=== PATIENT | female | born 1945 | race Caucasian/White ===

== ENCOUNTER 2020-12-17 11:30 | Outpatient (REF) | payer MEDICARE, BC, SELFPAY ==
[2020-12-17 13:56] LABS: MANUAL DIFF FLAG NO
[2020-12-17 14:08] LABS: Basophils Absolute Auto 0.1 X10*3/uL (0.0-0.2); Basophils Percent Auto 1.3 % (0-2); Eosinophils Absolute Auto 0.3 X10*3/uL (0.0-0.4); Eosinophils Percent Auto 6.9 % (0-4); Hemoglobin 12.2 g/dl (12.0-16.0); Imm Gran Abs Auto 0.01 X10*3/uL (0.00-0.03); Imm Gran Pct Auto 0.3 % (0.0-0.4); Lymphocytes Percent Auto 26.6 % (20-40); Mean Corpuscular Hemoglobin 36.4 pg (27.0-33.0); Mean Platelet Volume 9.6 fL (9.4-12.3); Monocytes Absolute Auto 0.4 X10*3/uL (0.1-1.2); Neutrophils Absolute Auto 2.2 X10*3/uL (2.0-8.3); Neutrophils Percent Auto 55.9 % (45-73); Platelet Count 245 X10*3/uL (160-400); Red Blood Count 3.35 X10*6/uL (4.20-5.50); Red Cell Distribution Width 12.5 % (11.0-16.0); White Blood Count 3.9 X10*3/uL (4.8-10.8)
[2020-12-17 14:15] LABS: Glucose Urine UA NEG (NEG); Leukocyte Esterase Urine 1+ (NEG); Nitrite Urine NEG (NEG); PH 5.5 (5.0-8.0); Specific Gravity - Urine >= 1.030 (1.005-1.025); Urine Blood 1+ (NEG); Urine Ketones NEG (NEG); Urine Protein NEG (NEG-TRACE)
[2020-12-17 14:21] LABS: Appearance Urine HAZY; Color Urine YELLOW
[2020-12-17 14:24] LABS: Mean Corpuscular Volume 110.4 fL (80-98)
[2020-12-17 14:36] LABS: Bacteria Urine TRACE /LPF; Mucus Urine 1+ /LPF; RBC Urine 0-2 /HPF (0); Renal Epithelial Cells Urine 1+ /LPF; Squamous Epithelial Cell Urine 1+ /LPF
[2020-12-17 14:56] LABS: B Type Natriuretic Peptide 239 pg/mL (<100)
[2020-12-17 15:10] LABS: Alanine Aminotransferase 11 U/L (0-31); Albumin Level 3.8 g/dL (3.5-5.0); Alkaline Phosphatase 85 U/L (39-117); Anion Gap 16 (12-20); Aspartate Amino Transferase 15 U/L (5-31); Bilirubin Total 0.7 mg/dL (0.0-1.0); Blood Urea Nitrogen 17 mg/dL (9-16); Calcium 8.8 mg/dL (8.4-10.2); Carbon Dioxide 22 mmol/L (22-29); Chloride 107 mmol/L (96-108); Cholesterol 117 mg/dL; Estimated Glomerular Filt Rate 51; Glucose Fasting 100 mg/dL (60-99); HDL Cholesterol 22 mg/dL; LDL Cholesterol Calculated 83 mg/dl; Potassium 3.8 mmol/L (3.3-5.1); Sodium 141 mmol/L (135-145); Total Protein 6.4 g/dL (6.5-8.0); Triglycerides 61 mg/dL
[2020-12-17 15:16] LABS: Thyroid Stimulating Hormone 3.15 uIU/mL (0.32-4.0); Vitamin D 25-OH Total 41.3 ng/mL (>30)
== END 2020-12-17 11:31 | disposition home or self-care (01) ==
LOC: HO.HMGCLDS 11:30
PROVIDERS: PCP Internal Medicine; Visit Provider Internal Medicine
DX: I11.0 Hypertensive heart disease with heart failure (principal); I50.30 Unspecified diastolic (congestive) heart failure; E78.00 Pure hypercholesterolemia, unspecified; E55.9 Vitamin D deficiency, unspecified; R31.29 Other microscopic hematuria
CPT/HCPCS: 36415; 80053; 80061; 81001; 81003; 82306; 83880; 84443; 85025

== ENCOUNTER → 2020-12-19 13:56 | Outpatient (BNVA) | payer MEDICARE, BC, SELFPAY | PROVIDERS: PCP Internal Medicine; Visit Provider Internal Medicine Cardiovascular Disease | DX: I48.0 Paroxysmal atrial fibrillation (principal); I50.30 Unspecified diastolic (congestive) heart failure | CPT/HCPCS: 93005; 99212 ==

== ENCOUNTER 2021-06-30 14:55 | Outpatient (REF) | payer MEDICARE, BC, SELFPAY ==
[2021-06-30 16:24] LABS: MANUAL DIFF FLAG NO
[2021-06-30 16:30] LABS: Appearance Urine CLEAR; Color Urine YELLOW; Glucose Urine UA NEG (NEG); Leukocyte Esterase Urine 1+ (NEG); Nitrite Urine NEG (NEG); PH 5.5 (5.0-8.0); Urine Blood TRACE (NEG); Urine Ketones NEG (NEG); Urine Protein NEG (NEG-TRACE)
[2021-06-30 16:34] LABS: Basophils Absolute Auto 0.1 X10*3/uL (0.0-0.2); Basophils Percent Auto 1.1 % (0-2); Eosinophils Absolute Auto 0.4 X10*3/uL (0.0-0.4); Eosinophils Percent Auto 7.6 % (0-4); Hematocrit 37.6 % (37-47); Hemoglobin 12.5 g/dl (12.0-16.0); Imm Gran Abs Auto 0.03 X10*3/uL (0.00-0.03); Imm Gran Pct Auto 0.5 % (0.0-0.4); Lymphocytes Percent Auto 17.8 % (20-40); Mean Corpuscular HGB Conc 33.2 g/dl (31.0-35.0); Mean Corpuscular Hemoglobin 36.3 pg (27.0-33.0); Mean Corpuscular Volume 109.3 fL (80-98); Mean Platelet Volume 9.1 fL (9.4-12.3); Monocytes Absolute Auto 0.6 X10*3/uL (0.1-1.2); Monocytes Percent Auto 11.5 % (2-11); Neutrophils Absolute Auto 3.4 X10*3/uL (2.0-8.3); Neutrophils Percent Auto 61.5 % (45-73); Platelet Count 246 X10*3/uL (160-400); Red Blood Count 3.44 X10*6/uL (4.20-5.50); Red Cell Distribution Width 13.3 % (11.0-16.0); White Blood Count 5.6 X10*3/uL (4.8-10.8)
[2021-06-30 16:51] LABS: Alanine Aminotransferase 11 U/L (0-31); Albumin Level 3.9 g/dL (3.5-5.0); Alkaline Phosphatase 80 U/L (39-117); Anion Gap 13 (12-20); Aspartate Amino Transferase 16 U/L (5-31); Bilirubin Total 0.7 mg/dL (0.0-1.0); Blood Urea Nitrogen 14 mg/dL (9-16); Calcium 8.9 mg/dL (8.4-10.2); Carbon Dioxide 22 mmol/L (22-29); Chloride 107 mmol/L (96-108); Estimated Glomerular Filt Rate 49; Glucose Random 94 mg/dL (60-115); Sodium 138 mmol/L (135-145); Total Protein 6.5 g/dL (6.5-8.0)
[2021-06-30 16:53] LABS: B Type Natriuretic Peptide 331 pg/mL (<100)
[2021-06-30 16:54] LABS: Bacteria Urine TRACE /LPF; Hyaline Casts Urine 0-2 /LPF; Squamous Epithelial Cell Urine TRACE /LPF
== END 2021-06-30 14:56 | disposition home or self-care (01) ==
LOC: HO.HMGCLDS 14:55
PROVIDERS: PCP Internal Medicine; Visit Provider Internal Medicine
DX: E78.00 Pure hypercholesterolemia, unspecified (principal); R31.29 Other microscopic hematuria; I11.0 Hypertensive heart disease with heart failure; I50.30 Unspecified diastolic (congestive) heart failure
CPT/HCPCS: 36415; 80053; 81001; 83880; 85025

== ENCOUNTER → 2021-08-25 13:05 | Outpatient (BNVA) | payer MEDICARE, BC, SELFPAY | PROVIDERS: PCP Internal Medicine; Visit Provider Internal Medicine Cardiovascular Disease | DX: I50.30 Unspecified diastolic (congestive) heart failure (principal); I48.0 Paroxysmal atrial fibrillation | CPT/HCPCS: 99212 ==

== ENCOUNTER → 2021-10-09 12:50 | Outpatient (REF) | payer MEDICARE, BC, SELFPAY ==
--- NOTE | 2021-10-09 12:54 | CA_ITS ---
Transthoracic Echocardiogram Patient (Last, First, Middle): Iva Lopez M Gender: Female Date of : 1945 Age: 76 Procedure Date: 10/09/2021 Procedure Type: Transthoracic Echocardiogram Location: OP Height: 165.1 cm Weight: 97.52 kg BSA: 2.04 m2 Heart Rate: bpm BP: 130 / 80 mmHg Furnace Maintenance: AARON Referring MD: Ezekiel Garcia MD Symptoms: I50.30 - Unspecified diastolic (congestive) heart failure Study Quality: Fair ECG Rhythm: Sinus Conclusions: - The left ventricular systolic function is normal. The calculated ejection fraction is 64% by biplane method. - Evidence suggests grade II (moderate) diastolic dysfunction. - There is mild aortic valve regurgitation. - There is moderate posterior mitral annular calcification. There is mild mitral valve regurgitation. Findings Left Ventricle Normal left ventricular cavity size. There is mildly increased left ventricular wall thickness. The left ventricular systolic function is normal. The calculated ejection fraction is 64% by biplane method. There is no evidence of regional wall motion abnormalities. E/E prime ratio is between 8 and 15 consistent with indeterminate filling pressures. Evidence suggests grade II (moderate) diastolic dysfunction. Right Ventricle Normal right ventricular cavity size and systolic function. Atria The left atrium is moderately dilated. The right atrium is normal in size. Aortic Valve There is a normal trileaflet aortic valve. There is no aortic valve stenosis. The mean gradient is 4 mmHg. There is mild aortic valve regurgitation. Mitral Valve There is moderate posterior mitral annular calcification. There is mild mitral valve regurgitation. There is no mitral valve stenosis. Pulmonic Valve The pulmonic valve was not well visualized. Tricuspid Valve Normal tricuspid valve structure. There is mild tricuspid valve regurgitation. The right ventricular systolic pressure is 35 mmHg. Mild pulmonary hypertension is present. Great Vessels The aortic annulus, sinuses of valsalva, and asc aorta are normal in size. Small plaque is seen in the sino tubular ridge. Venous The inferior vena cava is normal in size and collapses greater than 50% with inspiration. Pericardium/Pleural There is no evidence of pericardial effusion. Prior Study Comparison Changes noted compared to prior study dated: 07/24/2019. Increase in RVSP. Measurements 2D Linear Measurements IVSd: 1.30 0.6-0.9/0.6-1.0 cm LVIDd: 4.89 3.9-5.3/4.2-5.9 cm LVIDd Index: 2.40 2.4-3.2/2.2-3.1 cm/m2 LVIDs: 3.04 2.0-3.6 cm LVPWd: 1.10 0.7-1.1 cm Ao Root: 3.30 2.1-3.5 cm LA Diam: 4.50 2.7-3.8/3.0-4.0 cm LAIDs Index: 2.21 1.5-2.3 cm/m2 LV Mass: 281.31 67-162/88-224 g LV Mass Index: 137.90 43-95/49-115 g/m2 LVOT Diam: 1.90 3.0+(-)1.3 cm 2D Systolic Function EF 4C: 64.90 >55% EF 2C: 63.00 >55% EF BiP: 64.40 >55% Mitral Valve MV Pk E: 1.07 MV PK A: 0.55 MV Decel Time: 174.00 E/A: 2.00 E'Lateral: 8.81 E'Medial: 6.74 E/E' Med: 15.90 E/E' Lat: 12.10 PHT: 51.00 MVA PHT: 4.31 Decel [place]: 6.13 Aortic Valve AoV Pk Jesu: 1.27 AoV Mn Jesu: 0.91 AoV VTI: 0.32 AoV Pk Grad: 6.00 Aov Mn Grad: 4.00 ALEKSANDAR Cont.VTI: 2.53 AI Pk Jesu: 4.06 AI [place]: 2.28 LVOT LVOT Pk Jesu: 1.15 LVOT Mn Jesu: 0.81 LVOT VTI: 0.28 LVOT Pk Grad: 5.00 LVOT Mn Grad: 3.00 LVOT Diam: 1.90 LVOT Area: 2.84 Diastolic Function MV Pk E: 1.07 MV Pk A: 0.55 E/A: 2.00 E'Medial: 6.74 E/E' Med: 15.90 E' Laterial: 8.81 E/E' Lat: 12.10 Right Ventricle TAPSE (mm): 26.20 TVS' Jesu: 13.70 Tricuspid Valve TR Pk Jesu: 2.61 TR Pk Grad: 27.00 RA Press: 8.00 RVSP: 35.00 Great Vessels Aorta Ao Root-2D: 3.30 2.0-3.7 cm Ao Asc: 3.40 2.1-3.4 cm Ao Arch: 3.00 Updated in Other Vendor System with Status of Final Rei Lozoya MD electronically signed on 10/11/2021 8:51:52 AM with status of Final
== END ==
LOC: HO.CARD 12:50
PROVIDERS: PCP Internal Medicine; Visit Provider Internal Medicine Cardiovascular Disease
DX: I50.30 Unspecified diastolic (congestive) heart failure (principal)
CPT/HCPCS: 93306

== ENCOUNTER 2021-12-26 13:08 | Outpatient (REF) | payer MEDICARE, BC, SELFPAY ==
[2021-12-26 13:44] LABS: MANUAL DIFF FLAG NO
[2021-12-26 13:52] LABS: Basophils Percent Auto 0.8 % (0-2); Eosinophils Absolute Auto 0.4 X10*3/uL (0.0-0.4); Eosinophils Percent Auto 8.4 % (0-4); Hemoglobin 12.5 g/dl (12.0-16.0); Imm Gran Abs Auto 0.02 X10*3/uL (0.00-0.03); Imm Gran Pct Auto 0.4 % (0.0-0.4); Mean Corpuscular HGB Conc 32.1 g/dl (31.0-35.0); Mean Corpuscular Hemoglobin 36.2 pg (27.0-33.0); Monocytes Absolute Auto 0.4 X10*3/uL (0.1-1.2); Neutrophils Absolute Auto 2.9 x10*3/uL (2.0-8.3); Neutrophils Percent Auto 60.4 % (45-73); Platelet Count 265 X10*3/uL (160-400); Red Blood Count 3.45 X10*6/uL (4.20-5.50); Red Cell Distribution Width 12.4 % (11.0-16.0); White Blood Count 4.8 X10*3/uL (4.8-10.8)
[2021-12-26 14:25] LABS: Carbon Dioxide 25 mmol/L (22-29)
[2021-12-26 14:32] LABS: Vitamin D 25-OH Total 41.8 ng/mL (>30)
[2021-12-26 14:39] LABS: Alanine Aminotransferase 15 U/L (0-31); Albumin Level 3.8 g/dL (3.5-5.0); Alkaline Phosphatase 84 U/L (39-117); Anion Gap 10 (12-20); Aspartate Amino Transferase 16 U/L (5-31); Bilirubin Total 0.6 mg/dL (0.0-1.0); Blood Urea Nitrogen 20 mg/dL (9-16); Chloride 109 mmol/L (96-108); Cholesterol 116 mg/dL; Estimated Glomerular Filt Rate 50; Glucose Fasting 96 mg/dL (60-99); HDL Cholesterol 22 mg/dL; LDL Cholesterol Calculated 82 mg/dl; Sodium 140 mmol/L (135-145); Total Protein 6.6 g/dL (6.5-8.0); Triglycerides 64 mg/dL
== END 2021-12-26 13:09 | disposition home or self-care (01) ==
LOC: HO.HMGCLDS 13:08
PROVIDERS: PCP Internal Medicine; Visit Provider Internal Medicine Cardiovascular Disease
DX: E78.00 Pure hypercholesterolemia, unspecified (principal); I11.0 Hypertensive heart disease with heart failure; I50.30 Unspecified diastolic (congestive) heart failure; E55.9 Vitamin D deficiency, unspecified
CPT/HCPCS: 36415; 80048; 80053; 80061; 82306; 84443; 85025

== ENCOUNTER 2022-01-19 13:52 | Outpatient (REF) | payer MEDICARE, BC, SELFPAY ==
[2022-01-19 16:34] LABS: MANUAL DIFF FLAG NO
[2022-01-19 16:42] LABS: Basophils Percent Auto 0.4 % (0-2); Eosinophils Absolute Auto 0.4 X10*3/uL (0.0-0.4); Eosinophils Percent Auto 5.1 % (0-4); Hematocrit 36.4 % (37.0-47.0); Imm Gran Pct Auto 1.3 % (0.0-0.4); Lymphocytes Absolute Auto 1.4 X10*3/uL (1.2-4.9); Lymphocytes Percent Auto 17.4 % (20-40); Mean Corpuscular Hemoglobin 35.9 pg (27.0-33.0); Mean Platelet Volume 9.1 fL (9.4-12.3); Monocytes Absolute Auto 0.6 X10*3/uL (0.1-1.2); Neutrophils Absolute Auto 5.5 x10*3/uL (2.0-8.3); Neutrophils Percent Auto 68.8 % (45-73); Platelet Count 372 X10*3/uL (160-400); Red Blood Count 3.34 X10*6/uL (4.20-5.50); Red Cell Distribution Width 12.1 % (11.0-16.0)
[2022-01-19 16:53] LABS: Alanine Aminotransferase 14 U/L (0-31); Albumin Level 3.7 g/dL (3.5-5.0); Alkaline Phosphatase 133 U/L (39-117); Anion Gap 13 (12-20); Aspartate Amino Transferase 15 U/L (5-31); Bilirubin Total 0.4 mg/dL (0.0-1.0); Blood Urea Nitrogen 18 mg/dL (9-16); Calcium 8.7 mg/dL (8.4-10.2); Carbon Dioxide 26 mmol/L (22-29); Chloride 102 mmol/L (96-108); Estimated Glomerular Filt Rate 45; Glucose Random 116 mg/dL (60-115); Potassium 3.6 mmol/L (3.3-5.1); Sodium 137 mmol/L (135-145); Total Protein 6.9 g/dL (6.5-8.0)
== END 2022-01-19 13:53 | disposition home or self-care (01) ==
LOC: HO.HMGCLDS 13:52
PROVIDERS: PCP Internal Medicine; Visit Provider Internal Medicine
DX: K27.9 Peptic ulcer, site unspecified, unspecified as acute or chronic, without hemorrhage or perforation (principal)
CPT/HCPCS: 36415; 80053; 85025

== ENCOUNTER → 2022-02-03 14:23 | Outpatient (BNVA) | payer MEDICARE, BC, SELFPAY | PROVIDERS: PCP Internal Medicine; Visit Provider Internal Medicine | DX: G47.33 Obstructive sleep apnea (adult) (pediatric) (principal); I48.0 Paroxysmal atrial fibrillation; I11.0 Hypertensive heart disease with heart failure; I50.30 Unspecified diastolic (congestive) heart failure | CPT/HCPCS: 99202 ==

== ENCOUNTER 2022-02-13 12:40 | Outpatient (REF) | payer MEDICARE, BC, SELFPAY ==
[2022-02-13 13:56] LABS: MANUAL DIFF FLAG NO
[2022-02-13 14:05] LABS: Basophils Absolute Auto 0.1 X10*3/uL (0.0-0.2); Basophils Percent Auto 0.8 % (0-2); Eosinophils Absolute Auto 0.5 X10*3/uL (0.0-0.4); Eosinophils Percent Auto 8.3 % (0-4); Hemoglobin 11.8 g/dl (12.0-16.0); Imm Gran Abs Auto 0.02 X10*3/uL (0.00-0.03); Imm Gran Pct Auto 0.3 % (0.0-0.4); Lymphocytes Absolute Auto 1.1 X10*3/uL (1.2-4.9); Lymphocytes Percent Auto 18.9 % (20-40); Mean Corpuscular HGB Conc 31.9 g/dl (31.0-35.0); Mean Corpuscular Hemoglobin 34.5 pg (27.0-33.0); Mean Corpuscular Volume 108.2 fL (80.0-98.0); Mean Platelet Volume 9.3 fL (9.4-12.3); Monocytes Absolute Auto 0.5 X10*3/uL (0.1-1.2); Monocytes Percent Auto 8.8 % (2-11); Neutrophils Absolute Auto 3.8 x10*3/uL (2.0-8.3); Neutrophils Percent Auto 62.9 % (45-73); Platelet Count 279 X10*3/uL (160-400); Red Blood Count 3.42 X10*6/uL (4.20-5.50)
[2022-02-13 14:24] LABS: Alanine Aminotransferase 11 U/L (0-31); Albumin Level 3.8 g/dL (3.5-5.0); Alkaline Phosphatase 83 U/L (39-117); Anion Gap 12 (12-20); Aspartate Amino Transferase 15 U/L (5-31); Bilirubin Total 0.5 mg/dL (0.0-1.0); Blood Urea Nitrogen 28 mg/dL (9-16); Carbon Dioxide 26 mmol/L (22-29); Chloride 104 mmol/L (96-108); Estimated Glomerular Filt Rate 44; Glucose Random 103 mg/dL (60-115); Sodium 138 mmol/L (135-145); Total Protein 6.7 g/dL (6.5-8.0)
== END 2022-02-13 12:41 | disposition home or self-care (01) ==
LOC: HO.HMGCLDS 12:40
PROVIDERS: PCP Internal Medicine; Visit Provider Internal Medicine
DX: I10 Essential (primary) hypertension (principal)
CPT/HCPCS: 36415; 80053; 85025

== ENCOUNTER → 2022-02-19 12:33 | Outpatient (BNVA) | payer MEDICARE, BC, SELFPAY | PROVIDERS: PCP Internal Medicine; Referring Provider Internal Medicine; Visit Provider Internal Medicine Cardiovascular Disease | DX: I50.30 Unspecified diastolic (congestive) heart failure (principal); I48.0 Paroxysmal atrial fibrillation; Z79.01 Long term (current) use of anticoagulants; Z79.899 Other long term (current) drug therapy | CPT/HCPCS: 93005; 99212 ==

== ENCOUNTER → 2022-02-25 14:00 | Outpatient (REF) | payer MEDICARE, BC, SELFPAY | LOC: HO.SL 14:00 | PROVIDERS: PCP Internal Medicine; Visit Provider Internal Medicine | DX: G47.33 Obstructive sleep apnea (adult) (pediatric) (principal); E66.01 Morbid (severe) obesity due to excess calories; I10 Essential (primary) hypertension; I50.30 Unspecified diastolic (congestive) heart failure; I48.0 Paroxysmal atrial fibrillation | CPT/HCPCS: 95806 ==

== ENCOUNTER 2022-04-22 11:37 | Outpatient (REF) | payer MEDICARE, BC, SELFPAY ==
[2022-04-22 13:38] LABS: MANUAL DIFF FLAG NO
[2022-04-22 13:43] LABS: Basophils Absolute Auto 0.1 X10*3/uL (0.0-0.2); Eosinophils Absolute Auto 0.5 X10*3/uL (0.0-0.4); Eosinophils Percent Auto 8.3 % (0-4); Hematocrit 33.7 % (37.0-47.0); Hemoglobin 10.7 g/dl (12.0-16.0); Imm Gran Abs Auto 0.02 X10*3/uL (0.00-0.03); Imm Gran Pct Auto 0.3 % (0.0-0.4); Lymphocytes Percent Auto 17.1 % (20-40); Mean Corpuscular HGB Conc 31.8 g/dl (31.0-35.0); Mean Corpuscular Hemoglobin 32.8 pg (27.0-33.0); Mean Corpuscular Volume 103.4 fL (80.0-98.0); Mean Platelet Volume 9.2 fL (9.4-12.3); Monocytes Absolute Auto 0.6 X10*3/uL (0.1-1.2); Monocytes Percent Auto 10.1 % (2-11); Neutrophils Absolute Auto 3.8 x10*3/uL (2.0-8.3); Neutrophils Percent Auto 63.2 % (45-73); Platelet Count 329 X10*3/uL (160-400); Red Blood Count 3.26 X10*6/uL (4.20-5.50); Red Cell Distribution Width 13.2 % (11.0-16.0)
[2022-04-22 14:00] LABS: Alanine Aminotransferase 9 U/L (0-31); Albumin Level 3.9 g/dL (3.5-5.0); Alkaline Phosphatase 80 U/L (39-117); Anion Gap 15 (12-20); Aspartate Amino Transferase 14 U/L (5-31); Bilirubin Total 0.3 mg/dL (0.0-1.0); Blood Urea Nitrogen 27 mg/dL (9-16); Calcium 9.2 mg/dL (8.4-10.2); Carbon Dioxide 22 mmol/L (22-29); Chloride 108 mmol/L (96-108); Cholesterol 122 mg/dL; Estimated Glomerular Filt Rate 41; Glucose Fasting 107 mg/dL (60-99); HDL Cholesterol 24 mg/dL; LDL Cholesterol Calculated 83 mg/dl; Potassium 3.9 mmol/L (3.3-5.1); Sodium 141 mmol/L (135-145); Total Protein 6.9 g/dL (6.5-8.0); Triglycerides 76 mg/dL
[2022-04-22 14:18] LABS: Thyroid Stimulating Hormone 4.18 uIU/mL (0.32-4.0); Vitamin D 25-OH Total 50.2 ng/mL (>30)
== END 2022-04-22 11:38 | disposition home or self-care (01) ==
LOC: HO.HMGCLDS 11:37
PROVIDERS: Visit Provider Internal Medicine
DX: I11.0 Hypertensive heart disease with heart failure (principal); E78.00 Pure hypercholesterolemia, unspecified; E55.9 Vitamin D deficiency, unspecified; I50.30 Unspecified diastolic (congestive) heart failure
CPT/HCPCS: 36415; 80053; 80061; 82306; 84443; 85025

== ENCOUNTER → 2022-07-27 15:02 | Outpatient (BNVA) | payer MEDICARE, BC, SELFPAY | PROVIDERS: PCP Internal Medicine; Visit Provider Internal Medicine | DX: G47.33 Obstructive sleep apnea (adult) (pediatric) (principal); E66.01 Morbid (severe) obesity due to excess calories; Z68.42 Body mass index [BMI] 45.0-49.9, adult | CPT/HCPCS: 99212 ==

== ENCOUNTER → 2023-01-18 14:48 | Outpatient (BNVA) | payer MEDICARE, BC, SELFPAY | PROVIDERS: PCP Internal Medicine; Visit Provider Internal Medicine | DX: G47.33 Obstructive sleep apnea (adult) (pediatric) (principal); I48.0 Paroxysmal atrial fibrillation; I11.0 Hypertensive heart disease with heart failure; I50.30 Unspecified diastolic (congestive) heart failure; E66.01 Morbid (severe) obesity due to excess calories; Z68.42 Body mass index [BMI] 45.0-49.9, adult; Z99.89 Dependence on other enabling machines and devices; Z98.890 Other specified postprocedural states | CPT/HCPCS: 99212 ==

== ENCOUNTER 2023-04-27 17:09 | Inpatient (IN) | payer MEDICARE, BC, SELFPAY ==
--- NOTE | ~2023-04-27 | US_ITS ---
EXAMINATION: US PELVIS CLINICAL INFORMATION: Vaginal bleeding. Postmenopausal. COMPARISON: CT abdomen/pelvis 07/31/2014. TECHNIQUE: Ultrasound of the pelvis is performed using both transabdominal and transvaginal transducers along with Doppler. Transvaginal imaging is performed due to inadequate visualization transabdominally. FINDINGS: Very limited examination secondary to patient body habitus and shadowing from overlying bowel gas. The uterus is anteverted and measures 9.5 x 3.3 x 5.4 cm. Scattered hyperechoic foci are noted in the myometrium which are nonspecific but overall favored to represent calcifications, possibly sequela of degenerative fibroids. The endometrium is suboptimally delineated and not well seen in this examination. The ovaries are not visualized. No discrete adnexal mass. No large amount of free fluid. US/US pelvic and transvaginal IMPRESSION: Very limited examination secondary to patient body habitus and shadowing from overlying bowel gas. Further imaging with CT or MRI could be obtained as clinically indicated. Endometrium not well seen. Ovaries are not visualized. No discrete adnexal mass. No large volume of free fluid.
[2023-04-27 17:20] VITALS: BP 111/49; BP 156/69; PULSE 72; PULSE 75; RESP 20; TEMP 36.8; O2SAT 95; O2SAT 99; BMI 52.1
--- NOTE | 2023-04-27 18:02 | ED.FEMALEGU ---
HPI - Female Genitourinary General Chief complaint: Vaginal Bleeding Stated complaint: Vaginal bleed Time Seen by Provider: 04/27/23 17:39 Source: patient Mode of arrival: ambulatory Limitations: no limitations History of Present Illness HPI Narrative: Patient history of atrial fibrillation on Xarelto been having vaginal bleeding for the past 6 weeks off and on blood for 4 weeks.stopped for 1 week and started again for last 10 days passing clots and blood tinged urine no melena no abdominal pain feel dizzy lightheaded and short of breath on ambulation no chest pain Related Data Home Medications Medication Instructions Recorded Confirmed atenolol 50 mg tablet 50 mg PO DAILY 12/19/20 04/27/23 atorvastatin 40 mg tablet 40 mg PO DAILY 12/19/20 04/27/23 cholecalciferol (vitamin D3) 50 50 mcg PO DAILY 12/19/20 04/27/23 mcg (2,000 unit) capsule escitalopram oxalate 20 mg tablet 20 mg PO DAILY 12/19/20 04/27/23 megestrol 40 mg tablet 40 mg PO DAILY 12/19/20 04/27/23 thiamine HCl (vitamin B1) 100 mg 100 mg PO DAILY 12/19/20 04/27/23 tablet omeprazole 40 mg capsule,delayed 40 mg PO DAILY 02/19/22 04/27/23 release gabapentin 300 mg capsule 300 mg PO BID 01/18/23 04/27/23 acetaminophen 650 mg 1,300 mg PO Q8H 04/27/23 04/27/23 tablet,extended release (Tylenol 8 Hour) bumetanide 1 mg tablet 1 mg PO DAILY 04/27/23 04/27/23 Previous Rx's Medication Instructions Recorded rivaroxaban 20 mg tablet (Xarelto) 20 mg PO QPM #90 tabs 07/07/22 Allergies Allergy/AdvReac Type Severity Reaction Status Date / Time amoxicillin [AMOXICILLIN] Allergy Unknown UNKNOWN Unverified 01/18/23 15:56 flecainide [FLECAINIDE] Allergy Unknown SEVERE Unverified 01/18/23 15:56 CHEST PAIN Sulfa (Sulfonamide Allergy Unknown UNKNOWN Unverified 01/18/23 15:56 Antibiotics) [SULFA (SULFONAMIDE ANTIBIOTICS)] Review of Systems Review of Systems: Yes all other systems are reviewed and are negative PMFSH Past Medical History Medical History (HFpEF) heart failure with preserved ejection fraction Chronic a-fib HTN (hypertension) Morbid obesity JANI (obstructive sleep apnea) Paroxysmal atrial fibrillation Surgical History History of cardioversion History of hip surgery Hx of cardiac cath Family History Family History Father CVD (cardiovascular disease) Mother CHF (congestive heart failure) Social History Social History Alcohol intake: former Patient Tobacco Use Status: Former Tobacco user Smoked in Last 30 Days: No Use of substances other than those prescribed or required for medical reasons: No Advance Directives: No Advance Directives Information Provided: No Nutrition Risks: No Nutritional Risk Physical Exam Vital Signs: Vital Signs: Last Vital Signs Temp 98.4 F 04/28/23 00:49 Pulse 69 04/28/23 00:49 Resp 22 H 04/28/23 00:49 BP 134/47 L 04/28/23 00:49 Pulse Ox 99 04/28/23 00:20 O2 Del Method Room Air 04/28/23 00:20 BMI result Body Mass Index 52.1 Appearance: Alert. Oriented X3. No acute distress. Eyes: PERRLA, No Nystagmus pallor++ ENT: Pharynx normal. Oral Mucosa moist Neck: Normal inspection. Neck supple. CVS: Irregularly irregular heart rate no murmur/rub. Pulses normal. Respiratory: No respiratory distress. Equal air entry bilateral, no wheezing/rales/rhonchi Abdomen: Soft and nontender. Bowel sounds are present, no mass palpable, no CVA tenderness Skin: Skin warm and dry. Normal skin color. Normal skin turgor. Extremities: No lower extremity edema. No calf tenderness Neuro: Oriented X 3. No motor deficit. No sensory deficit.No cerebellar signs , cranial nerves II-XII intact Medications Administered Discontinued Medications Generic Name Dose Route Start Last Admin Trade Name Freq PRN Reason Stop Dose Admin Sodium Chloride 100 mls @ 100 mls/hr 04/27/23 19:09 04/28/23 00:52 Ns IV 04/27/23 20:08 Infused ONCE ONE Infusion Medical Decision Making Medical Decision Making [facility] Narrative: Patient has significant vaginal bleed passing blood clots in the ER with symptomatic anemia case discussed with Dr. Fox gynecology advised to have medical admission and evaluation as inor outpatient if bleeding continued Differential Diagnosis Differential Diagnoses: The differential diagnosis associated with the presentation includes Uterine fibroid/endometrial carcinoma/side effect of Xarelto Admission/Observation Consideration of admission/observation: Escalation of care including admission/observation considered Consult Healthcare Provider Management of the patient was discussed with: Hospitalist Lab Data [facility] Lab Attestation statement: I reviewed the patient's lab results. 04/27/23 18:25 04/27/23 18:25 Labs: Lab Results 04/27/23 04/27/23 04/27/23 Range/Units 18:25 18:25 18:25 WBC 6.2 (4.8-10.8) X10*3/uL RBC 2.49 L D (4.20-5.50) X10*6/uL Hgb 7.3 L D (12.0-16.0) g/dl Hct 24.0 L D (37.0-47.0) % MCV 96.4 (80.0-98.0) fL MCH 29.3 (27.0-33.0) pg MCHC 30.4 L (31.0-35.0) g/dl RDW 17.0 H (11.0-16.0) % Plt Count 283 (160-400) X10*3/uL MPV 8.5 L (9.4-12.3) fL Immature Gran % (Auto) 0.5 H (0.0-0.4) % Neut % (Auto) 63.5 (45-73) % Lymph % (Auto) 20.9 (20-40) % Forrest % (Auto) 9.8 (2-11) % Eos % (Auto) 4.3 H (0-4) % Baso % (Auto) 1.0 (0-2) % Lymph # (Auto) 1.3 (1.2-4.9) X10*3/uL Forrest # (Auto) 0.6 (0.1-1.2) X10*3/uL Eos # (Auto) 0.3 (0.0-0.4) X10*3/uL Baso # (Auto) 0.1 (0.0-0.2) X10*3/uL Abs Immat Gran (auto) 0.03 (0.00-0.03) X10*3/uL Absolute Neuts (auto) 4.0 (2.0-8.3) x10*3/uL Absolute Nucleated RBC 0.000 (0.0-0.012) X10*3/uL Nucleated RBC % (auto) 0.0 (0.0-0.2) /100WBC PT 19.7 H (11.1-13.3) SEC INR 1.6 H (0.9-1.1) Sodium 141 (135-145) mmol/L Potassium 4.3 (3.3-5.1) mmol/L Chloride 111 H (96-108) mmol/L Carbon Dioxide 19 L (22-29) mmol/L Anion Gap 15 (12-20) BUN 18 H (9-16) mg/dL Creatinine 1.00 (0.5-1.4) mg/dL Estim Creat Clear Calc 68.7 Estimated GFR 54 Random Glucose 95 (60-115) mg/dL Calcium 8.9 (8.4-10.2) mg/dL Magnesium 2.3 (1.6-2.6) mg/dL Total Bilirubin 0.4 (0.0-1.0) mg/dL AST 14 (5-31) U/L ALT 10 (0-31) U/L Alkaline Phosphatase 68 (39-117) U/L Total Protein 6.5 (6.5-8.0) g/dL Albumin 3.6 (3.5-5.0) g/dL Blood Type Antibody Screen Crossmatch 04/27/23 Range/Units 19:33 WBC (4.8-10.8) X10*3/uL RBC (4.20-5.50) X10*6/uL Hgb (12.0-16.0) g/dl Hct (37.0-47.0) % MCV (80.0-98.0) fL MCH (27.0-33.0) pg MCHC (31.0-35.0) g/dl RDW (11.0-16.0) % Plt Count (160-400) X10*3/uL MPV (9.4-12.3) fL Immature Gran % (Auto) (0.0-0.4) % Neut % (Auto) (45-73) % Lymph % (Auto) (20-40) % Forrest % (Auto) (2-11) % Eos % (Auto) (0-4) % Baso % (Auto) (0-2) % Lymph # (Auto) (1.2-4.9) X10*3/uL Forrest # (Auto) (0.1-1.2) X10*3/uL Eos # (Auto) (0.0-0.4) X10*3/uL Baso # (Auto) (0.0-0.2) X10*3/uL Abs Immat Gran (auto) (0.00-0.03) X10*3/uL Absolute Neuts (auto) (2.0-8.3) x10*3/uL Absolute Nucleated RBC (0.0-0.012) X10*3/uL Nucleated RBC % (auto) (0.0-0.2) /100WBC PT (11.1-13.3) SEC INR (0.9-1.1) Sodium (135-145) mmol/L Potassium (3.3-5.1) mmol/L Chloride (96-108) mmol/L Carbon Dioxide (22-29) mmol/L Anion Gap (12-20) BUN (9-16) mg/dL Creatinine (0.5-1.4) mg/dL Estim Creat Clear Calc Estimated GFR Random Glucose (60-115) mg/dL Calcium (8.4-10.2) mg/dL Magnesium (1.6-2.6) mg/dL Total Bilirubin (0.0-1.0) mg/dL AST (5-31) U/L ALT (0-31) U/L Alkaline Phosphatase (39-117) U/L Total Protein (6.5-8.0) g/dL Albumin (3.5-5.0) g/dL Blood Type AB Positive Antibody Screen NEGATIVE Crossmatch See Detail Independent Interpretation I performed an independent interpretation of an: EKG Interpretation: Normal sinus rhythm heart rate 74 beats per minute normal intervals normal ST T-wave , no acute ischemia Discharge Plan Discharge Clinical Impression: Anemia, Vaginal bleeding Patient Disposition: Admitted As Inpatient
--- NOTE | 2023-04-27 18:03 | ECG_ITS ---
Test Reason : BLEDDING Blood Pressure : / mmHG Vent. Rate : 074 BPM Atrial Rate : 074 BPM P-R Int : 180 ms QRS Dur : 076 ms QT Int : 404 ms P-R-T Axes : 076 -14 062 degrees QTc Int : 448 ms Normal sinus rhythm Nonspecific ST and T wave abnormality Borderline ECG When compared with ECG of 11-FEB-2019 01:40, No significant changes seen Referred By: Santana Dotson Electronically Signed By:BERNA BECK
[2023-04-27 18:30] LABS: MANUAL DIFF FLAG NO
[2023-04-27 18:31] LABS: Basophils Absolute Auto 0.1 X10*3/uL (0.0-0.2); Eosinophils Absolute Auto 0.3 X10*3/uL (0.0-0.4); Eosinophils Percent Auto 4.3 % (0-4); Hemoglobin 7.3 g/dl (12.0-16.0); Imm Gran Abs Auto 0.03 X10*3/uL (0.00-0.03); Imm Gran Pct Auto 0.5 % (0.0-0.4); Lymphocytes Absolute Auto 1.3 X10*3/uL (1.2-4.9); Lymphocytes Percent Auto 20.9 % (20-40); Mean Corpuscular HGB Conc 30.4 g/dl (31.0-35.0); Mean Corpuscular Hemoglobin 29.3 pg (27.0-33.0); Mean Corpuscular Volume 96.4 fL (80.0-98.0); Mean Platelet Volume 8.5 fL (9.4-12.3); Monocytes Absolute Auto 0.6 X10*3/uL (0.1-1.2); Monocytes Percent Auto 9.8 % (2-11); Neutrophils Percent Auto 63.5 % (45-73); Platelet Count 283 X10*3/uL (160-400); Red Blood Count 2.49 X10*6/uL (4.20-5.50); White Blood Count 6.2 X10*3/uL (4.8-10.8)
[2023-04-27 18:47] LABS: Alanine Aminotransferase 10 U/L (0-31); Albumin Level 3.6 g/dL (3.5-5.0); Alkaline Phosphatase 68 U/L (39-117); Anion Gap 15 (12-20); Aspartate Amino Transferase 14 U/L (5-31); Bilirubin Total 0.4 mg/dL (0.0-1.0); Blood Urea Nitrogen 18 mg/dL (9-16); Calcium 8.9 mg/dL (8.4-10.2); Carbon Dioxide 19 mmol/L (22-29); Chloride 111 mmol/L (96-108); Creatinine Clr Calc Pharmacy 68.7; Estimated Glomerular Filt Rate 54; Glucose Random 95 mg/dL (60-115); Magnesium 2.3 mg/dL (1.6-2.6); Potassium 4.3 mmol/L (3.3-5.1); Sodium 141 mmol/L (135-145); Total Protein 6.5 g/dL (6.5-8.0)
[2023-04-27 18:51] LABS: INTERNATIONAL NORM RATIO 1.6 (0.9-1.1); Prothrombin Time 19.7 SEC (11.1-13.3)
[2023-04-27 19:43] VITALS: BP 164/57; PULSE 93; RESP 12; TEMP 36.6
--- NOTE | 2023-04-27 19:47 | PHA.MEDREC ---
Pharmacy Consult ? Medication Reconciliation Pharmacy has completed the medication reconciliation. Patient confirmed all medications. Reports taking bumex daily instead of PRN. Hannah Conway, YangD
[2023-04-27 21:30] VITALS: BP 144/58; PULSE 74; RESP 15; TEMP 37.1
--- NOTE | 2023-04-27 21:40 | PC.NURSE ---
First unit of RBC started. Pt aox4. VSS. No apparent distress noted. Tolerating well.
[2023-04-27 21:48] VITALS: BP 145/47; PULSE 65; RESP 18; TEMP 36.8
--- NOTE | 2023-04-27 21:49 | PC.NURSE ---
First unit of RBC's transfusing. No reaction noted. Pt reports no pain or discomfort at this time. Call de jesus within reach. Will continue to monitor.
[2023-04-27 22:57] VITALS: BP 126/42; PULSE 65; RESP 21; TEMP 36.8; O2SAT 96
--- NOTE | 2023-04-27 23:29 | PM.IMHP ---
History of Present Illness Date of Service: 04/27/23 Chief Complaint: Vaginal bleeding This is a 77-year-old female with pertinent history of paroxysmal atrial fibrillation on anticoagulation, gastroesophageal reflux disease, mood disorder, essential hypertension, mixed hyperlipidemia, peripheral neuropathy who presents to the emergency department for evaluation of vaginal bleeding. Patient states it started 4 weeks prior to presentation. She had a break for 2 weeks and then it restarted. Patient has been having associated dizziness and lightheadedness. Also has been having dyspnea with ambulation. Patient states she had similar episode 8 years ago when she was started on megestrol. She denies fever, chills, chest discomfort, palpitations, abdominal pain, changes in urinary or bowel habits. In the emergency department, hemoglobin found to be 7.3 Review of Systems Constitutional: Constitutional: Reports fatigue and Reports malaise Cardiovascular: Cardiovascular: Reports dyspnea on exertion Respiratory: Respiratory: Reports dyspnea on exertion Gastrointestinal: Gastrointestinal: Reports no additional gastrointestinal complaints Genitourinary: Genitourinary: Reports abnormal vaginal bleeding Endocrine: Endocrine: Reports fatigue [facility] Medical History (HFpEF) heart failure with preserved ejection fraction Chronic a-fib HTN (hypertension) Morbid obesity JANI (obstructive sleep apnea) Paroxysmal atrial fibrillation Family History Father CVD (cardiovascular disease) Mother CHF (congestive heart failure) Surgical History History of cardioversion History of hip surgery Hx of cardiac cath Social History Alcohol intake: former Patient Tobacco Use Status: Former Tobacco user Smoked in Last 30 Days: No Use of substances other than those prescribed or required for medical reasons: No Advance Directives: No Advance Directives Information Provided: No Meds Allergies Allergy/AdvReac Type Severity Reaction Status Date / Time amoxicillin [AMOXICILLIN] Allergy Unknown UNKNOWN Unverified 01/18/23 15:56 flecainide [FLECAINIDE] Allergy Unknown SEVERE Unverified 01/18/23 15:56 CHEST PAIN Sulfa (Sulfonamide Allergy Unknown UNKNOWN Unverified 01/18/23 15:56 Antibiotics) [SULFA (SULFONAMIDE ANTIBIOTICS)] Home Medications Medication Instructions Recorded Confirmed Last Taken Type atenolol 50 mg tablet 50 mg PO DAILY 12/19/20 04/27/23 04/26/23 History atorvastatin 40 mg tablet 40 mg PO DAILY 12/19/20 04/27/23 04/26/23 History cholecalciferol (vitamin D3) 50 50 mcg PO DAILY 12/19/20 04/27/23 04/26/23 History mcg (2,000 unit) capsule escitalopram oxalate 20 mg tablet 20 mg PO DAILY 12/19/20 04/27/23 04/26/23 History megestrol 40 mg tablet 40 mg PO DAILY 12/19/20 04/27/23 04/26/23 History thiamine HCl (vitamin B1) 100 mg 100 mg PO DAILY 12/19/20 04/27/23 04/26/23 History tablet omeprazole 40 mg capsule,delayed 40 mg PO DAILY 02/19/22 04/27/23 04/26/23 History release gabapentin 300 mg capsule 300 mg PO BID 01/18/23 04/27/23 04/26/23 History acetaminophen 650 mg 1,300 mg PO Q8H 04/27/23 04/27/23 04/26/23 History tablet,extended release (Tylenol 8 Hour) bumetanide 1 mg tablet 1 mg PO DAILY 04/27/23 04/27/23 04/26/23 History Physical Exam Vital Signs and Narrative: Vital Signs: Last Vital Signs Temp 98.3 F 04/27/23 22:57 Pulse 65 04/27/23 22:57 Resp 21 H 04/27/23 22:57 BP 126/42 L 04/27/23 22:57 Pulse Ox 96 04/27/23 22:57 O2 Del Method Room Air 04/27/23 22:57 BMI result Body Mass Index 52.1 Elderly female lying in bed in no distress Neck supple, no JVD Irregularly irregular, S1-S2 heard Regular breath sounds bilaterally, no wheezing or crackles appreciated Abdomen soft nontender, no guarding, no rigidity Patient is awake, alert and oriented to self, place, time and person ; no focal motor deficit Psych: Normal mood No pedal edema Results Labs 04/27/23 18:25 04/27/23 18:25 Labs: Laboratory Results - last 24 hr 04/27/23 04/27/2304/27/23 18:25 18:25 18:25 MCV 96.4 MCH 29.3 MCHC 30.4 L RDW 17.0 H Plt Count 283 MPV 8.5 L Immature Gran % (Auto) 0.5 H Neut % (Auto) 63.5 Lymph % (Auto) 20.9 Graham % (Auto) 9.8 Eos % (Auto) 4.3 H Baso % (Auto) 1.0 Lymph # (Auto) 1.3 Graham # (Auto) 0.6 Eos # (Auto) 0.3 Baso # (Auto) 0.1 Abs Immat Gran (auto) 0.03 Absolute Neuts (auto) 4.0 Absolute Nucleated RBC 0.000 Nucleated RBC % (auto) 0.0 PT 19.7 H INR 1.6 H Anion Gap 15 Estim Creat Clear Calc 68.7 Estimated GFR 54 Random Glucose 95 Calcium 8.9 Magnesium 2.3 Total Bilirubin 0.4 AST 14 ALT 10 Alkaline Phosphatase 68 Total Protein 6.5 Albumin 3.6 Blood Type Antibody Screen Crossmatch 04/27/23 19:33 MCV MCH MCHC RDW Plt Count MPV Immature Gran % (Auto) Neut % (Auto) Lymph % (Auto) Graham % (Auto) Eos % (Auto) Baso % (Auto) Lymph # (Auto) Graham # (Auto) Eos # (Auto) Baso # (Auto) Abs Immat Gran (auto) Absolute Neuts (auto) Absolute Nucleated RBC Nucleated RBC % (auto) PT INR Anion Gap Estim Creat Clear Calc Estimated GFR Random Glucose Calcium Magnesium Total Bilirubin AST ALT Alkaline Phosphatase Total Protein Albumin Blood Type AB Positive Antibody Screen NEGATIVE Crossmatch See Detail Imaging Radiologist's Impressions: Impressions Pelvic/Transvag US 04/27/23 20:23 IMPRESSION: Very limited examination secondary to patient body habitus and shadowing from overlying bowel gas. Further imaging with CT or MRI could be obtained as clinically indicated. Endometrium not well seen. Ovaries are not visualized. No discrete adnexal mass. No large volume of free fluid. Assessment and Plan (1) Anemia: Status: Acute Plan This is a 77-year-old female with pertinent history of paroxysmal atrial fibrillation on anticoagulation, gastroesophageal reflux disease, mood disorder, essential hypertension, mixed hyperlipidemia, peripheral neuropathy who presents to the emergency department for evaluation of vaginal bleeding. #. Acute Symptomatic anemia due to vaginal bleeding. 2 unit PRBC ordered in the ER. Monitor symptoms with blood transfusion. Consulted Gynecology, appreciate assistance. Hold Xarelto #. JANI. Continue CPAP at bedtime #. Gastroesophageal reflux disease: On PPI #. Essential hypertension. Continue home antihypertensives #. Mixed hyperlipidemia. On statin #. Peripheral neuropathy. On Neurontin Med rec pending DVT prophylaxis: SCDs Full code Time Spent With Patient Time: Total time managing care of this patient today ____ minutes. Quality Stroke Does the patient have a stroke diagnosis?: No VTE Prior VTE?: No VTE Risk Level:: Medical - moderate - high VTE Device Contraindication: N/A - Device Ordered VTE Drug Contraindication: Treatment Not Indicated
[2023-04-28] VITALS (9 sets, daily range): BP systolic 123–154; BP diastolic 45–73; PULSE 66–81; RESP 16–22; TEMP 36–36.9; O2SAT 98–100
--- NOTE | 2023-04-28 01:42 | PC.NURSE ---
First unit of RBC's completed with no complications or reactions. Second unit of RBC's started. VSS. Pt tolerating well.
[2023-04-28] MEDS: 0.9 % Sodium Chloride Flush 3 ML SYRINGE IVFLUSH ×3 (01:44→22:02)
--- NOTE | 2023-04-28 04:47 | PC.NURSE ---
Pt aox4 resting at the bedside in no apparent distress. VSS. NSR on monitor with HR 70. Breaths are even and unlabored. Denies chest pain or sob. Vaginal bleeding with large size clots noted. Second unit of RBC's completed with no complications or reactions. Pending bed assignment. Pt aware of plan of care.
--- NOTE | 2023-04-28 05:35 | PC.NURSE ---
Purewick placed to obtain urine sample. Vaginal bleeding continues with large size blots. Complete bed change provided.
[2023-04-28 05:42] LABS: MANUAL DIFF FLAG NO
[2023-04-28 05:44] LABS: Basophils Absolute Auto 0.1 X10*3/uL (0.0-0.2); Basophils Percent Auto 0.7 % (0-2); Eosinophils Absolute Auto 0.3 X10*3/uL (0.0-0.4); Eosinophils Percent Auto 3.6 % (0-4); Hematocrit 30.6 % (37.0-47.0); Hemoglobin 9.6 g/dl (12.0-16.0); Imm Gran Abs Auto 0.03 X10*3/uL (0.00-0.03); Imm Gran Pct Auto 0.4 % (0.0-0.4); Lymphocytes Absolute Auto 1.4 X10*3/uL (1.2-4.9); Lymphocytes Percent Auto 18.5 % (20-40); Mean Corpuscular HGB Conc 31.4 g/dl (31.0-35.0); Mean Corpuscular Hemoglobin 30.2 pg (27.0-33.0); Mean Corpuscular Volume 96.2 fL (80.0-98.0); Mean Platelet Volume 8.4 fL (9.4-12.3); Monocytes Absolute Auto 0.7 X10*3/uL (0.1-1.2); Neutrophils Percent Auto 67.8 % (45-73); Platelet Count 278 X10*3/uL (160-400); Red Blood Count 3.18 X10*6/uL (4.20-5.50); Red Cell Distribution Width 15.8 % (11.0-16.0); White Blood Count 7.3 X10*3/uL (4.8-10.8)
[2023-04-28 05:59] LABS: Anion Gap 17 (12-20); Blood Urea Nitrogen 17 mg/dL (9-16); Calcium 9.2 mg/dL (8.4-10.2); Carbon Dioxide 17 mmol/L (22-29); Chloride 110 mmol/L (96-108); Creatinine Clr Calc Pharmacy 75.5; Estimated Glomerular Filt Rate > 60; Glucose Random 97 mg/dL (60-115); Sodium 140 mmol/L (135-145)
[2023-04-28] MEDS: Omeprazole 40 MG CAPSULE.DR PO (08:08)
[2023-04-28] MEDS: Bumetanide 1 MG TABLET PO (08:08)
[2023-04-28] MEDS: Escitalopram Oxalate 20 MG TABLET PO (08:08)
[2023-04-28] MEDS: Gabapentin 300 MG CAPSULE PO ×2 (08:08→22:02)
[2023-04-28] MEDS: atenoloL 50 MG TABLET PO (08:08)
[2023-04-28] MEDS: Thiamine HCL 100 MG TABLET PO (08:09)
[2023-04-28] MEDS: Cholecalciferol (Vitamin D3) 25 MCG TABLET 50 MCG PO (08:09)
[2023-04-28] MEDS: Megestrol Acetate 20 MG TABLET 40 MG PO (08:12)
[2023-04-28] MEDS: Atorvastatin Calcium 40 MG TABLET PO (08:13)
--- NOTE | 2023-04-28 08:47 | PM.GYNCN ---
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CREATIVE SERVICES - CN: HPI Data of Consult Consult date: 04/28/23 Requesting Physician: MAYO Laughlin Primary Care Provider: Unknown Physician Consult Narrative Narrative: I was consulted on Iva Lopez is a 77 year old female with history of paroxysmal atrial fibrillation on anticoagulation, presented to the emergency department complaining of vaginal bleeding of 4 weeks duration associated with passage of clots, dizziness, dyspnea with ambulation and lightheadedness.? No other associated symptom In the emergency department, hemoglobin found to be 7.3 the patient was admitted received 2 units of packed RBC, repeat H&H was 9.6/30.6. No history of abnormal Pap smear cc:: CC: MAYO Laughlin OB [facility] Past Medical History Medical History (HFpEF) heart failure with preserved ejection fraction Chronic a-fib HTN (hypertension) Morbid obesity JANI (obstructive sleep apnea) Paroxysmal atrial fibrillation Family History Family History Father CVD (cardiovascular disease) Mother CHF (congestive heart failure) Surgical History Surgical History History of cardioversion History of hip surgery Hx of cardiac cath Social History Social History Alcohol intake: former Patient Tobacco Use Status: Former Tobacco user Advance Directives Date on File: 04/28/23 Meds Allergies Allergy/AdvReac Type Severity Reaction Status Date / Time amoxicillin [AMOXICILLIN] Allergy Unknown UNKNOWN Unverified 01/18/23 15:56 flecainide [FLECAINIDE] Allergy Unknown SEVERE Unverified 01/18/23 15:56 CHEST PAIN Sulfa (Sulfonamide Allergy Unknown UNKNOWN Unverified 01/18/23 15:56 Antibiotics) [SULFA (SULFONAMIDE ANTIBIOTICS)] Active Medications: Current Medications Acetaminophen (Acetaminophen 325 Mg Tablet) 650 mg PO Q6H PRN PRN Reason: Pain, Mild (Pain Scale 1-3) Atenolol (Atenolol 50 Mg Tablet) 50 mg PO DAILY [facility]; Protocol Last Admin: 04/28/23 08:08 Dose: 50 mg Atorvastatin Calcium (Atorvastatin Calcium 40 Mg Tablet) 40 mg PO DAILY [facility] Last Admin: 04/28/23 08:13 Dose: 40 mg Bumetanide (Bumetanide 1 Mg Tablet) 1 mg PO DAILY [facility]; Protocol Last Admin: 04/28/23 08:08 Dose: 1 mg Escitalopram Oxalate (Escitalopram Oxalate 20 Mg Tablet) 20 mg PO DAILY [facility] Last Admin: 04/28/23 08:08 Dose: 20 mg Gabapentin (Gabapentin 300 Mg Capsule) 300 mg PO BID [facility] Last Admin: 04/28/23 08:08 Dose: 300 mg Megestrol Acetate (Megestrol Acetate 20 Mg Tablet) 40 mg PO DAILY [facility] Last Admin: 04/28/23 08:12 Dose: 40 mg Melatonin (Melatonin 3 Mg Tablet) 6 mg PO BEDTIME PRN PRN Reason: Insomnia Omeprazole (Omeprazole 40 Mg Capsule.Dr) 40 mg PO DAILY@0630 [facility] Last Admin: 04/28/23 08:08 Dose: 40 mg Ondansetron HCl (Ondansetron Hcl 4 Mg/2 Ml Vial) 4 mg IVPUSH Q8H PRN PRN Reason: Nausea and Vomiting Pharmacy Consult (Consult Rx Perform Med Rec) 1 each MISCELLANE ONCE PRN PRN Reason: Consult order Sodium Chloride (0.9 % Sodium Chloride Flush 3 Ml Syringe) 3 ml IVFLUSH QSHIFT [facility] Last Admin: 04/28/23 08:17 Dose: 3 ml Thiamine HCl (Thiamine Hcl 100 Mg Tablet) 100 mg PO DAILY [facility] Last Admin: 04/28/23 08:09 Dose: 100 mg Vitamin D (Cholecalciferol (Vitamin D3) 25 Mcg Tablet) 50 mcg PO DAILY [facility] Last Admin: 04/28/23 08:09 Dose: 50 mcg Home Medications Medication Instructions Recorded Confirmed Last Taken Type atenolol 50 mg tablet 50 mg PO DAILY 12/19/20 04/27/23 04/26/23 History atorvastatin 40 mg tablet 40 mg PO DAILY 12/19/20 04/27/23 04/26/23 History cholecalciferol (vitamin D3) 50 50 mcg PO DAILY 12/19/20 04/27/23 04/26/23 History mcg (2,000 unit) capsule escitalopram oxalate 20 mg tablet 20 mg PO DAILY 12/19/20 04/27/23 04/26/23 History megestrol 40 mg tablet 40 mg PO DAILY 12/19/20 04/27/23 04/26/23 History thiamine HCl (vitamin B1) 100 mg 100 mg PO DAILY 12/19/20 04/27/23 04/26/23 History tablet omeprazole 40 mg capsule,delayed 40 mg PO DAILY 02/19/22 04/27/23 04/26/23 History release gabapentin 300 mg capsule 300 mg PO BID 01/18/23 04/27/23 04/26/23 History acetaminophen 650 mg 1,300 mg PO Q8H 04/27/23 04/27/23 04/26/23 History tablet,extended release (Tylenol 8 Hour) bumetanide 1 mg tablet 1 mg PO DAILY 04/27/23 04/27/23 04/26/23 History 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CREATIVE SERVICES Physical Exam Vitals Vital signs: Temp Pulse Resp BP Pulse Ox O2 Del Method 98.5 F 81 22 H 143/72 H 98 Room Air 04/28/23 04:46 04/28/23 07:36 04/28/23 07:36 04/28/23 07:36 04/28/23 07:36 04/28/23 07:36 BMI result Body Mass Index 52.1 Female Genitalia (Pelvic) Bladder/Urethra: Normal meatus Vulva: No lesions Vagina: Nontender Cervix: Grossly normal Uterus: Normal size Adnexa/Parametria: Adnexal Tenderness: None and Adnexal Mass: None Additional Comments: No evidence of active vaginal bleeding 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[employer]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 [employer] - Results Labs 04/28/23 05:37 04/28/23 05:37 Labs: Short CBC 04/27/23 04/28/23 Range/Units 18:25 05:37 WBC 6.2 7.3 (4.8-10.8) X10*3/uL Hgb 7.3 L D 9.6 L D (12.0-16.0) g/dl Hct 24.0 L D 30.6 L D (37.0-47.0) % Plt Count 283 278 (160-400) X10*3/uL BMP 04/27/23 04/28/23 18:25 05:37 Sodium 141 140 Potassium 4.3 4.0 Chloride 111 H 110 H Carbon Dioxide 19 L 17 L BUN 18 H 17 H Creatinine 1.00 0.91 Calcium 8.9 9.2 Liver Function 04/27/23 Range/Units 18:25 Total Bilirubin 0.4 (0.0-1.0) mg/dL AST 14 (5-31) U/L ALT 10 (0-31) U/L Alkaline Phosphatase 68 (39-117) U/L Albumin 3.6 (3.5-5.0) g/dL Antibody Screen Antibody Screen NEGATIVE 04/27/23 19:33 Imaging US - abdomen: Radiologist's impression: ITS Impressions Pelvic/Transvag US 04/27/23 20:23 IMPRESSION: Very limited examination secondary to patient body habitus and shadowing from overlying bowel gas. Further imaging with CT or MRI could be obtained as clinically indicated. Endometrium not well seen. Ovaries are not visualized. No discrete adnexal mass. No large volume of free fluid. Assessment and Plan (1) Postmenopausal bleeding: Status: Acute Co testing done. Discussed with the patient the pelvic ultrasound findings, the endometrial stripe thickenss was not able to be measured by ultrasound. Recommended to the patient that the next step is an endometrial sampling via hysteroscopy D&C possible polypectomy versus endometrial biopsy to r/o endometrial pathology including hyperplasia or cancer. All the pros and cons risks and benefits of each approach were discussed with the patient, endometrial biopsy being less invasive, office procedure with less sensitivity and inability diagnose a polyp and removal versus hysteroscopy done under anesthesia more invasive more sensitive to endometrial cancer and possibility of diagnosing and endometrial polyp with the possibility of polypectomy. All questions were answered pt verbalized understanding and decided to proceed with endometrial biopsy. EMB done, see procedure note. Will check the results and treat accordingly Time Spent With Patient Time: Total time managing care of this patient today ____ minutes. 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CREATIVE SERVICES Procedures Laceration Additional comments: Endometrial biopsy: The patient was counseled regarding the indication and benefits of endometrial sampling to rule out endometrial pathology including not limited to endometrial hyperplasia or endometrial cancer and others; The alternatives (Either do nothing vs. hysteroscopy D&C) & the risks were discussed with the patient including but not limited: pain, uterine perforation, bleeding, infection, possible injury to bladder, bowel, ureter, possible need for blood transfusion with all its possible risks. The patient verbalized understanding all questions answered and signed consent. The patient was placed into the dorsal lithotomy position; a speculum was inserted in the vagina. Using aseptic technique for the procedure, the cervix was cleansed with Betadine. The anterior lip of the cervix was grasped with a single tooth tenaculum. The uterus was sounded to 7 cm with a 4 mm Pipelle was used. Tissues samples were obtained and placed in formalin, in a patient labeled container and sent to the pathology department. At the end of the procedure, there was minimal bleeding noted The patient tolerated the procedure well and was discharged in good condition with the following instructions: Nothing in the vagina until the bleeding stops. No sex until the bleeding stops, to call if any of the following occurs: fever (>100.4), flu-like symptoms, abdominal pain, heavy bleeding, four smelling vaginal discharge. The patient was instructed to schedule a Follow up appointment in 2 weeks to discuss pathology results of the biopsy and treatment options. This note was generated with a voice recognition program. Some errors may have been overlooked during the review of this note. Sometimes these errors may affect the content or meaning of a given sentence.
[2023-04-28 09:13] LABS: Appearance Urine Turbid; Color Urine RED; Glucose Urine UA Negative (Negative); Leukocyte Esterase Urine Negative (Negative); Nitrite Urine Positive (Negative); UMIC TRIGGER UACC YES; Urine Blood Large (3+) (Negative); Urine Ketones 15 mg/dL (Negative); Urine Protein 300 (3+) mg/dL (Neg-Trace)
[2023-04-28 09:15] LABS: Specific Gravity - Urine 1.025 (1.005-1.025)
[2023-04-28 09:20] LABS: UACC Culture Trigger YES; WBC Urine 0-5 /HPF (0-5)
[2023-04-28 09:21] LABS: Bacteria Urine 1+ (None Seen); Hyaline Casts Urine 0-2 /LPF (0-2); RBC Urine >20 /HPF (0-2); Squamous Epithelial Cell Urine 0-2 /HPF (0-2)
--- NOTE | 2023-04-28 11:12 | PC.NURSE ---
pt used bedpan x 2 and cleaned and changed x 2 , still has some bleeding and had [address] blevins to bedside for pelvic exam and biopsy sent. pt tolerated well , denies pain, skin wpd, alert and oriented x 4
--- NOTE | 2023-04-28 12:09 | HO.PM.IMPN ---
Subjective Subjective Date of Service: 04/28/23 Interval History: Seen in follow-up for postmenopausal bleeding Interval history: Transfuse 2 units in ED yesterday, H/H stable this morning. Reports she is still experiencing moderate/heavy vaginal bleeding with clots. There also remains on hold. No abdominal pain. Review of Systems Review of Systems: Yes all other systems are reviewed and are negative Physical Exam Vital Signs: Vital Signs: Last Vital Signs Temp 98.5 F 04/28/23 04:46 Pulse 81 04/28/23 07:36 Resp 22 H 04/28/23 07:36 BP 143/72 H 04/28/23 07:36 Pulse Ox 98 04/28/23 07:36 O2 Del Method Room Air 04/28/23 07:36 BMI result Body Mass Index 52.1 Constitutional - Awake and Alert, No apparent distress Eyes - PERRLA, EOMI Cardiovascular - S1S2, RRR, No edema Respiratory - Normal lung expansion, Normal respiratory effort, No respiratory distress, CTA bilaterally Gastrointestinal - NT / ND; +BS; No rebound or guarding Extremities - no calf tenderness bilaterally, no swelling Skin - Warm/Dry Neurological - Alert & oriented x3 Objective Data Active Medications Acetaminophen (Acetaminophen 325 Mg Tablet) 650 mg PO Q6H PRN PRN Reason: Pain, Mild (Pain Scale 1-3) Atenolol (Atenolol 50 Mg Tablet) 50 mg PO DAILY [facility]; Protocol Last Admin: 04/28/23 08:08 Dose: 50 mg Documented By: SOSA Atorvastatin Calcium (Atorvastatin Calcium 40 Mg Tablet) 40 mg PO DAILY [facility] Last Admin: 04/28/23 08:13 Dose: 40 mg Documented By: SOSA Bumetanide (Bumetanide 1 Mg Tablet) 1 mg PO DAILY [facility]; Protocol Last Admin: 04/28/23 08:08 Dose: 1 mg Documented By: SOSA Escitalopram Oxalate (Escitalopram Oxalate 20 Mg Tablet) 20 mg PO DAILY [facility] Last Admin: 04/28/23 08:08 Dose: 20 mg Documented By: SOSA Gabapentin (Gabapentin 300 Mg Capsule) 300 mg PO BID [facility] Last Admin: 04/28/23 08:08 Dose: 300 mg Documented By: SOSA Megestrol Acetate (Megestrol Acetate 20 Mg Tablet) 40 mg PO DAILY [facility] Last Admin: 04/28/23 08:12 Dose: 40 mg Documented By: SOSA Melatonin (Melatonin 3 Mg Tablet) 6 mg PO BEDTIME PRN PRN Reason: Insomnia Omeprazole (Omeprazole 40 Mg Capsule.) 40 mg PO DAILY@0630 [facility] Last Admin: 04/28/23 08:08 Dose: 40 mg Documented By: SOSA Ondansetron HCl (Ondansetron Hcl 4 Mg/2 Ml Vial) 4 mg IVPUSH Q8H PRN PRN Reason: Nausea and Vomiting Pharmacy Consult (Consult Rx Perform Med Rec) 1 each MISCELLANE ONCE PRN PRN Reason: Consult order Sodium Chloride (0.9 % Sodium Chloride Flush 3 Ml Syringe) 3 ml IVFLUSH QSHIFT [facility] Last Admin: 04/28/23 08:17 Dose: 3 ml Documented By: SOSA Thiamine HCl (Thiamine Hcl 100 Mg Tablet) 100 mg PO DAILY [facility] Last Admin: 04/28/23 08:09 Dose: 100 mg Documented By: SOSA Vitamin D (Cholecalciferol (Vitamin D3) 25 Mcg Tablet) 50 mcg PO DAILY [facility] Last Admin: 04/28/23 08:09 Dose: 50 mcg Documented By: SOSA Labs 04/28/23 05:37 04/28/23 05:37 Labs: Laboratory Results - last 24 hr 04/27/23 04/27/23 04/27/23 18:25 18:25 18:25 MCV 96.4 MCH 29.3 MCHC 30.4 L RDW 17.0 H Plt Count 283 MPV 8.5 L Immature Gran % (Auto) 0.5 H Neut % (Auto) 63.5 Lymph % (Auto) 20.9 [place] % (Auto) 9.8 Eos % (Auto) 4.3 H Baso % (Auto) 1.0 Lymph # (Auto) 1.3 [place] # (Auto) 0.6 Eos # (Auto) 0.3 Baso # (Auto) 0.1 Abs Immat Gran (auto) 0.03 Absolute Neuts (auto) 4.0 Absolute Nucleated RBC 0.000 Nucleated RBC % (auto) 0.0 PT 19.7 H INR 1.6 H Anion Gap 15 Estim Creat Clear Calc 68.7 Estimated GFR 54 Random Glucose 95 Calcium 8.9 Magnesium 2.3 Total Bilirubin 0.4 AST 14 ALT 10 Alkaline Phosphatase 68 Total Protein 6.5 Albumin 3.6 Urine Color Urine Appearance Urine pH Ur Specific [place] Urine Protein Urine Glucose (UA) Urine Ketones Urine Blood Urine Nitrite Ur Leukocyte Esterase Urine RBC Urine WBC Ur Squamous Epith Cells Urine Bacteria Hyaline Casts Blood Type Antibody Screen Crossmatch 04/27/23 04/28/23 04/28/23 19:33 05:37 05:37 MCV 96.2 MCH 30.2 MCHC 31.4 RDW 15.8 Plt Count 278 MPV 8.4 L Immature Gran % (Auto) 0.4 Neut % (Auto) 67.8 Lymph % (Auto) 18.5 L [place] % (Auto) 9.0 Eos % (Auto) 3.6 Baso % (Auto) 0.7 Lymph # (Auto) 1.4 [place] # (Auto) 0.7 Eos # (Auto) 0.3 Baso # (Auto) 0.1 Abs Immat Gran (auto) 0.03 Absolute Neuts (auto) 5.0 Absolute Nucleated RBC 0.000 Nucleated RBC % (auto) 0.0 PT INR Anion Gap 17 Estim Creat Clear Calc 75.5 Estimated GFR > 60 Random Glucose 97 Calcium 9.2 Magnesium Total Bilirubin AST ALT Alkaline Phosphatase Total Protein Albumin Urine Color Urine Appearance Urine pH Ur Specific [place] Urine Protein Urine Glucose (UA) Urine Ketones Urine Blood Urine Nitrite Ur Leukocyte Esterase Urine RBC Urine WBC Ur Squamous Epith Cells Urine Bacteria Hyaline Casts Blood Type AB Positive Antibody Screen NEGATIVE Crossmatch See Detail 04/28/23 08:41 MCV MCH MCHC RDW Plt Count MPV Immature Gran % (Auto) Neut % (Auto) Lymph % (Auto) [place] % (Auto) Eos % (Auto) Baso % (Auto) Lymph # (Auto) [place] # (Auto) Eos # (Auto) Baso # (Auto) Abs Immat Gran (auto) Absolute Neuts (auto) Absolute Nucleated RBC Nucleated RBC % (auto) PT INR Anion Gap Estim Creat Clear Calc Estimated GFR Random Glucose Calcium Magnesium Total Bilirubin AST ALT Alkaline Phosphatase Total Protein Albumin Urine Color RED Urine Appearance Turbid Urine pH 6.0 Ur Specific [place] 1.025 Urine Protein 300 (3+) H Urine Glucose (UA) Negative Urine Ketones 15 Urine Blood Large (3+) H Urine Nitrite Positive H Ur Leukocyte Esterase Negative Urine RBC >20 H Urine WBC 0-5 Ur Squamous Epith Cells 0-2 Urine Bacteria 1+ Hyaline Casts 0-2 Blood Type Antibody Screen Crossmatch Assessment and Plan (1) Postmenopausal bleeding: Status: Acute Plan This is a 77-year-old female with pertinent history of paroxysmal atrial fibrillation on anticoagulation, gastroesophageal reflux disease, mood disorder, essential hypertension, mixed hyperlipidemia, peripheral neuropathy who presents to the emergency department for evaluation of vaginal bleeding. #Acute Symptomatic anemia due to postmenopausal bleeding -Transfused 2 unit PRBC ordered in the ER -H/H improved to 9.6/30.6% -ASSISTANT BUSINESS MANAGER input appreciated. Endometrial biopsies pending to r/o malignancy. If positive, needs immediate transfer to [facility] for gynonc -Continue holding xarelto -Follow H/H closely, repeat now #JANI -Continue CPAP at bedtime #Gastroesophageal reflux disease -continue PPI #Essential hypertension -Continue home antihypertensives #Mixed hyperlipidemia -continue statin #Peripheral neuropathy -continue Neurontin #Morbid obesity -due to excess calories -weight loss efforts encouraged DVT prophylaxis: SCDs Full code Requires ongoing inpt stay for management of vaginal bleeding requiring blood transfusion, now with ongoing bleeding requiring close monitoring for decompensation and expert consultation. If bleeding unstable will need transfer to [facility] gynonc, otherwise consider outpt follow up if bx positive. Time Spent With Patient Time: Total time managing care of this patient today ____ minutes. Quality Stroke Does the patient have a stroke diagnosis?: No VTE Prior VTE?: No VTE Risk Level:: Medical - moderate - high VTE Device Contraindication: N/A - Device Ordered VTE Drug Contraindication: Treatment Not Indicated
[2023-04-28 13:05] LABS: Hematocrit 31.3 % (37.0-47.0); Hemoglobin 9.9 g/dl (12.0-16.0)
--- NOTE | 2023-04-28 13:17 | MHC.CM.PN ---
Met with patient in regards to discharge planning. Patient lives alone, ambulates with a walker and had no services prior to coming to the hospital. Patient was driving herself to doctors appointments prior to coming to the hospital. PCP verified. Copy of HCP verified to be on file. Patient received 3 Pfizer vaccines. Obs notice explained and signed. Patient's family will transport her home when medically stable. Continue to monitor for d/c needs.
[2023-04-29] VITALS (8 sets, daily range): BP systolic 100–138; BP diastolic 53–64; PULSE 63–85; RESP 16–20; TEMP 36–37; O2SAT 93–100
[2023-04-29 06:44] LABS: MANUAL DIFF FLAG NO
[2023-04-29 06:52] LABS: Basophils Absolute Auto 0.1 X10*3/uL (0.0-0.2); Basophils Percent Auto 0.8 % (0-2); Eosinophils Absolute Auto 0.4 X10*3/uL (0.0-0.4); Eosinophils Percent Auto 5.5 % (0-4); Hematocrit 28.5 % (37.0-47.0); Imm Gran Abs Auto 0.03 X10*3/uL (0.00-0.03); Imm Gran Pct Auto 0.5 % (0.0-0.4); Lymphocytes Absolute Auto 1.2 X10*3/uL (1.2-4.9); Lymphocytes Percent Auto 18.3 % (20-40); Mean Corpuscular HGB Conc 31.6 g/dl (31.0-35.0); Mean Corpuscular Hemoglobin 30.4 pg (27.0-33.0); Mean Corpuscular Volume 96.3 fL (80.0-98.0); Mean Platelet Volume 8.9 fL (9.4-12.3); Monocytes Absolute Auto 0.7 X10*3/uL (0.1-1.2); Monocytes Percent Auto 10.8 % (2-11); Neutrophils Absolute Auto 4.2 x10*3/uL (2.0-8.3); Neutrophils Percent Auto 64.1 % (45-73); Platelet Count 277 X10*3/uL (160-400); Red Blood Count 2.96 X10*6/uL (4.20-5.50); Red Cell Distribution Width 16.1 % (11.0-16.0); White Blood Count 6.5 X10*3/uL (4.8-10.8)
[2023-04-29] MEDS: atenoloL 50 MG TABLET PO (08:26)
[2023-04-29] MEDS: Megestrol Acetate 20 MG TABLET 40 MG PO (08:26)
[2023-04-29] MEDS: Cholecalciferol (Vitamin D3) 25 MCG TABLET 50 MCG PO (08:26)
[2023-04-29] MEDS: Gabapentin 300 MG CAPSULE PO ×2 (08:26→19:55)
[2023-04-29] MEDS: Escitalopram Oxalate 20 MG TABLET PO (08:26)
[2023-04-29] MEDS: Thiamine HCL 100 MG TABLET PO (08:27)
[2023-04-29] MEDS: Atorvastatin Calcium 40 MG TABLET PO (08:27)
[2023-04-29] MEDS: 0.9 % Sodium Chloride Flush 3 ML SYRINGE IVFLUSH ×3 (08:27→19:58)
--- NOTE | 2023-04-29 11:33 | PM.GYNPNOP ---
MECHANIC GENERAL OPERATIONAL TEST - Subjective Subjective Date of Service: 05/04/23 Interval history: Doing well with no abdominal pain, still having vaginal bleeding, but it is less heavy than previously. Status post 2 units packed RBC transfusion yesterday. H&H post transfusion was 9.6/30.6 at 05:30 yesterday post transfusion, repeat at 12:45 was 9.9/31.3, this a.m. 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 Physical Exam Vitals Vital signs: Temp Pulse Resp BP Pulse Ox O2 Del Method 98.6 F 68 16 130/62 98 Room Air 04/29/23 11:27 04/29/23 11:27 04/29/23 07:25 04/29/23 11:27 04/29/23 11:27 04/29/23 11:27 BMI result Body Mass Index 52.1 Abdomen Auscultation/Inspection/Palpation: Normal bowel sounds, Soft and Non-distended MECHANIC GENERAL OPERATIONAL TEST - Prog Note: Results Labs 04/29/23 06:13 04/28/23 05:37 Labs: Laboratory Results - last 24 hr 04/28/23 04/29/23 12:45 06:13 WBC 6.5 RBC 2.96 L Hgb 9.9 L 9.0 L Hct 31.3 L 28.5 L MCV 96.3 MCH 30.4 MCHC 31.6 RDW 16.1 H Plt Count 277 MPV 8.9 L Immature Gran % (Auto) 0.5 H Neut % (Auto) 64.1 Lymph % (Auto) 18.3 L [place] % (Auto) 10.8 Eos % (Auto) 5.5 H Baso % (Auto) 0.8 Lymph # (Auto) 1.2 [place] # (Auto) 0.7 Eos # (Auto) 0.4 Baso # (Auto) 0.1 Abs Immat Gran (auto) 0.03 Absolute Neuts (auto) 4.2 Absolute Nucleated RBC 0.000 Nucleated RBC % (auto) 0.0 MECHANIC GENERAL OPERATIONAL TEST - A/P (1) Postmenopausal bleeding: Status: Acute Assessment and Plan: Discussed with the patient the results of the pathology, recommended to discontinue Megace since is associated with thrombosis; discussed with the patient options of treatment p.o. progesterone and Lysteda both are contraindicated since both are associated with a risk of thrombosis , levonorgestrel IUD , uterine artery embolization or hysterectomy. Will repeat CBC in the morning if H&H is stable and the bleeding has slowed down, consider discharge with close outpatient follow-up. Referred to [facility] Oncology at [facility], appointment scheduled on 05/17 , the patient is aware Time Spent With Patient Time: Total time managing care of this patient today ____ minutes. Quality Measures - ENGINEERING EXECUTIVE H&P VTE Prior VTE?: No VTE Risk Level:: Medical - moderate - high VTE Device Contraindication: N/A - Device Ordered VTE Drug Contraindication: Treatment Not Indicated
--- NOTE | 2023-04-29 15:42 | P.PNIM_ITS ---
Subjective Subjective Date of Service: 04/29/23 Interval History: seen and examined this morning follow up for vaginal bleeding still having bleeding overnight but denies dizziness or feeling lightheaded Review of Systems Review of Systems: Yes all other systems are reviewed and are negative Constitutional Constitutional: Denies chills and Denies fever(s) ENT Ears, Nose, Mouth, and Throat: Denies dizziness Cardiovascular Cardiovascular: Denies chest pain Gastrointestinal Gastrointestinal: Denies abdominal pain Neurologic Neurologic: Denies dizziness Physical Exam Vital Signs: Vital Signs: Last Vital Signs Temp 96.8 F 04/29/23 15:26 Pulse 85 04/29/23 15:26 Resp 20 04/29/23 15:26 BP 100/53 L 04/29/23 15:26 Pulse Ox 93 04/29/23 15:26 O2 Del Method Room Air 04/29/23 15:26 BMI result Body Mass Index 52.1 Const: General: cooperative, comfortable, no acute distress, alert and awake Nutritional Appearance: obese Orientation/consciousness: patient oriented x3 Resp: Effort & Inspection: normal respiratory effort, able to speak in complete sentences, no respiratory distress and no use of accessory muscles Cardio: Rate: regular rate Heart sounds: S1 normal heart sound present and S2 normal heart sound present GI: Inspection: No distended and Yes obesity Palpation (GI): Soft to palpation and nontender Neuro: General: patient oriented x3, moves all extremities and CN's II-XI intact bilaterally Extrem: General: Yes no pedal edema Objective Data Active Medications Acetaminophen (Acetaminophen 325 Mg Tablet) 650 mg PO Q6H PRN PRN Reason: Pain, Mild (Pain Scale 1-3) Atenolol (Atenolol 50 Mg Tablet) 50 mg PO DAILY [facility]; Protocol Last Admin: 04/29/23 08:26 Dose: 50 mg Documented By: RAMILA Atorvastatin Calcium (Atorvastatin Calcium 40 Mg Tablet) 40 mg PO DAILY [facility] Last Admin: 04/29/23 08:27 Dose: 40 mg Documented By: RAMILA Bumetanide (Bumetanide 1 Mg Tablet) 1 mg PO DAILY [facility]; Protocol Last Admin: 04/29/23 09:01 Dose: Not Given Documented By: RAMILA Non-Admin Reason: Patient Refused Escitalopram Oxalate (Escitalopram Oxalate 20 Mg Tablet) 20 mg PO DAILY [facility] Last Admin: 08/03/23 08:26 Dose: 20 mg Documented By: RAMILA Gabapentin (Gabapentin 300 Mg Capsule) 300 mg PO BID [facility] Last Admin: 04/29/23 08:26 Dose: 300 mg Documented By: RAMILA Megestrol Acetate (Megestrol Acetate 20 Mg Tablet) 40 mg PO DAILY [facility] Last Admin: 04/29/23 08:26 Dose: 40 mg Documented By: RAMILA Melatonin (Melatonin 3 Mg Tablet) 6 mg PO BEDTIME PRN PRN Reason: Insomnia Omeprazole (Omeprazole 40 Mg Capsule.Dr) 40 mg PO DAILY@0630 [facility] Last Admin: 04/29/23 06:18 Dose: Not Given Documented By: LUCITA Non-Admin Reason: Patient Refused Ondansetron HCl (Ondansetron Hcl 4 Mg/2 Ml Vial) 4 mg IVPUSH Q8H PRN PRN Reason: Nausea and Vomiting Pharmacy Consult (Consult Rx Perform Med Rec) 1 each MISCELLANE ONCE PRN PRN Reason: Consult order Sodium Chloride (0.9 % Sodium Chloride Flush 3 Ml Syringe) 3 ml IVFLUSH QSHIFT [facility] Last Admin: 04/29/23 15:29 Dose: 3 ml Documented By: RAMILA Thiamine HCl (Thiamine Hcl 100 Mg Tablet) 100 mg PO DAILY [facility] Last Admin: 04/29/23 08:27 Dose: 100 mg Documented By: RAMILA Vitamin D (Cholecalciferol (Vitamin D3) 25 Mcg Tablet) 50 mcg PO DAILY [facility] Last Admin: 04/29/23 08:26 Dose: 50 mcg Documented By: RAMILA Labs 04/29/23 06:13 04/28/23 05:37 Labs: Laboratory Results - last 24 hr 04/29/23 06:13 MCV 96.3 MCH 30.4 MCHC 31.6 RDW 16.1 H Plt Count 277 MPV 8.9 L Immature Gran % (Auto) 0.5 H Neut % (Auto) 64.1 Lymph % (Auto) 18.3 L [place] % (Auto) 10.8 Eos % (Auto) 5.5 H Baso % (Auto) 0.8 Lymph # (Auto) 1.2 [place] # (Auto) 0.7 Eos # (Auto) 0.4 Baso # (Auto) 0.1 Abs Immat Gran (auto) 0.03 Absolute Neuts (auto) 4.2 Absolute Nucleated RBC 0.000 Nucleated RBC % (auto) 0.0 Microbiology Microbiology Results: Microbiology 04/28/23 12:26 Urine Culture - Final Urine clean catch - Urine cuevas top Assessment and Plan (1) Postmenopausal bleeding: Status: Acute Plan This is a 77-year-old female with pertinent history of paroxysmal atrial fibrillation on anticoagulation, gastroesophageal reflux disease, mood disorder, essential hypertension, mixed hyperlipidemia, peripheral neuropathy who presents to the emergency department for evaluation of vaginal bleeding. #Acute Symptomatic anemia due to postmenopausal bleeding -Transfused 2 unit PRBC ordered in the ER with appropriate risk in H/H -POCKET MAKER input appreciated. Endometrial biopsies pending to r/o malignancy -Continue holding xarelto -d/c megace per social media coordinator rec -repeat CBC in am # paroxysmal atrial fibrillation xarelto on hold for vaginal bleeding #JANI -Continue CPAP at bedtime #Gastroesophageal reflux disease -continue PPI #Essential hypertension -Continue home antihypertensives #HLD -continue statin #Peripheral neuropathy -continue Neurontin #Morbid obesity -due to excess calories. BMI 52.1 -weight loss encouraged DVT prophylaxis: SCDs Full code attending - Dr. Oglesby Requires ongoing inpt stay for management of vaginal bleeding requiring blood transfusion, now with ongoing bleeding requiring close monitoring for decompensation and expert consultation Time Spent With Patient Time: Total time managing care of this patient today ____ minutes. Quality Stroke Does the patient have a stroke diagnosis?: No VTE Prior VTE?: No VTE Risk Level:: Medical - moderate - high VTE Device Contraindication: N/A - Device Ordered VTE Drug Contraindication: Treatment Not Indicated
[2023-04-29] MEDS: Acetaminophen 325 MG TABLET 650 MG PO (17:06)
[2023-04-30 03:42] VITALS: BP 131/60; PULSE 65; RESP 16; TEMP 36.2; O2SAT 99
[2023-04-30] MEDS: Omeprazole 40 MG CAPSULE.DR PO (06:11)
[2023-04-30 06:27] LABS: Hematocrit 28.2 % (37.0-47.0); Hemoglobin 8.8 g/dl (12.0-16.0); Mean Corpuscular HGB Conc 31.2 g/dl (31.0-35.0); Mean Corpuscular Hemoglobin 30.2 pg (27.0-33.0); Mean Corpuscular Volume 96.9 fL (80.0-98.0); Mean Platelet Volume 8.6 fL (9.4-12.3); Platelet Count 275 X10*3/uL (160-400); Red Blood Count 2.91 X10*6/uL (4.20-5.50); Red Cell Distribution Width 16.3 % (11.0-16.0); White Blood Count 7.3 X10*3/uL (4.8-10.8)
[2023-04-30 07:24] VITALS: BP 124/63; PULSE 70; RESP 16; TEMP 36.2; O2SAT 98
[2023-04-30] MEDS: 0.9 % Sodium Chloride Flush 3 ML SYRINGE IVFLUSH (07:51)
[2023-04-30] MEDS: Thiamine HCL 100 MG TABLET PO (07:53)
[2023-04-30] MEDS: Atorvastatin Calcium 40 MG TABLET PO (07:53)
[2023-04-30] MEDS: Gabapentin 300 MG CAPSULE PO (07:53)
[2023-04-30] MEDS: atenoloL 50 MG TABLET PO (07:54)
[2023-04-30] MEDS: Escitalopram Oxalate 20 MG TABLET PO (07:54)
[2023-04-30] MEDS: Cholecalciferol (Vitamin D3) 25 MCG TABLET 50 MCG PO (07:54)
[2023-04-30 11:54] VITALS: BP 126/64; PULSE 76; RESP 16; TEMP 36.6; O2SAT 97
[2023-04-30 12:00] VITALS: BP 126/64; PULSE 76; O2SAT 97
--- NOTE | 2023-04-30 13:02 | P.DS_ITS ---
DS: Providers Provider Date of Service: 04/30/23 Date of admission: 04/28/23 17:02 Date of discharge: 04/30/23 Primary care physician: Jesus Berg DO Consults: 04/27/23 23:28 Consult to Obstetrics / Gynecology Routine Consulting Provider: Emil Fox Reason for consultation: vaginal bleeding Attending physician on discharge: Gwyn Oglesby Discharging clinician: Kendra Whittaker DS: Diagnosis Discharge Diagnosis (1) Postmenopausal bleeding: Status: Acute DS: Summary Hospital Course Hospital Course: From H&P on day of admission This is a 77-year-old female with pertinent history of paroxysmal atrial fibrillation on anticoagulation, gastroesophageal reflux disease, mood disorder, essential hypertension, mixed hyperlipidemia, peripheral neuropathy who presents to the emergency department for evaluation of vaginal bleeding.? Patient states it started 4 weeks prior to presentation.? She had a break for 2 weeks and then it restarted.? Patient has been having associated dizziness and lightheadedness.? Also has been having dyspnea with ambulation.? Patient states she had similar episode 8 years ago when she was started on megestrol.? She denies fever, chills, chest discomfort, palpitations, abdominal pain, changes in urinary or bowel habits. In the emergency department, hemoglobin found to be 7.3 Acute Symptomatic anemia due to postmenopausal bleeding/acute blood loss anemia Transfused 2 unit PRBC ordered in the ER with appropriate risk in H/H. Patient was seen by PARKING TECHNICIAN, and Endometrial biopsies obtained, does not show evidence of malignancy. Patient had persistent bleeding, which she says has been ongoing for 6 weeks. Her xarelto was placed on hold due to persistent bleeding/anemia requiring blood transfusing and megace was stopped per power plant operations manager rec. Her H/H has remained stable and symptoms have resolved. She was seen by PT and was able to ambulate without feeling lightheaded. Her blood pressure has remained stable. PARKING TECHNICIAN has placed an urgent refer to [facility] power plant operations manager for likely hysterectomy/definitive management. She should hold xarelto until after surgery. She will be discharged home with home PT services. Time Spent with Patient Time attestation: Total time managing care of this patient today ____ minutes. Discharge coordination time: Greater than 30 minutes Quality: Safe Use of Opioids Does Pt have an Active Cancer Diagnosis on the Problem List?: No Quality: Stroke Does the patient have a stroke diagnosis?: No Physical Exam Vital Signs: Vital Signs: Last Vital Signs Temp 97.8 F 04/30/23 11:54 Pulse 76 04/30/23 12:00 Resp 16 04/30/23 11:54 BP 126/64 04/30/23 12:00 Pulse Ox 97 04/30/23 12:00 O2 Del Method Room Air 04/30/23 11:54 BMI result Body Mass Index 52.1 Const: General: cooperative, comfortable, no acute distress, alert and awake Nutritional Appearance: obese Orientation/consciousness: patient oriented x3 Resp: Effort & Inspection: normal respiratory effort, able to speak in complete sentences, no respiratory distress and no use of accessory muscles Cardio: Rate: regular rate Heart sounds: S1 normal heart sound present and S2 normal heart sound present GI: Inspection: No distended and Yes obesity Palpation (GI): Soft to palpation and nontender Neuro: General: patient oriented x3, moves all extremities and CN's II-XI intact bilaterally Extrem: General: Yes no pedal edema DS: Data Data Completed and Pending Completed studies during hospitalization [Text1]: Pending at discharge 04/28/23 11:28 Surgical Path [Surgical] [PTH] Urgent Pending studies at discharge: Pending at discharge 04/28/23 08:47 Pap Smear [PTH] Routine Labs on day of discharge: Laboratory Results - last 24 hr 04/30/23 06:18 WBC 7.3 RBC 2.91 L Hgb 8.8 L Hct 28.2 L MCV 96.9 MCH 30.2 MCHC 31.2 RDW 16.3 H Plt Count 275 MPV 8.6 L Absolute Nucleated RBC 0.000 Nucleated RBC % (auto) 0.0 Discharge Plan Discharge Anticipated Discharge Date/Time: 04/30/23 13:09 Patient Disposition: Home Health Service Discharge Diagnosis: symptomatic anemia/acute blood loss anemia secondary to postmenopausal bleeding Referrals: Jesus Berg DO [Primary Care Provider] - 1 Week Discharge Medications: Continued bumetanide 1 mg tablet 1 mg PO DAILY acetaminophen [Tylenol 8 Hour] 650 mg Tablet Extended Release 1,300 mg PO Q8H cholecalciferol (vitamin D3) 50 mcg (2,000 unit) capsule 50 mcg PO DAILY atorvastatin 40 mg tablet 40 mg PO DAILY escitalopram oxalate 20 mg tablet 20 mg PO DAILY atenolol 50 mg tablet 50 mg PO DAILY thiamine HCl (vitamin B1) 100 mg tablet 100 mg PO DAILY omeprazole 40 mg capsule,delayed release(DR/EC) 40 mg PO DAILY gabapentin 300 mg capsule 300 mg PO BID Held Xarelto 20 mg tablet 20 mg PO QPM Qty: 90 3RF Hold Instructions: hold until told to resume after eval at [facility] Discontinued megestrol 40 mg tablet 40 mg PO DAILY Discharge Orders: Discharge Order (Routine); Ordered 04/30/23 Ordered By: Kendra Whittaker Activity on Discharge: As tolerated Stand Alone Forms: Patient Portal Discharge page Other Ambulatory Orders: Complete Blood Count no Diff (Routine) Timeframe: [id number] Facility: [facility] - Location: Laboratory Ordered By: Kendra Whittaker Care Plan Goals: see below Health Concerns: Symptomatic anemia secondary to postmenopausal bleeding Plan of Treatment: Follow-up at [facility] power plant operations manager for definitive management/possible hysterectomy - vikash champagne receive a call from the office with an appointment do not take xarelto due to ongoing bleeding do not take megace return to the ED if dizziness returns/bleeding becomes more severe repeat CBC in one week Assessment: see discharge summary
--- NOTE | 2023-04-30 13:25 | P.CDIM_ITS ---
PROVIDER RESPONSE TEXT: To clarify, the appropriate diagnosis supported by the clinical indicators: Acute blood loss anemia QUERY TEXT: PHYSICIAN'S DOCUMENTATION REQUEST Date of Query: 04/30/2023 09:30 AM EDT Patient Name: Iva Lopez Admit Date: 04/28/2023 Dear Kendra Whittaker, A review of the medical record indicates additional documentation may be needed. Please review below and update the documentation accordingly. Clinical Indicators: Per Hospitalist Progress Note 04/29/23: Xarelto on hold for vaginal bleeding Per LINEN AIDE Progress Note 04/29/23: still having vaginal bleeding, but it is less heavy than previously. Status post 2 units packed RBC transfusion yesterday. EMB verbal read by Dr. Goodman showed abundant blood and scant fragments of decidualized endometrium co nsistent with progestin no atypia or carcinoma Based on the above, could you clarify which of the following is the most likely type of anemia you ar e evaluating, treating, and/or monitoring? Acute blood loss anemia Adverse effect of anti-coagulant Hemorrhagic disorder due to extrinsic circulating anticoagulant Other (explain)Clinically unable to determine (explain)Thank you, Angie Langford RN Use of terms such as suspected, likely, concern for, or probable (associated with a specific diagnosi s that is being evaluated, monitored, or treated as if it exists) are acceptable and can be coded in the inpatient se tting, when documented at the time of discharge. Please use your independent medical judgment in providing your response. THIS QUERY IS PART OF THE PERMANENT MEDICAL RECORD
--- NOTE | 2023-04-30 13:44 | MHC.CM.PN ---
PATIENT REFUSES ANY [facility] REFERRALS. HER BROTHER WILL PROVIDE TRANSPORT HOME
[2023-05-04 07:53] LABS: HPV mRNA E6/E7 rflx Not Detected (Not Detected)
== END 2023-04-30 15:03 | disposition home health service (06) | DRG 744 ==
LOC: HO.ED 18:01 → HO.EDOVER 23:32 → HO.S3 04-28 15:46
PROVIDERS: Obstetrics & Gynecology; Physician Assistant; Admitting Provider Student in an Organized Health Care Education/Training Program; Emergency Provider Internal Medicine; PCP Internal Medicine; Visit Provider Physician Assistant Medical
DX: N95.0 Postmenopausal bleeding (principal); D62 Acute posthemorrhagic anemia; Z68.43 Body mass index [BMI] 50.0-59.9, adult; G47.33 Obstructive sleep apnea (adult) (pediatric); I48.0 Paroxysmal atrial fibrillation; E66.01 Morbid (severe) obesity due to excess calories; E78.2 Mixed hyperlipidemia; K21.9 Gastro-esophageal reflux disease without esophagitis; I10 Essential (primary) hypertension; G62.9 Polyneuropathy, unspecified; Z87.891 Personal history of nicotine dependence; Z79.01 Long term (current) use of anticoagulants; Z79.899 Other long term (current) drug therapy
CPT/HCPCS: 36415; 76830; 76856; 80048; 80053; 81001; 83735; 85014; 85018; 85025; 85027; 85610; 86850; 86900; 86901; 86923; 87086; 87624; 88142; 88305; 93005; 97162; 99285; P9016

== ENCOUNTER → 2023-04-27 18:03 | Outpatient (BNV) | payer MEDICARE, BC, SELFPAY | PROVIDERS: Admitting Provider Student in an Organized Health Care Education/Training Program; Emergency Provider Internal Medicine; Visit Provider Internal Medicine | DX: I48.0 Paroxysmal atrial fibrillation (principal) | CPT/HCPCS: 93010 ==

== ENCOUNTER → 2023-04-27 23:28 | Outpatient (BNV) | payer MEDICARE, BC, SELFPAY | PROVIDERS: Admitting Provider Student in an Organized Health Care Education/Training Program; Emergency Provider Internal Medicine; Visit Provider Student in an Organized Health Care Education/Training Program | DX: N95.0 Postmenopausal bleeding (principal) | CPT/HCPCS: 99222; 99232; 99239 ==

== ENCOUNTER → 2023-04-27 23:28 | Outpatient (BNV) | payer MEDICARE, BC, SELFPAY | PROVIDERS: Admitting Provider Student in an Organized Health Care Education/Training Program; Emergency Provider Internal Medicine; Visit Provider Obstetrics & Gynecology | DX: N95.0 Postmenopausal bleeding (principal) | CPT/HCPCS: 58100; 99222; 99232 ==

== ENCOUNTER 2023-05-17 07:32 | Outpatient (REF) | payer MEDICARE, BC, SELFPAY ==
[2023-05-17 11:25] LABS: MANUAL DIFF FLAG NO
[2023-05-17 11:30] LABS: Basophils Absolute Auto 0.1 X10*3/uL (0.0-0.2); Basophils Percent Auto 0.6 % (0-2); Eosinophils Absolute Auto 0.3 X10*3/uL (0.0-0.4); Eosinophils Percent Auto 3.7 % (0-4); Hematocrit 28.5 % (37.0-47.0); Hemoglobin 8.7 g/dl (12.0-16.0); Imm Gran Abs Auto 0.04 X10*3/uL (0.00-0.03); Imm Gran Pct Auto 0.5 % (0.0-0.4); Lymphocytes Absolute Auto 0.9 X10*3/uL (1.2-4.9); Lymphocytes Percent Auto 11.4 % (20-40); Mean Corpuscular HGB Conc 30.5 g/dl (31.0-35.0); Mean Corpuscular Hemoglobin 29.2 pg (27.0-33.0); Mean Corpuscular Volume 95.6 fL (80.0-98.0); Mean Platelet Volume 8.9 fL (9.4-12.3); Monocytes Absolute Auto 0.5 X10*3/uL (0.1-1.2); Monocytes Percent Auto 6.7 % (2-11); Neutrophils Absolute Auto 6.2 x10*3/uL (2.0-8.3); Neutrophils Percent Auto 77.1 % (45-73); Platelet Count 360 X10*3/uL (160-400); Red Blood Count 2.98 X10*6/uL (4.20-5.50); Red Cell Distribution Width 16.1 % (11.0-16.0); White Blood Count 8.1 X10*3/uL (4.8-10.8)
[2023-05-17 11:43] LABS: Alanine Aminotransferase 9 U/L (0-31); Albumin Level 3.6 g/dL (3.5-5.0); Alkaline Phosphatase 91 U/L (39-117); Anion Gap 14 (12-20); Aspartate Amino Transferase 16 U/L (5-31); Bilirubin Total 0.3 mg/dL (0.0-1.0); Blood Urea Nitrogen 17 mg/dL (9-16); Calcium 9.3 mg/dL (8.4-10.2); Carbon Dioxide 22 mmol/L (22-29); Chloride 109 mmol/L (96-108); Estimated Glomerular Filt Rate 45; Glucose Random 109 mg/dL (60-115); Potassium 4.2 mmol/L (3.3-5.1); Sodium 141 mmol/L (135-145)
== END 2023-05-17 07:33 | disposition home or self-care (01) ==
LOC: HO.LHD 07:32
PROVIDERS: Visit Provider Internal Medicine
DX: N95.0 Postmenopausal bleeding (principal)
CPT/HCPCS: 36415; 80053; 85025

== ENCOUNTER 2023-07-12 14:10 | Outpatient (REF) | payer MEDICARE, BC, SELFPAY ==
[2023-07-12 16:06] LABS: MANUAL DIFF FLAG NO
[2023-07-12 16:23] LABS: Basophils Percent Auto 0.8 % (0-2); Eosinophils Absolute Auto 0.4 X10*3/uL (0.0-0.4); Hematocrit 35.3 % (37.0-47.0); Hemoglobin 10.5 g/dl (12.0-16.0); Imm Gran Abs Auto 0.03 X10*3/uL (0.00-0.03); Imm Gran Pct Auto 0.6 % (0.0-0.4); Lymphocytes Absolute Auto 0.8 X10*3/uL (1.2-4.9); Lymphocytes Percent Auto 17.6 % (20-40); Mean Corpuscular HGB Conc 29.7 g/dl (31.0-35.0); Mean Corpuscular Hemoglobin 30.3 pg (27.0-33.0); Mean Corpuscular Volume 101.7 fL (80.0-98.0); Monocytes Absolute Auto 0.4 X10*3/uL (0.1-1.2); Platelet Count 289 X10*3/uL (160-400); Red Blood Count 3.47 X10*6/uL (4.20-5.50); Red Cell Distribution Width 20.5 % (11.0-16.0); White Blood Count 4.8 X10*3/uL (4.8-10.8)
[2023-07-12 16:42] LABS: Anion Gap 17 (12-20); Blood Urea Nitrogen 20 mg/dL (9-16); Calcium 9.2 mg/dL (8.4-10.2); Carbon Dioxide 22 mmol/L (22-29); Chloride 103 mmol/L (96-108); Estimated Glomerular Filt Rate 54; Glucose Random 107 mg/dL (60-115); Iron 73 mcg/dL (30-160); Percent Iron Saturation 26 % (15-50); Potassium 3.8 mmol/L (3.3-5.1); Sodium 138 mmol/L (135-145); Total Iron Binding Capacity 281 mcg/dL (228-428); Unsaturated Iron Binding 208 ug/dL
[2023-07-12 16:57] LABS: Ferritin 55 ng/mL (10-250); TSH reflex Free T4 4.59 uIU/mL (0.32-4.0)
[2023-07-12 17:59] LABS: Free T4 (Free Thyroxine) 0.78 ng/dL (0.71-1.85)
== END 2023-07-12 14:11 | disposition home or self-care (01) ==
LOC: HO.HMGCLDS 14:10
PROVIDERS: PCP Internal Medicine; Visit Provider Internal Medicine
DX: N93.9 Abnormal uterine and vaginal bleeding, unspecified (principal); I48.0 Paroxysmal atrial fibrillation
CPT/HCPCS: 36415; 80048; 82728; 83540; 84439; 84443; 85025

== ENCOUNTER 2023-09-10 15:10 | Outpatient (REF) | payer MEDICARE, BC, SELFPAY ==
[2023-09-10 15:55] LABS: MANUAL DIFF FLAG NO
[2023-09-10 16:29] LABS: Basophils Absolute Auto 0.1 X10*3/uL (0.0-0.2); Eosinophils Absolute Auto 0.5 X10*3/uL (0.0-0.4); Hematocrit 40.3 % (37.0-47.0); Hemoglobin 12.4 g/dl (12.0-16.0); Imm Gran Abs Auto 0.02 X10*3/uL (0.00-0.03); Imm Gran Pct Auto 0.3 % (0.0-0.4); Lymphocytes Absolute Auto 1.1 X10*3/uL (1.2-4.9); Lymphocytes Percent Auto 17.4 % (20-40); Mean Corpuscular HGB Conc 30.8 g/dl (31.0-35.0); Mean Corpuscular Volume 100.8 fL (80.0-98.0); Mean Platelet Volume 9.2 fL (9.4-12.3); Monocytes Absolute Auto 0.5 X10*3/uL (0.1-1.2); Monocytes Percent Auto 7.5 % (2-11); Neutrophils Absolute Auto 4.1 x10*3/uL (2.0-8.3); Neutrophils Percent Auto 65.8 % (45-73); Platelet Count 287 X10*3/uL (160-400); Red Cell Distribution Width 15.2 % (11.0-16.0); White Blood Count 6.2 X10*3/uL (4.8-10.8)
[2023-09-10 18:53] LABS: Alanine Aminotransferase 6 U/L (0-31); Albumin Level 3.8 g/dL (3.5-5.0); Alkaline Phosphatase 113 U/L (39-117); Anion Gap 17 (12-20); Aspartate Amino Transferase 17 U/L (5-31); Bilirubin Total 0.5 mg/dL (0.0-1.0); Blood Urea Nitrogen 20 mg/dL (9-16); Calcium 9.9 mg/dL (8.4-10.2); Carbon Dioxide 26 mmol/L (22-29); Chloride 104 mmol/L (96-108); Estimated Glomerular Filt Rate 44; Glucose Random 101 mg/dL (60-115); Iron 46 mcg/dL (30-160); Percent Iron Saturation 16 % (15-50); Potassium 3.8 mmol/L (3.3-5.1); Sodium 143 mmol/L (135-145); Total Iron Binding Capacity 286 mcg/dL (228-428); Unsaturated Iron Binding 240 ug/dL
[2023-09-10 19:07] LABS: Ferritin 46 ng/mL (10-250); Thyroid Stimulating Hormone 6.96 uIU/mL (0.32-4.0)
== END 2023-09-10 15:11 | disposition home or self-care (01) ==
LOC: HO.HMGCLDS 15:10
PROVIDERS: PCP Internal Medicine; Visit Provider Internal Medicine
DX: N93.9 Abnormal uterine and vaginal bleeding, unspecified (principal); I48.0 Paroxysmal atrial fibrillation; G62.9 Polyneuropathy, unspecified; K27.9 Peptic ulcer, site unspecified, unspecified as acute or chronic, without hemorrhage or perforation; I50.30 Unspecified diastolic (congestive) heart failure; E55.9 Vitamin D deficiency, unspecified; G47.33 Obstructive sleep apnea (adult) (pediatric); M19.071 Primary osteoarthritis, right ankle and foot
CPT/HCPCS: 36415; 80053; 82728; 83540; 84443; 85025

== ENCOUNTER 2023-10-22 11:45 | Outpatient (AMB) | payer MEDICARE, BC, SELFPAY ==
--- NOTE | 2023-10-22 11:55 | MHC.OFFVIS ---
Intake Vital Signs 10/22/23 11:56 Height 5 ft 5 in Weight 306 lb 7.08 oz BMI 51.0 BP 122/80 Blood Pressure Location Lt brachial Position Sitting Pulse 52 Intake Visit Reasons: follow-up Intake Note: 6 month follow-up feeling ok Window Glazier Helper Required: No Allergies amoxicillin [AMOXICILLIN] Allergy (Unknown, Unverified 01/18/23 15:56) UNKNOWN flecainide [FLECAINIDE] Allergy (Unknown, Unverified 01/18/23 15:56) SEVERE CHEST PAIN Sulfa (Sulfonamide Antibiotics) [SULFA (SULFONAMIDE ANTIBIOTICS)] Allergy (Unknown, Unverified 01/18/23 15:56) UNKNOWN Medication List - Last Reconciled 10/22/23 by Ezekiel Garcia MD acetaminophen ER (Tylenol 8 Hour) 1,300 mg PO Q8H atenolol 50 mg PO DAILY atorvastatin 40 mg PO DAILY bumetanide 1 mg PO DAILY ergocalciferol (vitamin D2) 50 mcg PO DAILY ferrous sulfate 325 mg PO DAILY gabapentin 300 mg PO BID omeprazole 40 mg PO DAILY rivaroxaban (Xarelto) 20 mg PO QPM thiamine HCl (vitamin B1) 100 mg PO DAILY HPI HPI Comments History of Present Illness Details Iva comes for follow-up but after a long time in the clinic but after recent hospitalization for significant vaginal bleeding. She required blood transfusion, was transfused 2 units. Her hemoglobin had dropped down to 7.3. After transfusion she felt better but not completely normal. She continues to have fatigue and lightheadedness. She was then seen by escrow secretary and on the day of discharge bleeding at stopped. She was then advised to seek escrow secretary Oncology at [facility] where she was worked up and there was no evidence of malignancy as per her. Since then she has seen a escrow secretary [facility] and has been advised no surgical intervention unless the bleeding recurs. She does not exercise much and has very sedentary lifestyle. She does get short of breath with exertion. She denies any orthopnea, PND although she sleeps in a reclining position. Uses CPAP. Taking Bumex every day. She has not noticed any significant worsening of her leg edema. No further bleeding episodes [facility] Medical History Morbid obesity JANI (obstructive sleep apnea) HTN (hypertension) (HFpEF) heart failure with preserved ejection fraction Paroxysmal atrial fibrillation Chronic a-fib Surgical History History of cardioversion Hx of cardiac cath History of hip surgery Family History Father CVD (cardiovascular disease) Mother CHF (congestive heart failure) Social History Household Members: Other Household Members Other:: brother Housing: House Do you presently have visiting nurse or other home services: No (brother does and patient utilizes them) Alcohol intake: former Patient Tobacco Use Status: Former Tobacco user Advance Directives Date on File: 04/28/23 service: No Review of Systems Const Denies chills, Denies fatigue, Denies fever(s), Denies frequent falls, Denies weakness, Denies weight gain and Denies weight loss ENT Denies dizziness Card Denies chest pain, Denies leg edema, Denies lightheadedness, Denies palpitations, Denies dyspnea, Denies dyspnea on exertion, Denies orthopnea and Denies other (loss of consciousness) Resp Denies cough, Denies dyspnea and Denies dyspnea on exertion GI Denies hematochezia and Denies change in stool character Musc Denies abnormal gait, Denies muscle weakness, Denies numbness, Denies radiating pain into limb and Denies tingling Neuro Denies abnormal gait, Denies dizziness, Denies frequent falls, Denies numbness, Denies tingling and Denies weakness Endo Denies fatigue and Denies palpitations Physical Exam Vital Signs: Last Vital Signs Pulse 52 10/22/23 11:56 BP 122/80 10/22/23 11:56 BMI result Body Mass Index 51.0 Const General: cooperative, comfortable, no acute distress, alert and awake Nutritional Appearance: obese morbidly obese Orientation/consciousness: patient oriented x3 Limitations: ambulation with walker Neck Neck: Yes trachea midline, Yes supple and Yes no JVD Resp Effort & Inspection: normal respiratory effort Auscultation: clear to auscultation bilaterally Cardio Jugular venous distension: no JVD Palpation: normal PMI Rate: bradycardic Rhythm: abnormal rhythm irregularly irregular Heart sounds: S1 normal heart sound present, S2 normal heart sound present and Other heart sounds present (S4 present) GI Inspection: Yes obesity Auscultation: normal bowel sounds Skin General skin exam: no rashes or lesions noted Neuro General: patient oriented x3 and no focal motor deficits Extrem General: No clubbing, No cyanosis, Yes edema (Mild edema of the right lower extremity below knee) and Yes venous stasis dermatitis Psych Appearance: grossly normal Office Procedures EKG Details: EKG shows atrial fibrillation with slow ventricular response with low-voltage QRS with poor R-wave progression [id number], Complete Assessment & Plan Assessment & Plan (1) (HFpEF) heart failure with preserved ejection fraction: Code(s): I50.30 - Unspecified diastolic (congestive) heart failure Plan: Heart failure preserved ejection fraction without any significant evidence of fluid overload although this is difficult to assess due to her body habitus. She does have significant leg edema which is [place] and old. Discussed management of heart failure in details. If develops recurrent heart failure syndrome may benefit from CardioMEMS device to better manage her heart failure. Additional diuretics as need be. Will repeat echocardiogram in near future. If her symptoms get worse with the next 2 months may require rhythm control approach. Continue CPAP therapy. (2) Atrial fibrillation with slow ventricular response: Code(s): I48.91 - Unspecified atrial fibrillation Plan: Recurrent AFib but with slow ventricular response. Will reduce atenolol to 25 mg daily. Advised to monitor for symptoms of heart failure worsening symptoms that may require rhythm control approach. Given that her current symptoms appear to be more related to deconditioning than heart failure will pursue rate control approach. Holter monitor in near future. Continue full oral anticoagulation Xarelto. If she has recurrent bleeding consider hysterectomy. Will follow up in the clinic in 1 year's time, sooner p.r.n.. Thank you for allowing me to partake in her care Orders: Orders ECG 3 day holter monitor 2 Weeks I48.91 - Unspecified atrial fibrillation CA echo transthoracic complete Today I50.30 - Unspecified diastolic (congestive) heart failure Medications: Changed From atenolol 50 mg PO DAILY To atenolol 25 mg PO DAILY Coding Level of Care Code Est Pt Level 4 (02031) Diagnoses (HFpEF) heart failure with preserved ejection fraction I50.30 Atrial fibrillation with slow ventricular response I48.91 CPT Codes EKG - CPT: 67905-[id number], Complete ([id number])
[2023-10-22 11:56] VITALS: BP 122/80; PULSE 52; BMI 51.0
== END 2023-10-22 12:44 | disposition home or self-care (01) ==
PROVIDERS: PCP Internal Medicine; Visit Provider Internal Medicine Cardiovascular Disease
DX: I50.30 Unspecified diastolic (congestive) heart failure (principal); I48.91 Unspecified atrial fibrillation
CPT/HCPCS: 93010; 99214

== ENCOUNTER → 2023-10-22 11:45 | Outpatient (BNVA) | payer MEDICARE, BC, SELFPAY | PROVIDERS: PCP Internal Medicine; Visit Provider Internal Medicine Cardiovascular Disease | DX: I50.30 Unspecified diastolic (congestive) heart failure (principal); I48.91 Unspecified atrial fibrillation; Z79.01 Long term (current) use of anticoagulants; Z79.899 Other long term (current) drug therapy | CPT/HCPCS: 93005; 99212 ==

== ENCOUNTER → 2023-11-19 13:49 | Outpatient (REF) | payer MEDICARE, BC, SELFPAY ==
--- NOTE | 2023-11-19 13:53 | HM_ITS ---
Conclusion: 1. Patient was monitored for total period of 3 days 2. Baseline was atrial fibrillation with average heart of 41 beats per minute with marked slow ventricular response with 83% of time heart rate below 60 beats per minute 3. Multiple pauses noted, longest at 4.3 seconds 4. Rare PVCs noted 5. No patient reported events MTDD
--- NOTE | 2023-11-19 13:53 | CA_ITS ---
Transthoracic Echocardiogram Patient (Last, First, Middle): Iva Lopez M Gender: Female Date of : 1945 Age: 78 Procedure Date: 11/19/2023 Procedure Type: Transthoracic Echocardiogram Location: OP Height: 162.56 cm Weight: 136.08 kg BSA: 2.32 m2 Heart Rate: bpm BP: 120 / 80 mmHg Search And Rescue Officer: TO Referring MD: Ezekiel Garcia MD Hospital Education Coordinator: Ezekiel Garcia MD Symptoms: I50.30 - Unspecified diastolic (congestive) heart failure Study Quality: Technically Difficult/Contrast ECG Rhythm: Atrial Fibrillation Conclusions: - 1. Normal LV ejection fraction 55-60% with mild LVH with suggestion of increased filling pressures 2. At least moderately dilated left atrium 3. Mild aortic and mitral regurgitation with severe mitral calcification 4. Moderately elevated right ventricular systolic pressure with significantly elevated right atrial pressures 5. Upper limits of normal ascending aortic size 6. No gross pericardial effusion Findings Procedure Information Contrast agent, definity, is being given per protocol without apparent complications. The study quality is limited by patients body habitus. Left Ventricle Normal left ventricular size and systolic function. There is mildly increased left ventricular wall thickness. The visually estimated ejection fraction is between 55-60%. Diastolic function is indeterminate on the basis of available data. Elevated left ventricular end diastolic pressure. Right Ventricle The right ventricle was not well visualized. Atria The left atrium is moderately dilated. Interatrial shunt cannot be excluded. The right atrium is mildly dilated. Aortic Valve The aortic valve was not well visualized. There is no aortic valve stenosis. There is mild aortic valve regurgitation. Mitral Valve There is severe posterior mitral leaflet thickening. There is mild mitral valve regurgitation. There is no mitral valve stenosis. Pulmonic Valve The pulmonic valve was not well visualized. Tricuspid Valve Likely normal tricuspid valve structure and function. There is mild to moderate tricuspid valve regurgitation. Significantly elevated right atrial pressure. Moderate pulmonary hypertension is present. Great Vessels The pulmonary artery was not well visualized. Venous The inferior vena cava is severely dilated and does not collapse with inspiration. Pericardium/Pleural There is no evidence of pericardial effusion. Prior Study Comparison Changes noted compared to prior study dated: 10/09/2021. RV systolic pressure is elevated with significantly elevated right atrial pressures Measurements 2D Linear Measurements IVSd: 1.30 0.6-0.9/0.6-1.0 cm LVIDd: 5.01 3.9-5.3/4.2-5.9 cm LVIDd Index: 2.16 2.4-3.2/2.2-3.1 cm/m2 LVIDs: 3.11 2.0-3.6 cm LVPWd: 1.32 0.7-1.1 cm LA Diam: 4.40 2.7-3.8/3.0-4.0 cm LAIDs Index: 1.90 1.5-2.3 cm/m2 LV Mass: 331.18 67-162/88-224 g LV Mass Index: 142.75 43-95/49-115 g/m2 LVOT Diam: 2.00 3.0+(-)1.3 cm Mitral Valve MV VTI: 0.56 MV Pk Jesu: 1.82 MV Mn Jesu: 0.53 MV Pk Grad: 13.00 MV Mn Grad: 2.00 MV Pk E: 1.14 MV Decel Time: 261.00 E'Lateral: 6.13 E'Medial: 5.55 E/E' Med: 20.50 E/E' Lat: 18.60 PHT: 77.00 MVA PHT: 2.86 MVA Continuity: 2.13 Decel [place]: 4.41 Aortic Valve AoV Pk Jesu: 1.69 AoV Mn Jesu: 1.11 AoV VTI: 0.44 AoV Pk Grad: 11.00 Aov Mn Grad: 6.00 ALEKSANDAR Cont.VTI: 2.71 LVOT LVOT Pk Jesu: 1.39 LVOT Mn Jesu: 0.90 LVOT VTI: 0.38 LVOT Pk Grad: 8.00 LVOT Mn Grad: 4.00 LVOT Diam: 2.00 LVOT Area: 3.14 Diastolic Function MV Pk E: 1.14 E'Medial: 5.55 E/E' Med: 20.50 E' Laterial: 6.13 E/E' Lat: 18.60 Right Ventricle TAPSE (mm): 17.90 TVS' Jesu: 8.98 Tricuspid Valve TR Pk Jesu: 3.25 TR Pk Grad: 42.00 RA Press: 15.00 RVSP: 57.00 Great Vessels Aorta Sinus of Valsalva: 3.53 2.0-3.[address] [place]: 2.28 1.7-3.4 cm Ao Asc: 3.50 2.1-3.4 cm Updated in Other Vendor System with Status of Final Ezekiel Garcia MD electronically signed on 11/20/2023 12:31:01 PM with status of Final
== END ==
LOC: HO.CARD 13:49
PROVIDERS: PCP Internal Medicine; Visit Provider Internal Medicine Cardiovascular Disease
DX: I48.91 Unspecified atrial fibrillation (principal); I50.30 Unspecified diastolic (congestive) heart failure
CPT/HCPCS: 93242; 93306; Q9957

== ENCOUNTER → 2023-11-19 13:53 | Outpatient (BNV) | payer MEDICARE, BC, SELFPAY | PROVIDERS: PCP Internal Medicine; Visit Provider Internal Medicine Cardiovascular Disease | DX: I48.0 Paroxysmal atrial fibrillation (principal) | CPT/HCPCS: 93244; 93306 ==

== ENCOUNTER → 2023-12-01 14:15 | Outpatient (REF) | payer MEDICARE, BC, SELFPAY ==
--- NOTE | 2023-12-01 14:18 | HM_ITS ---
Conclusion: 1. Patient was monitored for total period of 3 days 2. Baseline was atrial fibrillation with average heart of 60 beats per minute with good rate control 3. No significant pauses noted 4. Rare PVCs noted 5. No patient reported events MTDD
== END ==
LOC: HO.CARD 14:15
PROVIDERS: PCP Internal Medicine; Visit Provider Internal Medicine Cardiovascular Disease
DX: I50.30 Unspecified diastolic (congestive) heart failure (principal); I48.0 Paroxysmal atrial fibrillation
CPT/HCPCS: 93242

== ENCOUNTER → 2023-12-01 14:18 | Outpatient (BNV) | payer MEDICARE, BC, SELFPAY | PROVIDERS: PCP Internal Medicine; Visit Provider Internal Medicine Cardiovascular Disease | DX: I48.0 Paroxysmal atrial fibrillation (principal) | CPT/HCPCS: 93244 ==

== ENCOUNTER 2024-01-05 12:49 | Outpatient (REF) | payer MEDICARE, BC, SELFPAY ==
[2024-01-05 16:13] LABS: MANUAL DIFF FLAG NO
[2024-01-05 16:18] LABS: Appearance Urine Turbid; Color Urine Yellow; Glucose Urine UA Negative (Negative); Leukocyte Esterase Urine Negative (Negative); Nitrite Urine Negative (Negative); PH 5.5 (5.0-9.0); Specific Gravity - Urine >= 1.030 (1.005-1.025); UMIC TRIGGER UA YES; Urine Blood Small (1+) (Negative); Urine Ketones Negative (Negative); Urine Protein Trace mg/dL (Neg-Trace)
[2024-01-05 16:25] LABS: Basophils Percent Auto 0.6 % (0-2); Eosinophils Absolute Auto 0.6 X10*3/uL (0.0-0.4); Eosinophils Percent Auto 8.3 % (0-4); Hematocrit 36.3 % (37.0-47.0); Hemoglobin 11.5 g/dl (12.0-16.0); Imm Gran Abs Auto 0.02 X10*3/uL (0.00-0.03); Imm Gran Pct Auto 0.3 % (0.0-0.4); Lymphocytes Percent Auto 14.8 % (20-40); Mean Corpuscular HGB Conc 31.7 g/dl (31.0-35.0); Mean Corpuscular Hemoglobin 32.8 pg (27.0-33.0); Mean Corpuscular Volume 103.4 fL (80.0-98.0); Mean Platelet Volume 9.5 fL (9.4-12.3); Monocytes Absolute Auto 0.5 X10*3/uL (0.1-1.2); Monocytes Percent Auto 7.6 % (2-11); Neutrophils Absolute Auto 4.6 x10*3/uL (2.0-8.3); Neutrophils Percent Auto 68.4 % (45-73); Platelet Count 248 X10*3/uL (160-400); Red Blood Count 3.51 X10*6/uL (4.20-5.50); Red Cell Distribution Width 15.1 % (11.0-16.0); White Blood Count 6.8 X10*3/uL (4.8-10.8)
[2024-01-05 16:26] LABS: Bacteria Urine 2+ (None Seen); Hyaline Casts Urine 0-2 /LPF (0-2); Squamous Epithelial Cell Urine >20 /HPF (0-2)
[2024-01-05 17:44] LABS: Alanine Aminotransferase 9 U/L (0-31); Albumin Level 3.6 g/dL (3.5-5.0); Alkaline Phosphatase 117 U/L (39-117); Anion Gap 14 (12-20); Aspartate Amino Transferase 16 U/L (5-31); Bilirubin Total 0.4 mg/dL (0.0-1.0); Blood Urea Nitrogen 23 mg/dL (9-16); Calcium 9.2 mg/dL (8.4-10.2); Carbon Dioxide 27 mmol/L (22-29); Chloride 107 mmol/L (96-108); Cholesterol 96 mg/dL (<200); Estimated Glomerular Filt Rate 48; Ferritin 28 ng/mL (10-250); Glucose Fasting 106 mg/dL (60-99); HDL Cholesterol 21 mg/dL (>40); Iron 151 mcg/dL (30-160); LDL Cholesterol Calculated 65 mg/dL (<100); Percent Iron Saturation 54 % (15-50); Potassium 4.2 mmol/L (3.3-5.1); Sodium 144 mmol/L (135-145); Thyroid Stimulating Hormone 5.46 uIU/mL (0.32-4.0); Total Iron Binding Capacity 282 mcg/dL (228-428); Total Protein 7.2 g/dL (6.5-8.0); Triglycerides 53 mg/dL (<150); Unsaturated Iron Binding 131 ug/dL; Vitamin D 25-OH Total 24.6 ng/mL (>30)
== END 2024-01-05 12:50 | disposition home or self-care (01) ==
LOC: HO.HMGCLDS 12:49
PROVIDERS: PCP Internal Medicine; Visit Provider Internal Medicine
DX: E78.00 Pure hypercholesterolemia, unspecified (principal); E55.9 Vitamin D deficiency, unspecified; I11.0 Hypertensive heart disease with heart failure; I50.30 Unspecified diastolic (congestive) heart failure; I48.11 Longstanding persistent atrial fibrillation; R31.29 Other microscopic hematuria; G62.9 Polyneuropathy, unspecified
CPT/HCPCS: 36415; 80053; 80061; 81001; 82306; 82728; 83540; 84443; 85025

== ENCOUNTER 2024-03-29 13:41 | Outpatient (AMB) | payer MEDICARE, BC, SELFPAY ==
[2024-03-29 13:47] VITALS: BP 140/82; PULSE 75; O2SAT 97; BMI 49.5
--- NOTE | 2024-03-29 13:47 | MHC.OFFVIS ---
Vital Signs 03/29/24 13:47 Height 5 ft 5 in Weight 297 lb 9.985 oz BMI 49.5 BP 140/82 H Blood Pressure Location Lt brachial Position Sitting Pulse 75 Pulse Source Pulse Oximeter Pulse Oximetry (%) 97 Oxygen Delivery Method Room Air Intake Visit Reasons: brandon Intake Note: pt is here for follow up of BRANDON, doing well Ditch Tender Required: No Allergies amoxicillin [AMOXICILLIN] Allergy (Unknown, Unverified 03/29/24 14:01) UNKNOWN flecainide [FLECAINIDE] Allergy (Unknown, Unverified 03/29/24 14:01) SEVERE CHEST PAIN Sulfa (Sulfonamide Antibiotics) [SULFA (SULFONAMIDE ANTIBIOTICS)] Allergy (Unknown, Unverified 03/29/24 14:01) UNKNOWN Medication List - Last Reconciled 03/29/24 by Brian Pickens MD acetaminophen ER (Tylenol 8 Hour) 1,300 mg PO Q8H atorvastatin 40 mg PO DAILY bumetanide 1 mg PO DAILY ergocalciferol (vitamin D2) 50 mcg PO DAILY ferrous sulfate 325 mg PO DAILY gabapentin 300 mg PO BID omeprazole 40 mg PO DAILY rivaroxaban (Xarelto) 20 mg PO QPM thiamine HCl (vitamin B1) 100 mg PO DAILY Do you need a note to return to daycare/school/sports/work: No HPI HPI brandon: Details: THIS 78 YEARS OLD VERY PLEASANT FEMALE WITH MORBID OBESITY AND CHRONIC SLEEP APNEA PROBLEM, COMES FOR HER YEARLY FOLLOW-UP. SHE USES CPAP VERY REGULARLY, AND SLEEPS WELL. IN FACT WITHOUT THE CPAP , SHE CAN NOT SLEEP WELL. THERE IS NO ISSUE WITH HER MASK OR CPAP DEVICE, EXCEPT THAT THERE HAS BEEN FAILURE TO RECORD COMPLIANCE IN THE LAST 30 NIGHTS. SHE REMAINS OVERLY OBESE BUT COMPARED TO LAST YEAR SHE HAS LOST ABOUT 6 LB OF WEIGHT, THIS IS PROBABLY DUE TO BETTER FLUID CONTROL. SHE HAS HAD CHRONIC STASIS EDEMA OF LOWER EXTREMITIES. SHE WALKS AROUND WITH THE WALKER. SHE DENIES COUGH WHEEZING OR SHORTNESS OF BREATH. [facility] Medical History Morbid obesity BRANDON (obstructive sleep apnea) HTN (hypertension) (HFpEF) heart failure with preserved ejection fraction Paroxysmal atrial fibrillation Chronic a-fib Surgical History History of cardioversion Hx of cardiac cath History of hip surgery Family History Father CVD (cardiovascular disease) Mother CHF (congestive heart failure) Social History Household Members: Other Household Members Other:: brother Housing: House Do you presently have visiting nurse or other home services: No (brother does and patient utilizes them) Alcohol intake: former Patient Tobacco Use Status: Former Tobacco user Advance Directives Date on File: 04/28/23 service: No Review of Systems Const All systems reviewed & are unremarkable except as noted in HPI and below Reports snoring Eyes Reports no additional complaints ENT Reports no additional complaints and Reports disequilibrium Card Denies chest pain, Denies irregular heart rhythm and Reports leg edema (chronic) Resp Denies cough, Reports snoring and Denies wheezing GI Reports heartburn (Controlled with med) Reports urinary incontinence Musc Reports abnormal gait (Gait is markedly impaired, patient's uses walker or wheelchair), Reports back pain and Reports arthralgias Skin/Breast Reports system reviewed and no additional complaints, except as documented Neuro Reports abnormal gait (Gait is markedly impaired, patient's uses walker or wheelchair) and Reports disequilibrium Psych Reports depression (Being treated with med) Aller/Immun Denies wheezing Physical Exam Vital Signs: Last Vital Signs Pulse 75 03/29/24 13:47 BP 140/82 H 03/29/24 13:47 Pulse Ox 97 03/29/24 13:47 Oxygen Delivery Method Room Air 03/29/24 13:47 BMI result Body Mass Index 49.5 Const General: comfortable (In wheelchair), no acute distress, alert and awake Orientation/consciousness: patient oriented x3 HEENT Head: Yes normal to inspection General nose exam: No nasal polyps present and No nasal discharge present Face and sinus: Yes sinuses nontender Mouth: oropharynx abnormals (Crowded and narrow, Mallampati class 4) Throat: Yes posterior oropharynx normal Eyes General: appearance normal, both eyes and all related structures Neck Neck: Yes normal visual inspection, Yes no lymphadenopathy, Yes trachea midline, Yes no JVD and Yes other (Neck circumference 16-1/2 inch) Thyroid: Thyroid normal Chest Chest palpation & inspection: normal inspection of the chest, normal palpation of entire chest wall and no tenderness Resp Other: Percussion note not perceptible, breath sounds are distant, But both lungs are clear and no wheezes rhonchi or crepitations are heard. Cardio Palpation: normal PMI Rate: regular rate Rhythm: regular rhythm Heart sounds: no gallops and no murmurs GI Palpation (GI): Soft to palpation, nontender, No hepatosplenomegaly present, no masses and Other GI palpation findings present (Abdominal wall is lose and flabby) Auscultation: normal bowel sounds Back/Spine/Pelvis Thoracic/Lumbar Spine: thoracic and lumbar spine normal to inspection and thoraco-lumbar ROM limited Skin General skin exam: no rashes or lesions noted Neuro General: patient oriented x3, No gait normal (Patient non ambulatory confined to large wheelchair) and no focal motor deficits Cranial nerves: Yes CN's II-XII intact bilaterally Extrem General: Yes normal to inspection, Yes no calf tenderness, Yes edema (Both legs) and Yes venous stasis dermatitis Psych Appearance: grossly normal and well kempt Speech and movement: Normal speech and movement present Results Reviewed Results Reviewed: COMPLIANCE REPORT FROM 01/16 TO 2023 . IS REVIEWED AND SHE HAS USED 30/30 NIGHTS WITH AVERAGE USE IT PER NIGHT 8 HOURS 29 MINUTES. AVERAGE PRESSURE BEING USED IS 9 CM. NO AIR LEAK RECORDED. RESIDUAL AHI ONLY 0.2 Assessment & Plan Assessment & Plan (1) Morbid obesity: Comment: She has chronic morbid obesity, it is contributed by chronic stasis edema / Lymphedema of the lower extremities, and also difficulty in performing any exercises. There is not much potential for losing weight. She walks around with the walker and is functioning well so for. Code(s): E66.01 - Morbid (severe) obesity due to excess calories Category: Medical Plan: SHE WAS COMMENDED FOR HAVING LOST ABOUT 6 LB IN THE LAST YEAR. SHE DOES NOT KNOW HOW . BUT FEELS GOOD ABOUT THIS IT IS PROBABLY DUE TO DECREASED FLUID RETENTION (2) BRANDON (obstructive sleep apnea): Comment: The last sleep study performed confirmed the diagnosis of severe obstructive sleep apnea. She has been provided with CPAP device with auto PAP mode and pressure setting of 6-20 cm. She is using nasal mask and AVERAGE /MEAN PRESSURE 9 cm. Her compliance remains excellent . Her sleep quality is much improved, and she is benefiting from the use. Of CPAP Advised to continue using it every night. Revisit Q 1 YEAR LONG THERE IS NO ISSUE WITH CPAP . Code(s): G47.33 - Obstructive sleep apnea (adult) (pediatric) Category: Medical Plan: CONTINUE TO USE THE CPAP REGULARLY. CALL IF THERE IS ANY ISSUE WITH THE MASK OR CPAP DEVICE. Coding Level of Care Code Est Pt Level 3 (47754) Diagnoses Morbid obesity E66.01 BRANDON (obstructive sleep apnea) G47.33
== END 2024-03-29 14:32 | disposition home or self-care (01) ==
PROVIDERS: PCP Internal Medicine; Visit Provider Internal Medicine
DX: E66.01 Morbid (severe) obesity due to excess calories (principal); G47.33 Obstructive sleep apnea (adult) (pediatric)
CPT/HCPCS: 99213

== ENCOUNTER → 2024-03-29 13:41 | Outpatient (BNVA) | payer MEDICARE, BC, SELFPAY | PROVIDERS: PCP Internal Medicine; Visit Provider Internal Medicine | DX: G47.33 Obstructive sleep apnea (adult) (pediatric) (principal); E66.01 Morbid (severe) obesity due to excess calories; Z68.42 Body mass index [BMI] 45.0-49.9, adult | CPT/HCPCS: 99212 ==

== ENCOUNTER 2024-05-23 18:08 | Inpatient (IN) | payer MEDICARE, BC, SELFPAY ==
--- NOTE | 2024-05-23 | ECG_ITS ---
Test Reason : bradycardia Blood Pressure : / mmHG Vent. Rate : 041 BPM Atrial Rate : 000 BPM P-R Int : 000 ms QRS Dur : 072 ms QT Int : 486 ms P-R-T Axes : 000 -31 032 degrees QTc Int : 400 ms Atrial fibrillation with slow ventricular response Left axis deviation Low voltage QRS Inferior infarct , age undetermined Abnormal ECG When compared with ECG of 27-APR-2023 19:34, Atrial fibrillation has replaced Sinus rhythm Vent. rate has decreased BY 33 BPM Inferior infarct is now Present QT has shortened Referred By: Generic ED Physician Electronically Signed By:DANIELA TERAN
--- NOTE | ~2024-05-23 | NM_ITS ---
EXAMINATION: BILIARY TRACT IMAGING STUDY CLINICAL INDICATION: Right upper quadrant abdominal pain. COMPARISON: CT of the abdomen and pelvis done on 05/23/2024 and MRCP done on 05/24/2024. TECHNIQUE: Scintillation camera images were obtained over the abdomen for an observation of 60 minutes following the intravenous administration of 5.0 millicuries technetium 99m mebrofenin. The radiotracer was injected through left antecubital superficial vein without complications. Subsequent delayed images initially for 2 hours and subsequently at 4 hours postinjection were also obtained.. FINDINGS: There is good concentration of activity in the liver by 5 minutes post injection. Biliary activity is well visualized by 10 minutes, and there is good visualization of small bowel activity by 15 minutes. The gallbladder remained nonvisualized throughout the entire study. NM/NM hepatobiliary wo pharm IMPRESSION: * The common bile duct is patent. * Liver function appears normal. * Nonvisualized gallbladder on the initial and subsequent delayed images up to 4 hours post injection. In the appropriate clinical setting, the findings would be consistent with acute cholecystitis. Electronically signed by: Mi Duron MD 05/25/2024 10:27 AM EDT
--- NOTE | ~2024-05-23 | MR_ITS ---
EXAMINATION: MR ABDOMEN WITHOUT IV CONTRAST, MRCP CLINICAL INFORMATION: CBD dilatation. Abdominal pain. COMPARISON: CT abdomen/pelvis 05/23/2024. TECHNIQUE: Multiple routine MRI sequences through the abdomen were obtained without intravenous contrast. 3D MRCP images were processed on an independent workstation under concurrent supervision. FINDINGS: LUNG BASES: Lung bases are clear. LIVER: The liver is normal in size, signal and morphology. No liver lesion. GALLBLADDER AND BILIARY TREE: Gallbladder is distended and entirely filled with numerous calculi, largest measuring up to 3.4 cm, some impacted in the region of the gallbladder neck. There is no significant wall thickening and there is no significant pericholecystic fat stranding or free fluid. There is moderate extrahepatic biliary ductal dilatation. The cystic duct is tortuous and dilated measuring up to 0.9 cm. The common hepatic duct and common bile duct are dilated; the common hepatic duct measures up to 1 cm in diameter and the upper third of the common bile duct measures up to 1.3 cm with gradual tapering, the middle and lower thirds of the common bile duct measured up to 0.9 cm in diameter. There are a few faint, low T2 signal filling defects in the central and anterior lumen of the middle to lower CBD (images 28 and 29, series 6), not well seen on the MRCP images, potentially artifactual or related with flow voids. There is a 0.7 cm low T2 signal filling defect in the periampullary CBD, only visualized on the MRCP images (image 35, series 12), also potentially artifactual related with volume averaging. SPLEEN: Normal. PANCREAS: Diffuse fatty infiltration and atrophy. No significant peripancreatic fat stranding or free fluid. There are multiple T2 hyperintense, cystic-appearing lesions in the pancreas, largest multiseptated, lobulated lesion in the uncinate process measuring 2.3 x 1.9 x 2.4 cm (6:23), demonstrating a connection with the main duct on MRCP images (image 25, series 12). Second largest lesion measures 1.3 x 1.2 cm cm along the anterior aspect of the pancreatic head (image 23, series 7) without clear connection with the main duct. The main pancreatic duct is nondilated. ADRENAL GLANDS: Normal. KIDNEYS AND URETERS: No hydronephrosis or mass. GASTROINTESTINAL: Small hiatal hernia. No evidence of bowel obstruction or ascites. LYMPHOVASCULAR STRUCTURES: Normal caliber of the abdominal aorta. No lymphadenopathy. OSSEOUS STRUCTURES: No acute or suspicious osseous abnormalities. MR/MR MRCP IMPRESSION: 1. Cholelithiasis without associated wall thickening nor significant inflammatory changes to suspect acute cholecystitis. Correlate with already ordered HIDA study that will be dictated separately. 2. Moderate extrahepatic biliary ductal dilatation with gradual tapering of the middle and lower thirds of the common bile duct. There are a few faint, low T2 signal filling defects in the central and anterior lumen of the middle to lower CBD as well as periampullary CBD, some of which are only identified on the axial T2 images and one of which is only identified on the MRCP images. Uncertain if these represent artifact, stones or debris. Consider further evaluation with ERCP as clinically warranted. 3. Multiple T2 hyperintense, cystic-appearing lesions in the pancreas, the largest in the uncinate process measuring up to 2.4 cm connecting with the main duct. These are incompletely characterized in the absence of intravenous contrast and could represent sequelae of chronic pancreatitis and/or side branch type IPMNs. Recommend follow up with abdominal MRI pancreas protocol with and without IV contrast/MRCP in 3-6 months. 4. Fatty infiltration and atrophy of the pancreas. Electronically signed by: Noreen Ng MD 05/25/2024 10:40 AM EDT
--- NOTE | ~2024-05-23 | CT_ITS ---
EXAMINATION: CT ABDOMEN AND PELVIS WITH CONTRAST CLINICAL INFORMATION: severe RUQ pain, nausea COMPARISON: None. TECHNIQUE: Multidetector volumetric imaging was performed from the superior aspect of the liver through the pubic symphysis following administration of 85 mL Omnipaque 300 intravenous contrast. Sagittal and coronal reformatted images were obtained on the technologist workstation.. This CT examination was performed using dose optimization techniques as appropriate, variously including the following: *Automated exposure control *Adjustment of mA and/or kV according to patient size (this includes techniques or standardized protocols for targeted exams where dose is matched to indication/reason for exam; i.e. extremities or head) *Use of iterative reconstruction technique DLP: 1296 mGy-cm FINDINGS: LUNG BASES: Linear basilar atelectasis. Small hiatal hernia. Prominent mitral annular calcification LIVER, GALLBLADDER, AND BILIARY TREE: The liver is normal in size, shape, and attenuation. No focal hepatic lesion or intrahepatic biliary ductal dilatation is present. The common bile duct is mildly dilated measuring up to 1 cm in maximal diameter. Slightly radiolucent gallstones seen within the partially contracted but otherwise unremarkable gallbladder. PANCREAS: Unremarkable. SPLEEN: Unremarkable. ADRENAL GLANDS: Unremarkable. KIDNEYS AND URETERS: The kidneys are normal in size, shape, and attenuation. No hydronephrosis, hydroureter, or perinephric stranding. No calculi. BLADDER: Unremarkable. GASTROINTESTINAL TRACT: Scattered colonic diverticula are seen but no clonic wall thickening or pericolonic inflammatory change to suggest diverticulitis. Normal-appearing appendix in the right lower quadrant. Visualized small bowel grossly unremarkable ABDOMINAL WALL: No significant hernia is appreciated. LYMPHOVASCULAR STRUCTURES: Vascular calcifications within the aortoiliac system. No bulky adenopathy. PELVIC VISCERA: Unremarkable for age. OSSEOUS STRUCTURES: Multilevel degenerative changes in the spine. Right sided hip screws noted. No acute fracture seen CT/CT abdomen pelvis w IV con IMPRESSION: Likely radiolucent gallstones within the gallbladder. Common bile duct is 1 cm maximal diameter. Clinical correlation recommended. If there is concern for obstruction, MRCP may be helpful. Electronically signed by: Morgan Lowe MD 05/23/2024 07:46 PM EDT
--- NOTE | ~2024-05-23 | CT_ITS ---
EXAM: CT HEAD WITHOUT CONTRAST CT CERVICAL SPINE INDICATION: fall, head inj TECHNIQUE: A noncontrast CT scan was performed from the skull base to the vertex. A noncontrast CT scan of the cervical spine was performed from the base of the skull through T1 at 2.5 mm and 0.625 mm collimation. Coronal and sagittal reformats were obtained at the acquisition workstation. This CT examination was performed using dose optimization techniques as appropriate, variously including the following: * Automated exposure control * Adjustment of mA and/or kV according to patient size (this includes techniques or standardized protocols for targeted exams where dose is matched to indication/reason for exam; i.e. extremities or head) * Use of iterative reconstruction technique Dose length product is 1260 mGy-cm. COMPARISON: CT head 02/11/2019 FINDINGS: Head: : There is no evidence of acute intracranial hemorrhage or edematous territorial infarction. No abnormal mass effect or midline shift is seen. Brown to white matter differentiation is well preserved. No extra-axial fluid collections are identified. Mild cerebral volume loss. Patchy periventricular hypodensities most suggestive of chronic microangiopathy. Left basal ganglia mineralization. No acute calvarial fracture.. Paranasal sinuses and mastoid air cells are well-aerated. . Cervical Spine: The atlantooccipital and atlantoaxial articulations remain well aligned. Straightening of the normal cervical lordosis. Mild anterolisthesis of C4 on C5, probably degenerative. Vertebral body heights are maintained. No evidence of acute fracture or subluxation. Multilevel disc degenerative changes, including moderate C5-6, C6-7 disc degeneration. Multilevel facet degeneration. The central bony canal is maintained. Posterior osteophytes at C5-6 protrude into the central canal.. No prevertebral soft tissue swelling. The thyroid gland is unremarkable. The visualized lung apices are clear. CT/CT cervical spine wo IV con IMPRESSION: 1. No CT evidence of acute intracranial hemorrhage or edematous territorial infarction. 2. No CT evidence of acute cervical spine fracture or malalignment. 3. Spondylosis as detailed above. Electronically signed by: Jesus Myers MD 05/23/2024 08:43 PM EDT
[2024-05-23 18:12] VITALS: BP 190/80; PULSE 40; O2SAT 99
[2024-05-23 18:22] VITALS: BP 189/68; PULSE 52; RESP 16; TEMP 36.6; O2SAT 97; BMI 51.9
[2024-05-23 18:36] LABS: Glucose, Whole Blood 78 mg/dL (60-115)
--- NOTE | 2024-05-23 18:39 | PC.NURSE ---
patient arrives via EMS from home, states she was sitting in her chair and started experiencing some generalized abdominal pain, states she stood up to go to the bathroom and took a few steps then blacked out and fell to the ground. endorsing +head strike, + thinners, + LOC. patient arrives collared by EMS, small abrasion noted to back of head, no bleeding appreciated by this RN. patient states prior to standing up she had been feeling fine all day. LSCTA, patient noted to be bradycardic on monitor in slow afib, EKG completed by tech, 20g PIV placed by EMS in lac, 18g IV placed by this RN in RAC. patient placed on patient monitor, POC completed 78. lab work drawn and sent. patient with swelling to BLE, states they are not much more swollen than usual. patient neuros in tact, PERRLA, speaking in clear and complete sentences, provider at bedside only complaint currently is abdominal pain
--- NOTE | 2024-05-23 18:40 | ED_ITS ---
HPI - Fall General Chief Complaint: Fall Stated Complaint: fall, +head strike, +thinners Time Seen by Provider: 05/23/24 18:15 Source: patient and EMS Mode of arrival: EMS Limitations: no limitations History of Present Illness HPI Narrative: Patient is a 79-year-old female who presents to the emergency department for evaluation. She reports that while sitting at home this afternoon she developed sudden onset of severe pain to her right upper quadrant. She states that she has experienced an ulcer in the past it felt similar to the pain that she was having. Prior to this she denies having had any recent nausea, vomiting, abdominal pain, diarrhea, constipation, hematochezia, melena. She felt that if she went to lie down her pain would improve as it had been progressing over 15 minutes-30 minutes. When walking to her bedroom with her walker she thought she should stop to the restroom to use the bathroom ?just in case?. She denies having had the urge to have a bowel movement. She states that while walking to the bathroom she suddenly felt lightheaded and ultimately syncopized. She fell to the ground and believes that she awoke as soon as she landed. She landed supine. She was able to get herself into a sitting position but she was unable to get up unassisted. Her brother returned home approximately 45 minutes later, an assisted to call the fire department for transfer assistance. She is anticoagulated on Xarelto. She states that after the syncopal episode she has had no further abdominal pain, denies any dizziness or lightheadedness, headache, vision changes, neck pain, chest pain, shortness of breath, nausea, vomiting. She does state that she recently was discontinued from her atenolol a few months ago due to bradycardia, admits to a history of atrial fibrillation. She denies any numbness or tingling to her extremities. Related Data Home Medications ?Medication ?Instructions ?Recorded ?Confirmed atorvastatin 40 mg tablet 40 mg PO DAILY 12/19/20 05/23/24 thiamine HCl (vitamin B1) 100 mg 100 mg PO DAILY 12/19/20 05/23/24 tablet omeprazole 40 mg capsule,delayed 40 mg PO DAILY@1630 02/19/22 05/23/24 release gabapentin 300 mg capsule 300 mg PO BID 04/24/23 08/27/24 acetaminophen 650 mg 650 mg PO DAILY PRN Pain 04/27/23 05/23/24 tablet,extended release (Tylenol 8 Hour) bumetanide 1 mg tablet 2 mg PO DAILY 04/27/23 05/23/24 ergocalciferol (vitamin D2) 50 mcg 50 mcg PO DAILY 10/22/23 05/23/24 (2,000 unit) capsule ferrous sulfate 325 mg (65 mg 325 mg PO DAILY 10/22/23 05/23/24 iron) tablet naproxen 220 mg-diphenhydramine 25 1 tab PO BEDTIME 05/23/24 05/23/24 mg tablet (Aleve PM) rivaroxaban 20 mg tablet (Xarelto) 20 mg PO BEDTIME 05/23/24 05/23/24 Allergies Allergy/AdvReac Type Severity Reaction Status Date / Time amoxicillin [AMOXICILLIN] Allergy Unknown UNKNOWN Verified 05/23/24 19:55 flecainide [FLECAINIDE] Allergy Unknown SEVERE Verified 05/23/24 19:55 CHEST PAIN Sulfa (Sulfonamide Allergy Unknown UNKNOWN Verified 05/23/24 19:55 Antibiotics) [SULFA (SULFONAMIDE ANTIBIOTICS)] Review of Systems 2 Review of Systems: Yes all other systems are reviewed and are negative PMFSH Past Medical History Attestation statement: The following information was validated with the patient. Source: old records reviewed Medical History Morbid obesity JANI (obstructive sleep apnea) HTN (hypertension) (HFpEF) heart failure with preserved ejection fraction Paroxysmal atrial fibrillation Chronic a-fib Surgical History History of cardioversion Hx of cardiac cath History of hip surgery Family History Family History Father CVD (cardiovascular disease) Mother CHF (congestive heart failure) Social History Social History Household Members: Other Household Members Other:: brother Housing: House Do you presently have visiting nurse or other home services: No (brother does and patient utilizes them) Alcohol intake: former Patient Tobacco Use Status: Former Tobacco user Smoked in Last 30 Days: No Use of substances other than those prescribed or required for medical reasons: No Advance Directives: Yes Advance Directives on File: Yes Advance Directives Date on File: 04/28/23 Do you have a plan to hurt others: No Plan service: No Physical Exam 2 Vital Signs: Vital Signs: Last Vital Signs Temp 97.8 F 05/23/24 18:22 Pulse 42 L 05/23/24 18:49 Resp 16 05/23/24 18:22 BP 189/68 H 05/23/24 18:22 Pulse Ox 97 05/23/24 18:22 O2 Del Method Room Air 05/23/24 18:22 BMI result Body Mass Index 51.9 Appearance: Alert.?Oriented to person, place and time. No acute distress.?Normal affect. Head: Normocephalic, lacerations or hematoma Eyes: Pupils equal, round and reactive to light.? Neck: Normal inspection.? Neck supple.??No midline cervical spine tenderness, step-offs, deformities. CVS: Heart sounds normal. Normal heart rate and rhythm.? Pulses normal.?? Respiratory: No respiratory distress.? Lung sounds clear to auscultation bilaterally?? Abdomen: Soft with right upper quadrant tenderness upon palpation. Negative Clarke sign. No rigidity. No guarding. Normoactive bowel sounds. No pulsatile mass.?? Back: No midline thoracic or lumbar spine tenderness, step-offs, deformities. Diffuse tenderness across the bilateral SI joint/lumbar paraspinal region. Skin: Skin warm and dry.? Normal skin color.? ?? Extremities: 2+ DP/PT pulse bilaterally Neuro: Moves all extremities spontaneously. Sensation intact bilaterally. CN II- XII intact. No focal neuro deficits. Medications Administered Discontinued Medications Generic Name Dose Route Start Last Admin Trade Name Freq PRN Reason Stop Dose Admin Sodium Chloride 500 mls @ 999 mls/hr 05/23/24 19:45 05/23/24 20:31 Ns IV 05/23/24 20:15 Infused .Q31M GERRI Infusion Iohexol 85 ml 05/23/24 19:26 05/23/24 19:27 Iohexol 350 Mg/Ml 100 Ml Infus..Btl IV 05/23/24 19:27 85 ml ONCE ONE Administration Medical Decision Making Medical Decision Making MDM Narrative: Patient is a 79-year-old female with past medical history of obesity, JANI, hypertension, CAD, heart failure with preserved EF, atrial fibrillation who presents emergency department for evaluation of brief episode of severe right upper quadrant abdominal pain followed by syncopal episode and head strike. Overall she appears well, nontoxic, afebrile. Her abdominal examination is benign. She arrives bradycardic, appears to have atrial fibrillation with slow ventricular response, ventricular rate on EKG of 51, QTC 438, no ST elevation, no ST depression. Does not appear to have any acute ischemic changes. High sensitive troponin obtained and is within normal range. CT of the head and cervical spine were obtained, no evidence of acute fracture subluxation or ICH. CBC is without leukocytosis anemia or thrombocytopenia. Chemistries without electrolyte derangement, renal function at baseline, LFTs and lipase overall unremarkable, CT of the abdomen and pelvis with cholelithiasis and CBD on cm mass diameter, no wall thickening or pericholecystic. Concern for vasovagal versus symptomatic bradycardia, I spoke with hospitalist, Dr. Lazo who accepts patient for admission to medicine service. Differential Diagnosis Differential Diagnoses: The differential diagnosis associated with the presentation includes (See narrative above) Admission/Observation Consideration of admission/observation: Escalation of care including admission/observation considered (See narrative above) Consult Healthcare Provider Management of the patient was discussed with: Hospitalist Lab Data MDM Lab Attestation statement: I reviewed the patient's lab results. (See narrative above) 05/23/24 18:33 05/23/24 18:33 Labs: Lab Results 05/23/24 05/23/24 Range/Units 18:32 18:33 WBC 7.2 (4.8-10.8) X10*3/uL RBC 4.03 L (4.20-5.50) X10*6/uL Hgb 13.2 (12.0-16.0) g/dl Hct 40.6 (37.0-47.0) % MCV 100.7 H (80.0-98.0) fL MCH 32.8 (27.0-33.0) pg MCHC 32.5 (31.0-35.0) g/dl RDW 14.9 (11.0-16.0) % Plt Count 239 (160-400) X10*3/uL MPV 8.9 L (9.4-12.3) fL Immature Gran % (Auto) 0.3 (0.0-0.4) % Neut % (Auto) 69.9 (45-73) % Lymph % (Auto) 13.7 L (20-40) % [place] % (Auto) 7.9 (2-11) % Eos % (Auto) 7.5 H (0-4) % Baso % (Auto) 0.7 (0-2) % Lymph # (Auto) 1.0 L (1.2-4.9) X10*3/uL [place] # (Auto) 0.6 (0.1-1.2) X10*3/uL Eos # (Auto) 0.5 H (0.0-0.4) X10*3/uL Baso # (Auto) 0.1 (0.0-0.2) X10*3/uL Abs Immat Gran (auto) 0.02 (0.00-0.03) X10*3/uL Absolute Neuts (auto) 5.1 (2.0-8.3) x10*3/uL Absolute Nucleated RBC 0.000 (0.0-0.012) X10*3/uL Nucleated RBC % (auto) 0.0 (0.0-0.2) /100WBC PT 21.5 H (11.1-13.3) SEC INR 1.8 H (0.9-1.1) Sodium 141 (135-145) mmol/L Potassium 4.4 (3.3-5.1) mmol/L Chloride 106 (96-108) mmol/L Carbon Dioxide 26 (22-29) mmol/L Anion Gap 13 (12-20) BUN 23 H (9-16) mg/dL Creatinine 1.15 (0.5-1.4) mg/dL Estim Creat Clear Calc 55.8 Estimated GFR 46 POC Glucose 78 (60-115) mg/dL Random Glucose 116 H (60-115) mg/dL Calcium 9.7 (8.4-10.2) mg/dL Total Bilirubin 0.5 (0.0-1.0) mg/dL AST 21 (5-31) U/L ALT 14 (0-31) U/L Alkaline Phosphatase 125 H (39-117) U/L Troponin I High Sens 11.6 (<3.5-17.0) ng/L B-Natriuretic Peptide 263 H (<100) pg/mL Total Protein 7.3 (6.5-8.0) g/dL Albumin 3.6 (3.5-5.0) g/dL Lipase 17 (8-78) U/L Independent Interpretation I performed an independent interpretation of an: CT Scan (No ICH, no fracture) Radiology Impression Discussion of test interpretation with radiology: I have reviewed the radiologist's reading. Radiologist Impression: CT/CT head/brain wo IV con IMPRESSION: 1. No CT evidence of acute intracranial hemorrhage or edematous territorial infarction. 2. No CT evidence of acute cervical spine fracture or malalignment. 3. Spondylosis as detailed above. CT/CT abdomen pelvis w IV con IMPRESSION: Likely radiolucent gallstones within the gallbladder. Common bile duct is 1 cm maximal diameter. Clinical correlation recommended. If there is concern for obstruction, MRCP may be helpful. Independent Historian Clinical information obtained from an independent historian. History obtained from or confirmed by: EMS External Record Review External record reviewed: Outpatient record Discharge Plan Discharge Clinical Impression: Syncope, Atrial fibrillation with slow ventricular response, Abdominal pain Patient Disposition: Admitted As Inpatient Interventions: Admission Worksheet (ED) Last Done: 05/23/24 21:57
[2024-05-23 18:42] LABS: MANUAL DIFF FLAG NO
[2024-05-23 18:49] VITALS: PULSE 42
[2024-05-23 18:56] LABS: Basophils Absolute Auto 0.1 X10*3/uL (0.0-0.2); Basophils Percent Auto 0.7 % (0-2); Eosinophils Absolute Auto 0.5 X10*3/uL (0.0-0.4); Eosinophils Percent Auto 7.5 % (0-4); Hematocrit 40.6 % (37.0-47.0); Hemoglobin 13.2 g/dl (12.0-16.0); Imm Gran Abs Auto 0.02 X10*3/uL (0.00-0.03); Imm Gran Pct Auto 0.3 % (0.0-0.4); Lymphocytes Percent Auto 13.7 % (20-40); Mean Corpuscular HGB Conc 32.5 g/dl (31.0-35.0); Mean Corpuscular Hemoglobin 32.8 pg (27.0-33.0); Mean Corpuscular Volume 100.7 fL (80.0-98.0); Mean Platelet Volume 8.9 fL (9.4-12.3); Monocytes Absolute Auto 0.6 X10*3/uL (0.1-1.2); Monocytes Percent Auto 7.9 % (2-11); Neutrophils Absolute Auto 5.1 x10*3/uL (2.0-8.3); Neutrophils Percent Auto 69.9 % (45-73); Platelet Count 239 X10*3/uL (160-400); Red Blood Count 4.03 X10*6/uL (4.20-5.50); Red Cell Distribution Width 14.9 % (11.0-16.0); White Blood Count 7.2 X10*3/uL (4.8-10.8)
--- NOTE | 2024-05-23 18:56 | ECG_ITS ---
Test Reason : bradycardia Blood Pressure : / mmHG Vent. Rate : 051 BPM Atrial Rate : 000 BPM P-R Int : 000 ms QRS Dur : 066 ms QT Int : 476 ms P-R-T Axes : 000 -35 042 degrees QTc Int : 438 ms Atrial fibrillation with slow ventricular response Left axis deviation Low voltage QRS Inferior infarct (cited on or before 23-MAY-2024) Abnormal ECG When compared with ECG of 23-MAY-2024 18:22, Nonspecific T wave abnormality now evident in Lateral leads Referred By: Abi Hendricks Electronically Signed By:DANIELA TERAN
--- NOTE | 2024-05-23 18:58 | PC.NURSE ---
Assumed care of pt. Pt lying on stretcher, no acute distress at this time. Pending CT reads for disposition. EKG pending to verify current rate/rhythm.
[2024-05-23 18:59] LABS: INTERNATIONAL NORM RATIO 1.8 (0.9-1.1); Prothrombin Time 21.5 SEC (11.1-13.3)
[2024-05-23 19:00] LABS: Alanine Aminotransferase 14 U/L (0-31); Albumin Level 3.6 g/dL (3.5-5.0); Alkaline Phosphatase 125 U/L (39-117); Anion Gap 13 (12-20); Aspartate Amino Transferase 21 U/L (5-31); Bilirubin Total 0.5 mg/dL (0.0-1.0); Blood Urea Nitrogen 23 mg/dL (9-16); Calcium 9.7 mg/dL (8.4-10.2); Carbon Dioxide 26 mmol/L (22-29); Chloride 106 mmol/L (96-108); Creatinine Clr Calc Pharmacy 55.8; Estimated Glomerular Filt Rate 46; Glucose Random 116 mg/dL (60-115); Lipase 17 U/L (8-78); Potassium 4.4 mmol/L (3.3-5.1); Sodium 141 mmol/L (135-145); Total Protein 7.3 g/dL (6.5-8.0)
[2024-05-23 19:06] LABS: B Type Natriuretic Peptide 263 pg/mL (<100)
[2024-05-23 19:08] LABS: Troponin-I High Sensitivity 11.6 ng/L (<3.5-17.0)
[2024-05-23] MEDS: iohexoL 350 MG/ML 100 ML INFUS..BTL 85 ML IV (19:27)
[2024-05-23] MEDS: 0.9 % Sodium Chloride 500 ML 999 ML IV (19:54)
--- NOTE | 2024-05-23 21:11 | PM.IMHP ---
History of Present Illness Date of Service: 05/23/24 Chief Complaint: Syncope This is a 79-year-old female with pertinent history of permanent atrial fibrillation on Xarelto, JANI on CPAP, gastroesophageal reflux disease, mixed hyperlipidemia, peripheral neuropathy, congestive heart failure with preserved EF, hypertension, morbid obesity who presents to the emergency department for evaluation after a syncopal episode. Patient states she had sudden onset of right upper quadrant pain about 1-2 hours after eating. She wanted to use the restroom and got up to walk towards the bathroom. Patient felt dizzy/lightheaded and passed out and subsequently fell on the floor. She denies similar right upper quadrant pain before this episode. No chest pain or palpitations prior to the fall or loss of consciousness. No rhythmic jerking movement of extremities. She denies fever, chills, nausea, vomiting, shortness of breath, changes in urinary or bowel habits. In the emergency department, patient was found to be bradycardic and imaging concerning for gallstones with dilated common bile duct Review of Systems Cardiovascular: Cardiovascular: Reports no additional cardiovascular complaints and Reports syncope Respiratory: Respiratory: Reports no additional respiratory complaints Gastrointestinal: Gastrointestinal: Reports abdominal pain Genitourinary: Genitourinary: Reports no additional female genitourinary complaints Neurologic: Reports syncope [facility] Medical History Morbid obesity JANI (obstructive sleep apnea) HTN (hypertension) (HFpEF) heart failure with preserved ejection fraction Paroxysmal atrial fibrillation Chronic a-fib Family History Father CVD (cardiovascular disease) Mother CHF (congestive heart failure) Surgical History History of cardioversion Hx of cardiac cath History of hip surgery Social History Household Members: Other Household Members Other:: brother Housing: House Do you presently have visiting nurse or other home services: No (brother does and patient utilizes them) Alcohol intake: former Patient Tobacco Use Status: Former Tobacco user Smoked in Last 30 Days: No Use of substances other than those prescribed or required for medical reasons: No Advance Directives: Yes Advance Directives on File: Yes Advance Directives Date on File: 04/28/23 Do you have a plan to hurt others: No Plan service: No Meds Allergies Allergy/AdvReac Type Severity Reaction Status Date / Time amoxicillin [AMOXICILLIN] Allergy Unknown UNKNOWN Verified 05/23/24 19:55 flecainide [FLECAINIDE] Allergy Unknown SEVERE Verified 05/23/24 19:55 CHEST PAIN Sulfa (Sulfonamide Allergy Unknown UNKNOWN Verified 05/23/24 19:55 Antibiotics) [SULFA (SULFONAMIDE ANTIBIOTICS)] Home Medications ?Medication ?Instructions ?Recorded ?Confirmed ?Last Taken ?Type atorvastatin 40 mg tablet 40 mg PO DAILY 12/19/20 10/22/23 04/26/23 History thiamine HCl (vitamin B1) 100 mg 100 mg PO DAILY 12/19/20 10/22/23 04/26/23 History tablet omeprazole 40 mg capsule,delayed 40 mg PO DAILY 02/19/22 10/22/23 04/26/23 History release gabapentin 300 mg capsule 300 mg PO BID 01/18/23 10/22/23 04/26/23 History acetaminophen 650 mg 1,300 mg PO Q8H 04/27/23 10/22/23 04/26/23 History tablet,extended release (Tylenol 8 Hour) bumetanide 1 mg tablet 1 mg PO DAILY 04/27/23 10/22/23 04/26/23 History ergocalciferol (vitamin D2) 50 mcg 50 mcg PO DAILY 10/22/23 10/22/23 Unknown History (2,000 unit) capsule ferrous sulfate 325 mg (65 mg 325 mg PO DAILY 10/22/23 10/22/23 Unknown History iron) tablet atenolol 25 mg tablet 12.5 mg PO DAILY 05/23/24 Unknown History Physical Exam Vital Signs and Narrative: Vital Signs: Last Vital Signs Temp 97.8 F 05/23/24 18:22 Pulse 42 L 05/23/24 18:49 Resp 16 05/23/24 18:22 BP 189/68 H 05/23/24 18:22 Pulse Ox 97 05/23/24 18:22 O2 Del Method Room Air 05/23/24 18:22 BMI result Body Mass Index 51.9 Middle-aged female lying in bed in no distress Neck supple, no JVD Irregularly irregular, S1-S2 heard Regular breath sounds bilaterally, no wheezing or crackles appreciated Abdomen soft nontender, no guarding, no rigidity Patient is awake, alert and oriented to self, place, time and person ; no focal motor deficit Psych: Normal mood No pedal edema Results Labs 05/23/24 18:33 05/23/24 18:33 Labs: Laboratory Results - last 24 hr 05/23/24 05/23/24 18:32 18:33 MCV 100.7 H MCH 32.8 MCHC 32.5 RDW 14.9 Plt Count 239 MPV 8.9 L Immature Gran % (Auto) 0.3 Neut % (Auto) 69.9 Lymph % (Auto) 13.7 L [place] % (Auto) 7.9 Eos % (Auto) 7.5 H Baso % (Auto) 0.7 Lymph # (Auto) 1.0 L [place] # (Auto) 0.6 Eos # (Auto) 0.5 H Baso # (Auto) 0.1 Abs Immat Gran (auto) 0.02 Absolute Neuts (auto) 5.1 Absolute Nucleated RBC 0.000 Nucleated RBC % (auto) 0.0 PT 21.5 H INR 1.8 H Anion Gap 13 Estim Creat Clear Calc 55.8 Estimated GFR 46 POC Glucose 78 Random Glucose 116 H Calcium 9.7 Total Bilirubin 0.5 AST 21 ALT 14 Alkaline Phosphatase 125 H Troponin I High Sens 11.6 B-Natriuretic Peptide 263 H Total Protein 7.3 Albumin 3.6 Lipase 17 Imaging Radiologist's Impressions: Impressions Cervical Spine CT 05/23/24 19:05 IMPRESSION: 1. No CT evidence of acute intracranial hemorrhage or edematous territorial infarction. 2. No CT evidence of acute cervical spine fracture or malalignment. 3. Spondylosis as detailed above. Electronically signed by: Jesus Myers MD 05/23/2024 08:43 PM EDT RP Head CT 05/23/24 19:05 IMPRESSION: 1[address] No CT evidence of acute intracranial hemorrhage or edematous territorial infarction. 2. No CT evidence of acute cervical spine fracture or malalignment. 3. Spondylosis as detailed above. Electronically signed by: Jesus Myers MD 05/23/2024 08:43 PM EDT RP Abdomen/Pelvis CT 05/23/24 19:10 IMPRESSION: Likely radiolucent gallstones within the gallbladder. Common bile duct is 1 cm maximal diameter. Clinical correlation recommended. If there is concern for obstruction, MRCP may be helpful. Electronically signed by: Morgan Lowe MD 05/23/2024 07:46 PM EDT RP Assessment and Plan (1) Syncope: Status: Acute (2) Abdominal pain: Status: Acute Plan This is a 79-year-old female with pertinent history of permanent atrial fibrillation on Xarelto, JANI on CPAP, gastroesophageal reflux disease, mixed hyperlipidemia, peripheral neuropathy, congestive heart failure with preserved EF, hypertension, morbid obesity who presents to the emergency department for evaluation after a syncopal episode. #. Syncope: Will admit patient with cardiac monitoring. Found to be bradycardic in the ER. Resuscitated with fluids in the ER. Repeat orthostatic vital signs in a.m.. Cardiology eval #. Abdominal pain: ?symptomatic cholelithiasis. CBD found to be elevated. Obtaining MRCP and HIDA scan. No sepsis. #. Permanent atrial fibrillation: On Xarelto. Slow ventricular rate in the ER. Hold atenolol #. JANI: Continue CPAP at bedtime #. Gastroesophageal reflux disease: On PPI #. Mixed hyperlipidemia: On statin #. Peripheral neuropathy: On Gabapentin #. Congestive heart failure with preserved EF: On Bumex #. Obesity: Counseled regarding diet and exercise Med rec pending DVT prophylaxis: Xarelto Full code Admit as inpatient and will require two night minimum hospital stay for cardiac monitoring, evaluation of abdominal pain (as above), which is not possible in a lesser acute setting. Specialist consult pending Quality Stroke Does the patient have a stroke diagnosis?: No VTE Prior VTE?: No VTE Risk Level:: Medical - moderate - high VTE Device Contraindication: Treatment Not Indicated VTE Drug Contraindication: N/A - Med Ordered
--- NOTE | 2024-05-23 22:19 | PHA.MEDREC ---
Addendum entered by Morgan Lee, [facility] 05/23/24 22:30: [facility] Original Note: Pharmacy Consult ? Medication Reconciliation Pharmacy has completed the medication reconciliation. Confirmed medications with patient. Patient states they are no longer taking the Atenolol 25mg and has not taken it in a few months per her Dr canceling it. Patient confirmed her Bumetanide 1mg and she is taking 2 tablets (2mg) daily. The patient confirmed she took all her morning medications this morning except her Bumetanide 1mg tablet which was yesterday and the patient requests she DOES NOT TO TAKE THE BUMETANIDE IN THE MORNING DEPENDING ON THE TIME IF SHE GETS DISCHARGED OR NOT.
[2024-05-24] VITALS (11 sets, daily range): BP systolic 128–194; BP diastolic 59–88; PULSE 42–79; RESP 18–23; TEMP 35.9–36.4; O2SAT 95–99
[2024-05-24] MEDS: 0.9 % Sodium Chloride Flush 3 ML SYRINGE IVFLUSH ×3 (01:25→23:17)
[2024-05-24] MEDS: Melatonin 3 MG TABLET 6 MG PO (01:25)
--- NOTE | 2024-05-24 06:14 | PC.NURSE ---
Admission note: Patient admitted from the ED around midnight. Patient is AAOX4 and denies chest pain, sob, dizziness, nausea/vomiting upon arrival to the unit. Patient was able to ambulate to bathroom with one person assistance and a wheeled walker. She uses a walker at home. Patient is AFIB on cardiac monitoring with HR between 56-60. Patient is taking xarelto for anticoagulant. Breath sounds are decreased at the bases. On RA patient POX is 95-96%. . Her last BM was on 05/22/24. She usually takes her pills whole with water. Patient made aware of UA clean catch to collect. CPAP order reviewed with RT who scheduled to make it available tonight. Patient found to have positive orthostatic BP. Patient is oriented to unit routine, call light, bed control, TV, Tel, bathroom etc. Questions and concerns addressed. Patient verbalized understanding.
[2024-05-24 06:52] LABS: Hemoglobin 12.7 g/dl (12.0-16.0); Mean Corpuscular HGB Conc 32.6 g/dl (31.0-35.0); Mean Corpuscular Hemoglobin 32.8 pg (27.0-33.0); Mean Corpuscular Volume 100.8 fL (80.0-98.0); Mean Platelet Volume 8.9 fL (9.4-12.3); Platelet Count 217 X10*3/uL (160-400); Red Blood Count 3.87 X10*6/uL (4.20-5.50); Red Cell Distribution Width 14.9 % (11.0-16.0); White Blood Count 6.3 X10*3/uL (4.8-10.8)
[2024-05-24 07:14] LABS: Anion Gap 11 (12-20); Blood Urea Nitrogen 19 mg/dL (9-16); Calcium 9.4 mg/dL (8.4-10.2); Carbon Dioxide 24 mmol/L (22-29); Chloride 109 mmol/L (96-108); Creatinine Clr Calc Pharmacy 72.9; Estimated Glomerular Filt Rate > 60; Glucose Random 105 mg/dL (60-115); Potassium 3.8 mmol/L (3.3-5.1); Sodium 140 mmol/L (135-145)
--- NOTE | 2024-05-24 09:09 | MHC.CM.PN ---
IMM 05/24/24, Pt lvies with her brother, she does not have home health services, for DME she has a walker and CPAP machine. HCP is on file and confirmed: Amanda PCP is confirmed: Dr. Berg. Pt. is able to arrange transportation home at [place]. DCP: home, self care. CM to follow and assist with DC plan.
[2024-05-24 09:27] LABS: Alanine Aminotransferase 11 U/L (0-31); Albumin Level 3.3 g/dL (3.5-5.0); Alkaline Phosphatase 115 U/L (39-117); Aspartate Amino Transferase 18 U/L (5-31); Bilirubin Direct 0.4 mg/dL (0.0-0.5); Bilirubin Total 1.1 mg/dL (0.0-1.0); C Reactive Protein 0.25 mg/dL (< or = 0.50); Total Protein 6.2 g/dL (6.5-8.0)
[2024-05-24] MEDS: Thiamine HCL 100 MG TABLET PO (10:23)
[2024-05-24] MEDS: Ferrous Sulfate 324 MG TABLET.DR PO (10:24)
[2024-05-24] MEDS: Gabapentin 300 MG CAPSULE PO ×2 (10:24→20:48)
[2024-05-24] MEDS: Atorvastatin Calcium 40 MG TABLET PO (10:24)
--- NOTE | 2024-05-24 11:25 | P.CONCA_ITS ---
History of Present Illness History of Present Illness Date of Service: 05/24/24 Requesting physician: Florian Mast Consult reason: atrial fibrillation and other (Syncope) Chief complaint: Syncope Narrative: I was consulted to see Iva in cardiology consultation today. She is well known to me for many years with prior history of rhythm failed chronic atrial fibrillation, heart failure preserved ejection fraction, morbid obesity, hypertension, sleep apnea. Patient has been doing well says about couple months ago her primary care physician Dr. Berg stopped her atenolol because of slow heart rate. Since then she has been doing well overall but has noticed that both her feet have been cold over the last few months. She denies any clear symptoms of claudication. She is minimally functional. Yesterday evening she developed sudden-onset right upper quadrant discomfort which was quite severe. She says she would lie down but prior to lying down she decided to go to the bathroom. She got up and was walking to the bathroom and suddenly felt lightheaded and then she found herself on the floor looking at the ceiling. She denied any clear injuries but knew that she had lost consciousness. She was on the floor for some time as she said she could not get up and subsequently her son came to help her and they called paramedics and came to the emergency room. In the emergency room she was noted to have elevated alk-phos and right gallbladder stone with dilated CBD. She has no signs of sepsis. However she was admitted because of syncopal episodes noted to have atrial fibrillation slow ventricular response. No significant pauses greater than 5 seconds by heart rate in the 30s when she is awake. She denies any lightheadedness. Hemodynamically stable. Denies any prolonged palpitations. No heart failure symptoms at this point in time. Review of Systems 2 Constitutional: Constitutional: Reports no additional constitutional complaints Eyes: Eyes: Reports no additional eye complaints Cardiovascular: Cardiovascular: Denies chest pain, Reports lightheadedness, Reports Loss of Consciousness, Denies palpitations, Denies dyspnea and Denies orthopnea Respiratory: Respiratory: Denies no additional respiratory complaints and Denies dyspnea Gastrointestinal: Gastrointestinal: Reports abdominal pain Genitourinary: Genitourinary: Reports no additional female genitourinary complaints Musculoskeletal: Musculoskeletal: Reports no additional musculoskeletal complaints Integumentary/Breasts: Skin/Breast: Reports system reviewed and no additional complaints, except as docu Psychiatric: Psychiatric: Reports no additional psychiatric complaints Endocrine: Endocrine: Reports no additional endocrine complaints and Denies palpitations PMFSH Past Medical History Medical History (Updated 05/24/24 @ 11:30 by Ezekiel Garcia MD) Paroxysmal atrial fibrillation Morbid obesity JANI (obstructive sleep apnea) HTN (hypertension) (HFpEF) heart failure with preserved ejection fraction Chronic a-fib Family History Family History Father CVD (cardiovascular disease) Mother CHF (congestive heart failure) Surgical History Surgical History History of cardioversion Hx of cardiac cath History of hip surgery Social History Social History Household Members: Family Household Members Other:: brother Housing: House Do you presently have visiting nurse or other home services: No Alcohol intake: former Patient Tobacco Use Status: Former Tobacco user Tobacco use type: Cigarette Years Smoked: 12 e-Cigarette/Vaping Use: Never Used Second Hand Smoke Exposure: No Advance Directives Date on File: 04/28/23 service: No Meds Allergies Allergy/AdvReac Type Severity Reaction Status Date / Time amoxicillin [AMOXICILLIN] Allergy Unknown UNKNOWN Verified 05/23/24 19:55 flecainide [FLECAINIDE] Allergy Unknown SEVERE Verified 05/23/24 19:55 CHEST PAIN Sulfa (Sulfonamide Allergy Unknown UNKNOWN Verified 05/23/24 19:55 Antibiotics) [SULFA (SULFONAMIDE ANTIBIOTICS)] Active Medications: Current Medications Acetaminophen (Acetaminophen 325 Mg Tablet) 650 mg PO Q6H PRN PRN Reason: Pain, Mild (Pain Scale 1-3), fever or headache Atorvastatin Calcium (Atorvastatin Calcium 40 Mg Tablet) 40 mg PO DAILY [facility] Last Admin: 05/24/24 10:24 Dose: 40 mg Calcium Carbonate (Calcium Carbonate 750 Mg Tab.Chew) 750 mg PO Q4H PRN PRN Reason: Heartburn Ferrous Sulfate (Ferrous Sulfate 324 Mg Tablet.Dr) 324 mg PO DAILY [facility] Last Admin: 05/24/24 10:24 Dose: 324 mg Gabapentin (Gabapentin 300 Mg Capsule) 300 mg PO BID [facility] Last Admin: 05/24/24 10:24 Dose: 300 mg Magnesium Hydroxide (Milk Of Magnesia 30 Ml Oral.Susp) 30 ml PO DAILY PRN PRN Reason: Constipation Melatonin (Melatonin 3 Mg Tablet) 6 mg PO BEDTIME PRN PRN Reason: Insomnia Last Admin: 05/24/24 01:25 Dose: 6 mg Omeprazole (Omeprazole 40 Mg Capsule.Dr) 40 mg PO DAILY@1630 [facility] Ondansetron HCl (Ondansetron Hcl 4 Mg/2 Ml Vial) 4 mg IVPUSH Q8H PRN PRN Reason: Nausea and Vomiting Sodium Chloride (0.9 % Sodium Chloride Flush 3 Ml Syringe) 3 ml IVFLUSH QSHIFT [facility] Last Admin: 05/24/24 08:13 Dose: 3 ml Thiamine HCl (Thiamine Hcl 100 Mg Tablet) 100 mg PO DAILY [facility] Last Admin: 05/24/24 10:23 Dose: 100 mg Home Medications ?Medication ?Instructions ?Recorded ?Confirmed ?Last Taken ?Type atorvastatin 40 mg tablet 40 mg PO DAILY 12/19/20 05/23/24 05/23/24 08:00 History thiamine HCl (vitamin B1) 100 mg 100 mg PO DAILY 12/19/20 05/23/24 05/23/24 08:00 History tablet omeprazole 40 mg capsule,delayed 40 mg PO DAILY@1630 02/19/22 05/23/24 05/22/24 History release gabapentin 300 mg capsule 300 mg PO BID 01/18/23 05/23/24 05/23/24 08:00 History acetaminophen 650 mg 650 mg PO DAILY PRN Pain 04/27/23 05/23/24 05/23/24 08:00 History tablet,extended release (Tylenol 8 Hour) bumetanide 1 mg tablet 2 mg PO DAILY 04/27/23 05/23/24 05/23/24 08:00 History ergocalciferol (vitamin D2) 50 mcg 50 mcg PO DAILY 10/22/23 05/23/24 05/23/24 08:00 History (2,000 unit) capsule ferrous sulfate 325 mg (65 mg 325 mg PO DAILY 10/22/23 05/23/24 05/23/24 08:00 History iron) tablet naproxen 220 mg-diphenhydramine 25 1 tab PO BEDTIME 05/23/24 05/23/24 05/22/24 History mg tablet (Aleve PM) rivaroxaban 20 mg tablet (Xarelto) 20 mg PO BEDTIME 05/23/24 05/23/24 05/22/24 History Physical Exam 2 Vital Signs: Vital Signs: Last Vital Signs Temp 97.3 F 05/24/24 10:57 Pulse 64 05/24/24 10:57 Resp 18 05/24/24 10:57 BP 147/73 H 05/24/24 11:08 Pulse Ox 95 05/24/24 10:57 O2 Del Method Room Air 05/24/24 10:57 BMI result Body Mass Index 51.9 Const: General: cooperative, comfortable, no acute distress, alert and awake Nutritional Appearance: obese morbidly obese Orientation/consciousness: p atient oriented x3 HEENT: Head: Yes normocephalic and Yes atraumatic Neck: Neck: Yes trachea midline, Yes supple and Yes no JVD Resp: Effort & Inspection: normal respiratory effort Auscultation: clear to auscultation bilaterally and diminished lung sounds Cardio: Jugular venous distension: no JVD Rate: bradycardic Rhythm: a bnormal rhythm irregularly irregular Heart sounds: S1 normal heart sound present, S2 normal heart sound present, no click, no gallops, no murmurs and no rubs GI: Auscultation: normal bowel sounds Skin: General skin exam: no rashes or lesions noted Neuro: General: patient oriented x3 and no focal motor deficits Extrem: General: No calf tenderness, No clubbing, Yes cyanosis and Yes venous stasis dermatitis Psych: Appearance: grossly normal Objective Labs and Meds 05/24/24 06:31 05/24/24 06:31 Lab results: Laboratory Results - last 24 hr 05/23/24 05/23/24 05/24/24 18:32 18:33 06:31 WBC 7.2 6.3 RBC 4.03 L 3.87 L Hgb 13.2 12.7 Hct 40.6 39.0 MCV 100.7 H 100.8 H MCH 32.8 32.8 MCHC 32.5 32.6 RDW 14.9 14.9 Plt Count 239 217 MPV 8.9 L 8.9 L Immature Gran % (Auto) 0.3 Neut % (Auto) 69.9 Lymph % (Auto) 13.7 L [place] % (Auto) 7.9 Eos % (Auto) 7.5 H Baso % (Auto) 0.7 Lymph # (Auto) 1.0 L [place] # (Auto) 0.6 Eos # (Auto) 0.5 H Baso # (Auto) 0.1 Abs Immat Gran (auto) 0.02 Absolute Neuts (auto) 5.1 Absolute Nucleated RBC 0.000 0.000 Nucleated RBC % (auto) 0.0 0.0 PT 21.5 H INR 1.8 H Sodium 141 140 Potassium 4.4 3.8 Chloride 106 109 H Carbon Dioxide 26 24 Anion Gap 13 11 L BUN 23 H 19 H Creatinine 1.15 0.88 Estim Creat Clear Calc 55.8 72.9 Estimated GFR 46 > 60 POC Glucose 78 Random Glucose 116 H 105 Calcium 9.7 9.4 Total Bilirubin 0.5 1.1 H Direct Bilirubin 0.4 AST 21 18 ALT 14 11 Alkaline Phosphatase 125 H 115 Troponin I High Sens 11.6 C-Reactive Protein 0.25 B-Natriuretic Peptide 263 H Total Protein 7.3 6.2 L Albumin 3.6 3.3 L Lipase 17 Imaging Radiologist's impression: Impressions Cervical Spine CT 05/23/24 19:[address] evidence of acute intracranial hemorrhage or edematous territorial infarction. 2. No CT evidence of acute cervical spine fracture or malalignment. 3. Spondylosis as detailed above. Electronically signed by: Jesus Myers MD 05/23/2024 08:43 PM EDT RP Head CT 05/23/24 19:[address]: 1[address] evidence of acute intracranial hemorrhage or edematous territorial infarction. 2. No CT evidence of acute cervical spine fracture or malalignment. 3. Spondylosis as detailed above. Electronically signed by: Jesus Myers MD 05/23/2024 08:43 PM EDT RP Abdomen/Pelvis CT 05/23/24 19:10 IMPRESSION: Likely radiolucent gallstones within the gallbladder. Common bile duct is 1 cm maximal diameter. Clinical correlation recommended. If there is concern for obstruction, MRCP may be helpful. Electronically signed by: Morgan Lowe MD 05/23/2024 07:46 PM EDT RP Assessment and Plan (1) Syncope: Status: Acute Syncope in the setting of acute abdominal pain and with orthostatic stress with noted underlying atrial fibrillation with slow ventricular response which could potentially contribute to her syncopal episode although not solely responsible for her syncopal episode. I think mechanism for her syncope appears to be a combination off all including maybe some orthostatic component and possible vasovagal reaction as well. She does not appear to be particularly dehydrated and/or having any sepsis syndrome at this point time. Will continue monitor full disclosure cardiac telemetry. I had a very long discussion with electrophysiology about management given that she persists with slow ventricular response with atrial fibrillation despite off all rate lowering medication for pacing therapy. Would like to obtain an echocardiogram to further decide the course of action as well as further treatment options. Will set up for outpatient event monitor. (2) Atrial fibrillation with slow ventricular response: Status: Acute Atrial fibrillation with slow ventricular response despite of rate lowering medication. She came with syncopal episode although seems like a syncope is related to combination of issues. I am not sure there is a class 1 indication for pacemaker therapy. Discussed with electrophysiology at this point in time. They would like patient to have an echocardiogram to determine LV ejection fraction and outpatient event monitor which I think is reasonable approach. Discussed with the patient. Will also require LBBB pacemaker if she does need a pacemaker which should be done at another institution and probably be done as an outpatient. (3) (HFpEF) heart failure with preserved ejection fraction: Status: Acute Heart failure preserved ejection fraction, clinically euvolemic and well compensated. Continue current bumetanide dose. Continue monitor clinically. Continue CPAP therapy. Will follow with you if patient remains inpatient for noncardiac reasons Procedures Date of Service Date of Service: 05/24/24
--- NOTE | 2024-05-24 15:14 | HO.PM.IMPN ---
Subjective Subjective Date of Service: 05/24/24 Interval History: no further RUQ pain HR as low as 35 this AM no lightheadedness no further syncope Review of Systems Review of Systems: Yes all other systems are reviewed and are negative Physical Exam Vital Signs: Vital Signs: Last Vital Signs Temp 97.3 F 05/24/24 10:57 Pulse 64 05/24/24 10:57 Resp 18 05/24/24 10:57 BP 147/73 H 05/24/24 11:08 Pulse Ox 95 05/24/24 10:57 O2 Del Method Room Air 05/24/24 10:57 BMI result Body Mass Index 51.9 Gen: in no acute distress HEENT: sclera anicteric, moist mucus membranes Neck: supple Lungs: clear to auscultation bilaterally Heart: irregular, no murmurs Abd: soft, non-tender, non-distended, obese Ext: no edema Skin: warm/well-perfused Neuro: alert and oriented x3, no focal findings Psych: appropriate affect Objective Data Active Medications Acetaminophen (Acetaminophen 325 Mg Tablet) 650 mg PO Q6H PRN PRN Reason: Pain, Mild (Pain Scale 1-3), fever or headache Atorvastatin Calcium (Atorvastatin Calcium 40 Mg Tablet) 40 mg PO DAILY [facility] Last Admin: 05/24/24 10:24 Dose: 40 mg Documented By: GEOFFREY Calcium Carbonate (Calcium Carbonate 750 Mg Tab.Chew) 750 mg PO Q4H PRN PRN Reason: Heartburn Ferrous Sulfate (Ferrous Sulfate 324 Mg Tablet.) 324 mg PO DAILY [facility] Last Admin: 05/24/24 10:24 Dose: 324 mg Documented By: GEOFFREY Gabapentin (Gabapentin 300 Mg Capsule) 300 mg PO BID [facility] Last Admin: 05/24/24 10:24 Dose: 300 mg Documented By: GEOFFREY Magnesium Hydroxide (Milk Of Magnesia 30 Ml Oral.Susp) 30 ml PO DAILY PRN PRN Reason: Constipation Melatonin (Melatonin 3 Mg Tablet) 6 mg PO BEDTIME PRN PRN Reason: Insomnia Last Admin: 05/24/24 01:25 Dose: 6 mg Documented By: MARGARITA Omeprazole (Omeprazole 40 Mg Capsule.) 40 mg PO DAILY@1630 [facility] Ondansetron HCl (Ondansetron Hcl 4 Mg/2 Ml Vial) 4 mg IVPUSH Q8H PRN PRN Reason: Nausea and Vomiting Sodium Chloride (0.9 % Sodium Chloride Flush 3 Ml Syringe) 3 ml IVFLUSH QSHIFT [facility] Last Admin: 05/24/24 08:13 Dose: 3 ml Documented By: GEOFFREY Thiamine HCl (Thiamine Hcl 100 Mg Tablet) 100 mg PO DAILY [facility] Last Admin: 05/24/24 10:23 Dose: 100 mg Documented By: GEOFFREY Labs 05/24/24 06:31 05/24/24 06:31 Labs: Laboratory Results - last 24 hr 05/23/24 05/23/24 05/24/24 18:32 18:33 06:31 MCV 100.7 H 100.8 H MCH 32.8 32.8 MCHC 32.5 32.6 RDW 14.9 14.9 Plt Count 239 217 MPV 8.9 L 8.9 L Immature Gran % (Auto) 0.3 Neut % (Auto) 69.9 Lymph % (Auto) 13.7 L [place] % (Auto) 7.9 Eos % (Auto) 7.5 H Baso % (Auto) 0.7 Lymph # (Auto) 1.0 L [place] # (Auto) 0.6 Eos # (Auto) 0.5 H Baso # (Auto) 0.1 Abs Immat Gran (auto) 0.02 Absolute Neuts (auto) 5.1 Absolute Nucleated RBC 0.000 0.000 Nucleated RBC % (auto) 0.0 0.0 PT 21.5 H INR 1.8 H Anion Gap 13 11 L Estim Creat Clear Calc 55.8 72.9 Estimated GFR 46 > 60 POC Glucose 78 Random Glucose 116 H 105 Calcium 9.7 9.4 Total Bilirubin 0.5 1.1 H Direct Bilirubin 0.4 AST 21 18 ALT 14 11 Alkaline Phosphatase 125 H 115 Troponin I High Sens 11.6 C-Reactive Protein 0.25 B-Natriuretic Peptide 263 H Total Protein 7.3 6.2 L Albumin 3.6 3.3 L Lipase [address] 05/23/24 19:05 IMPRESSION: 1. No CT evidence of acute intracranial hemorrhage or edematous territorial infarction. 2. No CT evidence of acute cervical spine fracture or malalignment. 3. Spondylosis as detailed above. Electronically signed by: Jesus Myers MD 05/23/2024 08:43 PM EDT RP Head CT 05/23/24 19:05 IMPRESSION: 1. No CT evidence of acute intracranial hemorrhage or edematous territorial infarction. 2. No CT evidence of acute cervical spine fracture or malalignment. 3. Spondylosis as detailed above. Electronically signed by: Jesus Myers MD 05/23/2024 08:43 PM EDT RP Abdomen/Pelvis CT 05/23/24 19:10 IMPRESSION: Likely radiolucent gallstones within the gallbladder. Common bile duct is 1 cm maximal diameter. Clinical correlation recommended. If there is concern for obstruction, MRCP may be helpful. Electronically signed by: Morgan Lowe MD 05/23/2024 07:46 PM EDT RP Assessment and Plan (1) Syncope: Status: Acute Plan d2 79yo F with permanent AF on rivaroxaban, JANI on CPAP, GERD, HLD, peripheral neuropathy, HFpEF, HTN, morbid obesity admitted after syncopal episode in association with RUQ pain found to have bradycardia, question of cholelithiasis as well as dilated CBD syncope bradycardia - Cardiology consulted. Plan TTE, outpatient cardiac event monitor; may require LBBB pacer. cholelithiasis - doubt cholecystitis; HIDA pending CBD dilation - MRCP pending, GI consult permanent AF - continue rivaroxaban. not on rate control agent HLD - statin HFpEF - continue bumetanide; appears euvolemic peripheral neuropathy - gabapentin JANI - CPAP at night GERD - PPI VTE ppx - rivaroxaban dispo - TBD In my clinical judgment, the patient requires continued inpatient hospitalization for the following reasons: bradycardia, CBD dilation + GB workup Total time managing care of this patient today: 40 minutes. Quality Stroke Does the patient have a stroke diagnosis?: No VTE Prior VTE?: No VTE Risk Level:: Medical - moderate - high VTE Device Contraindication: Treatment Not Indicated VTE Drug Contraindication: N/A - Med Ordered
[2024-05-24] MEDS: Omeprazole 40 MG CAPSULE.DR PO (17:32)
[2024-05-24] MEDS: Rivaroxaban 20 MG TABLET PO (20:48)
--- NOTE | 2024-05-24 21:23 | PM.EVENT ---
Event Note Date of Service: 05/24/24 Event Note: GI Consult-Full note dictated Imp: Gallstones and RUQ pain. Currently very stable. She denies any further pain and her abdomen is benign. On my reading, her CBD appears patent on the HIDA scan but the GB does not appear to be filling. On my reading the CBD on the MRCP appears to be free of any definitive CBD stones. Her LFT's are WNL. I doubt she has any CBD stones and there is no evidence of cholangitis. Rec: Surgery consult re: the gallstones, transient abdominal pain, and the abnormal HIDA scan(at least on my reading). Await official reading of the MRCP and the HIDA scan. Check F/U labs. D/W patient and she is comfortable with the plan. Thanks Time Spent With Patient Time: Total time managing care of this patient today ____ minutes.
[2024-05-24] MEDS: Acetaminophen 325 MG TABLET 650 MG PO (23:16)
--- NOTE | 2024-05-25 01:14 | PC.RT ---
Pt refused NOC CPAP
--- NOTE | 2024-05-25 03:14 | CONS_ITS ---
DATE OF SERVICE: 05/24/2024 REASON FOR CONSULTATION: Right upper quadrant pain and gallstones. HISTORY OF PRESENT ILLNESS: The patient is a 79-year-old female, who was in her usual state of health up until yesterday afternoon. She developed a fairly acute onset of right-sided upper abdominal pain. This was not associated with any vomiting, jaundice, fevers, nor chills. She decided to get up and go lay down, but as she was walking to the bathroom, she passed out. When she awakened, she describes that her abdominal pain resolved. She called an ambulance and was taken to the ER. In the ER, she was not having any abdominal pain, but was admitted due to primarily the syncopal episode. Prior to yesterday, she was not having any particular GI symptoms. She does have a distant history of gastric ulcer disease and has been on chronic omeprazole. However, she does use 1 Aleve every evening for discomfort. Prior to yesterday, she was eating comfortably and denies any chronic heartburn or dysphagia. Her bowel movements have been regular and without any sign of hematochezia nor melena. Since arrival in the medical floor, she has been stable and again denies any further abdominal pain. She does have a family history of gallstones in her mother. She has a personal history of gallstones seen on previous imaging studies as well. She has been afebrile in the hospital. MEDICATIONS: At home included acetaminophen, atorvastatin, bumetanide, vitamin D, iron, gabapentin, Aleve, omeprazole 40 mg daily, Xarelto with her last dose taken on May 22. Medications here in the hospital include acetaminophen, atorvastatin, bumetanide, iron, gabapentin, melatonin, omeprazole, ondansetron, Xarelto, and thiamine. PAST MEDICAL HISTORY: Right hip surgery for a fracture. She denies any other surgeries. She has a history of atrial fibrillation and is followed by Dr. Garcia for that. She has sleep apnea. Gastroesophageal reflux. Gastric ulcer as above. Hyperlipidemia. Peripheral neuropathy. CHF. Hypertension. Obesity. Edema. She denies a history of NV, stroke, lung disease, nor diabetes. SOCIAL HISTORY: She does not smoke nor drink. She lives with her brother. REVIEW OF SYSTEMS: CONSTITUTIONAL: Prior to yesterday, she had been feeling at her baseline. Her appetite had been good. SKIN: No rash nor jaundice. CARDIAC: No chest pain. PULMONARY: She does have some shortness of breath, but no coughing or hemoptysis. GI: As above. URINARY: No dysuria. No hematuria. PHYSICAL EXAMINATION: GENERAL: Again, the patient is a pleasant alert, comfortable-appearing female. SKIN: Warm and dry. Afebrile. HEENT: Anicteric sclerae. CHEST: Clear. CARDIAC: Normal S1, S2. ABDOMEN: Soft, nondistended, nontender without palpable mass or organomegaly. No focal tenderness. EXTREMITIES: Reveal bilateral lower extremity edema. LABORATORY DATA: White blood cell count 6.3, hemoglobin 12.7, platelets 217,000. PT 21.5 with INR 1.8. Normal electrolytes. BUN 19, creatinine 0.9. LFTs normal. Lipase 17. Her CT scan on admission described a mildly dilated extrahepatic bile duct, but without any stones in the common duct. There were gallstones noted in the gallbladder. Pancreas appeared normal. No obvious GI tract pathology. She did have a HIDA scan, which has not yet been officially read, but to my eye, it appears that the bile duct is quite patent with good emptying of isotope into the small bowel. However, the gallbladder did not seem to be visualized throughout the study. She did have an MRCP, which again to my reading shows a dilated extrahepatic bile duct, but without any definitive filling defects. IMPRESSION: Given the patient's presentation, she may have had some pain in relation to her gallbladder, although somewhat atypical given the brief nature of the pain. She clearly has some gallstones and a HIDA scan does indicate perhaps some component of chronic cholecystitis. Based on her normal LFTs and at least to my reading a normal common duct on MRCP, does not appear that she has choledocholithiasis. At this point, I would recommend observation and Surgery consult to get their opinion as to whether or not a cholecystectomy would be warranted. We shall await the official reading of both the HIDA scan and the MRCP. She will have followup laboratories in the morning. Assuming the MRCP reading to also not describe any common duct stones, then she would not need ERCP. At this point, she otherwise appears quite stable from a GI standpoint. Her diet can be as tolerated for the time being. Of note, I did advise that she should not use NSAIDs such as Aleve given the previous history of a large gastric ulcer and she should continue her omeprazole long-term as well. Thank you for the consultation. MD PETER August/MARCI / [id number]
[2024-05-25 04:00] VITALS: BP 151/21; PULSE 69; RESP 22; TEMP 36.1; O2SAT 95
[2024-05-25 06:58] VITALS: BP 130/60; PULSE 55; RESP 18; TEMP 36.6; O2SAT 96
--- NOTE | 2024-05-25 07:00 | CA_ITS ---
Transthoracic Echocardiogram Patient (Last, First, Middle): Iva Lopez M Gender: Female Date of : 1945 Age: 79 Procedure Date: 05/25/2024 Procedure Type: Transthoracic Echocardiogram Location: [facility] [place] Height: 162.56 cm Weight: 136.99 kg BSA: 2.33 m2 Heart Rate: bpm BP: 147 / 73 mmHg Deputy Fire Chief: SB Referring MD: Florian Mast MD Education General Manager: Ezekiel Garcia MD Symptoms: bradycardia Study Quality: Technically Difficult, contrast ECG Rhythm: Atrial Fibrillation Conclusions: - 1. Technically limited study despite use of contrast agent 2. Normal LV ejection fraction of 65-70% 3. At least moderate left atrial enlargement 4. Severe mitral annular calcification as well as calcific aortic valve changes noted with no significant valvular Doppler abnormalities 5. No significant elevation of right ventricular systolic pressure Findings Procedure Information Contrast agent, definity, is being given per protocol without apparent complications. Left Ventricle Normal left ventricular size, thickness, and systolic function. The visually estimated ejection fraction is between 65-70%. Diastolic function is indeterminate on the basis of available data. Elevated left ventricular end diastolic pressure. Right Ventricle The right ventricle was not well visualized. There is mildly decreased right ventricular systolic function. Atria The left atrium is moderately dilated. Interatrial shunt cannot be excluded. The right atrium was not well visualized. Aortic Valve The aortic valve was not well visualized. There is mild calcification of the aortic valve. There is no aortic valve stenosis. There is no aortic valve regurgitation. Mitral Valve There is mild anterior and severe posterior mitral leaflet thickening. There is severe mitral annular calcification. There is trace mitral valve regurgitation. There is no mitral valve stenosis. Pulmonic Valve The pulmonic valve was not well visualized. Tricuspid Valve The tricuspid valve was not well visualized. Tricuspid regurgitation envelope is inadequate for calculation of right ventricular systolic pressure. Indeterminate right atrial pressure. Great Vessels The aorta was not well visualized. The pulmonary artery was not well visualized. Venous The inferior vena cava was not well visualized. Pericardium/Pleural The pericardium was not well visualized. Measurements 2D Linear Measurements IVSd: 1.07 0.6-0.9/0.6-1.0 cm LVIDd: 4.40 3.9-5.3/4.2-5.9 cm LVIDd Index: 1.89 2.4-3.2/2.2-3.1 cm/m2 LVPWd: 1.14 0.7-1.1 cm LA Diam: 4.50 2.7-3.8/3.0-4.0 cm LAIDs Index: 1.93 1.5-2.3 cm/m2 LV Mass: 211.77 67-162/88-224 g LV Mass Index: 90.89 43-95/49-115 g/m2 LVOT Diam: 1.90 3.0+(-)1.3 cm 2D Systolic Function EF 4C: 79.10 >55% EF 2C: 52.80 >55% EF BiP: 67.40 >55% Mitral Valve MV VTI: 0.50 MV Pk Jesu: 1.92 MV Mn Jesu: 0.74 MV Pk Grad: 15.00 MV Mn Grad: 3.00 MV Pk E: 1.09 MVA Continuity: 1.45 Aortic Valve AoV Pk Jesu: 1.47 AoV Mn Jesu: 1.01 AoV VTI: 0.36 AoV Pk Grad: 9.00 Aov Mn Grad: 5.00 ALEKSANDAR Cont.VTI: 2.00 LVOT LVOT Pk Jesu: 1.15 LVOT Mn Jesu: 0.78 LVOT VTI: 0.26 LVOT Pk Grad: 5.00 LVOT Mn Grad: 3.00 LVOT Diam: 1.90 LVOT Area: 2.84 Diastolic Function MV Pk E: 1.09 Right Ventricle TAPSE (mm): 16.30 TVS' Jesu: 11.70 Tricuspid Valve TR Pk Jesu: 2.47 TR Pk Grad: 24.00 Great Vessels Aorta Sinus of Valsalva: 3.30 2.0-3.5 cm Ao Asc: 3.40 2.1-3.4 cm Pulmonary Valve PV Pk Jesu: 1.18 Peak PV Grad: 6.00 Updated in Other Vendor System with Status of Final Ezekiel Garcia MD electronically signed on 05/25/2024 11:21:14 AM with status of Final
[2024-05-25 07:05] LABS: Hematocrit 36.8 % (37.0-47.0); Hemoglobin 12.2 g/dl (12.0-16.0); Mean Corpuscular HGB Conc 33.2 g/dl (31.0-35.0); Mean Corpuscular Hemoglobin 33.3 pg (27.0-33.0); Mean Corpuscular Volume 100.5 fL (80.0-98.0); Platelet Count 211 X10*3/uL (160-400); Red Blood Count 3.66 X10*6/uL (4.20-5.50); Red Cell Distribution Width 14.9 % (11.0-16.0); White Blood Count 5.8 X10*3/uL (4.8-10.8)
[2024-05-25 07:21] LABS: Alanine Aminotransferase 12 U/L (0-31); Albumin Level 3.2 g/dL (3.5-5.0); Alkaline Phosphatase 106 U/L (39-117); Anion Gap 12 (12-20); Aspartate Amino Transferase 21 U/L (5-31); Bilirubin Total 0.9 mg/dL (0.0-1.0); Blood Urea Nitrogen 19 mg/dL (9-16); Calcium 9.2 mg/dL (8.4-10.2); Carbon Dioxide 24 mmol/L (22-29); Chloride 109 mmol/L (96-108); Creatinine Clr Calc Pharmacy 68.3; Estimated Glomerular Filt Rate 58; Glucose Random 107 mg/dL (60-115); Potassium 3.9 mmol/L (3.3-5.1); Sodium 141 mmol/L (135-145); Total Protein 6.4 g/dL (6.5-8.0)
--- NOTE | 2024-05-25 07:46 | PC.NURSE ---
Patient with c/o headache overnight. Medicated with 650 mg po tylenol with good effect. Assisted OOb to bathroom with one person assistance and a walker. BP remains elevated. Afib with HR in mid 50's on director of cardiac cath lab. No signs of distress noted.
--- NOTE | 2024-05-25 07:47 | PM.CNGS ---
History of Present Illness Consult details Consult date: 05/25/24 Narrative: Patient is a 79-year-old female who presents here status post syncopal episode and right side/right flank abdominal pain. She has never had such flank/abdominal pain with for. Otherwise tolerating a diet, has regular bowel habits. No history of jaundice. Patient does not per se have fatty food intolerance. This morning, her abdominal symptoms have completely resolved. Chart was reviewed and patient evaluated. JM scan demonstrates no evidence of choledocholithiasis although not officially read yet. Gallbladder not filled. MRCP again unread but demonstrates cholelithiasis but no obvious choledocholithiasis. In the meantime, patient was tolerating her diet with no abdominal symptoms LFTs within normal limits Patient has significant comorbidities, including; atrial fibrillation with low ventricular response. She is on anticoagulation. [facility] Past Medical History Medical History (Updated 05/24/24 @ 11:30 by Ezekiel Garcia MD) Paroxysmal atrial fibrillation Morbid obesity JANI (obstructive sleep apnea) HTN (hypertension) (HFpEF) heart failure with preserved ejection fraction Chronic a-fib Family History Family History Father CVD (cardiovascular disease) Mother CHF (congestive heart failure) Surgical History Surgical History History of cardioversion Hx of cardiac cath History of hip surgery Social History Social History Household Members: Family Household Members Other:: brother Housing: House Do you presently have visiting nurse or other home services: No Alcohol intake: former Patient Tobacco Use Status: Former Tobacco user Tobacco use type: Cigarette Years Smoked: 12 e-Cigarette/Vaping Use: Never Used Second Hand Smoke Exposure: No Advance Directives Date on File: 04/28/23 service: No Meds Allergies Allergy/AdvReac Type Severity Reaction Status Date / Time amoxicillin [AMOXICILLIN] Allergy Unknown UNKNOWN Verified 05/23/24 19:55 flecainide [FLECAINIDE] Allergy Unknown SEVERE Verified 05/23/24 19:55 CHEST PAIN Sulfa (Sulfonamide Allergy Unknown UNKNOWN Verified 05/23/24 19:55 Antibiotics) [SULFA (SULFONAMIDE ANTIBIOTICS)] Active Medications: Current Medications Acetaminophen (Acetaminophen 325 Mg Tablet) 650 mg PO Q6H PRN PRN Reason: Pain, Mild (Pain Scale 1-3), fever or headache Last Admin: 05/24/24 23:16 Dose: 650 mg Atorvastatin Calcium (Atorvastatin Calcium 40 Mg Tablet) 40 mg PO DAILY [facility] Last Admin: 05/24/24 10:24 Dose: 40 mg Bumetanide (Bumetanide 1 Mg Tablet) 2 mg PO DAILY [facility]; Protocol Calcium Carbonate (Calcium Carbonate 750 Mg Tab.Chew) 750 mg PO Q4H PRN PRN Reason: Heartburn Ferrous Sulfate (Ferrous Sulfate 324 Mg Tablet.Dr) 324 mg PO DAILY [facility] Last Admin: 05/24/24 10:24 Dose: 324 mg Gabapentin (Gabapentin 300 Mg Capsule) 300 mg PO BID [facility] Last Admin: 05/24/24 20:48 Dose: 300 mg Magnesium Hydroxide (Milk Of Magnesia 30 Ml Oral.Susp) 30 ml PO DAILY PRN PRN Reason: Constipation Melatonin (Melatonin 3 Mg Tablet) 6 mg PO BEDTIME PRN PRN Reason: Insomnia Last Admin: 05/24/24 01:25 Dose: 6 mg Omeprazole (Omeprazole 40 Mg Capsule.Dr) 40 mg PO DAILY@1630 [facility] Last Admin: 05/24/24 17:32 Dose: 40 mg Ondansetron HCl (Ondansetron Hcl 4 Mg/2 Ml Vial) 4 mg IVPUSH Q8H PRN PRN Reason: Nausea and Vomiting Rivaroxaban (Rivaroxaban 20 Mg Tablet) 20 mg PO BEDTIME [facility] Last Admin: 05/24/24 20:48 Dose: 20 mg Sodium Chloride (0.9 % Sodium Chloride Flush 3 Ml Syringe) [facility] Last Admin: 05/25/24 07:32 Dose: Not Given Thiamine HCl (Thiamine Hcl 100 Mg Tablet) 100 mg PO DAILY [facility] Last Admin: 05/24/24 10:23 Dose: 100 mg Home Medications ?Medication ?Instructions ?Recorded ?Confirmed ?Last Taken ?Type atorvastatin 40 mg tablet 40 mg PO DAILY 12/19/20 05/23/24 05/23/24 08:00 History thiamine HCl (vitamin B1) 100 mg 100 mg PO DAILY 12/19/20 05/23/24 05/23/24 08:00 History tablet omeprazole 40 mg capsule,delayed 40 mg PO DAILY@1630 02/19/22 05/23/24 05/22/24 History release gabapentin 300 mg capsule 300 mg PO BID 01/18/23 05/23/24 05/23/24 08:00 History acetaminophen 650 mg 650 mg PO DAILY PRN Pain 04/27/23 05/23/24 05/23/24 08:00 History tablet,extended release (Tylenol 8 Hour) bumetanide 1 mg tablet 2 mg PO DAILY 04/27/23 05/23/24 05/23/24 08:00 History ergocalciferol (vitamin D2) 50 mcg 50 mcg PO DAILY 10/22/23 05/23/24 05/23/24 08:00 History (2,000 unit) capsule ferrous sulfate 325 mg (65 mg 325 mg PO DAILY 10/22/23 05/23/24 05/23/24 08:00 History iron) tablet naproxen 220 mg-diphenhydramine 25 1 tab PO BEDTIME 05/23/24 05/23/24 05/22/24 History mg tablet (Aleve PM) rivaroxaban 20 mg tablet (Xarelto) 20 mg PO BEDTIME 05/23/24 05/23/24 05/22/24 History Physical Exam Vital Signs: Vital Signs: Last Vital Signs Temp 97.8 F 05/25/24 06:58 Pulse 55 05/25/24 06:58 Resp 18 05/25/24 06:58 BP 130/60 05/25/24 06:58 Pulse Ox 96 05/25/24 06:58 O2 Del Method Room Air 05/25/24 06:58 BMI result Body Mass Index 51.9 Const: Other: Patient resting comfortably, and no acute abdominal distress. GI: Other: Massively corpulent abdomen. Soft, benign. No evidence of any guarding, rebound, rigidity. Results Labs 05/25/24 06:41 05/25/24 06:41 Labs: Abnormal lab results 05/24/24 05/25/24 Range/Units 06:31 06:41 RBC 3.66 L (4.20-5.50) X10*6/uL Hct 36.8 L (37.0-47.0) % MCV 100.5 H (80.0-98.0) fL MCH 33.3 H (27.0-33.0) pg MPV 9.0 L (9.4-12.3) fL Chloride 109 H (96-108) mmol/L BUN 19 H (9-16) mg/dL Total Bilirubin 1.1 H (0.0-1.0) mg/dL Total Protein 6.2 L 6.4 L (6.5-8.0) g/dL Albumin 3.3 L 3.2 L (3.5-5.0) g/dL Short CBC 05/25/24 Range/Units 06:41 WBC 5.8 (4.8-10.8) X10*3/uL Hgb 12.2 (12.0-16.0) g/dl Hct 36.8 L (37.0-47.0) % Plt Count 211 (160-400) X10*3/uL BMP 05/25/24 06:41 Sodium 141 Potassium 3.9 Chloride 109 H Carbon Dioxide 24 BUN 19 H Creatinine 0.94 Calcium 9.2 Liver Function 05/24/24 05/25/24 Range/Units 06:31 06:41 Total Bilirubin 1.1 H 0.9 (0.0-1.0) mg/dL Direct Bilirubin 0.4 (0.0-0.5) mg/dL AST 18 21 (5-31) U/L ALT 11 12 (0-31) U/L Alkaline Phosphatase 115 106 (39-117) U/L Albumin 3.3 L 3.2 L (3.5-5.0) g/dL All other labs normal. Assessment and Plan (1) Abdominal pain: Status: Acute (2) Syncope: Status: Acute (3) Atrial fibrillation with slow ventricular response: Status: Acute (4) Morbid obesity: Status: Acute Plan At present, although patient has cholelithiasis, no clinical evidence of acute cholecystitis. Patient was also currently being worked up by Cardiology for syncopal episode and may require permanent pacemaker placement per patient. Current plan is to observe the patient indirect further therapy based on patient's clinical course. Procedures Date of Service Date of Service: 05/25/24
[2024-05-25] MEDS: Thiamine HCL 100 MG TABLET PO (09:05)
[2024-05-25] MEDS: Ferrous Sulfate 324 MG TABLET.DR PO (09:05)
[2024-05-25] MEDS: Atorvastatin Calcium 40 MG TABLET PO (09:05)
[2024-05-25] MEDS: Gabapentin 300 MG CAPSULE PO (09:05)
--- NOTE | 2024-05-25 09:43 | PM.PNCARD ---
Subjective Subjective Date of Service: 05/25/24 Principal diagnosis: Syncope, slow atrial fibrillation Interval history: Patient has no overnight symptoms. Remains in atrial fibrillation. This morning heart rate in the 50s. She says her feet do not feel less cold as she was feeling it at home. Denies any heart failure symptoms. Echocardiogram is being done Review of Systems Constitutional: Reports no additional constitutional complaints Cardiovascular: Denies chest pain, Denies lightheadedness, Denies palpitations, Reports dyspnea on exertion, Denies orthopnea and Reports slow heart rate Respiratory: Reports dyspnea on exertion Reports system reviewed and no additional complaints, except as documented Endocrine: Denies palpitations Physical Exam Vital Signs: Last Vital Signs Temp 97.8 F 05/25/24 06:58 Pulse 55 05/25/24 06:58 Resp 18 05/25/24 06:58 BP 130/60 05/25/24 06:58 Pulse Ox 96 05/25/24 06:58 O2 Del Method Room Air 05/25/24 06:58 BMI result Body Mass Index 51.9 Const General: cooperative, comfortable, no acute distress, alert and awake Nutritional Appearance: obese morbidly obese Orientation/consciousness: patient oriented x3 Neck Neck: Yes trachea midline, Yes supple and Yes no JVD Resp Effort & Inspection: normal respiratory effort Auscultation: clear to auscultation bilaterally Cardio Rate: bradycardic Rhythm: abnormal rhythm irregularly irregular Heart sounds: S1 normal heart sound present, S2 normal heart sound present, no click, no gallops and no murmurs GI Auscultation: normal bowel sounds Neuro General: patient oriented x3 Extrem General: No clubbing and No cyanosis Objective Labs and Meds 05/25/24 06:41 05/25/24 06:41 Lab results: Laboratory Results - last 24 hr 05/25/24 06:41 WBC 5.8 RBC 3.66 L Hgb 12.2 Hct 36.8 L MCV 100.5 H MCH 33.3 H MCHC 33.2 RDW 14.9 Plt Count 211 MPV 9.0 L Absolute Nucleated RBC 0.000 Nucleated RBC % (auto) 0.0 Sodium 141 Potassium 3.9 Chloride 109 H Carbon Dioxide 24 Anion Gap 12 BUN 19 H Creatinine 0.94 Estim Creat Clear Calc 68.3 Estimated GFR 58 Random Glucose 107 Calcium 9.2 Total Bilirubin 0.9 AST 21 ALT 12 Alkaline Phosphatase 106 Total Protein 6.4 L Albumin 3.2 L Progress Note: A&P Assessment and plan (1) Syncope: Status: Acute Assessment and Plan: Syncope which appears to be situation most likely a component of vasovagal orthostatic hypotension along with slow atrial fibrillation. I do not think slow atrial fibrillation is the sole cause of her syncopal episode at this point time. I do not think she needs pacing emergently at this point in time. Will continue to hold all rate lowering medication. Advised to maintain adequate oral hydration. Will set up for outpatient event monitor. Patient can be discharged home today. Will follow-up and review the echocardiogram. (2) Atrial fibrillation with slow ventricular response: Status: Acute Assessment and Plan: Atrial fibrillation with slow ventricular response. Currently off all rate lowering medications. Avoid all rate lowering medication in the future. Will set up for outpatient 30 day monitor as above. Had discussed with electrophysiology, based on the echocardiographic study if she requires a pacing she will most likely need left bundle-branch pacing. This was discussed with her in details. Will set up for follow-up after event monitor in 6 weeks time. Thank you for allowing me to partake in his care Time Spent With Patient Time: Total time managing care of this patient today ____ minutes. Progress Note: Quality Stroke Does the patient have a stroke diagnosis?: No Procedures Date of Service Date of Service: 05/25/24
[2024-05-25 11:23] VITALS: BP 136/63; PULSE 55; RESP 18; TEMP 36.2; O2SAT 98
--- NOTE | 2024-05-25 13:54 | W.MHC.F2F ---
Service Date Service Date: 05/25/24 Encounter Date of encounter: 05/25/24 Reasons for Services Signs and symptoms assessed: BP changes HR changes Reason for half-way: medication management, medication treatment and teach disease management Reason for physical therapy: home safety and mobility, therapeutic exercises, gait/transfer training, assess need for DME, ADL training and energy conservation MD Overseeing Care: Jesus Berg Homebound: Leaving the home is medically contraindicated at this time without the asist of a device and/or another person due th the listed conditions above and below. Reason homebound: fall risk related to blood pressure changes Certification: Based on the above findings, I certify that this patient is confined to the home and needs intermittent half-way care, physical therapy and/or speech therapy, or continues to need occupational therapy. The patient is under my care, and I have initiated the establishment of the plan of care. The patient will be followed by a physician who will periodically review the plan of care. Time Spent With Patient Time: Total time managing care of this patient today ____ minutes.
--- NOTE | 2024-05-25 14:01 | PM.DS ---
DS: Providers Provider Date of Service: 05/25/24 Date of admission: 05/23/24 21:10 Date of discharge: 05/25/24 Primary care physician: Jesus Berg DO Consults: 05/23/24 21:52 Consult to Cardiology Routine Consulting Provider: [facility] [place] [facility] Reason for consultation: re, syncope Has provider been notified: Yes 05/24/24 08:56 Consult to Gastroenterology Routine Consulting Provider: [facility] Reason for consultation: cbd dilation, abd pain 05/24/24 21:23 Consult to General Surgery Routine Consulting Provider: [facility] [place] [facility] Reason for consultation: Gallstones, RUQ pain Has provider been notified: No DS: Diagnosis Discharge Diagnosis (1) Syncope: Status: Acute (2) Atrial fibrillation with slow ventricular response: Status: Acute (3) Cholelithiasis: Status: Acute (4) Morbid obesity: Status: Acute (5) Pancreatic cyst: Status: Acute DS: Summary Hospital Course Hospital Course: From the history and physical by the admitting hospitalist, Valentino Lazo, 05/23/24: This is a 79-year-old female with pertinent history of permanent atrial fibrillation on Xarelto, JANI on CPAP, gastroesophageal reflux disease, mixed hyperlipidemia, peripheral neuropathy, congestive heart failure with preserved EF, hypertension, morbid obesity who presents to the emergency department for evaluation after a syncopal episode. Patient states she had sudden onset of right upper quadrant pain about 1-2 hours after eating. She wanted to use the restroom and got up to walk towards the bathroom. Patient felt dizzy/lightheaded and passed out and subsequently fell on the floor. She denies similar right upper quadrant pain before this episode. No chest pain or palpitations prior to the fall or loss of consciousness. No rhythmic jerking movement of extremities. She denies fever, chills, nausea, vomiting, shortness of breath, changes in urinary or bowel habits. In the emergency department, patient was found to be bradycardic and imaging concerning for gallstones with dilated common bile duct 79yo F with permanent AF on rivaroxaban, JANI on CPAP, GERD, HLD, peripheral neuropathy, HFpEF, HTN, ad morbid obesity admitted after syncopal episode in association with RUQ pain. Found to have bradycardia, question of cholelithiasis as well as dilated CBD. Admitted to the telemetry unit with Cardiology consultation. HR noted to be as slow as the mid 30s in atrial fibrillation though without symptoms. Ultimately thought to have vasovagal syncope likely triggered by episode of biliary colic. Gastroenterology and General Surgery consulted and felt she did not have acute cholecystitis. Though HIDA showed non filling of the gallbladder, MRCP showed cholelithiasis without wall thickening or inflammatory changes to suggest acute cholecystitis. There was moderate extrahepatic biliary duct dilation with a few faint, low-T2 signal filling defects in the middle lower CBD, possibly artifact, stones, or debris; also, multiple T2-hyperintense cystic lesions in the pancreas, the largest in the uncinate process up to 2.4 cm connecting with the main pancreatic duct; possibly sequelae of chronic pancreatitis and/or side branch IPMNs. Discussed with GI and choledocholithiasis and acute cholecystitis was felt to be unlikely in the absence of any further RUQ pain or any LFT abnormalities. As for the pancreatic lesions, recommend follow up with abd MRI with and without IV contrast/pancreatic protocol with MRCP in 3 months. As for the slow atrial fibrillation, Cardiology was consulted and recommended outpatient cardiac event monitor and will refer to EP for pacemaker. She was discharge home with VNA services. Time Attestation Discharge Coordination Time (in mins): 45 Quality: Safe Use of Opioids Does Pt have an Active Cancer Diagnosis on the Problem List?: No Quality: Stroke Does the patient have a stroke diagnosis?: No Physical Exam Vital Signs: Vital Signs: Last Vital Signs Temp 97.1 F 05/25/24 11:23 Pulse 55 05/25/24 11:23 Resp 18 05/25/24 11:23 BP 136/63 05/25/24 11:23 Pulse Ox 98 05/25/24 11:23 O2 Del Method Room Air 05/25/24 11:23 BMI result Body Mass Index 51.9 Gen: in no acute distress HEENT: sclera anicteric, moist mucus membranes Neck: supple Lungs: clear to auscultation bilaterally Heart: irregular, slow, no murmurs Abd: soft, non-tender, non-distended, obese Ext: no edema Skin: warm/well-perfused Neuro: alert and oriented x3, no focal findings Psych: appropriate affect DS: Data Data Completed and Pending Completed studies during hospitalization [Text1]: Laboratory Results WBC 5.8 X10*3/uL (4.8-10.8) 08/29/24 06:41 RBC 3.66 X10*6/uL (4.20-5.50) L 05/25/24 06:41 Hgb 12.2 g/dl (12.0-16.0) 05/25/24 06:41 Hct 36.8 % (37.0-47.0) L 05/25/24 06:41 MCV 100.5 fL (80.0-98.0) H 05/25/24 06:41 MCH 33.3 pg (27.0-33.0) H 05/25/24 06:41 MCHC 33.2 g/dl (31.0-35.0) 05/25/24 06:41 RDW 14.9 % (11.0-16.0) 05/25/24 06:41 Plt Count 211 X10*3/uL (160-400) 05/25/24 06:41 MPV 9.0 fL (9.4-12.3) L 05/25/24 06:41 Immature Gran % (Auto) 0.3 % (0.0-0.4) 05/23/24 18:33 Neut % (Auto) 69.9 % (45-73) 05/23/24 18:33 Lymph % (Auto) 13.7 % (20-40) L 05/23/24 18:33 [place] % (Auto) 7.9 % (2-11) 05/23/24 18:33 Eos % (Auto) 7.5 % (0-4) H 05/23/24 18:33 Baso % (Auto) 0.7 % (0-2) 05/23/24 18:33 Lymph # (Auto) 1.0 X10*3/uL (1.2-4.9) L 05/23/24 18:33 [place] # (Auto) 0.6 X10*3/uL (0.1-1.2) 05/23/24 18:33 Eos # (Auto) 0.5 X10*3/uL (0.0-0.4) H 05/23/24 18:33 Baso # (Auto) 0.1 X10*3/uL (0.0-0.2) 05/23/24 18:33 Abs Immat Gran (auto) 0.02 X10*3/uL (0.00-0.03) 05/23/24 18:33 Absolute Neuts (auto) 5.1 x10*3/uL (2.0-8.3) 05/23/24 18:33 Absolute Nucleated RBC 0.000 X10*3/uL (0.0-0.012) 05/25/24 06:41 Nucleated RBC % (auto) 0.0 /100WBC (0.0-0.2) 05/25/24 06:41 PT 21.5 SEC (11.1-13.3) H 05/23/24 18:33 INR 1.8 (0.9-1.1) H 05/23/24 18:33 Sodium 141 mmol/L (135-145) 05/25/24 06:41 Potassium 3.9 mmol/L (3.3-5.1) 05/25/24 06:41 Chloride 109 mmol/L (96-108) H 05/25/24 06:41 Carbon Dioxide 24 mmol/L (22-29) 05/25/24 06:41 Anion Gap 12 (12-20) 05/25/24 06:41 BUN 19 mg/dL (9-16) H 05/25/24 06:41 Creatinine 0.94 mg/dL (0.5-1.4) 05/25/24 06:41 Estim Creat Clear Calc 68.3 05/25/24 06:41 Estimated GFR 58 05/25/24 06:41 POC Glucose 78 mg/dL (60-115) 05/23/24 18:32 Random Glucose 107 mg/dL (60-115) 05/25/24 06:41 Calcium 9.2 mg/dL (8.4-10.2) 05/25/24 06:41 Total Bilirubin 0.9 mg/dL (0.0-1.0) 05/25/24 06:41 Direct Bilirubin 0.4 mg/dL (0.0-0.5) 05/24/24 06:31 AST 21 U/L (5-31) 05/25/24 06:41 ALT 12 U/L (0-31) 05/25/24 06:41 Alkaline Phosphatase 106 U/L (39-117) 05/25/24 06:41 Troponin I High Sens 11.6 ng/L (<3.5-17.0) 05/23/24 18:33 C-Reactive Protein 0.25 mg/dL (< or = 0.50) 05/24/24 06:31 B-Natriuretic Peptide 263 pg/mL (<100) H 05/23/24 18:33 Total Protein 6.4 g/dL (6.5-8.0) L 05/25/24 06:41 Albumin 3.2 g/dL (3.5-5.0) L 05/25/24 06:41 Lipase 17 U/L (8-78) 05/23/24 18:[address] 05/23/24 19:05 IMPRESSION: 1. No CT evidence of acute intracranial hemorrhage or edematous territorial infarction. 2. No CT evidence of acute cervical spine fracture or malalignment. 3. Spondylosis as detailed above. Electronically signed by: Jesus Myers MD 05/23/2024 08:43 PM EDT RP Head CT 05/23/24 19:05 IMPRESSION: 1. No CT evidence of acute intracranial hemorrhage or edematous territorial infarction. 2. No CT evidence of acute cervical spine fracture or malalignment. 3. Spondylosis as detailed above. Electronically signed by: Jesus Myers MD 05/23/2024 08:43 PM EDT RP Abdomen/Pelvis CT 05/23/24 19:10 IMPRESSION: Likely radiolucent gallstones within the gallbladder. Common bile duct is 1 cm maximal diameter. Clinical correlation recommended. If there is concern for obstruction, MRCP may be helpful. Electronically signed by: Morgan Lowe MD 05/23/2024 07:46 PM EDT RP Hepatobiliary Scan Nuclear Medicine 05/24/24 13:20 IMPRESSION: * The common bile duct is patent. * Liver function appears normal. * Nonvisualized gallbladder on the initial and subsequent delayed images up to 4 hours post injection. In the appropriate clinical setting, the findings would be consistent with acute cholecystitis. Electronically signed by: Mi Duron MD 05/25/2024 10:27 AM EDT RP Cholangiopancreatography MRI 05/24/24 16:05 IMPRESSION: 1. Cholelithiasis without associated wall thickening nor significant inflammatory changes to suspect acute cholecystitis. Correlate with already ordered HIDA study that will be dictated separately. 2. Moderate extrahepatic biliary ductal dilatation with gradual tapering of the middle and lower thirds of the common bile duct. There are a few faint, low T2 signal filling defects in the central and anterior lumen of the middle to lower CBD as well as periampullary CBD, some of which are only identified on the axial T2 images and one of which is only identified on the MRCP images. Uncertain if these represent artifact, stones or debris. Consider further evaluation with ERCP as clinically warranted. 3. Multiple T2 hyperintense, cystic-appearing lesions in the pancreas, the largest in the uncinate process measuring up to 2.4 cm connecting with the main duct. These are incompletely characterized in the absence of intravenous contrast and could represent sequelae of chronic pancreatitis and/or side branch type IPMNs. Recommend follow up with abdominal MRI pancreas protocol with and without IV contrast/MRCP in 3-6 months. 4. Fatty infiltration and atrophy of the pancreas. Electronically signed by: Noreen Ng MD 05/25/2024 10:40 AM EDT Discharge Plan Discharge Anticipated Discharge Date/Time: 05/25/24 13:58 Patient Disposition: Home Health Service Discharge Diagnosis: syncope atrial fibrillation with slow ventricular response cholelithiasis multiple pancreatic cysts Referrals: Farhana OWENS [Outside] - 1 Week Jesus Berg DO [Primary Care Provider] - 1 Week Adan Trujillo MD [Physician] - 1 Month Discharge Medications: Continued bumetanide 1 mg tablet 2 mg PO DAILY acetaminophen [Tylenol 8 Hour] 650 mg Tablet Extended Release 650 mg PO DAILY PRN (Reason: Pain) Xarelto 20 mg tablet 20 mg PO BEDTIME atorvastatin 40 mg tablet 40 mg PO DAILY thiamine HCl (vitamin B1) 100 mg tablet 100 mg PO DAILY omeprazole 40 mg capsule,delayed release(DR/EC) 40 mg PO DAILY@1630 gabapentin 300 mg capsule 300 mg PO BID ergocalciferol (vitamin D2) 50 mcg (2,000 unit) capsule 50 mcg PO DAILY ferrous sulfate 325 mg (65 mg iron) tablet 325 mg PO DAILY Discontinued Aleve PM 220-25 mg Tablet 1 tab PO BEDTIME Discharge Orders: Discharge Order (Routine); Ordered 05/25/24 Ordered By: Salo Vital Diet: Advance to usual diet Activity on Discharge: As tolerated Stand Alone Forms: Patient Portal Discharge page Print Language: Russian Care Plan Goals: prevent syncope cardiac health Health Concerns: stop naproxen atrial fibrillation with slow ventricular response cholelithiasis multiple pancreatic cysts Plan of Treatment: no changes to your home medications continue to HOLD atenolol as you are doing follow up with Cardiology in 2 weeks for event monitoring, possible referral for LBBB pacemaker avoid fatty or greasy foods follow up with General Surgery in 1 month for elective cholecystectomy please see your primary care doctor and have an MRI/MRCP of the abdomen with and without IV contrast [pancreatic protocol] in 3 months to evaluate multiple cysts seen in pancreas Please follow up with your primary care doctor within 1 week. Return to the hospital if you experience recurrent or worsening symptoms. Assessment: See Discharge Summary. Discharge Date/Time: 05/25/24 16:50
--- NOTE | 2024-05-25 14:44 | HO.PM.IMPN ---
Subjective Subjective Date of Service: 05/25/24 Interval History: no RUQ pain, no N/V, tolerating diet HR as low as 30s afib when asleep Review of Systems Review of Systems: Yes all other systems are reviewed and are negative Physical Exam Vital Signs: Vital Signs: Last Vital Signs Temp 97.1 F 05/25/24 11:23 Pulse 55 05/25/24 11:23 Resp 18 05/25/24 11:23 BP 136/63 05/25/24 11:23 Pulse Ox 98 05/25/24 11:23 O2 Del Method Room Air 05/25/24 11:23 BMI result Body Mass Index 51.9 Gen: in no acute distress HEENT: sclera anicteric, moist mucus membranes Neck: supple Lungs: clear to auscultation bilaterally Heart: irregular, slow, no murmurs Abd: soft, non-tender, non-distended, obese Ext: no edema Skin: warm/well-perfused Neuro: alert and oriented x3, no focal findings Psych: appropriate affect Objective Data Active Medications Acetaminophen (Acetaminophen 325 Mg Tablet) 650 mg PO Q6H PRN PRN Reason: Pain, Mild (Pain Scale 1-3), fever or headache Last Admin: 05/24/24 23:16 Dose: 650 mg Documented By: MARGARITA Atorvastatin Calcium (Atorvastatin Calcium 40 Mg Tablet) 40 mg PO DAILY [facility] Last Admin: 05/25/24 09:05 Dose: 40 mg Documented By: NATHAN Bumetanide (Bumetanide 1 Mg Tablet) 2 mg PO DAILY [facility]; Protocol Last Admin: 05/25/24 09:05 Dose: Not Given Documented By: NATHAN Non-Admin Reason: Patient Refused Calcium Carbonate (Calcium Carbonate 750 Mg Tab.Chew) 750 mg PO Q4H PRN PRN Reason: Heartburn Ferrous Sulfate (Ferrous Sulfate 324 Mg Tablet.Dr) 324 mg PO DAILY [facility] Last Admin: 05/25/24 09:05 Dose: 324 mg Documented By: NATHAN Gabapentin (Gabapentin 300 Mg Capsule) 300 mg PO BID [facility] Last Admin: 05/25/24 09:05 Dose: 300 mg Documented By: NATHAN Magnesium Hydroxide (Milk Of Magnesia 30 Ml Oral.Susp) 30 ml PO DAILY PRN PRN Reason: Constipation Melatonin (Melatonin 3 Mg Tablet) 6 mg PO BEDTIME PRN PRN Reason: Insomnia Last Admin: 05/24/24 01:25 Dose: 6 mg Documented By: MARGARITA Omeprazole (Omeprazole 40 Mg Wilfred.) 40 mg PO DAILY@1630 [facility] Last Admin: 05/24/24 17:32 Dose: 40 mg Documented By: GEOFFREY Ondansetron HCl (Ondansetron Hcl 4 Mg/2 Ml Vial) 4 mg IVPUSH Q8H PRN PRN Reason: Nausea and Vomiting Rivaroxaban (Rivaroxaban 20 Mg Tablet) 20 mg PO BEDTIME [facility] Last Admin: 05/24/24 20:48 Dose: 20 mg Documented By: MARGARITA Sodium Chloride (0.9 % Sodium Chloride Flush 3 Ml Syringe) 3 ml IVFLUSH QSHIFT [facility] Last Admin: 05/25/24 13:38 Dose: Not Given Documented By: NATHAN Non-Admin Reason: Previously Administered Thiamine HCl (Thiamine Hcl 100 Mg Tablet) 100 mg PO DAILY [facility] Last Admin: 05/25/24 09:05 Dose: 100 mg Documented By: NATHAN Labs 05/25/24 06:41 05/25/24 06:41 Labs: Laboratory Results - last 24 hr 05/25/24 06:41 MCV 100.5 H MCH 33.3 H MCHC 33.2 RDW 14.9 Plt Count 211 MPV 9.0 L Absolute Nucleated RBC 0.000 Nucleated RBC % (auto) 0.0 Anion Gap 12 Estim Creat Clear Calc 68.3 Estimated GFR 58 Random Glucose 107 Calcium 9.2 Total Bilirubin 0.9 AST 21 ALT 12 Alkaline Phosphatase 106 Total Protein 6.4 L Albumin 3.2 L Assessment and Plan (1) Syncope: Status: Acute Plan d3 79yo F with permanent AF on rivaroxaban, JANI on CPAP, GERD, HLD, peripheral neuropathy, HFpEF, HTN, morbid obesity admitted after syncopal episode in association with RUQ pain found to have bradycardia, question of cholelithiasis as well as dilated CBD syncope, probably vasovagal/orthostatic triggered by biliary colic permanent AF with slow ventricular response - Cardiology consulted. TTE 05/25/24: 1. Technically limited study despite use of contrast agent 2. Normal LV ejection fraction of 65-70% 3. At least moderate left atrial enlargement 4. Severe mitral annular calcification as well as calcific aortic valve changes noted with no significant valvular Doppler abnormalities 5. No significant elevation of right ventricular systolic pressure - will arrange outpt cardiac event monitor and possible pacemaker with EP - continue rivaroxaban. not on atenolol anymore cholelithiasis - doubt cholecystitis though HIDA shows nonvisualization CBD dilation/debris multiple pancreatic cystics - MRCP shows: 1. Cholelithiasis without associated wall thickening nor significant inflammatory changes to suspect acute cholecystitis. Correlate with already ordered HIDA study that will be dictated separately. 2. Moderate extrahepatic biliary ductal dilatation with gradual tapering of the middle and lower thirds of the common bile duct. There are a few faint, low T2 signal filling defects in the central and anterior lumen of the middle to lower CBD as well as periampullary CBD, some of which are only identified on the axial T2 images and one of which is only identified on the MRCP images. Uncertain if these represent artifact, stones or debris. Consider further evaluation with ERCP as clinically warranted. 3. Multiple T2 hyperintense, cystic-appearing lesions in the pancreas, the largest in the uncinate process measuring up to 2.4 cm connecting with the main duct. These are incompletely characterized in the absence of intravenous contrast and could represent sequelae of chronic pancreatitis and/or side branch type IPMNs. Recommend follow up with abdominal MRI pancreas protocol with and without IV contrast/MRCP in 3-6 months. - will discuss with GI and arrange outpatient MRI/MRCP with/without contrast and pacnreatic protocol in 3 months HLD - statin HFpEF - continue bumetanide; appears euvolemic peripheral neuropathy - gabapentin JANI - CPAP at night GERD - PPI VTE ppx - rivaroxaban dispo - plan home with VNA In my clinical judgment, the patient requires continued inpatient hospitalization for the following reasons: GI workup Total time managing care of this patient today: 40 minutes. Quality Stroke Does the patient have a stroke diagnosis?: No VTE Prior VTE?: No VTE Risk Level:: Medical - moderate - high VTE Device Contraindication: Treatment Not Indicated VTE Drug Contraindication: N/A - Med Ordered
[2024-05-25 15:07] VITALS: BP 153/80; PULSE 52; RESP 18; TEMP 36.1; O2SAT 96
--- NOTE | 2024-05-25 16:24 | MHC.CM.PN ---
Pt has been medically cleared for DC, she will go home via family transport, and have home care services from [facility]
== END 2024-05-25 16:50 | disposition home health service (06) | DRG 445 ==
LOC: HO.ED 19:58 → HO.EDOVER 21:41 → HO.IMC 23:11
PROVIDERS: Admitting Provider Student in an Organized Health Care Education/Training Program; Emergency Provider Internal Medicine; PCP Internal Medicine; Visit Provider Family Medicine
DX: K80.20 Calculus of gallbladder without cholecystitis without obstruction (principal); I48.21 Permanent atrial fibrillation; I50.32 Chronic diastolic (congestive) heart failure; Z68.43 Body mass index [BMI] 50.0-59.9, adult; K86.2 Cyst of pancreas; I95.1 Orthostatic hypotension; G62.9 Polyneuropathy, unspecified; E78.2 Mixed hyperlipidemia; K21.9 Gastro-esophageal reflux disease without esophagitis; E66.01 Morbid (severe) obesity due to excess calories; I11.0 Hypertensive heart disease with heart failure; G47.33 Obstructive sleep apnea (adult) (pediatric); Z87.891 Personal history of nicotine dependence; Z79.01 Long term (current) use of anticoagulants; Z79.899 Other long term (current) drug therapy
CPT/HCPCS: 36415; 70450; 72125; 74177; 74181; 78226; 80048; 80053; 80076; 82947; 83690; 83880; 84484; 85025; 85027; 85610; 86140; 93005; 93306; 99285; A9537; Q9957; Q9967

== ENCOUNTER 2024-05-23 21:10 | Outpatient (BNV) | payer MEDICARE, BC, SELFPAY | END 2024-05-25 07:00 | PROVIDERS: Admitting Provider Student in an Organized Health Care Education/Training Program; Emergency Provider Internal Medicine; PCP Internal Medicine; Visit Provider Internal Medicine Cardiovascular Disease | DX: I34.81 Nonrheumatic mitral (valve) annulus calcification (principal); I35.8 Other nonrheumatic aortic valve disorders | CPT/HCPCS: 93306 ==

== ENCOUNTER → 2024-05-23 21:10 | Outpatient (BNV) | payer MEDICARE, BC, SELFPAY | PROVIDERS: Admitting Provider Student in an Organized Health Care Education/Training Program; Emergency Provider Internal Medicine; PCP Internal Medicine; Visit Provider Student in an Organized Health Care Education/Training Program | DX: R55 Syncope and collapse (principal); I48.91 Unspecified atrial fibrillation; K80.20 Calculus of gallbladder without cholecystitis without obstruction; E66.01 Morbid (severe) obesity due to excess calories; K86.2 Cyst of pancreas | CPT/HCPCS: 99223; 99232; 99239; G0180 ==

== ENCOUNTER → 2024-05-23 21:10 | Outpatient (BNV) | payer MEDICARE, BC, SELFPAY | PROVIDERS: Admitting Provider Student in an Organized Health Care Education/Training Program; Emergency Provider Internal Medicine; PCP Internal Medicine; Visit Provider Internal Medicine Cardiovascular Disease | DX: R55 Syncope and collapse (principal); I48.91 Unspecified atrial fibrillation | CPT/HCPCS: 99222; 99233 ==

== ENCOUNTER → 2024-05-23 21:10 | Outpatient (BNV) | payer MEDICARE, BC, SELFPAY | PROVIDERS: Admitting Provider Student in an Organized Health Care Education/Training Program; Emergency Provider Internal Medicine; PCP Internal Medicine; Visit Provider Surgery | DX: R10.9 Unspecified abdominal pain (principal); R55 Syncope and collapse; I48.91 Unspecified atrial fibrillation; E66.01 Morbid (severe) obesity due to excess calories | CPT/HCPCS: 99222 ==

== ENCOUNTER → 2024-06-13 14:02 | Outpatient (REF) | payer MEDICARE, BC, SELFPAY ==
--- NOTE | 2024-06-13 14:05 | HM_ITS ---
* Total procedure length 30 days. Wear time 20 days. * Underlying rhythm is atrial fibrillation with an average rate of 69/Min. * Rare ventricular ectopy. * Shortness of breath in patient diary associated with atrial fibrillation and controlled rate. MTDD
== END ==
LOC: HO.CARD 14:02
PROVIDERS: PCP Internal Medicine; Visit Provider Internal Medicine Cardiovascular Disease
DX: I48.91 Unspecified atrial fibrillation (principal); R55 Syncope and collapse; I50.30 Unspecified diastolic (congestive) heart failure; R00.1 Bradycardia, unspecified
CPT/HCPCS: 93270

== ENCOUNTER → 2024-06-13 14:05 | Outpatient (BNV) | payer MEDICARE, BC, SELFPAY | PROVIDERS: PCP Internal Medicine; Visit Provider Internal Medicine | DX: I48.91 Unspecified atrial fibrillation (principal) | CPT/HCPCS: 93272 ==

== ENCOUNTER 2024-06-27 10:24 | Outpatient (REF) | payer MEDICARE, BC, SELFPAY ==
[2024-06-27 12:57] LABS: MANUAL DIFF FLAG NO
[2024-06-27 13:12] LABS: Basophils Percent Auto 0.7 % (0-2); Eosinophils Absolute Auto 0.6 X10*3/uL (0.0-0.4); Eosinophils Percent Auto 10.3 % (0-4); Hematocrit 42.1 % (37.0-47.0); Hemoglobin 13.7 g/dl (12.0-16.0); Imm Gran Abs Auto 0.02 X10*3/uL (0.00-0.03); Imm Gran Pct Auto 0.3 % (0.0-0.4); Lymphocytes Absolute Auto 0.8 X10*3/uL (1.2-4.9); Lymphocytes Percent Auto 12.9 % (20-40); Mean Corpuscular HGB Conc 32.5 g/dl (31.0-35.0); Mean Corpuscular Hemoglobin 33.5 pg (27.0-33.0); Mean Corpuscular Volume 102.9 fL (80.0-98.0); Mean Platelet Volume 9.3 fL (9.4-12.3); Monocytes Absolute Auto 0.4 X10*3/uL (0.1-1.2); Monocytes Percent Auto 6.5 % (2-11); Neutrophils Absolute Auto 4.3 x10*3/uL (2.0-8.3); Neutrophils Percent Auto 69.3 % (45-73); Platelet Count 258 X10*3/uL (160-400); Red Blood Count 4.09 X10*6/uL (4.20-5.50); Red Cell Distribution Width 14.3 % (11.0-16.0); White Blood Count 6.1 X10*3/uL (4.8-10.8)
[2024-06-27 13:49] LABS: Alanine Aminotransferase 12 U/L (0-31); Albumin Level 3.6 g/dL (3.5-5.0); Alkaline Phosphatase 125 U/L (39-117); Anion Gap 14 (12-20); Aspartate Amino Transferase 20 U/L (5-31); Bilirubin Total 0.7 mg/dL (0.0-1.0); Blood Urea Nitrogen 16 mg/dL (9-16); Calcium 9.8 mg/dL (8.4-10.2); Carbon Dioxide 29 mmol/L (22-29); Chloride 103 mmol/L (96-108); Cholesterol 113 mg/dL (<200); Estimated Glomerular Filt Rate 48; Glucose Fasting 105 mg/dL (60-99); HDL Cholesterol 25 mg/dL (>40); LDL Cholesterol Calculated 74 mg/dL (<100); Potassium 3.7 mmol/L (3.3-5.1); Sodium 142 mmol/L (135-145); Thyroid Stimulating Hormone 5.85 uIU/mL (0.32-4.0); Total Protein 7.3 g/dL (6.5-8.0); Triglycerides 72 mg/dL (<150)
== END 2024-06-27 10:25 | disposition home or self-care (01) ==
LOC: HO.HMGCLDS 10:24
PROVIDERS: PCP Internal Medicine; Visit Provider Internal Medicine
DX: I48.11 Longstanding persistent atrial fibrillation (principal); E78.00 Pure hypercholesterolemia, unspecified; I50.30 Unspecified diastolic (congestive) heart failure; I11.0 Hypertensive heart disease with heart failure; E55.9 Vitamin D deficiency, unspecified; N93.9 Abnormal uterine and vaginal bleeding, unspecified; M19.071 Primary osteoarthritis, right ankle and foot
CPT/HCPCS: 36415; 80053; 80061; 82306; 84443; 85025

== ENCOUNTER 2024-10-23 13:34 | Outpatient (AMB) | payer MEDICARE, BC, SELFPAY ==
[2024-10-23 13:55] VITALS: BP 138/78; PULSE 91; BMI 51.5
--- NOTE | 2024-10-23 13:55 | A.OFFVIS_ITS ---
Vital Signs 10/23/24 13:55 Height 5 ft 4 in Weight 299 lb 13.259 oz BMI 51.5 BP 138/78 Blood Pressure Location Lt brachial Position Sitting Pulse 91 Pulse Source Monitor Intake Visit Reasons: 1 yr followup w/ekg dx: atrial fibrillation Allergies amoxicillin [AMOXICILLIN] Allergy (Unknown, Verified 05/23/24 19:55) UNKNOWN flecainide [FLECAINIDE] Allergy (Unknown, Verified 05/23/24 19:55) SEVERE CHEST PAIN Sulfa (Sulfonamide Antibiotics) [SULFA (SULFONAMIDE ANTIBIOTICS)] Allergy (Unknown, Verified 05/23/24 19:55) UNKNOWN Medication List - Last Reconciled 10/23/24 by Ezekiel Garcia MD acetaminophen ER (Tylenol 8 Hour) 650 mg PO DAILY PRN atorvastatin 40 mg PO DAILY bumetanide 2 mg PO DAILY ergocalciferol (vitamin D2) 50 mcg PO DAILY ferrous sulfate 325 mg PO DAILY gabapentin 300 mg PO BID omeprazole 40 mg PO DAILY@1630 rivaroxaban (Xarelto) 20 mg PO QPM thiamine HCl (vitamin B1) 100 mg PO DAILY HPI Comments Details: Iva comes for follow-up. She says she has been suffering from lot of upper respiratory symptoms and has a lot of mucus production with discoloration with yellowish greenish mucus production. She is very congested and feels lousy. She also feels very weak because of that. She has not had any worsening heart symptoms. No lightheadedness, syncope. No worsening orthopnea, PND, leg edema. Takes her diuretic regimen currently. No bleeding issues or neurologic events. Denies any exertional chest pain. Uses CPAP at nighttime [facility] Medical History (Updated 10/23/24 @ 16:04 by Ezekiel Garcia MD) (HFpEF) heart failure with preserved ejection fraction Chronic a-fib Atrial fibrillation with slow ventricular response Cholelithiasis Paroxysmal atrial fibrillation Morbid obesity JANI (obstructive sleep apnea) HTN (hypertension) Surgical History History of cardioversion Hx of cardiac cath History of hip surgery Family History Father CVD (cardiovascular disease) Mother CHF (congestive heart failure) Social History Household Members: Family Household Members Other:: brother Housing: House Do you presently have visiting nurse or other home services: No Alcohol intake: former Patient Tobacco Use Status: Former Tobacco user Tobacco use type: Cigarette Years Smoked: 12 e-Cigarette/Vaping Use: Never Used Second Hand Smoke Exposure: No Advance Directives Date on File: 04/28/23 service: No Review of Systems Const Denies weakness ENT Denies dizziness Card Denies chest pain, Denies chest pain with activity, Denies syncope, Denies rapid heart rate, Denies pedal edema, Denies edema, Denies leg edema, Denies lightheadedness, Denies palpitations, Denies dyspnea, Denies dyspnea on exertion and Denies orthopnea Resp Denies cough, Denies dyspnea and Denies dyspnea on exertion GI Denies hematochezia and Denies change in stool character Musc Denies abnormal gait, Denies muscle cramps, Denies muscle weakness, Denies numbness, Denies radiating pain into limb and Denies tingling Neuro Denies abnormal gait, Denies dizziness, Denies syncope, Denies numbness, Denies tingling and Denies weakness Endo Denies palpitations Physical Exam Vital Signs: Last Vital Signs Pulse 91 10/23/24 13:55 BP 138/78 10/23/24 13:55 BMI result Body Mass Index 51.5 Const General: cooperative, comfortable, no acute distress, alert and awake Nutritional Appearance: obese morbidly obese Orientation/consciousness: patient oriented x3 Limitations: ambulation with walker Neck Neck: Yes trachea midline, Yes supple and Yes no JVD Resp Effort & Inspection: normal respiratory effort Auscultation: clear to auscultation bilaterally Cardio Jugular venous distension: no JVD Palpation: normal PMI Rate: bradycardic Rhythm: abnormal rhythm irregularly irregular Heart sounds: S1 normal heart sound present, S2 normal heart sound present and Other heart sounds present (S4 present) GI Inspection: Yes obesity Auscultation: normal bowel sounds Skin General skin exam: no rashes or lesions noted Neuro General: patient oriented x3 and no focal motor deficits Extrem General: No clubbing, No cyanosis, Yes edema (Mild edema of the right lower extremity below knee) and Yes venous stasis dermatitis Psych Appearance: grossly normal Office Procedures EKG Details: EKG shows atrial fibrillation with low-voltage QRS with left axis deviation 53432-Ktxsdjjhkgqhdwjgc, Complete Assessment & Plan Assessment & Plan (1) (HFpEF) heart failure with preserved ejection fraction: Code(s): I50.30 - Unspecified diastolic (congestive) heart failure Category: Medical Plan: Heart failure preserved ejection fraction, clinically euvolemic and well compensated. No worsening symptoms of heart failure. Continue current diuretic regimen. Remains at risk for recurrent hospitalization related to heart failure due to her overall clinical condition including reduced exercise capacity, obesity. Continue CPAP therapy. Continue aggressive blood pressure control. Daily weight monitoring avoidance salt loading was discussed. She understands agrees. (2) Chronic a-fib: Comment: Persistent atrial fibrillation at failed maintenance of rhythm, presented for office visit on 12/19/2020 noted to be in sinus rhythm Code(s): I48.20 - Chronic atrial fibrillation, unspecified Category: Medical Plan: Chronic atrial fibrillation, currently off rate control regimen due to hospitalization at which time she had slow ventricular response. She has tolerated this well. Heart rate at rest remains controlled without any rate control regimen. Continue monitor. Advised to call me with any new symptoms. Continue full oral anticoagulation, currently on Xarelto 20 mg daily. Quarterly renal function test should be pursued. Will follow up in the clinic in 6 months time, sooner p.r.n.. Thank you for allowing me to partake in his care Medications: New azithromycin (Zithromax) 500 mg PO DAILY 3 tabs 0RF 3 days Coding Level of Care Code Est Pt Level 4 (67948) Complex EM visit Add On G2211 Diagnoses (HFpEF) heart failure with preserved ejection fraction I50.30 Chronic a-fib I48.20 CPT Codes EKG - CPT: 32483-Rbpxhbsqrrseaivzn, Complete ([id number])
--- OUTSIDE RECORDS SUMMARY | 2024-10-23 18:18 | XMS_ITS ---
Author Organization [facility] Address [address] [place], [place] [id number] Care Team Providers Care Drug And Alcohol Counsellor Name Role Phone Jesus Berg Primary Care Provider [phone] DEVIN BHANDARI Unavailable Unavailable REASON FOR VISIT Message SOCIAL HISTORY Sex Assigned At : Social History Observation Description Sex Assigned At Female Encounters Encounter Location Date Provider Diagnosis Jesus Berg DO, [address] [id number] 05/30/2024 Jesus Berg PLAN OF TREATMENT No Information
--- OUTSIDE RECORDS SUMMARY | 2024-10-23 18:18 | XMS_ITS | Patient Health Record ---
Author Organization [facility] Address [address] [place] [address] Care Team Providers Care Service Parts Coordinator Name Role Phone Morena (RETIRED) Jesus CARSON Primary Care Provid er Unavailable Jesus Gaffney Unavailable [phone] REASON FOR REFERRAL No Information SOCIAL HISTORY Sex Assigned At : Social History Observation Description Sex Assigned At Unknown PROBLEMS Problem Type ICD Code Onset Dates Problem Status W/U Status Risk SNOMED Code Notes Problem Gallstones (K80.20) Active confirmed Gallstones (397479973) PLAN OF TREATMENT No Information Insurance Providers Payer Name Payer Address Payer Phone Subscriber Number Group Number Insured Name Patient Relationship to Insured Coverage Start Date Coverage End Date MEDICARE OF [place] [address] [place] [address] [id number] JOSE ROBERTO GARCIA Self - patient is the insured [facility] [address] [place] [address] [id number] JOSE ROBERTO GARCIA Self - patient is the insured
--- OUTSIDE RECORDS SUMMARY | 2024-10-23 18:18 | XMS_ITS | Patient Health Record ---
[facility] Address [address] [place] [address] Care Team Providers Care Director Of Rooms Name Role Phone Jesus Berg MD Primary Care Provider Unavail able Shruti Fuentes Unavailable [phone] Allergies Allergen (clinical drug ingredient) Drug/Non Drug Allergy documented on EMR Reaction Allergy Type Onset Date Status amoxicillin Amoxicillin can't remember Drug Allergy Active sulfamethoxazole / trimethoprim Bactrim can't remember Drug Allergy Active flecainide Flecainide Acetate Unknown Drug Allergy Active adhesive tape rash Drug Allergy Act aria aspirin Aspirin bleeding Drug Allergy Active Reason For Referral No Information Medications Medication SIG (Take, Route, Frequency, Duration) Notes Start Date End Date Status Vitamin B Complex as directed Orally Active Caltrate 600+D Not-T aking Omeprazole 40 MG as directed Orally O nce a day PRN Active Omeprazole 20 MG 1 capsule Orally Onc e a day for 30 day(s) Not-Taking Tylenol Active Vitamin D Active Atenolol 100mg Once a day Not- Taking Night Splint AFO - L1930 as directed Active Xarelto Active Atorvastatin Calcium Active Potassium Chloride N ot-Taking Megestrol Acetate 20 MG 1 tablet Orally Twice a day Not-Taking Escitalopram Oxalate Active Pravastatin Sodium N ot-Taking Bumetanide Active Furosemide Not-Takin g Lasix Active Premarin Not-Taking Gabapentin Active PARoxetine HCl 10 MG 1 tablet in the mor abdias Orally Once a day for 30 day(s) Not-Taking Immunizations Vaccine Route Administration Date Status Comme nts COVID-19 Pfizer BioNTech Vaccine Unknown 09/04/2021 Administered 1st 01/15/21 2nd 02/05/21 Influenza Unknown 07/02/2021 Administered Social History Tobacco Use: Social History Observation Description Date Details (start date - stop date) Former Smoker NA - NA Tobacco Use/Smoking Question Answer Notes Are you a: former smoker Additional Findings: Tobacco Non-User Current no n-smoker Alcohol Screen Question Answer Notes Did you have a drink containing alcohol in the p ast year? No Points 0 Interpretation Negative Tobacco use other than smoking: Question Answer Notes Are you an other tobacco user? No Problems Problem Type SNOMED Code ICD Code Onset Dates Problem Status W/U Status Risk Notes Problem Localized, primary osteoarthritis of the ankle and/or foot (978581864) Primary osteoarthritis, right ankle and foot (M19.071) Active confirmed Problem Localized, primary osteoarthritis of the ankle and/or foot (574332673) Primary osteoarthritis, left ankle and foot (M19.072) Active confirmed Problem Atherosclerosis of [place] arteries of the extremities (359058084193219) Unspecified atherosclerosis of [place] arteries of extremities, bilateral legs (I70.203) Active confirmed Problem Atherosclerosis of [place] artery of both lower extremities, with unspecified presence of clinical manifestation (I70.203) Active confirmed Q7(A), Q8(2B), Q9(1B,2 C) Vital Signs Blood pressure diastolic 68 mm Hg 10/02/2024 Height 5 ft 4in in 10/02/2024 Blood pressure systolic 120 mm Hg 10/02/2024 Weight 297 lbs 10/02/2024 BMI 50.97 kg/m2 10/02/2024 Procedures Procedure Date Ordered Date Performed Result Body Sit e 68119-ECUMEHH NAIL, 6 OR MORE 10/02/2024 N/A 12422-HVPD SKIN LESIONS, OVER 4 10/02/2024 N/A Encounters Encounter Location Date Provider Diagnosis [facility] [address] [place] [address] 10/02/2024 Shruti Fuentes Atherosclerosis of [place] artery of both lower extremities, with unspecified presence of clinical manifestation I70.203 ; Tinea unguium B35.1 ; Pain in right toe(s) M79.674 and Pain in left toe(s) M79.675 Assessments Encounter Date Diagnosis (ICD Code) Assessment Notes Treatment Notes Treatment Clinical Notes Section Notes 10/02/2024 Atherosclerosis of [place] artery of both lower extremities, with unspecified presence of clinical manifestation (ICD-10 - I70.203) Q7(A), Q8(2B), Q9(1B,2C) 10/02/2024 Tinea unguium (ICD-10 - B35.1) 10/02/2024 Pain in right toe(s) (ICD-10 - M79.674) 10/02/2024 Pain in left toe(s) (ICD-10 - M79.675) Plan Of Treatment Pending Test Test Name Order Date 74463-KEJPJID NAIL, 6 OR MORE 12/03/2016 10943-JJAHLXV NAIL, 6 OR MORE 03/11/2017 80589-RJRZKBG NAIL, 6 OR MORE 06/10/2017 92670-OLIXVXE NAIL, 6 OR MORE 09/09/2017 46466-NBTCXLK NAIL, 6 OR MORE 01/05/2018 98929-MWMESPI NAIL, 6 OR MORE 08/10/2018 03827-GVRKJZO NAIL, 6 OR MORE 10/02/2024 61653-IQDIDIM NAIL, 1-5 11/07/2015 91774-QCQFHKC NAIL, 1-5 02/20/2016 29542-OCTCRYN NAIL, 1-5 05/21/2016 66771-PMBQLIX NAIL, 1-5 08/27/2016 88589-Yawg Destruction, -14 06/11/2011 73084-Ncdrmaxe Plate 06/11/2011 81675-Yhuogzfz Plate 09/07/2011 29334-Fovyuudu Plate 12/10/2011 77793-Ewefeakj Plate 03/10/2012 79891-Kiqheqvh Plate 06/23/2012 77542-Idkleeim Plate 09/29/2012 82126-Fxueeykc Plate 01/05/2013 41198-Iwqnnlyg Plate 04/13/2013 01056-Awrhnpyq Plate 07/13/2013 52860-Wsxgunjd Plate 10/12/2013 37930-Koppibjn Plate 01/22/2014 60224-Adcculkz Plate 04/26/2014 61787-Vokcpvzy Plate 07/26/2014 48359-Ewcreocv Plate 10/25/2014 16312-Pmbnnqre Plate 01/24/2015 81773-Yxieizgv Plate 04/25/2015 70942-Zwfgojjc Plate 08/01/2015 98203-FYUY SKIN LESIONS, OVER 4 10/02/19 25 76913-JZJG SKIN LESIONS, OVER 4 07/14/20 21 49423-CLCX SKIN LESIONS, OVER 4 11/06/19 22 41732-URDG SKIN LESIONS, OVER 4 06/26/20 20 18192-UDVL SKIN LESIONS, OVER 4 10/23/19 21 80226-XNYB SKIN LESIONS, OVER 4 03/06/20 21 91930-ORTJ SKIN LESIONS, OVER 4 11/21/19 19 49234-IBYD SKIN LESIONS, OVER 4 04/17/20 19 64451-DEHA SKIN LESIONS, OVER 4 07/31/20 19 18032-WTHP SKIN LESIONS, OVER 4 11/23/19 20 60374-BYGB SKIN LESIONS, OVER 4 12/04/19 17 47515-IYPP SKIN LESIONS, OVER 4 08/10/20 18 86658-AEVO SKIN LESIONS, 2 TO 4 04/07/20 18 39926-IQCG SKIN LESIONS, 2 TO 4 03/07/20 20 98400-YLRJ SKIN LESIONS, 2 TO 4 08/27/20 16 21123-GHXM SKIN LESIONS, 2 TO 4 05/21/20 16 23988-ZOQO SKIN LESIONS, 2 TO 4 02/20/20 16 93665-FMUY SKIN LESIONS, 2 TO 4 11/07/19 16 49352-HMAA SKIN LESIONS, 2 TO 4 01/06/20 18 49187-DDLU SKIN LESIONS, 2 TO 4 09/09/20 17 39442-FLGC SKIN LESIONS, 2 TO 4 06/10/20 17 25076-QMYN SKIN LESIONS, 2 TO 4 03/11/20 17 40758-KUFU NAIL(S) 11/07/2015 57349-QUKL NAIL(S) 02/20/2016 84154-SODC NAIL(S) 05/21/2016 65833-HNHE NAIL(S) 08/27/2016 83451-UIGENKAE OF HEMATOMA/FLUID 021 37157,N4549-JTX TENDON SHEATH/LIGAMENT 1 10/06/2021 Next Appt Details Provider Name:Shruti santiago, 02/01/2025 01:30:00 PM, [address] [facility], [place], [address], Insurance Providers Payer Name Payer Address Payer Phone Subscriber Number Group Number Insured Name Patient Relationship to Insured Coverage Start Date Coverage End Date Medicare National [employer] [address] [place] [address] [id number] Iva Lopez Self - patient is the insured 1 [facility] [address] [place] [address] [id number] Iva Lopez Self - patient is the insured 0 Medical (General) History Medical History History ICD Code measles joint implants/screws high blood pressure chicken pox Cholesterol broken bones Arthritis Surgical History Surgery Date(Month/Year) right hip pinning/rods 2002 cataract surgert OD 12/26/2012 cardiac catherization 11/2014 Hospitalization History Reason Date(Month/Year) [facility]- Post Menopausal Vaginal Bleeding -04/30/2023 [facility]- Water retension 06/20/18-06/23/18 [facility], overnight, anemia, received 2 blood transfusions 09/06/15
--- OUTSIDE RECORDS SUMMARY | 2024-10-23 18:18 | XMS_ITS ---
Author Organization [facility] Address [address] [place] [address] Care Team Providers Care Emergency Medical Technician/Driver Name Role Phone Morena ARIAS, Jesus Primary Care Provider Unavail able Shruti Fuentes Unavailable [phone] Keshav Lerner Unavailable [phone] REASON FOR VISIT Cancel Encounters Encounter Location Date Provider Diagnosis [address] [address] 09/13/2023 Keshav Lerner Plan Of Treatment Next Appt Details Provider Name:Shruti Anuradha santiago, 02/01/2025 01:30:00 PM, [address] [place], [address], Progress Notes * Iva GARCIA MDOB: [birth year] (78 yo F)Acc No.[id number]:09/13/2023 Patient:?John Iva Balderas :1945???Age:78 Y???Sex:Female Address:[address] [place] [address], [phone] * true * Date:? Generated for Osvaldoi marisa/Lilian/eTransmitting on:?10/23/2024 06:17 PM EST
--- OUTSIDE RECORDS SUMMARY | 2024-10-23 18:19 | XMS_ITS ---
Author Organization [facility] Address [address] [place] [address] Care Team Providers Care Bitumastic Applier Name Role Phone Morena ARIAS, Jesus Primary Care Provider Unavail able Shruti Fuentes Unavailable [phone] Keshav Lerner [phone] Encounters Encounter Location Date Provider Diagnosis [address] [address] 09/15/2023 Keshav Lerner Plan Of Treatment Next Appt Details Provider Name:Shruti Anuradha santiago, 02/01/2025 01:30:00 PM, [address] [place], [address], Progress Notes * Iva GARCIA MDOB: [birth year] (79 yo F)Acc No.[id number]:09/15/2023 Progress Note Patient:?Ho GARCIAjodi Balderas Provider:?Keshav Lerner DPM :1945???Age:78 Y???Sex:Female D ate:09/15/2023 Address:[address] [place] [address] [phone] Pcp:Jesus Berg MD Subjective: * Chief Complaints: * ??? * Medical History:? Objective: * Vitals:? Assessment: Plan: * Treatment: * Images: * The named appointment provid er may or may not be the originator of this progress note, and it is not deemed complete until electronically signed by the appointment provider. Sign off status: Pending * Provider:?Keshav Lerner DPM Date:? 023 Generated for Zach cunningham/Lilian/Lesley on:?10/23/2024 06:18 PM EST
--- OUTSIDE RECORDS SUMMARY | 2024-10-23 18:19 | XMS_ITS ---
Author Organization [facility] Address [address] [place] [address] Care Team Providers Care Butt Maker Name Role Phone Jesus Berg MD Primary Care Provider Unavail able Shruti Fuentes Unavailable [phone] Allergies Allergen (clinical drug ingredient) Drug/Non Drug Allergy documented on EMR Reaction Allergy Type Onset Date Status amoxicillin Amoxicillin can't remember Drug Allergy Active sulfamethoxazole / trimethoprim Bactrim can't remember Drug Allergy Active flecainide Flecainide Acetate Unknown Drug Allergy Active adhesive tape rash Drug Allergy Act aria aspirin Aspirin bleeding Drug Allergy Active REASON FOR VISIT At Risk Footcare, Painful Nail(s) aggravated by shoes and causing difficulty standing/walking. Medications Medication SIG (Take, Route, Frequency, Duration) Notes Start Date End Date Status Potassium Chloride N ot-Taking Megestrol Acetate 20 MG 1 tablet Orally Twice a day Not-Taking Pravastatin Sodium N ot-Taking Furosemide Not-Takin g PARoxetine HCl 10 MG 1 tablet in the mor abdias Orally Once a day for 30 day(s) Not-Taking Vitamin B Complex as directed Orally Active Omeprazole 40 MG as directed Orally O nce a day PRN Active Tylenol Active Vitamin D Active Xarelto Active Atorvastatin Calcium Active Escitalopram Oxalate Active Bumetanide Active Lasix Active Gabapentin Active Caltrate 600+D Not-T aking Omeprazole 20 MG 1 capsule Orally Onc e a day for 30 day(s) Not-Taking Atenolol 100mg Once a day Not- Taking Night Splint AFO - L1930 as directed Active Premarin Not-Taking Social History Tobacco Use: Social History Observation [...] Problem Status W/U Status Risk Notes Problem Atherosclerosis of mentasta artery of both lower extremities, with unspecified presence of clinical manifestation (I70.203) Active confirmed Q7(A), Q8(2B), Q9(1B,2C) Vital Signs Blood pressure systolic 120 mm Hg 10/02/19 25 Blood pressure diastolic 68 mm Hg 025 Height 5 ft 4in in 10/02/2024 Weight 297 lbs 10/02/2024 BMI 50.97 kg/m2 10/02/2024 Procedures Procedure Date Ordered Date Performed Result Body Sit e 31136-AELFLYC NAIL, 6 OR MORE 10/02/2024 N/A 37789-MDEW SKIN LESIONS, OVER 4 10/02/2024 N/A Encounters Encounter Location Date Provider Diagnosis [facility] [place] [address] [place] [address] 10/02/2024 Shruti Fuentes Atherosclerosis of mentasta artery of both lower extremities, with unspecified presence of clinical manifestation I70.203 ; Tinea unguium B35.1 ; Pain in right toe(s) M79.674 and Pain in left toe(s) M79.675 Assessments Encounter Date Diagnosis (ICD Code) Assessment Notes Treatment Notes Treatment Clinical Notes Section Notes 10/02/2024 Atherosclerosis of mentasta artery of both lower extremities, with unspecified presence of clinical manifestation (ICD-10 - I70.203) Q7(A), Q8(2B), Q9(1B,2C) 10/02/2024 Tinea unguium (ICD-10 - B35.1) 10/02/2024 Pain in right toe(s) (ICD-10 - M79.674) 10/02/2024 Pain in left toe(s) (ICD-10 - M79.675) Plan Of Treatment Pending Test Test Name Order Date 98263-OMEWIDU NAIL, 6 OR MORE 10/02/2024 29124-WLJX SKIN LESIONS, OVER 4 10/02/19 25 Next Appt Details Follow Up: prn, Reason: Provider Name:Shruti santiago, 02/01/2025 01:30:00 PM, [address] [place] [address], [phone], Procedure Notes * Category Sub-Category Detail Notes Debride Nail 6-10 Nail debridement Due to the cl inical pathology outlined in the exam findings, performance of this nail treatment is medically necessary as its management by an unskilled/untrained nonprofessional would put this patients foot and overall health at risk. Therefore, debridement to affected nail(s), as described in exam ( TA, T1, T4, T5, T6, T9, ), was performed exclusively by the physician of record to reduce/remove overall nail length, girth, thickness, subungual debris, and necrotic tissue, by manual and/or electrical means through the use of a nail nipper and/or dremel-type contact lens curve grinder, to a more viable healthy nail plate or bed tissue 6-10 nails in total. Silver nitrate was used for any petechial bleeding as necessary. Definitive antifungal treatment options, both pharmaceutical and surgical, have been reviewed and discussed with the patient. The patient solely prefers the use of intermittent/as needed professional debridement services for their nail condition and understands the need for additional periodic treatments to maintain effectiveness in symptomatic relief - 63282 Keratoma Treatment Parring or Cutting o f Benign Hyperkeratotic Lesion(s) (-57) More than 4 Lesions - Due to the at risk nature of the patients medical condition as documented in the exam findings, performance of this keratoderma treatment is medically necessary as its management by an unskilled/untrained nonprofessional would put this patients foot and overall health at risk. Therefore, the benign hyperkeratotic lesions, (6 ) in total, locations as stated and described in the exam (Plantar, Heel(s), B/L , Dorsal, T2, T3, T7, T8), were pared, and/or cut utilizing a sterile 15 blade, tissue nippers, and/or power dremel instrumentation by the physician of record - 16503, Q8 Progress Notes * Iva GARCIA MDOB: [birth year] (79 yo F)Acc No.[id number]:10/02/2024 Progress Note Patient:?Iva GARCIA Provider:?Shruti Fuentes DPM :1945???Age:79 Y???Sex:Female D ate:10/02/2024 Address:[address] [place] [address] [id number] Pcp:Jesus Berg MD Subjective: * Chief Complaints: * ???At Risk FootcarePainful N ail(s) aggravated by shoes and causing difficulty standing/walking. * HPI: ???At Risk footcare:?Pt States Last PCP Visit:?Date?06/21/2024 * ROS:?General/Constitutional:?Nausea?denies.?Vomiting?denies.?Hunger Thirst?denies.?Loss appetite?denies.?Chills?denies.?Fatigue?denies.?Fever?denies.?Night Sweats?denies.?Unexplained weight loss?denies.?Ophthalmologic:?Blurred vision?denies.?Red eye?denies.?HEENTM:?Dentures?denies.?Dizziness?denies.?Glasses/contacts?admits.?Retinopathy?de nies.?Blurred/double vision?denies.?TMJ?denies.?Discharge/drainage?denies.?Implants?denies.?Hard of hearing denies.?Difficulty chewing/swallowing/speaking?denies.?Nose bleeds?denies.?Sore mouth?denies.?Swollen glands?denies.?Respiratory:?On Oxygen?denies.?Pneumonia/pleurisy?denies.?Bronchitis?denies.?Emphysema?denies.?C oughing?denies.?Cough blood?denies.?Shortness of breath?denies.?Wheezing?denies.?Cardiovascular:?Pacemaker?denies.?MVP?denies.?WPW?denies.?CHF?denies.?Heart attack?denies.?Septal defect?denies.?Rapid beat?denies.?Chest pain ?denies.?Atrial Fib.?denies.?Murmur/Palpitations?denies.?Gastrointestinal:?Hemorrhoids?denies.?Stomach/Abdominal pain?denies.?Dark blood stool?denies.?Irritable bowel ?denies.?Constipation?denies.?Diarrhea?denies.?Vomiting?denies.?Hematology:?Swelling?admits.?Bruising?denies.?Bleeding problem?denies.?Genitourinary:?Blood urine?denies.?Frequent/Painfu/urination/bladder control?denies.?Kidney stones?denies.?Infection (UTI)?denies.?Nephropathy?denies.?Musculoskeletal:?Hammertoes?denies.?Bunions?denies.?Scoliosis/kyphosis?denies.?Muscle cramps / walking?denies.?Generalized aches and pains?denies.?Weakness?denies.?Integ.:?Brady?denies.?Scars?denies.?Corns/calluses?denies.?Ingrown nails?denies.?Painful nails?admits.?Rashes?denies.?Neurologic:?Difficulty sleeping?denies.?Bipolar?denies.?Brain disorder?denies.?Balance trouble?denies.?Confusion?denies.?Fainting/blackouts?denies.?Headache?denies.?Tr emors?denies.?Left knee pain. * Medical History:? * Surgical History:?right hip pinning/rods 2003cataract surgert OD 12/26/2012cardiac catherization 11/2014 * Hospitalization/Major Diagno stic Procedure:?[facility], overnight, anemia, received 2 blood transfusions 09/06/15[facility]- Water retension 06/20/18-06/23/18[facility]- Post Menopausal Vaginal Bleeding 04/27/23-04/30/2023 * Family History:?Mother: dece ased, diagnosed with Unspecified essential hypertension, Unspecified heart disease, Family history of arthritis.?Father: , poor circulation, diagnosed with Unspecified essential hypertension, Unspecified cerebral artery occlusion with cerebral infarction.?Paternal aunt: cancer.?Siblings: high blood pressure.?Spouse: .? * Social History:?Tobacco Use:?Tobacco Use/Smoking?Are you a:?former smoker ?Additional Findings: Tobacco Non-User?Current non-smoker ?Tobacco use other than smoking?Are you an other tobacco user??No ???Drugs/Alcohol:?Drugs?Have you used drugs other than those for medical reasons in the past 12 months??No ?Alcohol Screen?Did you have a drink containing alcohol in the past year??No ?Points?0 ?Interpretation?Negative ???Miscellaneous:?Caffeine: yes, frequency:, 1-2 cups per day. ?Children: no. ?Exercise: no. ?Marital status: . 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 * Medications:?TakingNight Spl int AFO - L1930 as directed Atorvastatin Calcium Bumetanide Escitalopram Oxalate Gabapentin Lasix Omeprazole 40 MG Capsule Delayed Release as directed Orally Once a day , Notes to Pharmacist: PRNVitamin B Complex Capsule as directed Orally Vitamin D Tylenol Xarelto Taking Night Splint AFO - L1930 as directed Taking Atorvastatin Calcium Taking Bumetanide Taking Escitalopram Oxalate Taking Gabapentin Taking Lasix Taking Omeprazole 40 MG Capsule Delayed Release as directed Orally Once a day , Notes to Pharmacist: PRNTaking Vitamin B Complex Capsule as directed Orally Taking Vitamin D Taking Tylenol Taking Xarelto Not-Taking/PRNAtenolol 100mg Once a day Megestrol Acetate 20 MG Tablet 1 tablet Orally Twice a day Potassium Chloride Furosemide Pravastatin Sodium PARoxetine HCl 10 MG Tablet 1 tablet in the morning Orally Once a day Premarin Omeprazole 20 MG Capsule Delayed Release 1 capsule Orally Once a day Caltrate 600+D Medication List reviewed and reconciled with the patientNot-Taking/PRN Atenolol 100mg Once a day Not-Taking/PRN Megestrol Acetate 20 MG Tablet 1 tablet Orally Twice a day Not-Taking/PRN Potassium Chloride Not-Taking/PRN Furosemide Not-Taking/PRN Pravastatin Sodium Not-Taking/PRN PARoxetine HCl 10 MG Tablet 1 tablet in the morning Orally Once a day Not-Taking/PRN Premarin Not-Taking/PRN Omeprazole 20 MG Capsule Delayed Release 1 capsule Orally Once a day Not-Taking/PRN Caltrate 600+D Medication List reviewed and reconciled with the patient * Allergies:?adhesive tape: ra shAmoxicillin: can't rememberFlecainide AcetateAspirin: bleedingBactrim: can't rememberyes[Allergies Verified] Objective: * Vitals:?Ht: 5 ft 4in, Wt:297 , BMI: 50.97, Shoe size:11W, BP:120/68mm Hg, Ht-cm: 162.56 cm, Wt-k.72 kg. * Examination: ???Vascular: ?DP PULSES (B):? 0/4, B/L.?PT PULSES (B):? 0/4, B/L.?CAPILLARY FILL TIME:? delayed, all digits, B/L.?TROPHIC CONDITION-TEXTURE/ELASTICITY/TURGOR/HAIR GROWTH (B):? decreased, fragile, thin, shiny skin, with sparse to absent hair growth, B/L.?TEMPERTURE GRADIENT (C):? decreased, cool to cool, proximal to distal, B/L.?PIGMENTATION:?brawny, B/L.?EDEMA (C):?2/4, pitting, Leg(s), Ankle(s), B/L.?CLAUDICATION (C):?denies, B/L.?REST PAIN:?denies, B/L.?PARESTHESIA (C):?absent, B/L.?BURNING (C):?absent, B/L.?Nails: ?NAILS are:?Elongated, overgrown, dystrophic, lytic, greater than 3mm thick, discolored and friable with crumbly malodorous subungual debris, with pain on palpation, TA, T1, T4, T5, T6,, T9.?Dermatologic: ?SKIN FINDINGS:??Skin exam reveals Keratotic lesion(s) located at, Plantar, Heel(s), B/L ,?Dorsal, T2, T3, T7, T8.?Orthopedic: ?MUSCLE STRENGTH:?5/5 all groups in a symmetrical fashion, B/L.?Neurological: ?SENSORY:?Neurological exam reveals intact sensorium, pain sensation normal, vibration sensation intact, pinprick sensation is normal in the lower extremities, Pt denies, anesthesia, burning, paresthesia, tingling, B/L.?General Examination: ?GENERAL APPEARANCE:?Reveals a pleasant, alert, well nourished, well- developed, well hydrated individual, who demonstrates proper attention to hygiene/body habitus, and is in no acute distress, Pt serves as own historian for office visit today.?ORIENTED:?person, place, and time.? Assessment: * Assessment: 1.?Atherosclerosis of mentasta artery of both lower extremities, with unspecified presence of clinical manifestation - I70.203 (Primary)???Notes :Q7(A), Q8(2B), Q9(1B,2C)???2.?Tinea unguium - B35.1???3.?Pain in right toe(s) - M79.674???4.?Pain in left toe(s) - M79.675??? Plan: * Treatment: 2.?Tinea unguium?Procedure: 97014-[id number] NAIL, 6 OR MORE * Procedures:?Debride Nail 6-10:?Nail debridement?Due to the clinical pathology outlined in the exam findings, performance of this nail treatment is medically necessary as its management by an unskilled/untrained nonprofessional would put this patients foot and overall health at risk. Therefore, debridement to affected nail(s), as described in exam ( TA, T1,? T4, T5, T6, T9, ), was performed exclusively by the physician of record to reduce/remove overall nail length, girth, thickness, subungual debris, and necrotic tissue, by manual and/or electrical means through the use of a nail nipper and/or dremel-type contact lens curve grinder, to a more viable healthy nail plate or bed tissue 6-10 nails in total. Silver nitrate was used for any petechial bleeding as necessary. Definitive antifungal treatment options, both pharmaceutical and surgical, have been reviewed and discussed with the patient. The patient solely prefers the use of intermittent/as needed professional debridement services for their nail condition and understands the need for additional periodic treatments to maintain effectiveness in symptomatic relief - 53988.?Keratoma Treatment:?Parring or Cutting of Benign Hyperkeratotic Lesion(s)?(-57) More than 4 Lesions - Due to the at risk nature of the patients medical condition as documented in the exam findings, performance of this keratoderma treatment is medically necessary as its management by an unskilled/untrained nonprofessional would put this patients foot and overall health at risk. Therefore, the benign hyperkeratotic lesions, (6 ) in total, locations as stated and described in the exam (Plantar, Heel(s), B/L ,?Dorsal, T2, T3, T7, T8), were pared, and/or cut utilizing a sterile 15 blade, tissue nippers, and/or power dremel instrumentation by the physician of record - 12903, Q8.? * Procedure Codes:?18795 DEBRI DE NAIL, 6 OR MORE, Modifiers: XS 38439 TRIM SKIN LESIONS, OVER 4, Modifiers: XS , Q8 * Follow Up:?prn * Images: * Sign off status: Completed true * Provider:Janna Fuentes DPM Date:?0 10/02/2024 Generated for Zach cunningham/Lilian/eTverónica on:?10/23/2024 06:18 PM EST History and Physical Notes * HPI (History of Present Illness) Category Sub-Category Detail Notes Category Not es At Risk footcare Pt States Last PCP Visit: Date: Examination Category Sub-Category Detail Notes Category Not es Neurological SENSORY: Neurological exa m reveals intact sensorium, pain sensation normal, vibration sensation intact, pinprick sensation is normal in the lower extremities, Pt denies, anesthesia, burning, paresthesia, tingling, B/L Dermatologic SKIN FINDINGS: Skin exam reveal s Keratotic lesion(s) located at, Plantar, Heel(s), B/L , Dorsal, T2, T3, T7, T8 Orthopedic MUSCLE STRENGTH: 5/5 all groups in a symmetrical fashion, B/L General Examination GENERAL APPEARANCE: Reveals a pleasant, alert, well nourished, well-developed, well hydrated individual, who demonstrates proper attention to hygiene/body habitus, and is in no acute distress, Pt serves as own historian for office visit today ORIENTED: person, place, and t reed Vascular DP PULSES (B): 0/4, B/L PT PULSES (B): 0/4, B/L CAPILLARY FILL TIME: delayed, all digits , B/L TEMPERTURE GRADIENT (C): decreased, cool to cool, proximal to distal, B/L TROPHIC CONDITION-TEXTURE/ELASTICITY/TURGOR/HAIR GROWTH (B): decreased, fragile, thin, shiny skin, wi th sparse to absent hair growth, B/L EDEMA (C): 2/4, pitting, Leg(s) , Ankle(s), B/L CLAUDICATION (C): denies, B/L REST PAIN: denies, B/L PIGMENTATION: brawny, B/L PARESTHESIA (C): absent, B/L BURNING (C): absent, B/L Nails NAILS are: Elongated, overg rown, dystrophic, lytic, greater than 3mm thick, discolored and friable with crumbly malodorous subungual debris, with pain on palpation, TA, T1, T4, T5, T6,, T9
--- OUTSIDE RECORDS SUMMARY | 2024-10-23 18:19 | XMS_ITS ---
Author Organization [facility] Address [address] [place], [place] [id number] Care Team Providers Care Damaged Freight Inspector Name Role Phone Jesus Berg Primary Care Provider [phone] DEVIN BHANDARI Unavailable Unavailable REASON FOR VISIT FYI only SOCIAL HISTORY Sex Assigned At : Social History Observation Description Sex Assigned At Female Encounters Encounter Location Date Provider Diagnosis Jesus Berg DO, [address] [phone] 05/30/2024 Jesus Berg PLAN OF TREATMENT No Information
--- OUTSIDE RECORDS SUMMARY | 2024-10-23 18:19 | XMS_ITS ---
Author Organization Jesus Berg DO, FACP Address [address] [place], [place] [id number] Care Team Providers Care Air Quality Chemist Name Role Phone Jesus Berg Primary Care Provider DEVIN BHANDARI Unavailable ALLERGIES Allergen (clinical drug ingredient) Drug/Non Drug Allergy documented on EMR Reaction Allergy Type Onset Date Status aspirin Aspirin GI intolerance Drug Allergy Ac tive risedronate Actonel question of bleeding ulcer Drug Allergy Active sulfa questionable Drug Allergy Acti ve amoxicillin Amoxicillin questionable Drug Allergy Active simvastatin Simvastatin headache Drug Allergy Act aria flecainide Flecainide Acetate SOB Drug Allergy Active REASON FOR VISIT 3 month f/u, Follow up Atrial fibrillation MEDICATIONS Medication SIG (Take, Route, Frequency, Duration) Notes Start Date End Date Status Tylenol Extra Strength 500 MG 2 tablets as needed Orally Three times a day Active Gabapentin 300 MG 1 capsule Orally Twi ce a day Active Thiamine HCl 100 MG 1 tablet Orally Once a day Active Vitamin D3 50 MCG (1999) 1 capsule Or ally Once a day Active Atorvastatin Calcium 40 MG 1 tablet Oral ly Once a day Active Bumetanide 2 MG 1 tablet Orally Once a day Active Xarelto 20 MG 1 tablet with food O rally Once a day Active Omeprazole 40 MG 1 capsule 30 minutes before morning meal Orally Once a day 01/11/2024 Active SOCIAL HISTORY Tobacco Use: Social History Observation Description Date Details (start date - stop date) Former Smoker NA - NA Sex Assigned At : Social History Observation Description Sex Assigned At Female Tobacco Use/Smoking Question Answer Notes Patient is a former smoker How long has it been since y ou last smoked? > 10 years Additional Findings: Tobacco Non-User Fo rmer smoker, currently using no form of tobacco Alcohol Screen Question Answer Notes Did you have a drink containing alcohol in the p ast year? No Points 0 Interpretation Negative VITAL SIGNS BMI 52.00 kg/m2 07/04/2024 Blood pressure systolic 134 mm Hg 07/04/20 24 Blood pressure diastolic 70 mm Hg 024 Height 64 in 07/04/2024 Weight 303 lbs 07/04/2024 Encounters Encounter Location Date Provider Diagnosis [facility] [address] [place] [phone] 07/04/2024 Jesus Berg Essential hypertensi on I10 ; Hypercholesterolemia E78.00 ; Obstructive sleep apnea syndrome G47.33 ; Vitamin D deficiency E55.9 ; Longstanding persistent atrial fibrillation I48.11 ; Vaginal bleeding N93.9 and Primary osteoarthritis, right ankle and foot M19.071 ASSESSMENTS Encounter Date Diagnosis Assessment Notes Treatment Notes Treatment Clinical Notes 07/04/2024 Essential hypertensi on (ICD-10 - I10) 07/04/2024 Hypercholesterolemia (ICD-10 - E78.00) 07/04/2024 Obstructive sleep ap bruce syndrome (ICD-10 - G47.33) Advised her to discuss her CPAP issues with Pulmonology 07/04/2024 Vitamin D deficiency (ICD-10 - E55.9) 07/04/2024 Longstanding persist ent atrial fibrillation (ICD-10 - I48.11) Follow up with Cardiology 07/04/2024 Vaginal bleeding (IC D-10 - N93.9) 07/04/2024 Primary osteoarthrit is, right ankle and foot (ICD-10 - M19.071) PLAN OF TREATMENT Medication Medication Name Sig Start Date Stop Date Notes Tylenol Extra Strength 500 MG 2 tablets as needed Orally Three times a day Gabapentin 300 MG 1 capsule Orally Twi ce a day Thiamine HCl 100 MG 1 tablet Orally Once a day Vitamin D3 50 MCG (2000 UT) 1 capsule Orally Once a day Ferrous Sulfate 325 (65 Fe) MG 1 tablet Orally Once a day Atorvastatin Calcium 40 MG 1 tablet Orally Once a day Bumetanide 2 MG 1 tablet Orally Once a day Xarelto 20 MG 1 tablet with food O rally Once a day Omeprazole 40 MG 1 capsule 30 minutes before morning meal Orally Once a day 01/11/2024 Treatment Notes Assessment Notes Obstructive sleep apnea syndrome Advised her to discuss her CPAP issues with Pulmonology Longstanding persistent atrial fibrillat ion Follow up with Cardiology Next Appt Details Follow Up: 6 Months, Reason: follow up visit Progress Notes * Examination Category Sub-Category Detail Notes General Examination GENERAL APPEARANCE: in no ac deanna distress, well developed, well nourished HEAD: normocephalic, atrau matic HEART: S1, S2 normal, irreg ularly irregular rhythm LUNGS: clear to auscultatio n bilaterally ABDOMEN: normal, bowel sounds present, soft, nontender, nondistended SKIN: warm and dry EXTREMITIES: 1+ pitting edema low er extremities PSYCH: alert, oriented, cog nitive function intact
== END 2024-10-23 14:31 | disposition home or self-care (01) ==
PROVIDERS: PCP Internal Medicine; Visit Provider Internal Medicine Cardiovascular Disease
DX: I50.30 Unspecified diastolic (congestive) heart failure (principal); I48.20 Chronic atrial fibrillation, unspecified
CPT/HCPCS: 93010; 99214; G2211

== ENCOUNTER → 2024-10-23 13:34 | Outpatient (BNVA) | payer MEDICARE, BC, SELFPAY | PROVIDERS: PCP Internal Medicine; Visit Provider Internal Medicine Cardiovascular Disease | DX: I50.30 Unspecified diastolic (congestive) heart failure (principal); I48.20 Chronic atrial fibrillation, unspecified; R94.31 Abnormal electrocardiogram [ECG] [EKG] | CPT/HCPCS: 93005; 99212 ==

== ENCOUNTER 2024-12-21 13:32 | Outpatient (AMB) | payer MEDICARE, BC, SELFPAY ==
[2024-12-21 13:39] VITALS: BMI 51.3
--- NOTE | 2024-12-21 13:39 | MHC.OFFVIS ---
Vital Signs 12/21/24 13:39 Height 5 ft 4 in Weight 299 lb BMI 51.3 Intake Visit Reasons: [employer]/Self Ref for LE pain Intake Note: [employer] for bilateral LE pain, Right worse than Left LE. Pt states started months ago. Pt states bilateral LE heaviness, coldness and pins and needles worse eat night. Pt states when ambulating, legs feel heavier than normal, unable to oyster picker feet. Gate Technician Required: No Accompanied by: Self / Same As Patient Allergies amoxicillin [AMOXICILLIN] Allergy (Unknown, Verified 12/21/24 13:42) UNKNOWN flecainide [FLECAINIDE] Allergy (Unknown, Verified 12/21/24 13:42) SEVERE CHEST PAIN Sulfa (Sulfonamide Antibiotics) [SULFA (SULFONAMIDE ANTIBIOTICS)] Allergy (Unknown, Verified 12/21/24 13:42) UNKNOWN HPI HPI [employer]/Self Ref for LE pain: Details: Morbidly obese patient presents for painful varicose veins. Complaints include pain over varicosities, swelling of lower extremities, cramping, fatigue, and heaviness of the lower extremities. It has been affecting there daily activities including walking. It is noted more so in left leg. Requires use of walker to walk. Occasional lymphedema through the left lateral aspect of her leg. Quit smoking in 1974. Prior hip injury in the early 1999 Patient denies any previous venous surgery or injections. Patient denies any history of DVT/ PE. Patient denies any history of phlebitis. Trial of compression includes - [id number] They now present for vascular evaluation regarding their varicose veins. [facility] Medical History (HFpEF) heart failure with preserved ejection fraction Chronic a-fib Atrial fibrillation with slow ventricular response Cholelithiasis Paroxysmal atrial fibrillation Morbid obesity JANI (obstructive sleep apnea) HTN (hypertension) Surgical History History of cardioversion Hx of cardiac cath History of hip surgery Family History Father CVD (cardiovascular disease) Mother CHF (congestive heart failure) Social History Household Members: Family Household Members Other:: brother Housing: House Do you presently have visiting nurse or other home services: No Alcohol intake: former Patient Tobacco Use Status: Former Tobacco user Tobacco use type: Cigarette Years Smoked: 12 e-Cigarette/Vaping Use: Never Used Second Hand Smoke Exposure: No Advance Directives Date on File: 04/28/23 service: No Review of Systems Const Reports as per HPI ENT Reports no additional complaints Card Denies chest pain, Denies chest pain at rest and Denies chest pain with activity Resp Denies chest congestion and Denies cough GI Reports no additional complaints Musc Details: pain over varicosities, aching of lower extremities, swelling, cramping, heaviness and tiredness, itching Denies abnormal gait Skin/Breast Reports pruritus and Denies wounds Neuro Reports no additional complaints and Denies abnormal gait Psych Denies no additional complaints Physical Exam Vital Signs: BMI result Body Mass Index 51.3 Const General: cooperative, healthy appearing and comfortable Orientation/consciousness: oriented to person, oriented to place and oriented to time Neck Carotids: no bruits Chest Chest palpation & inspection: normal inspection of the chest and normal palpation of entire chest wall Resp Effort & Inspection: normal respiratory effort and able to speak in complete sentences Cardio Rate: regular rate Heart sounds: S1 normal heart sound present and S2 normal heart sound present Peripheral pulses: Peripheral pulses 2+ throughout GI Inspection: Yes normal to inspection Skin Other: +2 edema, large rope-like varicosities greater than 4 mm CEAP Classification C4 - skin color changes Ep - Etiology Primary As - superficial veins P - reflux General skin exam: dry skin Neuro General: oriented to person, oriented to place and oriented to time Extrem Right lower extremity: full ROM, normal capillary refill and edema Left lower extremity: full ROM, normal capillary refill and edema Psych Mental Status: mental status grossly normal Assessment & Plan Assessment & Plan (1) Varicose veins of left lower extremity with inflammation: Code(s): I83.12 - Varicose veins of left lower extremity with inflammation Category: Medical Plan: In short, the patient has evidence of venous insufficiency. I have discussed the pathophysiology with the patient. In addition I have provided informational material regarding venous disease to the patient. We have discussed conservative measures including compression, elevation, and exercise. I have also provided a handout regarding appropriate use of compression stockings and where to purchase good compression stockings as well. I have taken the liberty of ordering venous insufficiency testing with the patient. They will follow up with me after testing. The patient had an opportunity to ask questions regarding the treatment plan. All questions were answered. Imaging studies, laboratory studies and physical exam results were discussed and reviewed in detail. No major barriers to understanding were identified. The patient expressed understanding and agreement with the above treatment plan. The patient is aware they should contact our office by phone for worsening of the current condition or the appearance of new symptoms. Thank you for allowing me to participate in the vascular care of this patient. If you have any questions or concerns regarding the treatment for the above condition please do not hesitate to contact me. The office telephone contact is [phone]. This note is constructed using voice recognition software. While every effort has been made to ensure accuracy, mine engineering superintendent errors may have been included. Thank you for allowing me to participate in the care of your patient. Yours sincerely, Rhys Hoff MD, FACS, R.P.V.I. Plan Patient was informed and verbally consented to the use of an ambient scribe for clinic note documentation during this visit. Orders: Orders US venous duplex LE BI 1 Week I83.12 - Varicose veins of left lower extremity with inflammation Patient Instructions: - Await a call from the hospital to schedule the venous ultrasound appointment. - Contact our office if there are any questions or changes in symptoms. - Follow up as planned once the ultrasound results are available for further management. - Use the provided educational materials to better understand your condition and the process involved. Coding Level of Care Code New Pt Level 4 (35664) Diagnoses Varicose veins of left lower extremity with inflammation I83.12
--- OUTSIDE RECORDS SUMMARY | 2024-12-21 16:55 | XMS_ITS | Patient Health Record ---
Author Organization [facility] Address [address] [place] [address] Care Team Providers Care Wrapping Machine Operator Name Role Phone Morena (RETIRED) Jesus CARSON Primary Care Provid er Unavailable Jesus Gaffney Unavailable [phone] Reason For Referral No Information Problems Problem Type SNOMED Code ICD Code Onset Dates Problem Status W/U Status Risk Notes Problem Gallstones (445404243) Gallstones (K80.20) Active confirmed Plan Of Treatment No Information Insurance Providers Payer Name Payer Address Payer Phone Subscriber Number Group Number Insured Name Patient Relationship to Insured Coverage Start Date Coverage End Date MEDICARE OF [place] [address] [place] [address] [id number] JOSE ROBERTO GARCIA Self - patient is the insured [facility] [address] [place] [address] [phone] [id number] JOSE ROBERTO GARCIA Self - patient is the insured
--- OUTSIDE RECORDS SUMMARY | 2024-12-21 16:55 | XMS_ITS ---
Author Organization [facility] Address [address] [place] [address] Care Team Providers Care Bathhouse Keeper Name Role Phone Morena ARIAS, Jesus Primary Care Provider Unavail able Shruti Fuentes Unavailable [phone] Keshav Lerner Unavailable [phone] REASON FOR VISIT Cancel Encounters Encounter Location Date Provider Diagnosis [address] [address] 09/13/2023 Keshav Lerner Plan Of Treatment Next Appt Details Provider Name:Shruti santiago, 02/01/2025 02:00:00 PM, [address] [place], [address], Progress Notes * Iva GARCIA MDOB: [birth year] (78 yo F)Acc No.[id number]:09/13/2023 Patient:?John Iva Balderas :1945???Age:78 Y???Sex:Female Address:[address] [place] [address] [place], [address] * true * Date:? Generated for Printi marisa/Shlomog/eTransmitting on:?12/21/2024 04:55 PM EDT
--- OUTSIDE RECORDS SUMMARY | 2024-12-21 16:55 | XMS_ITS | Patient Health Record ---
[facility] Address [address] [facility] [place] [address] Care Team Providers Care Pathology Laboratory Aides Teacher Name Role Phone Jesus Berg MD Primary Care Provider Unavail able Shruti Fuentes Unavailable [phone] Allergies Allergen (clinical drug ingredient) Drug/Non Drug [...] primary osteoarthritis of the ankle and/or foot (188938152) Primary osteoarthritis, right ankle and foot (M19.071) Active confirmed Problem Localized, primary osteoarthritis of the ankle and/or foot (305786528) Primary osteoarthritis, left ankle and foot (M19.072) Active confirmed Problem Atherosclerosis of [place] arteries of the extremities (871137409708111) Unspecified atherosclerosis of [place] arteries of extremities, bilateral legs (I70.203) Active confirmed Problem Atherosclerosis of [place] artery of both lower extremities, with unspecified presence of clinical manifestation (I70.203) Active confirmed Q7(A), Q8(2B), Q9(1B,2 C) Vital Signs Blood pressure diastolic 68 mm Hg 10/02/2024 Height 5 ft 4in in 10/02/2024 Blood pressure systolic 120 mm Hg 10/02/2024 Weight 297 lbs 10/02/2024 BMI 50.97 kg/m2 10/02/2024 Procedures Procedure Date Ordered Date Performed Result Body Sit e 01719-MUBQUGK NAIL, 6 OR MORE 10/02/2024 N/A 28628-HJQH SKIN LESIONS, OVER 4 10/02/2024 N/A Encounters Encounter Location Date Provider Diagnosis [facility] [address] [place] [address] 10/02/2024 Shruti Fuentes Atherosclerosis of [place] artery of both lower extremities, with unspecified presence of clinical manifestation I70.203 ; Tinea unguium B35.1 ; Pain in right toe(s) M79.674 and Pain in left toe(s) M79.675 Assessments Encounter Date Diagnosis (ICD Code) Assessment Notes Treatment Notes Treatment Clinical Notes Section Notes 10/02/2024 Atherosclerosis of [place] artery of both lower extremities, with unspecified presence of clinical manifestation (ICD-10 - I70.203) Q7(A), Q8(2B), Q9(1B,2C) 10/02/2024 Tinea unguium (ICD-10 - B35.1) 10/02/2024 Pain in right toe(s) (ICD-10 - M79.674) 10/02/2024 Pain in left toe(s) (ICD-10 - M79.675) Plan Of Treatment Pending Test Test Name Order Date 78492-KUKMLCO NAIL, 6 OR MORE 12/03/2016 56064-LIGRISH NAIL, 6 OR MORE 03/11/2017 77659-FFJXSCN NAIL, 6 OR MORE 06/10/2017 23007-LNXCTDN NAIL, 6 OR MORE 09/09/2017 65128-RUFDXBM NAIL, 6 OR MORE 01/05/2018 71326-DIEYDFN NAIL, 6 OR MORE 08/10/2018 11768-NVPLUIX NAIL, 6 OR MORE 10/02/2024 21908-ANWQAXI NAIL, 1-5 11/07/2015 51079-FWFHXON NAIL, 1-5 02/20/2016 85182-EUNPUQQ NAIL, 1-5 05/21/2016 02056-UBOHGSC NAIL, 1-5 08/27/2016 69361-Mzpg Destruction, -14 06/11/2011 53836-Cccnelqo Plate 06/11/2011 75126-Walkkxoi Plate 09/07/2011 30127-Tnwnflei Plate 12/10/2011 91524-Uijshvxf Plate 03/10/2012 71057-Isguotol Plate 06/23/2012 12461-Eivgbuqp Plate 09/29/2012 32955-Vstkulqb Plate 01/05/2013 87021-Npbwdkpo Plate 04/13/2013 12734-Yehwcvpp Plate 07/13/2013 10640-Rygbnudm Plate 10/12/2013 80462-Vkolvgzy Plate 01/22/2014 57532-Siuwwpxt Plate 04/26/2014 44680-Aixuieyy Plate 07/26/2014 40467-Gtxbefze Plate 10/25/2014 68145-Mhcfazkv Plate 01/24/2015 84180-Xswapjwc Plate 04/25/2015 52685-Mmmnvndi Plate 08/01/2015 33895-ZQJO SKIN LESIONS, OVER 4 10/02/19 25 93288-CQTO SKIN LESIONS, OVER 4 07/14/20 21 65617-PWTY SKIN LESIONS, OVER 4 11/06/19 22 99384-HHAR SKIN LESIONS, OVER 4 06/26/20 20 73976-BSRD SKIN LESIONS, OVER 4 10/23/19 21 92891-IGVG SKIN LESIONS, OVER 4 03/06/20 21 02897-DNTG SKIN LESIONS, OVER 4 11/21/19 19 32725-DODG SKIN LESIONS, OVER 4 04/17/20 19 42095-TIFE SKIN LESIONS, OVER 4 07/31/20 19 15222-CPFF SKIN LESIONS, OVER 4 11/23/19 20 06072-ZDAY SKIN LESIONS, OVER 4 12/04/19 17 03668-MOPB SKIN LESIONS, OVER 4 08/10/20 18 30597-CMIZ SKIN LESIONS, 2 TO 4 04/07/20 18 94552-JOGM SKIN LESIONS, 2 TO 4 03/07/20 20 68989-AGFP SKIN LESIONS, 2 TO 4 08/27/20 16 95035-SDZD SKIN LESIONS, 2 TO 4 05/21/20 16 86231-YBQL SKIN LESIONS, 2 TO 4 02/20/20 16 81714-GYGS SKIN LESIONS, 2 TO 4 11/07/19 16 24676-LVRY SKIN LESIONS, 2 TO 4 01/06/20 18 38147-LDEM SKIN LESIONS, 2 TO 4 09/09/20 17 35008-EOFY SKIN LESIONS, 2 TO 4 06/10/20 17 99646-VLNZ SKIN LESIONS, 2 TO 4 03/11/20 17 56552-EAMK NAIL(S) 11/07/2015 70145-OKKB NAIL(S) 02/20/2016 50966-GMQV NAIL(S) 05/21/2016 76641-ZPVA NAIL(S) 08/27/2016 96178-AXZTBLOW OF HEMATOMA/FLUID 021 90163,C3413-CKT TENDON SHEATH/LIGAMENT 1 10/06/2021 Next Appt Details Provider Name:Shruti santiago, 02/01/2025 02:00:00 PM, [address] [facility], [place], [address], Insurance Providers Payer Name Payer Address Payer Phone Subscriber Number Group Number Insured Name Patient Relationship to Insured Coverage Start Date Coverage End Date Medicare National [employer] [address] [place] [place] [address] [id number] Iva Lopez Self - patient is the insured [facility] [address] [place] [address] [id number] Iva Lopez Self - patient is the [...]
--- OUTSIDE RECORDS SUMMARY | 2024-12-21 16:56 | XMS_ITS ---
Author Organization [facility] Address [address] [facility] [place] [address] Care Team Providers Care Ceramic Mold Designer Name Role Phone Jesus Berg MD Primary Care Provider Unavail able Shruti Fuentes Unavailable [phone] Allergies Allergen (clinical drug ingredient) Drug/Non Drug [...] W/U Status Risk Notes Problem Atherosclerosis of [place] artery of both lower extremities, with unspecified presence of clinical manifestation (I70.203) Active confirmed Q7(A), Q8(2B), Q9(1B,2C) Vital Signs Height 5 ft 4in in 10/02/2024 Weight 297 lbs 10/02/2024 BMI 50.97 kg/m2 10/02/2024 Blood pressure systolic 120 mm Hg 10/02/19 25 Blood pressure diastolic 68 mm Hg 025 Procedures Procedure Date Ordered Date Performed Result Body Sit e 42725-CMAVRKQ NAIL, 6 OR MORE 10/02/2024 N/A 51148-PXDZ SKIN LESIONS, OVER 4 10/02/2024 N/A Encounters Encounter Location Date Provider Diagnosis [facility] [place] [address] [place] [address] 10/02/2024 Shruti Fuentes Atherosclerosis of [place] artery of both lower extremities, with unspecified presence of clinical manifestation I70.203 ; Tinea unguium B35.1 ; Pain in right toe(s) M79.674 and Pain in left toe(s) M79.675 Assessments Encounter Date Diagnosis (ICD Code) Assessment Notes Treatment Notes Treatment Clinical Notes Section Notes 10/02/2024 Atherosclerosis of [place] artery of both lower extremities, with unspecified presence of clinical manifestation (ICD-10 - I70.203) Q7(A), Q8(2B), Q9(1B,2C) 10/02/2024 Tinea unguium (ICD-10 - B35.1) 10/02/2024 Pain in right toe(s) (ICD-10 - M79.674) 10/02/2024 Pain in left toe(s) (ICD-10 - M79.675) Plan Of Treatment Pending Test Test Name Order Date 66243-ZHWKAHR NAIL, 6 OR MORE 10/02/2024 71853-XRIW SKIN LESIONS, OVER 4 10/02/19 25 Next Appt Details Follow Up: prn, Reason: Provider Name:Shruti santiago, 02/01/2025 02:00:00 PM, [address] [place] [address], [address], Procedure Notes * Category Sub-Category Detail Notes [...] use of a nail nipper and/or dremel-type feed grinder, to a more viable healthy nail [...] to maintain effectiveness in symptomatic relief - 34005 Keratoma Treatment Parring or Cutting o f [...] instrumentation by the physician of record - 05475, Q8 Progress Notes * Iva GARCIA MDOB: [birth year] (79 yo F)Acc No.[id number]:10/02/2024 Progress Note Patient:?Iva GARCIA Provider:?Shruti Fuentes DPM :1945???Age:79 Y???Sex:Female D ate:10/02/2024 Address:[address] [place] [address] saji Miguelito [id number] Pcp:Jesus Berg MD Subjective: * Chief Complaints: [...] received 2 blood transfusions 09/06/15[facility]- Water retension 06/20/18-06/23/18[facility]- Post Menopausal Vaginal Bleeding 04/27/23-04/30/2023 * Family [...] no. ?Marital status: . 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 * Medications:?TakingNight Spl int AFO - L1930 [...] and time.? Assessment: * Assessment: 1.?Atherosclerosis of [place] artery of both lower extremities, with unspecified presence of clinical manifestation - I70.203 (Primary)???Notes :Q7(A), Q8(2B), Q9(1B,2C)???2.?Tinea unguium - B35.1???3.?Pain in right toe(s) - M79.674???4.?Pain in left toe(s) - M79.675??? Plan: * Treatment: 2.?Tinea unguium?Procedure: 27138-DAPQQIE NAIL, 6 OR MORE * Procedures:?Debride Nail [...] use of a nail nipper and/or dremel-type feed grinder, to a more viable healthy nail [...] to maintain effectiveness in symptomatic relief - 65739.?Keratoma Treatment:?Parring or Cutting of Benign Hyperkeratotic Lesion(s)?(-57) [...] instrumentation by the physician of record - 57226, Q8.? * Procedure Codes:?97450 DEBRI DE NAIL, 6 OR MORE, Modifiers: XS 84119 TRIM SKIN LESIONS, OVER 4, Modifiers: XS , Q8 * Follow Up:?prn * Images: * Sign off status: Completed true * Provider:Janna Fuentes DPM Date:?0 10/02/2024 Generated for Zach cunningham/Lilain/eTrangustavoitting on:?12/21/2024 04:55 PM EDT History and Physical Notes * HPI (History [...]
--- OUTSIDE RECORDS SUMMARY | 2024-12-21 16:56 | XMS_ITS ---
Author Organization [facility] Address [address] [place] [address] Care Team Providers Care Foreign Law Consultant Name Role Phone Morena ARIAS, Jesus Primary Care Provider Unavail able Shruti Fuentes Unavailable [phone] Keshav Lerner [phone] Encounters Encounter Location Date Provider Diagnosis [facility] [address] [place] [address] 09/15/2023 Keshav Lerner Plan Of Treatment Next Appt Details Provider Name:Shruti santiago, 02/01/2025 02:00:00 PM, [address] [place], [address], Progress Notes * Iva GARCIA MDOB: [birth year] (79 yo F)Acc No.[id number]:09/15/2023 Progress Note Patient:?Ho GARCIAjodi Balderas Provider:?Keshav Lerner DPM :1945???Age:78 Y???Sex:Female D ate:09/15/2023 Address:[address] [place] [address] [id number] Pcp:Jesus Berg MD Subjective: * Chief Complaints: [...] DPM Date:? 023 Generated for Zach cunningham/Lilian/Lesley on:?12/21/2024 04:55 PM EDT
== END 2024-12-21 14:46 | disposition home or self-care (01) ==
LOC: HO.HVS 13:32
PROVIDERS: PCP Internal Medicine; Visit Provider Surgery Vascular Surgery
DX: I83.12 Varicose veins of left lower extremity with inflammation (principal)
CPT/HCPCS: 99204

== ENCOUNTER → 2024-12-21 13:32 | Outpatient (BNVA) | payer MEDICARE, BC, SELFPAY | PROVIDERS: PCP Internal Medicine; Visit Provider Surgery Vascular Surgery | DX: I83.12 Varicose veins of left lower extremity with inflammation (principal) | CPT/HCPCS: 99202 ==

== ENCOUNTER 2024-12-29 12:19 | Outpatient (REF) | payer MEDICARE, BC, SELFPAY ==
[2024-12-29 13:40] LABS: Hematocrit 40.7 % (37.0-47.0); Hemoglobin 12.9 g/dl (12.0-16.0); Mean Corpuscular HGB Conc 31.7 g/dl (31.0-35.0); Mean Corpuscular Hemoglobin 32.7 pg (27.0-33.0); Mean Platelet Volume 8.9 fL (9.4-12.3); Platelet Count 263 X10*3/uL (160-400); Red Blood Count 3.95 X10*6/uL (4.20-5.50); Red Cell Distribution Width 14.4 % (11.0-16.0); White Blood Count 5.8 X10*3/uL (4.8-10.8)
--- OUTSIDE RECORDS SUMMARY | 2024-12-29 14:13 | XMS_ITS | Patient Health Record ---
Author Organization [facility] Address [address] [place] [address] Care Team Providers Care Garment Worker Name Role Phone Jesus Berg MD Primary Care Provider Unavail able Shruti Fuentes Unavailable [phone] Allergies Allergen (clinical drug ingredient) Drug/Non Drug [...] primary osteoarthritis of the ankle and/or foot (911924695) Primary osteoarthritis, right ankle and foot (M19.071) Active confirmed Problem Localized, primary osteoarthritis of the ankle and/or foot (941245361) Primary osteoarthritis, left ankle and foot (M19.072) Active confirmed Problem Atherosclerosis of koi arteries of the extremities (710683188662372) Unspecified atherosclerosis of koi arteries of extremities, bilateral legs (I70.203) Active confirmed Problem Atherosclerosis of koi artery of both lower extremities, with unspecified presence of clinical manifestation (I70.203) Active confirmed Q7(A), Q8(2B), Q9(1B,2 C) Vital Signs Blood pressure diastolic 68 mm Hg 10/02/2024 Height 5 ft 4in in 10/02/2024 Blood pressure systolic 120 mm Hg 10/02/2024 Weight 297 lbs 10/02/2024 BMI 50.97 kg/m2 10/02/2024 Procedures Procedure Date Ordered Date Performed Result Body Sit e 37688-INKIIMF NAIL, 6 OR MORE 10/02/2024 N/A 57619-RPUO SKIN LESIONS, OVER 4 10/02/2024 N/A Encounters Encounter Location Date Provider Diagnosis [facility] [place] [address] [place] [address] 10/02/2024 Shruti Fuentes Atherosclerosis of koi artery of both lower extremities, with unspecified presence of clinical manifestation I70.203 ; Tinea unguium B35.1 ; Pain in right toe(s) M79.674 and Pain in left toe(s) M79.675 Assessments Encounter Date Diagnosis (ICD Code) Assessment Notes Treatment Notes Treatment Clinical Notes Section Notes 10/02/2024 Atherosclerosis of koi artery of both lower extremities, with unspecified presence of clinical manifestation (ICD-10 - I70.203) Q7(A), Q8(2B), Q9(1B,2C) 10/02/2024 Tinea unguium (ICD-10 - B35.1) 10/02/2024 Pain in right toe(s) (ICD-10 - M79.674) 10/02/2024 Pain in left toe(s) (ICD-10 - M79.675) Plan Of Treatment Pending Test Test Name Order Date 43047-HVVBNQW NAIL, 6 OR MORE 12/03/2016 12668-IKTTFDQ NAIL, 6 OR MORE 03/11/2017 57462-INHFKHW NAIL, 6 OR MORE 06/10/2017 06398-ELXVSYE NAIL, 6 OR MORE 09/09/2017 70289-TABVMYU NAIL, 6 OR MORE 01/05/2018 87314-FQTKHPP NAIL, 6 OR MORE 08/10/2018 10433-JSJECXF NAIL, 6 OR MORE 10/02/2024 84415-TLAGLYB NAIL, 1-5 11/07/2015 92666-RKEWVTH NAIL, 1-5 02/20/2016 79263-PBOGXQG NAIL, 1-5 05/21/2016 44417-SFCHMYK NAIL, 1-5 08/27/2016 18070-Fafn Destruction, -14 06/11/2011 82196-Jccxwrpe Plate 06/11/2011 65041-Dplmguox Plate 09/07/2011 71297-Tjctvwwi Plate 12/10/2011 86008-Upgsaiwe Plate 03/10/2012 01849-Nqfkjcun Plate 06/23/2012 15679-Ghsrxifc Plate 09/29/2012 60512-Nikjwsai Plate 01/05/2013 92309-Tyvltmdz Plate 04/13/2013 94644-Hejmzgrf Plate 07/13/2013 46470-Ithqoxot Plate 10/12/2013 18603-Ejgquiae Plate 01/22/2014 38326-Jflevunq Plate 04/26/2014 09980-Kkwqjaxq Plate 07/26/2014 75938-Jpvcjlmp Plate 10/25/2014 88930-Icondffz Plate 01/24/2015 99385-Wgjdhlpg Plate 04/25/2015 59247-Yyesggen Plate 08/01/2015 76300-GTED SKIN LESIONS, OVER 4 10/02/19 25 35404-RUJN SKIN LESIONS, OVER 4 07/14/20 21 92529-PLAL SKIN LESIONS, OVER 4 11/06/19 22 15782-PDZW SKIN LESIONS, OVER 4 06/26/20 20 77156-GTKF SKIN LESIONS, OVER 4 10/23/19 21 13202-GLOY SKIN LESIONS, OVER 4 03/06/20 21 91213-SDDV SKIN LESIONS, OVER 4 11/21/19 19 78104-SAHF SKIN LESIONS, OVER 4 04/17/20 19 99478-DMUH SKIN LESIONS, OVER 4 07/31/20 19 29677-WIYU SKIN LESIONS, OVER 4 11/23/19 20 91208-JTIR SKIN LESIONS, OVER 4 12/04/19 17 20288-EEHN SKIN LESIONS, OVER 4 08/10/20 18 38076-WLVB SKIN LESIONS, 2 TO 4 04/07/20 18 35873-FINJ SKIN LESIONS, 2 TO 4 03/07/20 20 62466-NZQP SKIN LESIONS, 2 TO 4 08/27/20 16 80980-HZCN SKIN LESIONS, 2 TO 4 05/21/20 16 23473-AZQP SKIN LESIONS, 2 TO 4 02/20/20 16 39392-MWYX SKIN LESIONS, 2 TO 4 11/07/19 16 46609-MAOX SKIN LESIONS, 2 TO 4 01/06/20 18 48664-PQTL SKIN LESIONS, 2 TO 4 09/09/20 17 32539-DWOA SKIN LESIONS, 2 TO 4 06/10/20 17 12987-SKLF SKIN LESIONS, 2 TO 4 03/11/20 17 29463-BDAU NAIL(S) 11/07/2015 79685-LECC NAIL(S) 02/20/2016 21956-AOMR NAIL(S) 05/21/2016 16628-ELCQ NAIL(S) 08/27/2016 72068-ZSONHPMG OF HEMATOMA/FLUID 021 17765,O8145-LVP TENDON SHEATH/LIGAMENT 1 10/06/2021 Next Appt Details Provider Name:Shruti santiago, 02/01/2025 02:00:00 PM, [address] [facility], [place], [address], Insurance Providers Payer Name Payer Address Payer Phone Subscriber Number Group Number Insured Name Patient Relationship to Insured Coverage Start Date Coverage End Date Medicare National [employer] [address] [facility] [address] [id number] Iva Lopez Self - patient is the insured 1 [facility] [address] [place] [address] [id number] Iva Lopez Self - patient is the insured 0 Medical (General) History Medical History History ICD Code measles joint implants/screws high blood pressure chicken pox Cholesterol broken bones Arthritis Surgical History Surgery Date(Month/Year) right hip pinning/rods 2002 cataract surgert OD 12/26/2012 cardiac catherization 11/2014 Hospitalization History Reason Date(Month/Year) [facility]- Post Menopausal Vaginal Bleeding -04/30/2023 [facility]- Water retension 06/20/18-06/23/18 [facility], overnight, anemia, received 2 blood transfusions 09/06/15
--- OUTSIDE RECORDS SUMMARY | 2024-12-29 14:13 | XMS_ITS | Patient Health Record ---
Author Organization [facility] Address [address] [place] [address] Care Team Providers Care Shoe Cobbler Name Role Phone Morena (RETIRED) Jesus CARSON Primary Care Provid er Unavailable Jesus Gaffney Unavailable [phone] Reason For Referral No Information Problems Problem Type SNOMED Code ICD Code Onset Dates Problem Status W/U Status Risk Notes Problem Gallstones (843400158) Gallstones (K80.20) Active confirmed Plan Of Treatment No Information Insurance Providers Payer Name Payer Address Payer Phone Subscriber Number Group Number Insured Name Patient Relationship to Insured Coverage Start Date Coverage End Date MEDICARE OF [place] [address] [place] [address] [id number] JOSE ROBERTO GARCIA Self - patient is the insured [facility] [address] [place] [address] [id number] JOSE ROBERTO GARCIA Self - patient is the insured
--- OUTSIDE RECORDS SUMMARY | 2024-12-29 14:13 | XMS_ITS ---
Author Organization [facility] Address [address] [place] [address] Care Team Providers Care Roll Wrapper Name Role Phone Morena ARIAS, Jesus Primary Care Provider Unavail able Shruti Feuntes Unavailable [phone] Keshav Lerner [phone] Encounters Encounter Location Date Provider Diagnosis [facility] [address] [place] [address] 09/15/2023 Keshav Lerner Plan Of Treatment Next Appt Details Provider Name:Shruti santiago, 02/01/2025 02:00:00 PM, [address] [place], [address], Progress Notes * Iva GARCIA MDOB: [birth year] (79 yo F)Acc No.[id number]:09/15/2023 Progress Note Patient:?Ho GARCIAjodi Balderas Provider:?Keshav Lerner DPM :1945???Age:78 Y???Sex:Female D ate:09/15/2023 Address:[address] [place] [address] [id number] Pcp:Jesus Berg MD Subjective: * Chief Complaints: * ??? * Medical History:? Objective: * Vitals:? Assessment: Plan: * Treatment: * Images: * The named appointment provid er may or may not be the originator of this progress note, and it is not deemed complete until electronically signed by the appointment provider. Sign off status: Pending * Provider:Norris Lerner DPM Date:? 023 Generated for Zach cunningham/Lilian/Lesley on:?12/29/2024 02:13 PM EDT
--- OUTSIDE RECORDS SUMMARY | 2024-12-29 14:13 | XMS_ITS ---
Author Organization [facility] Address [address] [place] [address] Care Team Providers Care Stab Setter And Driller Name Role Phone Morena ARIAS, Jesus Primary Care Provider Unavail able Shruti Fuentes Unavailable [phone] Keshav Lerner Unavailable [phone] REASON FOR VISIT Cancel Encounters Encounter Location Date Provider Diagnosis [address] [address] 09/13/2023 Keshav Lerner Plan Of Treatment Next Appt Details Provider Name:Shruti santiago, 02/01/2025 02:00:00 PM, [address] [place], [address], Progress Notes * Iva GARCIA MDOB: [birth year] (78 yo F)Acc No.[id number]:09/13/2023 Patient:?John Iva Balderas :1945???Age:78 Y???Sex:Female Address:[address] [place] [address] [place], [address] * true * Date:? Generated for Printi marisa/Lilian/eTransmitting on:?12/29/2024 02:13 PM EDT
--- OUTSIDE RECORDS SUMMARY | 2024-12-29 14:14 | XMS_ITS ---
Author Organization [facility] Address [address] [facility] [place] [address] Care Team Providers Care Guard Immigration Name Role Phone Jesus Berg MD Primary Care Provider Unavail able Shruti Fuentes Unavailable [phone] Allergies Allergen (clinical drug ingredient) Drug/Non Drug [...] W/U Status Risk Notes Problem Atherosclerosis of tunica-biloxi artery of both lower extremities, with unspecified presence of clinical manifestation (I70.203) Active confirmed Q7(A), Q8(2B), Q9(1B,2C) Vital Signs Height 5 ft 4in in 10/02/2024 Weight 297 lbs 10/02/2024 BMI 50.97 kg/m2 10/02/2024 Blood pressure systolic 120 mm Hg 10/02/19 25 Blood pressure diastolic 68 mm Hg 025 Procedures Procedure Date Ordered Date Performed Result Body Sit e 71831-IDOOCZT NAIL, 6 OR MORE 10/02/2024 N/A 40667-RABZ SKIN LESIONS, OVER 4 10/02/2024 N/A Encounters Encounter Location Date Provider Diagnosis [facility] [place] [address] [place] [address] 10/02/2024 Shruti Fuentes Atherosclerosis of tunica-biloxi artery of both lower extremities, with unspecified presence of clinical manifestation I70.203 ; Tinea unguium B35.1 ; Pain in right toe(s) M79.674 and Pain in left toe(s) M79.675 Assessments Encounter Date Diagnosis (ICD Code) Assessment Notes Treatment Notes Treatment Clinical Notes Section Notes 10/02/2024 Atherosclerosis of tunica-biloxi artery of both lower extremities, with unspecified presence of clinical manifestation (ICD-10 - I70.203) Q7(A), Q8(2B), Q9(1B,2C) 10/02/2024 Tinea unguium (ICD-10 - B35.1) 10/02/2024 Pain in right toe(s) (ICD-10 - M79.674) 10/02/2024 Pain in left toe(s) (ICD-10 - M79.675) Plan Of Treatment Pending Test Test Name Order Date 02980-IDGONFH NAIL, 6 OR MORE 10/02/2024 18821-KTGT SKIN LESIONS, OVER 4 10/02/19 25 Next Appt Details Follow Up: prn, Reason: Provider Name:Shruti santiago, 02/01/2025 02:00:00 PM, [address] [place] [address], [address], Procedure Notes * Category Sub-Category Detail Notes [...] use of a nail nipper and/or dremel-type centerless grinder operator, to a more viable healthy nail plate [...] to maintain effectiveness in symptomatic relief - 05599 Keratoma Treatment Parring or Cutting o f [...] instrumentation by the physician of record - 56728, Q8 Progress Notes * Iva GARCIA MDOB: [birth year] (79 yo F)Acc No.[id number]:10/02/2024 Progress Note Patient:?Iva GARCIA Provider:?Shruti Fuentes DPM :1945???Age:79 Y???Sex:Female D ate:10/02/2024 Address:[address] [place] [address] saji Miguelito [id number] Pcp:Jesus Berg MD Subjective: * Chief Complaints: [...] received 2 blood transfusions 09/06/15[facility]- Water retension 06/20/18-06/23/18[facility]- Post Menopausal Vaginal Bleeding 04/27/23-04/30/2023 * Family [...] no. ?Marital status: . ?Occupation: retired-[employer]. * Medications:?TakingNight Spl int AFO - L1930 [...] and time.? Assessment: * Assessment: 1.?Atherosclerosis of tunica-biloxi artery of both lower extremities, with unspecified presence of clinical manifestation - I70.203 (Primary)???Notes :Q7(A), Q8(2B), Q9(1B,2C)???2.?Tinea unguium - B35.1???3.?Pain in right toe(s) - M79.674???4.?Pain in left toe(s) - M79.675??? Plan: * Treatment: 2.?Tinea unguium?Procedure: 37971-FNUDULF NAIL, 6 OR MORE * Procedures:?Debride Nail [...] use of a nail nipper and/or dremel-type centerless grinder operator, to a more viable healthy nail plate [...] to maintain effectiveness in symptomatic relief - 45469.?Keratoma Treatment:?Parring or Cutting of Benign Hyperkeratotic Lesion(s)?(-57) [...] instrumentation by the physician of record - 84755, Q8.? * Procedure Codes:?61975 DEBRI DE NAIL, 6 OR MORE, Modifiers: XS 86766 TRIM SKIN LESIONS, OVER 4, Modifiers: XS , Q8 * Follow Up:?prn * Images: * Sign off status: Completed true * Provider:Janna Fuentes DPM Date:?0 10/02/2024 Generated for Zach cunningham/Lilian/eTransmitting on:?12/29/2024 02:13 PM EDT History and Physical Notes * [...]
[2024-12-29 14:42] LABS: Alanine Aminotransferase 7 U/L (0-31); Albumin Level 3.8 g/dL (3.5-5.0); Alkaline Phosphatase 123 U/L (39-117); Anion Gap 14 (12-20); Aspartate Amino Transferase 22 U/L (5-31); Bilirubin Direct 0.3 mg/dL (0.0-0.5); Bilirubin Total 0.9 mg/dL (0.0-1.0); Blood Urea Nitrogen 24 mg/dL (9-16); Calcium 9.5 mg/dL (8.4-10.2); Carbon Dioxide 28 mmol/L (22-29); Chloride 106 mmol/L (96-108); Cholesterol 109 mg/dL (<200); Estimated Glomerular Filt Rate 47; Glucose Random 100 mg/dL (60-115); HDL Cholesterol 25 mg/dL (>40); LDL Cholesterol Calculated 69 mg/dL (<100); Sodium 144 mmol/L (135-145); Total Protein 7.2 g/dL (6.5-8.0); Triglycerides 77 mg/dL (<150)
[2024-12-29 14:49] LABS: Thyroid Stimulating Hormone 3.62 uIU/mL (0.32-4.0)
[2024-12-29 16:14] LABS: Appearance Urine Cloudy; Color Urine Dark Yellow; Glucose Urine UA Negative (Negative); Leukocyte Esterase Urine Small (1+) (Negative); Nitrite Urine Negative (Negative); Specific Gravity - Urine >= 1.030 (1.005-1.025); UMIC TRIGGER UA YES; Urine Blood Moderate (2+) (Negative); Urine Ketones Trace mg/dL (Negative); Urine Protein 30 (1+) mg/dL (Neg-Trace)
[2024-12-29 16:23] LABS: Bacteria Urine 2+ (None Seen); Hyaline Casts Urine 0-2 /LPF (0-2); RBC Urine >20 /HPF (0-2); WBC Urine 21-50 /HPF (0-5)
== END 2024-12-29 12:20 | disposition home or self-care (01) ==
LOC: HO.HMGCLDS 12:19
PROVIDERS: PCP Internal Medicine; Visit Provider Internal Medicine
DX: I10 Essential (primary) hypertension (principal); I48.20 Chronic atrial fibrillation, unspecified
CPT/HCPCS: 36415; 80048; 80061; 80076; 81001; 84443; 85027

== ENCOUNTER 2025-01-10 12:38 | Outpatient (REF) | payer MEDICARE, BC, SELFPAY ==
--- NOTE | ~2025-01-10 | US_ITS ---
EXAMINATION: US LOWER EXTREMITY VENOUS (REFLUX EXAM), BILATERAL CLINICAL INFORMATION: Varices. COMPARISON: None. TECHNIQUE: Color flow triplex imaging and compression Doppler was performed to evaluate both the deep and the superficial systems bilaterally. To evaluate the superficial system, the examination was performed in the upright position. Color-flow Doppler ultrasound and compression ultrasound were utilized. In addition, maneuvers were utilized to demonstrate reflux. FINDINGS: 1. DEEP VENOUS ULTRASOUND OF THE RIGHT LOWER EXTREMITY: Common Femoral Vein: Compressible, normal respiratory variation and augmented flow. Femoral Vein: Compressible, normal color flow and augmentation. Popliteal Vein: Compressible, normal augmentation. Deep Reflux: There is no evidence of reflux in the deep system in either the common femoral vein, superficial femoral or the popliteal vein. There is no evidence of a Barr's cyst. 2. SUPERFICIAL ULTRASOUND WITH DOPPLER OF RIGHT LOWER EXTREMITY: GREAT SAPHENOUS VEIN: Saphenofemoral Junction: 0.9 cm; Reflux: 0 ms Proximal Thigh: 0.8 cm; Reflux: more than 2504 ms Mid Thigh: 0.6 cm; Reflux: 2388 ms Distal Thigh: 0.5 cm; Reflux: 1856 ms At Knee: 0.6 cm; Reflux: 1748 ms Proximal Calf: 0.5 cm; Reflux: 1716 ms Mid Calf: 0.5 cm; Reflux: 0 ms Distal Calf: 0.5 cm; Reflux: 0 ms DUPLICATED MEDIAL GREAT SAPHENOUS VEIN: Diameter: None imaged Reflux: NA DUPLICATED LATERAL GREAT SAPHENOUS VEIN: Diameter: None imaged Reflux: NA SMALL SAPHENOUS VEIN: Saphenopopliteal Junction: Not seen. Proximal: Not seen. Distal: Not seen. VEIN OF GIACOMINI: Size: NA Reflux: NA PERFORATORS: Location: None imaged Size: NA Reflux: NA VARICOSITIES: Location: Proximal thigh to the mid thigh calf. Size: 0.3-0.4 cm. Reflux: 1384 ms at the knee. 3. DEEP VENOUS ULTRASOUND OF THE LEFT LOWER EXTREMITY: Common Femoral Vein: Compressible, normal respiratory variation and augmented flow. Femoral Vein: Compressible, normal color flow and augmentation. Popliteal Vein: Compressible, normal augmentation. Deep Reflux: There is no evidence of reflux in the deep system in either the common femoral vein, superficial femoral or the popliteal vein. There is no evidence of a Barr's cyst. 4. SUPERFICIAL ULTRASOUND WITH DOPPLER OF LEFT LOWER EXTREMITY: GREAT SAPHENOUS VEIN: Saphenofemoral Junction: 0.9 cm; Reflux: 0 ms Proximal Thigh: 0.6 cm; Reflux: More than 2664 ms Mid Thigh: 0.6 cm; Reflux: 1952 ms Distal Thigh: 0.4 cm; Reflux: 2352 ms At Knee: 0.4 cm; Reflux: 1756 ms Proximal Calf: 0.4 cm; Reflux: 1980 ms Mid Calf: 0.3 cm; Reflux: 0 ms Distal Calf: 0.3 cm; Reflux: 0 ms DUPLICATED MEDIAL GREAT SAPHENOUS VEIN: Diameter: None imaged Reflux: NA DUPLICATED LATERAL GREAT SAPHENOUS VEIN: Diameter: 0.3 cm. Reflux: NA SMALL SAPHENOUS VEIN: Saphenopopliteal Junction: 0.4 cm; Reflux: 2252 ms Proximal: 0.3 cm; Reflux: 0 ms Distal: 0.4 cm; Reflux: 0 ms VEIN OF GIACOMINI: Size: 0.2 cm. Reflux: NA PERFORATORS: Location: Proximal to mid calf. Size: 0.3 cm. Reflux: 1408 and 2764 ms in the calf region. VARICOSITIES: Location: Mid thigh. Size: 0.3 cm. Reflux: NA US/US venous insuf bilat IMPRESSION: Right: Venous insufficiency, great saphenous vein from the proximal thigh to below the knee. 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 Left: Venous insufficiency, great saphenous vein from the proximal thigh to below the knee. Venous insufficiency, small saphenous vein at the junction. Perforators with reflux in the proximal calf. Varices without reflux. Electronically signed by: Mustapha Barnett MD 01/11/2025 10:45 AM EDT
== END 2025-01-10 12:39 | disposition home or self-care (01) ==
LOC: HO.US 12:38
PROVIDERS: PCP Internal Medicine; Visit Provider Surgery Vascular Surgery
DX: I83.12 Varicose veins of left lower extremity with inflammation (principal)
CPT/HCPCS: 93970

== ENCOUNTER → 2025-01-10 12:40 | Outpatient (BNV) | payer MEDICARE, BC, SELFPAY | PROVIDERS: PCP Internal Medicine; Visit Provider Radiology Diagnostic Radiology | DX: I83.93 Asymptomatic varicose veins of bilateral lower extremities (principal); I87.2 Venous insufficiency (chronic) (peripheral) | CPT/HCPCS: 93970 ==

== ENCOUNTER 2025-01-23 13:32 | Outpatient (AMB) | payer MEDICARE, BC, SELFPAY ==
[2025-01-23 13:23] VITALS: BP 151/69; PULSE 70; RESP 16; TEMP 36.5; O2SAT 96; BMI 52.3
--- NOTE | 2025-01-23 13:23 | MHC.PC.OV ---
Vital Signs 01/23/25 13:23 Height 5 ft 4 in Weight 305 lb BMI 52.3 BP 151/69 H Respiration 16 Pulse 70 Pulse Source Pulse Oximeter Temp 97.7 F Temp Source Temporal Artery Scan Pulse Oximetry (%) 96 Oxygen Delivery Method Room Air Intake Visit Reasons: Follow up Inspector Hairspring Truing Required: No Accompanied by: Self / Same As Patient Allergies amoxicillin [AMOXICILLIN] Allergy (Unknown, Verified 01/23/25 13:23) UNKNOWN flecainide [FLECAINIDE] Allergy (Unknown, Verified 01/23/25 13:23) SEVERE CHEST PAIN Sulfa (Sulfonamide Antibiotics) [SULFA (SULFONAMIDE ANTIBIOTICS)] Allergy (Unknown, Verified 01/23/25 13:23) UNKNOWN Tobacco use date assessed: 01/23/25 Fall risk assessment: 1 Fall in past year Last assessed Fall Risk: 01/23/25 Dental Screening Dental Screen Date: 01/23/25 Did you have a dental visit in the last 12 months?: Yes Did you have a dental problem in the last 6 months where you did not have access to dental care?: No Was dental information given to patient?: Patient has dentist (has upcoming appt) [facility] Medical History (Updated 01/23/25 @ 13:43 by Aristides Pedraza MD) Morbid obesity (HFpEF) heart failure with preserved ejection fraction Chronic a-fib Atrial fibrillation with slow ventricular response Cholelithiasis Paroxysmal atrial fibrillation JANI (obstructive sleep apnea) HTN (hypertension) Surgical History History of cardioversion Hx of cardiac cath History of hip surgery Family History Father CVD (cardiovascular disease) Mother CHF (congestive heart failure) Social History Household Members: Family Household Members Other:: brother Housing: House Do you presently have visiting nurse or other home services: No Alcohol intake: former Patient Tobacco Use Status: Former Tobacco user Tobacco use type: Cigarette Years Smoked: 12 e-Cigarette/Vaping Use: Never Used Second Hand Smoke Exposure: No Advance Directives Date on File: 04/28/23 service: No Current occupational status: retired Cognitive needs: Yes (walker) Hearing needs: No Vision needs: Yes (rx glasses) Questionnaire PHQ-9 Over the last 2 weeks, how often have you been bothered by any of the following problems? 1. Little interest or pleasure in doing things: not at all 2. Feeling down, depressed, or hopeless: not at all 3. Trouble falling or staying asleep, or sleeping too much: not at all 4. Feeling tired or having little energy: not at all 5. Poor appetite or overeating: not at all 6. Feeling bad about yourself - or that you are a failure or have let yourself or your family down: not at all 7. Trouble concentrating on things, such as reading the newspaper or watching television: not at all 8. Moving or speaking so slowly that other people could have noticed. Or the opposite - being so fidgety or restless that you have been moving around a lot more than usual: not at all 9. Thoughts that you would be better off or of hurting yourself in some way: not at all Total score: 0 Source: Developed by Drs. Jesus Schwartz, Marlen Dimas, Julian Quigley and colleagues, with an educational glenna from [employer]. Thrive Questionnaire Date Thrive assessed: 01/23/25 I am a: Patient What is your living situation today?: I have a steady place to live Within the past 12 months, did the food you bought not last and you didn't have the money to get more?: Never true Within the past 12 months, did you worry whether your food would run out before you got money to buy more?: Never true Do you have trouble paying for medicines?: No Do you have trouble getting transportation to medical appointments?: No Do you have trouble paying your heating and electricity bill?: No Do you have trouble taking care of your child, family member or friend?: No Do you have trouble with day-to-day activities such as bathing, preparing meals, shopping, managing finances, etc.?: No Are you currently unemployed and looking for a job?: No Are you interested in more education?: No Please select the resources that you would like help with: None THRIVE Score: 0 AUDIT C Alcohol Use Questionnaire (AUDIT-C) 1. How often do you have a drink containing alcohol?: Never 3. How often do you have six or more drinks on one occasion?: Never Total Score: 0 ERIC-7 AMB Questionnaire ERIC-7 Date ERIC - 7 assessed: 01/23/25 Feeling nervous, anxious, or on edge: 0 = Not at all Not being able to stop or control worryin = Not at all Worrying too much about different things: 0 = Not at all Trouble relaxin = Not at all Being so restless that it is hard to sit still: 0 = Not at all Becoming easily annoyed or irritable: 0 = Not at all Feeling afraid as if something awful might happen: 0 = Not at all Total ERIC-7 score (0-4 normal; 5-9 mild; 10-14 moderate; 15-21 severe): 0 Source: Developed by Drs. Jesus Schwartz, Marlen Dimas, Julian Quigley and colleagues, with an educational glenna from [employer]. Physical exam (Primary Care) Vital Signs: Last Vital Signs Temp 97.7 F 01/23/25 13:23 Pulse 70 01/23/25 13:23 Resp 16 01/23/25 13:23 BP 151/69 H 01/23/25 13:23 Pulse Ox 96 01/23/25 13:23 Oxygen Delivery Method Room Air 01/23/25 13:23 BMI result Body Mass Index 52.3 Tobacco/Smoking Status: Tobacco use Status Tobacco use date assessed 01/23/25 01/23/25 13:25 Patient Tobacco Use Status Former Tobacco user 01/23/25 13:25 Tobacco use type Cigarette 01/23/25 13:25 e-Cigarette/Vaping Use Never Used 01/23/25 13:25 PHQ-9: PHQ-9 Score PHQ-9: Total score 0 01/23/25 13:41 Thrive Assessment: Date of Thrive Assessment Date Thrive assessed 01/23/25 01/23/25 13:25 Coding Level of Care Code New Pt Level 4 (76960) Complex EM visit Add On G2211 Diagnoses HTN (hypertension) I10 (HFpEF) heart failure with preserved ejection fraction I50.30 Chronic a-fib I48.20 Morbid obesity E66.01 Assessment & Plan Assessment & Plan (1) HTN (hypertension): Code(s): I10 - Essential (primary) hypertension Category: Medical Plan: BP is elevated. restart atenolol 50 mg (2) (HFpEF) heart failure with preserved ejection fraction: Code(s): I50.30 - Unspecified diastolic (congestive) heart failure Category: Medical Plan: Condition is stable. Continue current meds. (3) Chronic a-fib: Comment: Persistent atrial fibrillation at failed maintenance of rhythm, presented for office visit on 12/19/2020 noted to be in sinus rhythm Code(s): I48.20 - Chronic atrial fibrillation, unspecified Category: Medical Plan: Condition is stable. COntinue with anticoagulation (4) Morbid obesity: Comment: She has chronic morbid obesity, it is contributed by chronic stasis edema / Lymphedema of the lower extremities, and also difficulty in performing any exercises. There is not much potential for losing weight. She walks around with the walker and is functioning well so for. Code(s): E66.01 - Morbid (severe) obesity due to excess calories Category: Medical Plan: Leg pain may not resolve with the vascular consult. Will get PT after the consult Medications: New atenolol 50 mg PO DAILY 30 tabs 0RF
--- OUTSIDE RECORDS SUMMARY | 2025-01-23 15:34 | XMS_ITS ---
Author Organization [facility] Address [address] [place] [address] Care Team Providers Care Statistical Assistant Name Role Phone Morena ARIAS, Jesus Primary Care Provider Unavail able Shruti Fuentes Unavailable [phone] Keshav Lerner Unavailable [phone] REASON FOR VISIT Cancel Encounters Encounter Location Date Provider Diagnosis [address] [address] 09/13/2023 Keshav Lerner Plan Of Treatment Next Appt Details Provider Name:Shrutimarci santiago, 02/01/2025 02:00:00 PM, [address] [place], [address], Progress Notes * Iva GARCIA MDOB: [birth year] (78 yo F)Acc No.[id number]:09/13/2023 Patient:?John Iva Balderas :1945???Age:78 Y???Sex:Female Address:[address] [place] [address] [place], [address] * true * Date:? Generated for Printi ng/Fatitag/eTransmitting on:?01/23/2025 03:34 PM EDT
--- OUTSIDE RECORDS SUMMARY | 2025-01-23 15:34 | XMS_ITS ---
Author Organization [facility] Address [address] [facility] [place] [address] Care Team Providers Care Business Process Modeler Name Role Phone Jesus Berg MD Primary Care Provider Unavail able Shruti Fuentes Unavailable [phone] Allergies Allergen (clinical drug ingredient) Drug/Non Drug [...] Problem Status W/U Status Risk Notes Problem Bilateral atherosclerosis of arteries of lower limbs (disorder) (03088083704338414 ) Atherosclerosis of [place] artery of both lower extremities, with unspecified presence of clinical manifestation (I70.203) Active confirmed Q7(A), Q8(2B), Q9(1B,2 C) Vital Signs Height 5 ft 4in in 10/02/2024 Weight 297 lbs 10/02/2024 BMI 50.97 kg/m2 10/02/2024 Blood pressure systolic 120 mm Hg 10/02/19 25 Blood pressure diastolic 68 mm Hg 025 Procedures Procedure Date Ordered Date Performed Result Body Sit e 87584-BGKBHKW NAIL, 6 OR MORE 10/02/2024 N/A 52917-AKBU SKIN LESIONS, OVER 4 10/02/2024 N/A Encounters Encounter Location Date Provider Diagnosis [facility] [place] [address] [place] [address] 10/02/2024 Shruti Robinsaker Atherosclerosis of [place] artery of both lower extremities, with unspecified presence of clinical manifestation I70.203 ; Tinea unguium B35.1 ; Pain in right toe(s) M79.674 and Pain in left toe(s) M79.675 Assessments Encounter Date Diagnosis (ICD Code) Assessment Notes Treatment Notes Treatment Clinical Notes Section Notes 10/02/2024 Atherosclerosis of [place] artery of both lower extremities, with unspecified presence of clinical manifestation (ICD-10 - I70.203) Q7(A), Q8(2B), Q9(1B,2C) 10/02/2024 Tinea unguium (ICD-10 - B35.1) 10/02/2024 Pain in right toe(s) (ICD-10 - M79.674) 10/02/2024 Pain in left toe(s) (ICD-10 - M79.675) Plan Of Treatment Pending Test Test Name Order Date 86315-FFVILSW NAIL, 6 OR MORE 10/02/2024 72519-TFYS SKIN LESIONS, OVER 4 10/02/19 25 Next Appt Details Follow Up: prn, Reason: Provider Name:Shruti santiago, 02/01/2025 02:00:00 PM, [address] [place], [address], Procedure Notes * Category Sub-Category Detail Notes [...] use of a nail nipper and/or dremel-type coffee grinder, to a more viable healthy nail [...] to maintain effectiveness in symptomatic relief - 12093 Keratoma Treatment Parring or Cutting o f [...] instrumentation by the physician of record - 38224, Q8 Progress Notes * Iva GARCIA MDOB: [birth year] (79 yo F)Acc No.[id number]:10/02/2024 Progress Note Patient:?Iva GARCIA Provider:?Shruti Fuentes DPM :1945???Age:79 Y???Sex:Female D ate:10/02/2024 Address:[address] [place] [address] [id number] Pcp:Jesus Berg MD Subjective: * Chief Complaints: [...] received 2 blood transfusions [facility]/06/15[facility]- [facility] 06/20/18-06/23/18[facility]- Post Menopausal Vaginal Bleeding 04/27/23-04/30/2023 * Family [...] no. ?Marital status: . ?Occupation: retired-[employer]. * Medications:?TakingNight Spl int AFO - L1930 [...] and time.? Assessment: * Assessment: 1.?Atherosclerosis of [place] artery of both lower extremities, with unspecified presence of clinical manifestation - I70.203 (Primary)???Notes :Q7(A), Q8(2B), Q9(1B,2C)???2.?Tinea unguium - B35.1???3.?Pain in right toe(s) - M79.674???4.?Pain in left toe(s) - M79.675??? Plan: * Treatment: 2.?Tinea unguium?Procedure: 12554-NHCECZG NAIL, 6 OR MORE * Procedures:?Debride Nail [...] use of a nail nipper and/or dremel-type coffee grinder, to a more viable healthy nail [...] to maintain effectiveness in symptomatic relief - 56487.?Keratoma Treatment:?Parring or Cutting of Benign Hyperkeratotic Lesion(s)?(-57) [...] instrumentation by the physician of record - 62580, Q8.? * Procedure Codes:?91019 DEBRI DE NAIL, 6 OR MORE, Modifiers: XS 97759 TRIM SKIN LESIONS, OVER 4, Modifiers: XS , Q8 * Follow Up:?prn * Images: * Sign off status: Completed true * Provider:Janna Fuentes DPM Date:?0 10/02/2024 Generated for Zach cunningham/Lilian/eTransmitting on:?01/23/2025 03:34 PM EDT History and Physical Notes * [...]
--- OUTSIDE RECORDS SUMMARY | 2025-01-23 15:34 | XMS_ITS | Patient Health Record ---
Author [facility] Address [address] [place] [address] Care Team Providers Care Marketing Planning Manager Name Role Phone Jesus Berg MD Primary Care Provider Unavail able Shruti Fuentes Unavailable [phone] Allergies Allergen (clinical drug ingredient) Drug/Non Drug [...] primary osteoarthritis of the ankle and/or foot (242670762) Primary osteoarthritis, right ankle and foot (M19.071) Active confirmed Problem Localized, primary osteoarthritis of the ankle and/or foot (819143295) Primary osteoarthritis, left ankle and foot (M19.072) Active confirmed Problem Atherosclerosis of [place] arteries of the extremities (691064540409180) Unspecified atherosclerosis of [place] arteries of extremities, bilateral legs (I70.203) Active confirmed Problem Bilateral atherosclerosis of arteries of lower limbs (disorder) (37527010925294272 ) Atherosclerosis of [place] artery of both lower extremities, with unspecified presence of clinical manifestation (I70.203) Active confirmed Q7(A), Q8(2B), Q9(1B,2 C) Vital Signs Blood pressure diastolic 68 mm Hg 10/02/2024 Height 5 ft 4in in 10/02/2024 Blood pressure systolic 120 mm Hg 10/02/2024 Weight 297 lbs 10/02/2024 BMI 50.97 kg/m2 10/02/2024 Procedures Procedure Date Ordered Date Performed Result Body Sit e 98455-FSOITCD NAIL, 6 OR MORE 10/02/2024 N/A 47760-SEPC SKIN LESIONS, OVER 4 10/02/2024 N/A Encounters Encounter Location Date Provider Diagnosis [facility] [place] [address] [place] [address] 10/02/2024 Shruti Fuentes Atherosclerosis of [place] artery of both lower extremities, with unspecified presence of clinical manifestation I70.203 ; Tinea unguium B35.1 ; Pain in right toe(s) M79.674 and Pain in left toe(s) M79.675 Assessments Encounter Date Diagnosis (ICD Code) Assessment Notes Treatment Notes Treatment Clinical Notes Section Notes 10/02/2024 Atherosclerosis of [place] artery of both lower extremities, with unspecified presence of clinical manifestation (ICD-10 - I70.203) Q7(A), Q8(2B), Q9(1B,2C) 10/02/2024 Tinea unguium (ICD-10 - B35.1) 10/02/2024 Pain in right toe(s) (ICD-10 - M79.674) 10/02/2024 Pain in left toe(s) (ICD-10 - M79.675) Plan Of Treatment Pending Test Test Name Order Date 51595-HAAOKWP NAIL, 6 OR MORE 12/03/2016 65802-WZBIUSM NAIL, 6 OR MORE 03/11/2017 00201-EWDCEDS NAIL, 6 OR MORE 06/10/2017 90504-OCDCVGB NAIL, 6 OR MORE 09/09/2017 63604-XYRWYSK NAIL, 6 OR MORE 01/05/2018 31325-QFVMFEF NAIL, 6 OR MORE 08/10/2018 30610-BVQDSRK NAIL, 6 OR MORE 10/02/2024 13568-ZSWBJHL NAIL, 1-5 11/07/2015 64655-AIPYGDD NAIL, 1-5 02/20/2016 23182-MFUMOPW NAIL, 1-5 05/21/2016 47963-ZIRFINC NAIL, 1-5 08/27/2016 60279-Dxdp Destruction, -06/11/2011 12579-Euxauzyu Plate 06/11/2011 41642-Ropodukc Plate 12/10/2011 89958-Aqilabfc Plate 06/23/2012 38625-Knfokzlu Plate 09/29/2012 56052-Zdizylhd Plate 04/13/2013 14855-Pgvvxeae Plate 10/12/2013 94919-Bcbzqtzs Plate 01/22/2014 76847-Acxcrptv Plate 04/26/2014 33738-Zvxhqxjx Plate 10/25/2014 46444-Mmprijnz Plate 01/24/2015 82821-Ekkfdcgj Plate 04/25/2015 45530-Tavblcwa Plate 08/01/2015 48285-Nhyyxuuv Plate 09/07/2011 67465-Oliquroz Plate 07/26/2014 69853-Fldicfcg Plate 07/13/2013 22926-Sqezpuwr Plate 01/05/2013 24612-Mmysgokw Plate 03/10/2012 09605-HLKH SKIN LESIONS, OVER 4 10/02/19 20803-FGWB SKIN LESIONS, OVER 4 04/17/20 19 17579-IVAT SKIN LESIONS, OVER 4 07/14/20 21 55853-JADO SKIN LESIONS, OVER 4 11/06/19 22 59832-WIQB SKIN LESIONS, OVER 4 06/26/20 20 76721-TLQE SKIN LESIONS, OVER 4 10/23/19 21 57865-PKQS SKIN LESIONS, OVER 4 03/06/20 21 29639-GMTV SKIN LESIONS, OVER 4 11/21/19 19 30453-NOTU SKIN LESIONS, OVER 4 07/31/20 19 19708-TALA SKIN LESIONS, OVER 4 11/23/19 20 54860-JTWJ SKIN LESIONS, OVER 4 12/04/19 17 61474-FPUI SKIN LESIONS, OVER 4 08/10/20 18 35330-SCBE SKIN LESIONS, 2 TO 4 04/07/20 18 14528-ULFZ SKIN LESIONS, 2 TO 4 03/07/20 20 07994-TXJF SKIN LESIONS, 2 TO 4 01/06/20 18 46137-VHSI SKIN LESIONS, 2 TO 4 09/09/20 17 22998-RVGQ SKIN LESIONS, 2 TO 4 06/10/20 17 91297-CEWG SKIN LESIONS, 2 TO 4 03/11/20 17 95925-DBXB SKIN LESIONS, 2 TO 4 08/27/20 16 38123-RYDP SKIN LESIONS, 2 TO 4 05/21/20 16 92103-OQAF SKIN LESIONS, 2 TO 4 02/20/20 16 15100-HUET SKIN LESIONS, 2 TO 4 11/07/19 16 04145-MRXW NAIL(S) 11/07/2015 10454-XOQT NAIL(S) 02/20/2016 70786-ZIJL NAIL(S) 05/21/2016 24481-FLVA NAIL(S) 08/27/2016 09339-EJIMDKBC OF HEMATOMA/FLUID 021 13636,P8410-GCL TENDON SHEATH/LIGAMENT 1 10/06/2021 Next Appt Details Provider Name:Shruti Anuradha santiago, 02/01/2025 02:00:00 PM, [address] [facility], [place], [address], Insurance Providers Payer Name Payer Address Payer Phone Subscriber Number Group Number Insured Name Patient Relationship to Insured Coverage Start Date Coverage End Date Medicare National Govt Svcs [employer] [address] [place] [address] [id number] Iva Lopez Self - patient is the insured 1 [facility] [address] [place] [address] [phone] [id number] Iva Lopez Self - patient is the insured 0 Medical (General) History Medical History History ICD Code measles joint implants/screws high blood pressure chicken pox Cholesterol broken bones Arthritis Surgical History Surgery Date(Month/Year) right hip pinning/rods 2002 cataract surgert OD 12/26/2012 cardiac catherization 11/2014 Hospitalization History Reason Date(Month/Year) [facility] Vaginal Ble[facility] -04/30/2023 [facility] 06[facility]20[facility], anemia, received 2 blood transfusions 09/06/15
--- OUTSIDE RECORDS SUMMARY | 2025-01-23 15:34 | XMS_ITS ---
Author Organization [facility] Address [address] [place] [address] Care Team Providers Care Microchip Specialist Name Role Phone Morena ARIAS, Jesus Primary Care Provider Unavail able Shruti Fuentes Unavailable [phone] Keshav Lerner [phone] Encounters Encounter Location Date Provider Diagnosis [facility] [address] [place] [address] 09/15/2023 Keshav Lerner Plan Of Treatment Next Appt Details Provider Name:Shruti santiago, 02/01/2025 02:00:00 PM, [address] [place], [address], Progress Notes * Iva GARCIA MDOB: [birth year] (79 yo F)Acc No.[id number]:09/15/2023 Progress Note Patient:?Ho GARCIAjodi Balderas Provider:?Keshav Lerner DPM :1945???Age:78 Y???Sex:Female D ate:09/15/2023 Address:[address] [place] [address] [id number] Pcp:Jesus Berg MD Subjective: * Chief Complaints: [...] DPM Date:? 023 Generated for Zach cunningham/Lilian/Lesley on:?01/23/2025 03:34 PM EDT
== END 2025-01-23 14:02 | disposition home or self-care (01) ==
LOC: HO.HMCSH 13:32
PROVIDERS: PCP Internal Medicine; Visit Provider Internal Medicine
DX: I10 Essential (primary) hypertension (principal); I50.30 Unspecified diastolic (congestive) heart failure; I48.20 Chronic atrial fibrillation, unspecified; E66.01 Morbid (severe) obesity due to excess calories

== ENCOUNTER → 2025-01-23 13:32 | Outpatient (BNVA) | payer MEDICARE, BC, SELFPAY | PROVIDERS: PCP Internal Medicine; Visit Provider Internal Medicine | DX: I11.0 Hypertensive heart disease with heart failure (principal); I50.30 Unspecified diastolic (congestive) heart failure; I48.20 Chronic atrial fibrillation, unspecified; E66.01 Morbid (severe) obesity due to excess calories; Z68.43 Body mass index [BMI] 50.0-59.9, adult; Z71.3 Dietary counseling and surveillance | CPT/HCPCS: 99202 ==

== ENCOUNTER 2025-01-25 13:57 | Outpatient (AMB) | payer MEDICARE, BC, SELFPAY ==
[2025-01-25 13:59] VITALS: BMI 52.3
--- NOTE | 2025-01-25 13:59 | MHC.OFFVIS ---
Vital Signs 01/25/25 13:59 Height 5 ft 4 in Weight 305 lb BMI 52.3 Intake Visit Reasons: follow up s/p US 01/10/25 Intake Note: follow up US for bilateral LE pain, Right LE worse valorie Left LE. Started a few months ago, Bilateral LE heaviness, coldness, and pins and needles. Accompanied by: Self / Same As Patient Allergies amoxicillin [AMOXICILLIN] Allergy (Unknown, Verified 01/25/25 14:04) UNKNOWN flecainide [FLECAINIDE] Allergy (Unknown, Verified 01/25/25 14:04) SEVERE CHEST PAIN Sulfa (Sulfonamide Antibiotics) [SULFA (SULFONAMIDE ANTIBIOTICS)] Allergy (Unknown, Verified 01/25/25 14:04) UNKNOWN HPI HPI follow up s/p US 01/10/25: Details: The patient is a morbidly obese 79-year-old female presenting with concerns related to venous insufficiency. Her primary complaint involves swelling in both legs, more pronounced in the right leg. This chronic issue involves both lower extremities, indicating bilateral venous insufficiency. Her efforts to manage these symptoms have been limited, as external compression devices are unsuitable for her needs due to spatial constraints at home. Additionally, she experiences lymphedema, which contributes to the swelling in her lower extremities, notably affecting her legs, feet, and toes. This condition presents a restriction as she lacks the necessary infrastructure to implement effective lymphedema therapies. She now presents for follow-up with venous insufficiency testing ON LICENSE OF [facility] Medical History Morbid obesity (HFpEF) heart failure with preserved ejection fraction Chronic a-fib Atrial fibrillation with slow ventricular response Cholelithiasis Paroxysmal atrial fibrillation JANI (obstructive sleep apnea) HTN (hypertension) Surgical History History of cardioversion Hx of cardiac cath History of hip surgery Family History Father CVD (cardiovascular disease) Mother CHF (congestive heart failure) Social History Household Members: Family Household Members Other:: brother Housing: House Do you presently have visiting nurse or other home services: No Alcohol intake: former Patient Tobacco Use Status: Former Tobacco user Tobacco use type: Cigarette Years Smoked: 12 e-Cigarette/Vaping Use: Never Used Second Hand Smoke Exposure: No Advance Directives Date on File: 04/28/23 service: No Current occupational status: retired Cognitive needs: Yes (walker) Hearing needs: No Vision needs: Yes (rx glasses) Review of Systems Const Reports as per HPI ENT Reports no additional complaints Card Denies chest pain, Denies chest pain at rest and Denies chest pain with activity Resp Denies chest congestion and Denies cough GI Reports no additional complaints Musc Details: pain over varicosities, aching of lower extremities, swelling, cramping, heaviness and tiredness, itching Denies abnormal gait Skin/Breast Reports pruritus and Denies wounds Neuro Reports no additional complaints and Denies abnormal gait Psych Denies no additional complaints Physical Exam Vital Signs: BMI result Body Mass Index 52.3 Const General: cooperative, healthy appearing and comfortable Orientation/consciousness: oriented to person, oriented to place and oriented to time Neck Carotids: no bruits Chest Chest palpation & inspection: normal inspection of the chest and normal palpation of entire chest wall Resp Effort & Inspection: normal respiratory effort and able to speak in complete sentences Cardio Rate: regular rate Heart sounds: S1 normal heart sound present and S2 normal heart sound present Peripheral pulses: Peripheral pulses 2+ throughout GI Inspection: Yes normal to inspection Skin Other: +2 edema CEAP Classification C4 - skin color changes Ep - Etiology Primary As - superficial veins P - reflux General skin exam: dry skin Neuro General: oriented to person, oriented to place and oriented to time Extrem Right lower extremity: full ROM, normal capillary refill and edema Left lower extremity: full ROM, normal capillary refill and edema Psych Mental Status: mental status grossly normal Results Reviewed Results Reviewed: Brief summary of venous insufficiency testing is as follows: right great saphenous vein: Positive right small saphenous vein: negative right accessory vein: none present left great saphenous vein: Positive left small saphenous vein: negative left accessory vein: none present Please note there is no evidence of any venous aneurysms or significant tortuosity Assessment & Plan Assessment & Plan (1) Varicose veins of right lower extremity with inflammation: Code(s): I83.11 - Varicose veins of right lower extremity with inflammation Category: Medical Plan: This patient has varicose veins with inflammation. They continue to be a source of discomfort for the patient. The patient has tried conservative treatment with compression, leg elevation and exercise program for over 3 months time. They have been compliant with all treatment. This has provided minimal relief for the patient. I do not anticipate this course of treatment will alter the underlying etiology. The patient has been scheduled for lower extremity venous treatment inclusive of --- right great saphenous vein Cyanoacralate ablation. Risks, benefits, and complications of this procedure has been discussed in detail with the patient including but not limited to bleeding, infection, and the development of a DVT. The patient has demonstrated a clear understanding and has consented. We will schedule the patient as soon as possible. Thank you for allowing us to participate in this patient's care. If there are any questions or concerns please do not hesitate to contact us. Coding Level of Care Code Est Pt Level 4 (85738) Diagnoses Varicose veins of right lower extremity with inflammation I83.11
--- OUTSIDE RECORDS SUMMARY | 2025-01-25 16:12 | XMS_ITS | Patient Health Record ---
Author [facility] Address [address] [facility] [place] [address] Care Team Providers Care Coding Compliance Specialist Name Role Phone Jesus Berg MD Primary Care Provider Unavail able Shruti Fuentes Unavailable [phone] Allergies Allergen (clinical drug ingredient) Drug/Non Drug [...] primary osteoarthritis of the ankle and/or foot (635868186) Primary osteoarthritis, right ankle and foot (M19.071) Active confirmed Problem Localized, primary osteoarthritis of the ankle and/or foot (928775692) Primary osteoarthritis, left ankle and foot (M19.072) Active confirmed Problem Atherosclerosis of [place] arteries of the extremities (090685519226359) Unspecified atherosclerosis of [place] arteries of extremities, bilateral legs (I70.203) Active confirmed Problem Bilateral atherosclerosis of arteries of lower limbs (disorder) (02119324265390131 ) Atherosclerosis of [place] artery of both lower extremities, with unspecified presence of clinical manifestation (I70.203) Active confirmed Q7(A), Q8(2B), Q9(1B,2 C) Vital Signs Blood pressure diastolic 68 mm Hg 10/02/2024 Height 5 ft 4in in 10/02/2024 Blood pressure systolic 120 mm Hg 10/02/2024 Weight 297 lbs 10/02/2024 BMI 50.97 kg/m2 10/02/2024 Procedures Procedure Date Ordered Date Performed Result Body Sit e 90891-GWMIOCV NAIL, 6 OR MORE 10/02/2024 N/A 37829-DOJD SKIN LESIONS, OVER 4 10/02/2024 N/A Encounters Encounter Location Date Provider Diagnosis [facility] [place] [address] [place] [address] 10/02/2024 Shruti Fuentes Atherosclerosis of [place] artery of both lower extremities, with unspecified presence of clinical manifestation I70.203 ; Tinea unguium B35.1 ; Pain in right toe(s) M79.674 and Pain in left toe(s) M79.675 Assessments Encounter Date Diagnosis (ICD Code) Assessment Notes Treatment Notes Treatment Clinical Notes Section Notes 10/02/2024 Atherosclerosis of [place] artery of both lower extremities, with unspecified presence of clinical manifestation (ICD-10 - I70.203) Q7(A), Q8(2B), Q9(1B,2C) 10/02/2024 Tinea unguium (ICD-10 - B35.1) 10/02/2024 Pain in right toe(s) (ICD-10 - M79.674) 10/02/2024 Pain in left toe(s) (ICD-10 - M79.675) Plan Of Treatment Pending Test Test Name Order Date 06132-YOTSYRO NAIL, 6 OR MORE 12/03/2016 43799-ROJALKR NAIL, 6 OR MORE 03/11/2017 35870-VUKTNBA NAIL, 6 OR MORE 06/10/2017 90793-OGBEXUT NAIL, 6 OR MORE 09/09/2017 71972-NBTLCHY NAIL, 6 OR MORE 01/05/2018 76415-FPECVNF NAIL, 6 OR MORE 08/10/2018 44405-EJLXHNK NAIL, 6 OR MORE 10/02/2024 81763-LGHFXJF NAIL, 1-5 11/07/2015 80577-AZWAJRF NAIL, 1-5 02/20/2016 43741-ZPZPAPN NAIL, 1-5 05/21/2016 81208-ERRPFPK NAIL, 1-5 08/27/2016 16417-Efdl Destruction, -06/11/2011 89231-Qyauzlki Plate 06/11/2011 73373-Tmcijdqh Plate 09/07/2011 31500-Tliczpvr Plate 12/10/2011 16584-Ceyxgjdq Plate 03/10/2012 41498-Lpxwpwar Plate 06/23/2012 01734-Hvgilbxj Plate 09/29/2012 69923-Tlovesii Plate 01/05/2013 21877-Tlrzifhb Plate 04/13/2013 47636-Ochwzytr Plate 07/13/2013 08560-Rpgaqiud Plate 10/12/2013 96574-Itmodjaf Plate 01/22/2014 12025-Hlrkmhav Plate 04/26/2014 81818-Lubxcwda Plate 07/26/2014 83472-Bscpgawp Plate 10/25/2014 70377-Mmiaxqon Plate 01/24/2015 42205-Obfhqglv Plate 04/25/2015 42334-Deevdgml Plate 08/01/2015 36219-MQLZ SKIN LESIONS, OVER 4 10/02/19 25 09523-DFBM SKIN LESIONS, OVER 4 07/14/20 21 25006-EJOE SKIN LESIONS, OVER 4 11/06/19 22 27027-SJNY SKIN LESIONS, OVER 4 06/26/20 20 57284-UNHC SKIN LESIONS, OVER 4 10/23/19 21 58039-XAMN SKIN LESIONS, OVER 4 03/06/20 21 98416-UVPH SKIN LESIONS, OVER 4 11/21/19 19 94023-AGLB SKIN LESIONS, OVER 4 04/17/20 19 24123-CZGK SKIN LESIONS, OVER 4 07/31/20 19 66495-CFOF SKIN LESIONS, OVER 4 11/23/19 20 17557-YLBB SKIN LESIONS, OVER 4 12/04/19 17 40081-UPZF SKIN LESIONS, OVER 4 08/10/20 18 39923-EZGK SKIN LESIONS, 2 TO 4 04/07/20 18 88987-DKNI SKIN LESIONS, 2 TO 4 03/07/20 20 06675-EOUF SKIN LESIONS, 2 TO 4 08/27/20 16 13492-BAUA SKIN LESIONS, 2 TO 4 05/21/20 16 68271-ZLID SKIN LESIONS, 2 TO 4 02/20/20 16 90605-XEGN SKIN LESIONS, 2 TO 4 11/07/19 16 98386-UTZN SKIN LESIONS, 2 TO 4 01/06/20 18 93402-YMLZ SKIN LESIONS, 2 TO 4 09/09/20 17 04357-AOFL SKIN LESIONS, 2 TO 4 06/10/20 17 41282-YBTI SKIN LESIONS, 2 TO 4 03/11/20 17 67367-WICF NAIL(S) 11/07/2015 04822-ICGV NAIL(S) 02/20/2016 86579-ILNY NAIL(S) 05/21/2016 92886-QYLO NAIL(S) 08/27/2016 54094-ZJFOAVFY OF HEMATOMA/FLUID 021 39561,E1974-VRF TENDON SHEATH/LIGAMENT 1 10/06/2021 Next Appt Details Provider Name:Shruti Anuradha santiago, 02/01/2025 02:00:00 PM, [address] [facility], [place], [address], Insurance Providers Payer Name Payer Address Payer Phone Subscriber Number Group Number Insured Name Patient Relationship to Insured Coverage Start Date Coverage End Date Medicare National Govt Svcs Inc [address] [place] [address] [id number] Iva Lopez Self - patient is the insured 1 [facility] [address] [place] [address] [phone] [id number] Iva Lopez Self - patient is the insured 0 Medical (General) History Medical History History ICD Code measles joint implants/screws high blood pressure chicken pox Cholesterol broken bones Arthritis Surgical History Surgery Date(Month/Year) right hip pinning/rods 2002 cataract surgert OD 12/26/2012 cardiac catherization 11/2014 Hospitalization History Reason Date(Month/[facility]) [facility] Vaginal Ble[facility] -04/30/2023 [facility] Water [facility]ension 06[facility]20[facility]18[facility], anemia, received 2 blood transfusions 09/06/15
--- OUTSIDE RECORDS SUMMARY | 2025-01-25 16:12 | XMS_ITS ---
Author Organization [facility] Address [address] [facility] [place] [address] Care Team Providers Care Nursing Instructor Name Role Phone Jesus Berg MD Primary Care Provider Unavail able Shruti Fuentes Unavailable [phone] Allergies Allergen (clinical drug ingredient) Drug/Non Drug [...] atherosclerosis of arteries of lower limbs (disorder) ([id number] ) Atherosclerosis of tribal artery of both lower extremities, with unspecified presence of clinical manifestation (I70.203) Active confirmed Q7(A), Q8(2B), Q9(1B,2 C) Vital Signs Height 5 ft 4in in 10/02/2024 Weight 297 lbs 10/02/2024 BMI 50.97 kg/m2 10/02/2024 Blood pressure systolic 120 mm Hg 10/02/19 25 Blood pressure diastolic 68 mm Hg 025 Procedures Procedure Date Ordered Date Performed Result Body Sit e 92944-VJSVYCX NAIL, 6 OR MORE 10/02/2024 N/A 13317-EPTU SKIN LESIONS, OVER 4 10/02/2024 N/A Encounters Encounter Location Date Provider Diagnosis [facility] [place] [address] [place] [address] 10/02/2024 Shruti Robinsaker Atherosclerosis of tribal artery of both lower extremities, with unspecified presence of clinical manifestation I70.203 ; Tinea unguium B35.1 ; Pain in right toe(s) M79.674 and Pain in left toe(s) M79.675 Assessments Encounter Date Diagnosis (ICD Code) Assessment Notes Treatment Notes Treatment Clinical Notes Section Notes 10/02/2024 Atherosclerosis of tribal artery of both lower extremities, with unspecified presence of clinical manifestation (ICD-10 - I70.203) Q7(A), Q8(2B), Q9(1B,2C) 10/02/2024 Tinea unguium (ICD-10 - B35.1) 10/02/2024 Pain in right toe(s) (ICD-10 - M79.674) 10/02/2024 Pain in left toe(s) (ICD-10 - M79.675) Plan Of Treatment Pending Test Test Name Order Date 05265-XQBYCOJ NAIL, 6 OR MORE 10/02/2024 38845-NBPC SKIN LESIONS, OVER 4 10/02/19 25 Next Appt Details Follow Up: prn, Reason: Provider Name:Shruti santiago, 02/01/2025 02:00:00 PM, [address] [place], [address], Procedure Notes * Category Sub-Category Detail Notes [...] use of a nail nipper and/or dremel-type grinder needle tip, to a more viable healthy nail plate [...] to maintain effectiveness in symptomatic relief - 42526 Keratoma Treatment Parring or Cutting o f [...] instrumentation by the physician of record - 86690, Q8 Progress Notes * Iva GARCIA MDOB: [birth year] (79 yo F)Acc No.[id number]:10/02/2024 Progress Note Patient:?Iva GARCIA Provider:?Shruti Fuentes DPM :1945???Age:79 Y???Sex:Female D ate:10/02/2024 Address:[address] [place] [address] [id number] Pcp:Jesus Berg MD Subjective: * Chief Complaints: [...] and time.? Assessment: * Assessment: 1.?Atherosclerosis of tribal artery of both lower extremities, with unspecified presence of clinical manifestation - I70.203 (Primary)???Notes :Q7(A), Q8(2B), Q9(1B,2C)???2.?Tinea unguium - B35.1???3.?Pain in right toe(s) - M79.674???4.?Pain in left toe(s) - M79.675??? Plan: * Treatment: 2.?Tinea unguium?Procedure: 66452-LPLYHUX NAIL, 6 OR MORE * Procedures:?Debride Nail [...] use of a nail nipper and/or dremel-type grinder needle tip, to a more viable healthy nail plate [...] to maintain effectiveness in symptomatic relief - 67442.?Keratoma Treatment:?Parring or Cutting of Benign Hyperkeratotic Lesion(s)?(-57) [...] instrumentation by the physician of record - 91743, Q8.? * Procedure Codes:?37941 DEBRI DE NAIL, 6 OR MORE, Modifiers: XS 73495 TRIM SKIN LESIONS, OVER 4, Modifiers: XS , Q8 * Follow Up:?prn * Images: * Sign off status: Completed true * Provider:Janna Fuentes DPM Date:?0 10/02/2024 Generated for Zach cunningham/Lilian/eTransmitting on:?01/25/2025 04:12 PM EDT History and Physical Notes * [...]
--- OUTSIDE RECORDS SUMMARY | 2025-01-25 16:12 | XMS_ITS ---
Author Organization [facility] Address [address] [place] [address] Care Team Providers Care Digital Retoucher Name Role Phone Morena ARIAS, Jesus Primary Care Provider Unavail able Shruti Fuentes Unavailable [phone] Keshav Lerner [phone] Encounters Encounter Location Date Provider Diagnosis [facility] [address] [place] [address] 09/15/2023 Keshav Lerner Plan Of Treatment Next Appt Details Provider Name:Shrutimarci santiago, 02/01/2025 02:00:00 PM, [address] [place], [address], Progress Notes * Iva GARCIA MDOB: [birth year] (79 yo F)Acc No.[id number]:09/15/2023 Progress Note Patient:?Ho GARCIAjodi Balderas Provider:?Keshav Lerner DPM :1945???Age:78 Y???Sex:Female D ate:09/15/2023 Address:[address] [place] [address] [id number] Pcp:Jesus Berg MD Subjective: * Chief Complaints: [...] DPM Date:? 023 Generated for Zach cunningham/Lilian/Lesley on:?01/25/2025 04:12 PM EDT
--- OUTSIDE RECORDS SUMMARY | 2025-01-25 16:12 | XMS_ITS ---
Author Organization [facility] Address [address] [place] [address] Care Team Providers Care Relish Maker Name Role Phone Morena ARIAS, Jesus Primary Care Provider Unavail able Shruti Fuentes Unavailable [phone] Keshav Lerner Unavailable [phone] REASON FOR VISIT Cancel Encounters Encounter Location Date Provider Diagnosis [address] [address] 09/13/2023 Keshav Lerner Plan Of Treatment Next Appt Details Provider Name:Shrutimarci santiago, 02/01/2025 02:00:00 PM, [address] [place], [address], Progress Notes * Iva GARCIA MDOB: [birth year] (78 yo F)Acc No.[id number]:09/13/2023 Patient:?John Iva Balderas :1945???Age:78 Y???Sex:Female Address:[address] [place] [address] [place], [address] * true * Date:? Generated for Printi marisa/Lilian/eTransmitting on:?01/25/2025 04:12 PM EDT
== END 2025-01-25 14:22 | disposition home or self-care (01) ==
LOC: HO.HVS 13:58
PROVIDERS: PCP Internal Medicine; Visit Provider Surgery Vascular Surgery
DX: I83.11 Varicose veins of right lower extremity with inflammation (principal)
CPT/HCPCS: 99214

== ENCOUNTER → 2025-01-25 13:57 | Outpatient (BNVA) | payer MEDICARE, BC, SELFPAY | PROVIDERS: PCP Internal Medicine; Visit Provider Surgery Vascular Surgery | DX: I83.11 Varicose veins of right lower extremity with inflammation (principal) | CPT/HCPCS: 99212 ==

== ENCOUNTER 2025-02-16 09:43 | Outpatient (AMB) | payer MEDICARE, BC, SELFPAY ==
[2025-02-16 10:01] VITALS: BMI 52.3
--- NOTE | 2025-02-16 10:01 | A.OFFVIS_ITS ---
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 Permaculture Designer Required: No Accompanied by: Self / Same As Patient Allergies amoxicillin [AMOXICILLIN] Allergy (Unknown, Verified 02/16/25 10:02) UNKNOWN flecainide [FLECAINIDE] Allergy (Unknown, Verified 02/16/25 10:02) SEVERE CHEST PAIN Sulfa (Sulfonamide Antibiotics) [SULFA (SULFONAMIDE ANTIBIOTICS)] Allergy (Unknown, Verified 02/16/25 10:02) UNKNOWN [facility] Medical History Morbid obesity (HFpEF) heart failure with preserved ejection fraction Chronic a-fib Atrial fibrillation with slow ventricular response Cholelithiasis Paroxysmal atrial fibrillation JANI (obstructive sleep apnea) HTN (hypertension) Surgical History History of cardioversion Hx of cardiac cath History of hip surgery Family History Father CVD (cardiovascular disease) Mother CHF (congestive heart failure) Social History Household Members: Family Household Members Other:: brother Housing: House Do you presently have visiting nurse or other home services: No Alcohol intake: former Patient Tobacco Use Status: Former Tobacco user Tobacco use type: Cigarette Years Smoked: 12 e-Cigarette/Vaping Use: Never Used Second Hand Smoke Exposure: No Advance Directives Date on File: 04/28/23 service: No Current occupational status: retired Cognitive needs: Yes (walker) Hearing needs: No Vision needs: Yes (rx glasses) Physical Exam Vital Signs: BMI result Body Mass Index 52.3 Office Procedures Vascular Office Procedure Details Details: Diagnosis: Right Leg varicose veins with inflammation Procedure: Endovenous Ablation of the right Great Saphenous Vein with VenaSeal Closure System Anesthesia: Local infiltration 5 cc, Topographical Field Assistant: MAYO Perry Estimated Blood Loss: min Specimen: none Duplex ultrasound was used to map out the insufficient saphenous vein, and access was determined and marked on the overlying skin. The depth and diameter of the vein(s) to be treated was documented. The patient was placed supine on the procedure table and the leg was prepped and draped using sterile technique. Ultasound guidance was again used to localize the access site. 1% lidocaine was injected as a local anesthetic in the subcutaneous tissues at the target location in the GSV in the lower leg. Using ultrasound guidance, access was gained at this location with the 19 gauge thin walled access needle and followed by introduction of a short guidewire, location confirmed with ultrasound. A small, 3 mm incision was made at the access site to allow for introduction and placement of the 7 Fr x7cm introducer/dilator. The dilator and guidewire were removed. The 0.035 guidewire from the VenaSeal kit was then introduced and positioned at the saphenofemoral junction using ultrasound guidance. The 80 cm 7 Fr introducer sheath/dilator was positioned 5cm from the saphenofemoral junction. The guidewire and dilator were removed, and the remaining sheath was flushed with sterile saline, with the syringe remaining in place prior to the next steps. The cyanoacrylate adhesive was precisely primed into the 5 F delivery catheter and this catheter/syringe combination was attached within the dispenser gun. This assembly was introduced through the 7F sheath and positioned 5 cm caudal of the saphenofemoral junction under ultrasound guidance. The steps from the IFU were followed for dispensing amounts, locations and compression times, 2 aliquots proximally with 3 minutes of compression, and 1 aliquot every 3 cm distally with 30 sec of compression along the course of the vessel. Following the last injection and compression sequence, the catheter and introducer sheath were pulled out from the access site. Hemostasis was achieved with manual compression and an adhesive bandage was applied to the incision. Ultrasound confirmed complete coaptation and closure of the treated segments of the GSV, and the absence of any DVT at the saphenofemoral junction. Treatment time was approximately 6 minutes and the vein length treated was 35 cm. The drapes were removed and the patient cleaned and prepared for discharge. Post op ultrasound check is scheduled for 48-72 hours and the patient was given written post-op instructions. 91591 - Endoven Ther Chem Adhes 1st All charges added?: Procedure code (CPT) selection complete Assessment & Plan Assessment & Plan (1) Varicose veins of right lower extremity with inflammation: Comment: 02/16/2025 - right great saphenous vein Cyanoacralate ablation Code(s): I83.11 - Varicose veins of right lower extremity with inflammation Category: Medical Plan: See op note Coding Level of Care Code Procedure Only Diagnoses Varicose veins of right lower extremity with inflammation I83.11 CPT Codes Details - Vascular 3: 28585 - Endoven Ther Chem Adhes 1st ([id number])
== END 2025-02-16 10:50 | disposition home or self-care (01) ==
LOC: HO.HVS 09:44
PROVIDERS: PCP Internal Medicine; Visit Provider Surgery Vascular Surgery
DX: I83.11 Varicose veins of right lower extremity with inflammation (principal)
CPT/HCPCS: 36482

== ENCOUNTER → 2025-02-16 09:43 | Outpatient (BNVA) | payer MEDICARE, BC, SELFPAY | PROVIDERS: PCP Internal Medicine; Visit Provider Surgery Vascular Surgery | DX: I83.11 Varicose veins of right lower extremity with inflammation (principal) | CPT/HCPCS: 36482; J2003 ==

== ENCOUNTER 2025-02-20 14:51 | Outpatient (AMB) | payer MEDICARE, BC, SELFPAY ==
[2025-02-20 15:09] VITALS: BP 140/64; PULSE 46; RESP 18; TEMP 36.8; O2SAT 95; BMI 56.1
--- NOTE | 2025-02-20 15:09 | A.OFFPC_ITS ---
Vital Signs 02/20/25 15:09 Height 5 ft 4 in Weight 327 lb BMI 56.1 BP 140/64 H Respiration 18 Pulse 46 L Pulse Source Pulse Oximeter Temp 98.2 F Temp Source Temporal Artery Scan Pulse Oximetry (%) 95 Oxygen Delivery Method Room Air Intake Visit Reasons: f/u HTN, ? medication adjustment Auto Body Man Required: No Accompanied by: Self / Same As Patient Allergies amoxicillin [AMOXICILLIN] Allergy (Unknown, Verified 02/20/25 15:09) UNKNOWN flecainide [FLECAINIDE] Allergy (Unknown, Verified 02/20/25 15:09) SEVERE CHEST PAIN Sulfa (Sulfonamide Antibiotics) [SULFA (SULFONAMIDE ANTIBIOTICS)] Allergy (Unknown, Verified 02/20/25 15:09) UNKNOWN Tobacco use date assessed: 02/20/25 Fall risk assessment: No Falls in past year Last assessed Fall Risk: 02/20/25 Dental Screening Dental Screen Date: 01/23/25 [facility] Medical History Morbid obesity (HFpEF) heart failure with preserved ejection fraction Chronic a-fib Atrial fibrillation with slow ventricular response Cholelithiasis Paroxysmal atrial fibrillation JANI (obstructive sleep apnea) HTN (hypertension) Surgical History History of cardioversion Hx of cardiac cath History of hip surgery Family History Father CVD (cardiovascular disease) Mother CHF (congestive heart failure) Social History Household Members: Family Household Members Other:: brother Housing: House Do you presently have visiting nurse or other home services: No Alcohol intake: former Patient Tobacco Use Status: Former Tobacco user Tobacco use type: Cigarette Years Smoked: 12 e-Cigarette/Vaping Use: Never Used Second Hand Smoke Exposure: No Advance Directives Date on File: 04/28/23 service: No Current occupational status: retired Cognitive needs: Yes (walker) Hearing needs: No Vision needs: Yes (rx glasses) Questionnaire PHQ-9 Over the last 2 weeks, how often have you been bothered by any of the following problems? 1. Little interest or pleasure in doing things: not at all 2. Feeling down, depressed, or hopeless: not at all 3. Trouble falling or staying asleep, or sleeping too much: not at all 4. Feeling tired or having little energy: not at all 5. Poor appetite or overeating: not at all 6. Feeling bad about yourself - or that you are a failure or have let yourself or your family down: not at all 7. Trouble concentrating on things, such as reading the newspaper or watching television: not at all 8. Moving or speaking so slowly that other people could have noticed. Or the opposite - being so fidgety or restless that you have been moving around a lot more than usual: not at all 9. Thoughts that you would be better off or of hurting yourself in some way: not at all Total score: 0 Source: Developed by Drs. Jesus Schwartz, Marlen Dimas, Julian Quigley and colleagues, with an educational glenna from [employer]. Thrive Questionnaire Date Thrive assessed: 01/23/25 I am a: Patient What is your living situation today?: I have a steady place to live Within the past 12 months, did the food you bought not last and you didn't have the money to get more?: Never true Within the past 12 months, did you worry whether your food would run out before you got money to buy more?: Never true Do you have trouble paying for medicines?: No Do you have trouble getting transportation to medical appointments?: No Do you have trouble paying your heating and electricity bill?: No Do you have trouble taking care of your child, family member or friend?: No Do you have trouble with day-to-day activities such as bathing, preparing meals, shopping, managing finances, etc.?: No Are you currently unemployed and looking for a job?: No Are you interested in more education?: No Please select the resources that you would like help with: None THRIVE Score: 0 AUDIT C Alcohol Use Questionnaire (AUDIT-C) 1. How often do you have a drink containing alcohol?: Never 3. How often do you have six or more drinks on one occasion?: Never Total Score: 0 ERIC-7 AMB Questionnaire ERIC-7 Date ERIC - 7 assessed: 01/23/25 Feeling nervous, anxious, or on edge: 0 = Not at all Not being able to stop or control worryin = Not at all Worrying too much about different things: 0 = Not at all Trouble relaxin = Not at all Being so restless that it is hard to sit still: 0 = Not at all Becoming easily annoyed or irritable: 0 = Not at all Feeling afraid as if something awful might happen: 0 = Not at all Total ERIC-7 score (0-4 normal; 5-9 mild; 10-14 moderate; 15-21 severe): 0 Source: Developed by Drs. Jesus Schwartz, Marlen Dimas, Julian Quigley and colleagues, with an educational glenna from [employer]. Physical exam (Primary Care) Vital Signs: Last Vital Signs Temp 98.2 F 02/20/25 15:09 Pulse 46 L 02/20/25 15:09 Resp 18 02/20/25 15:09 BP 140/64 H 02/20/25 15:09 Pulse Ox 95 02/20/25 15:09 Oxygen Delivery Method Room Air 02/20/25 15:09 BMI result Body Mass Index 56.1 Tobacco/Smoking Status: Tobacco use Status Tobacco use date assessed 02/20/25 02/20/25 15:12 Patient Tobacco Use Status Former Tobacco user 02/20/25 15:12 Tobacco use type Cigarette 02/20/25 15:12 e-Cigarette/Vaping Use Never Used 02/20/25 15:12 PHQ-9: PHQ-9 Score PHQ-9: Total score 0 02/20/25 15:22 Thrive Assessment: Date of Thrive Assessment Date Thrive assessed 01/23/25 02/20/25 15:12 Coding Level of Care Code Est Pt Level 4 (79369) Complex EM visit Add On G2211 Diagnoses HTN (hypertension) I10 Assessment & Plan Assessment & Plan (1) HTN (hypertension): Code(s): I10 - Essential (primary) hypertension Category: Medical Plan: Reduced atenolol to 25 mg once a day. New prescription sent. Plan History of Present Illness The patient is a 79-year-old female presenting with management concerns related to hypertension and leg cramps. She was recently shifted from atenolol 25 mg to 50 mg, which was poorly tolerated, leading to dyspnea and decreased ambulatory capacity. She reverted to her prior dosage of 25 mg four days ago, reporting subsequent symptomatic improvement and stabilized blood pressure. The patient also reports undergoing a procedure on her leg, with ensuing severe cramps and sensory disturbances, including pins and needles. These symptoms have hindered sleep and impacted quality of life, with the patient describing her legs as having a sensation of heaviness. Notably, these symptoms are ascribed to venous circulation challenges. Despite efforts to alleviate her symptoms through hydration, the patient expresses significant distress related to cramping, fearing the impact on her functionality. Social History - Not discussed Review of Systems Physical Exam General: Cooperative and healthy appearing Nutritional Appearance: Well nourished Orientation/consciousness: Patient oriented x3 Limitations: No limitations Head: Normal to inspection General: Appearance normal, both eyes and all related structures Neck: Normal visual inspection Chest: Normal palpation of entire chest wall Respiratory: Patient reports difficulty breathing and walking, improved with medication adjustment. ormal respiratory effort Neurology: Patient oriented x3, reports cramping and pins and needles sensation in legs and feet. Results Plan 1. Essential Hypertension - Continue atenolol 25 mg - Monitor blood pressure 2. Leg Cramps - Hydrate and consider vitamins - Monitor symptoms 3. Dyspnea - Use atenolol 25 mg - Monitor respiratory status Discussion Notes During the consultation, I discussed with the patient the management of her essential hypertension, adjusting the atenolol dosage back to 25 mg, which she has historically tolerated well. We reviewed her symptoms of dyspnea that were exacerbated on the higher dose and agreed that reverting to the lower dose was beneficial. Regarding her leg cramps, I discussed non-pharmacologic strategies, including maintaining optimal hydration and potentially using vitamin supplementation, recognizing that effective medication options are limited. We acknowledged the pervasive nature of her cramps and the impact on her quality of life. I advised her to monitor these symptoms and report any significant changes or lack of improvement. Patient Instructions - Continue taking atenolol 25 mg daily. - Drink plenty of fluids and consider vitamins for managing leg cramps. - Monitor your symptoms and contact the clinic if there is no improvement or if they worsen. - If breathing difficulties or other severe symptoms return, seek medical attention. Medications: New atenolol 25 mg PO DAILY 90 tabs 1RF Discontinued atenolol Discontinued Reason: Doctor's Order 50 mg PO DAILY 30 tabs 0RF
== END 2025-02-20 16:01 | disposition home or self-care (01) ==
LOC: HO.HMCSH 14:51
PROVIDERS: PCP Internal Medicine; Visit Provider Internal Medicine
DX: I10 Essential (primary) hypertension (principal)

== ENCOUNTER → 2025-02-20 14:51 | Outpatient (BNVA) | payer MEDICARE, BC, SELFPAY | PROVIDERS: PCP Internal Medicine; Visit Provider Internal Medicine | DX: I10 Essential (primary) hypertension (principal) | CPT/HCPCS: 99212 ==

== ENCOUNTER 2025-04-18 14:26 | Outpatient (AMB) | payer MEDICARE, BC, SELFPAY ==
[2025-04-18 14:33] VITALS: BP 155/68; PULSE 44; O2SAT 99
--- NOTE | 2025-04-18 14:33 | A.OFFVIS_ITS ---
Vital Signs 04/18/25 14:33 Height 5 ft 4 in BP 155/68 H Blood Pressure Location Lt brachial Position Sitting Pulse 44 L Pulse Source Pulse Oximeter Pulse Oximetry (%) 99 Oxygen Delivery Method Room Air Intake Visit Reasons: brandon Intake Note: pt is here for follow up of BRANDON, and she states her breathing is affected by walking, short of breath with moving from room to room and also seeing cardiology Dr. Garcia next week. Solutions Manager Required: No Allergies amoxicillin (AMOXICILLIN) Allergy (Unknown, Verified 04/18/25 14:46) UNKNOWN flecainide (FLECAINIDE) Allergy (Unknown, Verified 04/18/25 14:46) SEVERE CHEST PAIN Sulfa (Sulfonamide Antibiotics) (SULFA (SULFONAMIDE ANTIBIOTICS)) Allergy (Unknown, Verified 04/18/25 14:46) UNKNOWN PFSH Medical History Morbid obesity (HFpEF) heart failure with preserved ejection fraction Chronic a-fib Atrial fibrillation with slow ventricular response Cholelithiasis Paroxysmal atrial fibrillation BRANDON (obstructive sleep apnea) HTN (hypertension) Surgical History History of cardioversion Hx of cardiac cath History of hip surgery Family History Father CVD (cardiovascular disease) Mother CHF (congestive heart failure) Social History Household Members: Family Household Members Other:: brother Housing: House Do you presently have visiting nurse or other home services: No Alcohol intake: former Patient Tobacco Use Status: Former Tobacco user Tobacco use type: Cigarette Years Smoked: 12 e-Cigarette/Vaping Use: Never Used Second Hand Smoke Exposure: No Advance Directives Date on File: 04/28/23 service: No Current occupational status: retired Cognitive needs: Yes (walker) Hearing needs: No Vision needs: Yes (rx glasses) Coding
--- NOTE | 2025-04-18 15:02 | A.OFFVIS_ITS ---
Vital Signs 04/18/25 14:33 Height 5 ft 4 in BP 155/68 H Blood Pressure Location Lt brachial Position Sitting Pulse 44 L Pulse Source Pulse Oximeter Pulse Oximetry (%) 99 Oxygen Delivery Method Room Air Intake Visit Reasons: brandon Allergies amoxicillin (AMOXICILLIN) Allergy (Unknown, Verified 04/18/25 15:02) UNKNOWN flecainide (FLECAINIDE) Allergy (Unknown, Verified 04/18/25 15:02) SEVERE CHEST PAIN Sulfa (Sulfonamide Antibiotics) (SULFA (SULFONAMIDE ANTIBIOTICS)) Allergy (Unknown, Verified 04/18/25 15:02) UNKNOWN Medication List - Last Reconciled 04/18/25 by Brian Pickens MD acetaminophen ER (Tylenol 8 Hour) 650 mg PO DAILY PRN atenolol 25 mg PO DAILY atorvastatin 40 mg PO DAILY bumetanide 2 mg PO DAILY ergocalciferol (vitamin D2) 50 mcg PO DAILY gabapentin 300 mg PO BID omeprazole 40 mg PO DAILY@1630 rivaroxaban (Xarelto) 20 mg PO QPM thiamine HCl (vitamin B1) 100 mg PO DAILY Do you need a note to return to daycare/school/sports/work: No HPI HPI brandon: Details: This 79 years old very pleasant female with super morbid obesity, and obstructiv e sleep apnea comes up to 1 year for follow-up. She has been using CPAP very regularly up to 9 hours every night, without any issue. During those 9 hours that she has the CPAP on she has interrupted sleep. But when she wakes up in the morning she feels refreshed. Her main issue today is that she has gained some weight, mostly due to abdominal obesity and lymphedema of the lower extremities. And she feels more short of breath when she tries to walk around with the walker in her house. She has no cough or wheezing. Shortness of breath may be more due to weight gain. 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 Now she is somewhat depressed and has cut down the portions of the meals, hoping that she is going to lose some weight. [facility] Medical History (Updated 04/18/25 @ 15:44 by Brian Pickens MD) Dyspnea on exertion Morbid obesity (HFpEF) heart failure with preserved ejection fraction Chronic a-fib Atrial fibrillation with slow ventricular response Cholelithiasis Paroxysmal atrial fibrillation BRANDON (obstructive sleep apnea) HTN (hypertension) Surgical History History of cardioversion Hx of cardiac cath History of hip surgery Family History Father CVD (cardiovascular disease) Mother CHF (congestive heart failure) Social History Household Members: Family Household Members Other:: brother Housing: House Do you presently have visiting nurse or other home services: No Alcohol intake: former Patient Tobacco Use Status: Former Tobacco user Tobacco use type: Cigarette Years Smoked: 12 e-Cigarette/Vaping Use: Never Used Second Hand Smoke Exposure: No Advance Directives Date on File: 04/28/23 service: No Current occupational status: retired Cognitive needs: Yes (walker) Hearing needs: No Vision needs: Yes (rx glasses) Review of Systems Const All systems reviewed & are unremarkable except as noted in HPI and below Reports snoring Eyes Reports no additional complaints ENT Reports no additional complaints and Reports disequilibrium Card Denies chest pain, Denies irregular heart rhythm and Reports leg edema (chronic) Resp Denies cough, Reports snoring and Denies wheezing GI Reports heartburn (Controlled with med) Reports urinary incontinence Musc Reports abnormal gait (Gait is markedly impaired, patient's uses walker or wheelchair), Reports back pain and Reports arthralgias Skin/Breast Reports system reviewed and no additional complaints, except as documented Neuro Reports abnormal gait (Gait is markedly impaired, patient's uses walker or wheelchair) and Reports disequilibrium Psych Reports depression (Being treated with med) Aller/Immun Denies wheezing Physical Exam Vital Signs: Last Vital Signs Pulse 44 L 04/18/25 14:33 BP 155/68 H 04/18/25 14:33 Pulse Ox 99 04/18/25 14:33 Oxygen Delivery Method Room Air 04/18/25 14:33 Const General: comfortable (In wheelchair), no acute distress, alert and awake Orientation/consciousness: patient oriented x3 HEENT Head: Yes normal to inspection General nose exam: No nasal polyps present and No nasal discharge present Face and sinus: Yes sinuses nontender Mouth: oropharynx abnormals (Crowded and narrow, Mallampati class 4) Throat: Yes posterior oropharynx normal Eyes General: appearance normal, both eyes and all related structures Neck Neck: Yes normal visual inspection, Yes no lymphadenopathy, Yes trachea midline, Yes no JVD and Yes other (Neck circumference 16-1/2 inch) Thyroid: Thyroid normal Chest Chest palpation & inspection: normal inspection of the chest, normal palpation of entire chest wall and no tenderness Resp Other: Percussion note not perceptible, breath sounds are distant, But both lungs are clear and no wheezes rhonchi or crepitations are heard. Cardio Palpation: normal PMI Rate: regular rate Rhythm: regular rhythm Heart sounds: no gallops and no murmurs GI Palpation (GI): Soft to palpation, nontender, No hepatosplenomegaly present, no masses and Other GI palpation findings present (Abdominal wall is lose and flabby) Auscultation: normal bowel sounds Back/Spine/Pelvis Thoracic/Lumbar Spine: thoracic and lumbar spine normal to inspection and thoraco-lumbar ROM limited Skin General skin exam: no rashes or lesions noted Neuro General: patient oriented x3, No gait normal (Patient non ambulatory confined to large wheelchair) and no focal motor deficits Cranial nerves: Yes CN's II-XII intact bilaterally Extrem General: Yes normal to inspection, Yes no calf tenderness, Yes edema (Massive lymphedema , with stasis dermatitis of both legs ) and Yes venous stasis dermatitis Psych Appearance: grossly normal and well kempt Speech and movement: Normal speech and movement present Office Procedures Spirometry Testing Spirometry Comments: Spirometry done in the office, Dr. Pickens has the results results scanned to her chart. 40124- Spirometry Results Reviewed Results Reviewed: CPAP compliance is excellent she uses CPAP 100% of the nights with average usage about 9 hours per night. There is no residual apnea. SPIROMETRY Assessment & Plan Assessment & Plan (1) Morbid obesity: Comment: She has chronic morbid obesity, it is contributed by chronic stasis edema / Lymphedema of the lower extremities, and also difficulty in performing any exercises. There is not much potential for losing weight. She walks around with the walker and is functioning well so for. Complains of somewhat increased shortness of breath when she walks in the house with a walker. I think this is due to increased weigh which causes increased restriction, and limited respiratory excursions SPIROMETRY DOES SHOW MILD RESTRICTIVE PATTERN AND NO DEFINITE OBSTRUCTIVE AIRWAY DISORDER Code(s): E66.01 - Morbid (severe) obesity due to excess calories Category: Medical Plan: Explained to the patient. Weight reduction is desirable but it is difficult to achieve in her case. She is given incentive spirometry device from the office and advised to do deep breathing exercises , 10 excursions every hour while awake. This will give her something to do. (2) BRANDON (obstructive sleep apnea): Comment: The last sleep study performed confirmed the diagnosis of severe obstructive sleep apnea. She has been provided with CPAP device with auto PAP mode and pressure setting of 6-20 cm. She is using nasal mask and AVERAGE /MEAN PRESSURE 9 cm. Her compliance remains excellent . She gets good sleep even though it is interrupted. Denies any daytime sleepiness. Code(s): G47.33 - Obstructive sleep apnea (adult) (pediatric) Category: Medical Plan: Continue to use CPAP with nasal mask and auto Pap mode with pressure setting 6- 20 cm ( the mean pressure that she is using is 9 cm ) (3) Dyspnea on exertion: Comment: As she complained of increased shortness of breath on trying to walk with a walker. Spirometry done in the office which shows mild restrictive disorder. This is also secondary to increased weight. Code(s): R06.09 - Other forms of dyspnea Category: Medical Plan: Patient is educated about these findings. She is encouraged to do deep breathing exercises daily Explained that she does not need to use any bronchodilator inhalers. Orders: Orders AMB Spirometry Testing Today R06.09 - Other forms of dyspnea Coding Level of Care Code Est Pt Level 4 (94788) Diagnoses Morbid obesity E66.01 BRANDON (obstructive sleep apnea) G47.33 Dyspnea on exertion R06.09 CPT Codes Spirometry - CPT: 86752- Spirometry ([id number])
== END 2025-04-18 15:18 | disposition home or self-care (01) ==
LOC: HO.HPS 14:26
PROVIDERS: PCP Internal Medicine; Visit Provider Internal Medicine
DX: E66.01 Morbid (severe) obesity due to excess calories (principal); G47.33 Obstructive sleep apnea (adult) (pediatric); R06.09 Other forms of dyspnea
CPT/HCPCS: 94010; 99214

== ENCOUNTER → 2025-04-18 14:26 | Outpatient (BNVA) | payer MEDICARE, BC, SELFPAY | PROVIDERS: PCP Internal Medicine; Visit Provider Internal Medicine | DX: R06.09 Other forms of dyspnea (principal); G47.33 Obstructive sleep apnea (adult) (pediatric); E66.01 Morbid (severe) obesity due to excess calories; Z99.89 Dependence on other enabling machines and devices | CPT/HCPCS: 94010; 99212 ==

== ENCOUNTER 2025-04-24 17:22 | Outpatient (AMB) | payer MEDICARE, BC, SELFPAY ==
--- NOTE | 2025-04-25 08:49 | A.OFFPC_ITS ---
Intake Visit Reasons: 3 month f/u Allergies amoxicillin (AMOXICILLIN) Allergy (Unknown, Verified 04/18/25 15:02) UNKNOWN flecainide (FLECAINIDE) Allergy (Unknown, Verified 04/18/25 15:02) SEVERE CHEST PAIN Sulfa (Sulfonamide Antibiotics) (SULFA (SULFONAMIDE ANTIBIOTICS)) Allergy (Unknown, Verified 04/18/25 15:02) UNKNOWN Tobacco use date assessed: 02/20/25 Dental Screening Dental Screen Date: 01/23/25 [facility] Medical History (Updated 04/18/25 @ 15:44 by Brian Pickens MD) Dyspnea on exertion Morbid obesity (HFpEF) heart failure with preserved ejection fraction Chronic a-fib Atrial fibrillation with slow ventricular response Cholelithiasis Paroxysmal atrial fibrillation JANI (obstructive sleep apnea) HTN (hypertension) Surgical History History of cardioversion Hx of cardiac cath History of hip surgery Family History Father CVD (cardiovascular disease) Mother CHF (congestive heart failure) Social History Household Members: Family Household Members Other:: brother Housing: House Do you presently have visiting nurse or other home services: No Alcohol intake: former Patient Tobacco Use Status: Former Tobacco user Tobacco use type: Cigarette Years Smoked: 12 e-Cigarette/Vaping Use: Never Used Second Hand Smoke Exposure: No Advance Directives Date on File: 04/28/23 service: No Current occupational status: retired Cognitive needs: Yes (walker) Hearing needs: No Vision needs: Yes (rx glasses) Questionnaire Thrive Questionnaire Date Thrive assessed: 01/23/25 ERIC-7 AMB Questionnaire ERIC-7 Date ERIC - 7 assessed: 01/23/25 Source: Developed by Drs. Jesus Schwartz, Marlen Dimas, Julian Quigley and colleagues, with an educational glenna from [employer]. Physical exam (Primary Care) Tobacco/Smoking Status: Tobacco use Status Tobacco use date assessed 02/20/25 02/20/25 15:12 Patient Tobacco Use Status Former Tobacco user 02/20/25 15:12 Tobacco use type Cigarette 02/20/25 15:12 e-Cigarette/Vaping Use Never Used 02/20/25 15:12 Thrive Assessment: Date of Thrive Assessment Date Thrive assessed 01/23/25 02/20/25 15:12 Coding Level of Care Code Tele Est Pt Level 4 (82418) Complex EM visit Add On G2211 Diagnoses HTN (hypertension) I10 Assessment & Plan Assessment & Plan (1) HTN (hypertension): Code(s): I10 - Essential (primary) hypertension Category: Medical Plan: Declines to increase atenolo Orders: Orders Basic Metabolic Panel 07/25/25 I10 - Essential (primary) hypertension Thyroid Stimulating Hormone 07/25/25 I10 - Essential (primary) hypertension Complete Blood Count no Diff 07/25/25 I10 - Essential (primary) hypertension Lipid Panel 07/25/25 I10 - Essential (primary) hypertension Liver Panel 07/25/25 I10 - Essential (primary) hypertension UA and rflx microscopic 07/25/25 I10 - Essential (primary) hypertension Medications: New lisinopril 5 mg PO DAILY 60 tabs 0RF
== END 2025-04-24 17:30 | disposition home or self-care (01) ==
LOC: HO.HMCSH 17:22
PROVIDERS: PCP Internal Medicine; Visit Provider Internal Medicine
DX: I10 Essential (primary) hypertension (principal)

== ENCOUNTER 2025-05-29 10:21 | Outpatient (AMB) | payer MEDICARE, BC, SELFPAY ==
--- NOTE | 2025-05-29 10:27 | A.OFFPC_ITS ---
Vital Signs 05/29/25 10:30 Height 5 ft 4 in Weight 301 lb 4 oz BMI 51.7 BP 141/63 H Blood Pressure Location Lt brachial Position Sitting Respiration 16 Pulse 48 L Pulse Source Pulse Oximeter Temp 97.2 F Temp Source Temporal Artery Scan Pulse Oximetry (%) 100 Oxygen Delivery Method Room Air Intake Visit Reasons: follow-up Wash Test Checker Required: No Accompanied by: Self / Same As Patient Allergies amoxicillin (AMOXICILLIN) Allergy (Unknown, Verified 05/29/25 11:00) UNKNOWN flecainide (FLECAINIDE) Allergy (Unknown, Verified 05/29/25 11:00) SEVERE CHEST PAIN Sulfa (Sulfonamide Antibiotics) (SULFA (SULFONAMIDE ANTIBIOTICS)) Allergy (Unknown, Verified 05/29/25 11:00) UNKNOWN Medication List - Last Reconciled 05/29/25 by Lula Fraire PA-C acetaminophen ER (Tylenol 8 Hour) 650 mg PO DAILY PRN atenolol 25 mg PO DAILY atorvastatin 40 mg PO DAILY bumetanide 2 mg PO DAILY ergocalciferol (vitamin D2) 50 mcg PO DAILY gabapentin 300 mg PO BID lisinopril 5 mg PO DAILY mupirocin 2% 1 appl topical BID omeprazole 40 mg PO DAILY@1630 rivaroxaban (Xarelto) 20 mg PO QPM thiamine HCl (vitamin B1) 100 mg PO DAILY Tobacco use date assessed: 02/20/25 Dental Screening Dental Screen Date: 01/23/25 Did you have a dental visit in the last 12 months?: Yes Did you have a dental problem in the last 6 months where you did not have access to dental care?: No Was dental information given to patient?: Patient has dentist HPI follow-up HPI Details The patient is a 80-year-old female presenting with complaints of leg pain and swelling. The patient reports chronic venous insufficiency, which has been previously evaluated by a vascular surgeon. She underwent a vein restructuring procedure on her right leg, but did not notice any significant improvement. The patient has two chronic venous ulcers on her left lower extremity, which occasionally cause pain, especially before they burst. She has been applying Neosporin to the ulcers, which has been deemed appropriate. Her blood pressure has been monitored, showing a recent reading of 141/63 mmHg, which is an improvement from previous readings of 153/68 mmHg and 155/68 mmHg. PFSH Medical History (Updated 05/29/25 @ 11:51 by Lula Fraire PA-C) Chronic venous hypertension w ulceration Chronic venous insufficiency Dyspnea on exertion Morbid obesity (HFpEF) heart failure with preserved ejection fraction Chronic a-fib Atrial fibrillation with slow ventricular response Cholelithiasis Paroxysmal atrial fibrillation JANI (obstructive sleep apnea) HTN (hypertension) Surgical History History of cardioversion Hx of cardiac cath History of hip surgery Family History Father CVD (cardiovascular disease) Mother CHF (congestive heart failure) Social History Household Members: Family Household Members Other:: brother Housing: House Do you presently have visiting nurse or other home services: No Alcohol intake: former Patient Tobacco Use Status: Former Tobacco user Tobacco use type: Cigarette Years Smoked: 12 e-Cigarette/Vaping Use: Never Used Second Hand Smoke Exposure: No Advance Directives Date on File: 04/28/23 service: No Current occupational status: retired Cognitive needs: Yes (walker) Hearing needs: No Vision needs: Yes (rx glasses) Questionnaire PHQ-9 Over the last 2 weeks, how often have you been bothered by any of the following problems? 1. Little interest or pleasure in doing things: not at all 2. Feeling down, depressed, or hopeless: not at all 3. Trouble falling or staying asleep, or sleeping too much: not at all 4. Feeling tired or having little energy: not at all 5. Poor appetite or overeating: not at all 6. Feeling bad about yourself - or that you are a failure or have let yourself or your family down: not at all 7. Trouble concentrating on things, such as reading the newspaper or watching television: not at all 8. Moving or speaking so slowly that other people could have noticed. Or the opposite - being so fidgety or restless that you have been moving around a lot more than usual: not at all 9. Thoughts that you would be better off or of hurting yourself in some way: not at all Total score: 0 Depression Screening Interpretation: Negative Depression Screening Done: Yes 32957 - PHQ-9 Billing: Yes Source: Developed by Drs. Jesus Schwartz, Julian Ann and colleagues, with an educational gelnna from [employer]. Thrive Questionnaire Date Thrive assessed: 01/23/25 I am a: Patient What is your living situation today?: I have a steady place to live Within the past 12 months, did the food you bought not last and you didn't have the money to get more?: Never true Within the past 12 months, did you worry whether your food would run out before you got money to buy more?: Never true Do you have trouble paying for medicines?: No Do you have trouble getting transportation to medical appointments?: No Do you have trouble paying your heating and electricity bill?: No Do you have trouble taking care of your child, family member or friend?: No Do you have trouble with day-to-day activities such as bathing, preparing meals, shopping, managing finances, etc.?: No Are you currently unemployed and looking for a job?: No Are you interested in more education?: No Please select the resources that you would like help with: None Currently or been in a relationship where the following occur: No concerns reported THRIVE Score: 0 AUDIT C Alcohol Use Questionnaire (AUDIT-C) 1. How often do you have a drink containing alcohol?: Never 3. How often do you have six or more drinks on one occasion?: Never Total Score: 0 Score Reviewed/Action Taken: No ERIC-7 AMB Questionnaire ERIC-7 Date ERIC - 7 assessed: 01/23/25 Feeling nervous, anxious, or on edge: 0 = Not at all Not being able to stop or control worryin = Not at all Worrying too much about different things: 0 = Not at all Trouble relaxin = Not at all Being so restless that it is hard to sit still: 0 = Not at all Becoming easily annoyed or irritable: 0 = Not at all Feeling afraid as if something awful might happen: 0 = Not at all Total ERIC-7 score (0-4 normal; 5-9 mild; 10-14 moderate; 15-21 severe): 0 Source: Developed by Marlen Golden Kurt Kroenke and colleagues, with an educational glenna from [employer]. ERIC-7 Assessment Billing ERIC-7 Assessment Tool: ERIC-7 Assessment 64272 Review of Systems Const Details: - Musculoskeletal: Reports leg pain and swelling - Cardiovascular: Denies chest pain, orthopnea, or syncope All systems reviewed & are unremarkable except as noted in HPI and below Physical exam (Primary Care) Vital Signs: Last Vital Signs Temp 97.2 F 05/29/25 10:30 Pulse 48 L 05/29/25 10:30 Resp 16 05/29/25 10:30 BP 141/63 H 05/29/25 10:30 Pulse Ox 100 05/29/25 10:30 Oxygen Delivery Method Room Air 05/29/25 10:30 Care Plan Goal for BP management: <140/90 at Goal BMI result Body Mass Index 51.7 BMI Assessment/Plan discussion: High BMI High, discussed plan: lifestyle, weight reduction, dietary, physical activity, alcohol moderation and other Tobacco/Smoking Status: Tobacco use Status Tobacco use date assessed 02/20/25 05/29/25 10:28 Patient Tobacco Use Status Former Tobacco user 05/29/25 10:28 Tobacco use type Cigarette 05/29/25 10:28 e-Cigarette/Vaping Use Never Used 05/29/25 10:28 PHQ-9: PHQ-9 Score PHQ-9: Total score 0 05/29/25 11:03 Depression Screening Interpretation: Negative Thrive Assessment: Date of Thrive Assessment Date Thrive assessed 01/23/25 05/29/25 10:28 Currently or been in a relationship where the following occur: No concerns reported Const Other: Appearance: Alert. Oriented X3. No acute distress. Head: Normal external exam. Normocephalic. Atraumatic. Eyes: Pupils are equal, round, and reactive to light. Extraocular movements intact. Conjunctiva and sclera normal. Eyelids normal. Throat: Pharynx normal. Uvula midline. Moist mucous membranes. Neck: Normal inspection. Neck supple. Full range of motion. Cardiovascular: Normal heart rate and rhythm. Respiratory: No respiratory distress. Painless inspiration. Back: Full range of motion noted. Skin: Skin warm and dry. Normal skin color. Normal skin turgor. No rashe s/lesions/lacerations noted. Extremities: Two chronic venous ulcers on the left lower extremity, lateral aspect, no signs of acute infection. No lower extremity edema. No calf tenderness is noted. Extremities exhibit normal range of motion. Neuro: Oriented X 3. No motor deficit. No sensory deficit. Reflexes normal. Coding Level of Care Code Est Pt Level 4 (00333) Complex EM visit Add On G2211 Diagnoses Chronic venous insufficiency I87.2 Chronic venous hypertension w ulceration I87.319; L97.909 Additional Codes PHQ-9 - 74782 - PHQ-9 Billing: Yes ([id number]) ERIC-7 Assessment Billing - ERIC-7 Assessment Tool: ERIC-7 Assessment 02861 ([id number]) Assessment & Plan Assessment & Plan (1) Chronic venous insufficiency: Code(s): I87.2 - Venous insufficiency (chronic) (peripheral) Category: Medical Plan: The patient has been advised to continue applying topical antibiotic ointment, specifically Bactroban, to the affected areas daily to prevent infection and promote healing. If the ulcers do not improve within two weeks, a referral to the wound clinic will be considered for further management. (2) Chronic venous hypertension w ulceration: Code(s): I87.319 - Chronic venous hypertension (idiopathic) with ulcer of unspecified lower extremity; L97.909 - Non-pressure chronic ulcer of unspecified part of unspecified lower leg with unspecified severity Category: Medical Plan: The patient is instructed to keep the ulcers clean using soap and water, avoiding peroxide or alcohol, and to apply Bactroban ointment daily. Follow-up is scheduled to monitor the healing process, and adjustments to the treatment plan will be made as necessary. Plan Plan Patient was informed and verbally consented to the use of an ambient scribe for clinic note documentation during this visit. 1. Chronic Venous Insufficiency The patient has been advised to continue applying topical antibiotic ointment, specifically Bactroban, to the affected areas daily to prevent infection and promote healing. If the ulcers do not improve within two weeks, a referral to the wound clinic will be considered for further management. 2. Chronic Venous Ulcers The patient is instructed to keep the ulcers clean using soap and water, avoiding peroxide or alcohol, and to apply Bactroban ointment daily. Follow-up is scheduled to monitor the healing process, and adjustments to the treatment plan will be made as necessary. During the visit, I discussed with the patient the management of her chronic venous ulcers, emphasizing the importance of keeping the ulcers clean and applying Bactroban ointment daily. I explained that if there is no improvement w ithin two weeks, a referral to the wound clinic would be necessary. We also reviewed her blood pressure management, noting the improvement in her readings. Medications: New mupirocin 2% 1 appl topical BID 22 grams 3RF Patient Instructions: - Apply Bactroban ointment to the ulcers daily. - Keep the ulcers clean using soap and water; avoid peroxide or alcohol. - Monitor the ulcers for improvement and contact the clinic if there is no improvement in two weeks. - Follow up with the clinic as scheduled.
[2025-05-29 10:30] VITALS: BP 141/63; PULSE 48; RESP 16; TEMP 36.2; O2SAT 100; BMI 51.7
== END 2025-05-29 10:59 | disposition home or self-care (01) ==
LOC: HO.HMCSH 10:21
PROVIDERS: PCP Internal Medicine; Visit Provider Physician Assistant Medical
DX: I87.2 Venous insufficiency (chronic) (peripheral) (principal); I87.319 Chronic venous hypertension (idiopathic) with ulcer of unspecified lower extremity; L97.909 Non-pressure chronic ulcer of unspecified part of unspecified lower leg with unspecified severity

== ENCOUNTER → 2025-05-29 10:21 | Outpatient (BNVA) | payer MEDICARE, BC, SELFPAY | PROVIDERS: PCP Internal Medicine; Visit Provider Physician Assistant Medical | DX: I87.312 Chronic venous hypertension (idiopathic) with ulcer of left lower extremity (principal); L97.929 Non-pressure chronic ulcer of unspecified part of left lower leg with unspecified severity | CPT/HCPCS: 96127; 99212 ==

== ENCOUNTER 2025-07-03 13:47 | Outpatient (REF) | payer MEDICARE, BC, SELFPAY ==
[2025-07-03 15:10] LABS: Hematocrit 23.3 % (37.0-47.0); Mean Corpuscular HGB Conc 29.2 g/dl (31.0-35.0); Mean Corpuscular Hemoglobin 28.3 pg (27.0-33.0); Mean Corpuscular Volume 97.1 fL (80.0-98.0); NRBC Abs Auto 0.000 X10*3/uL (0.0-0.012); NRBC Pct Auto 0.0 /100WBC (0.0-0.2); Platelet Count 262 X10*3/uL (160-400); Red Blood Count 2.40 X10*6/uL (4.20-5.50); White Blood Count 6.5 X10*3/uL (4.8-10.8)
[2025-07-03 15:19] LABS: Hemoglobin 6.8 g/dl (12.0-16.0)
[2025-07-03 15:44] LABS: Alanine Aminotransferase < 6 U/L (0-31); Albumin Level 3.6 g/dL (3.5-5.0); Alkaline Phosphatase 76 U/L (39-117); Anion Gap 13 (12-20); Aspartate Amino Transferase 16 U/L (5-31); Blood Urea Nitrogen 35 mg/dL (9-16); Calcium 8.9 mg/dL (8.4-10.2); Carbon Dioxide 25 mmol/L (22-29); Chloride 108 mmol/L (96-108); Cholesterol 144 mg/dL (<200); Estimated Glomerular Filt Rate 30; HDL Cholesterol 19 mg/dL (>40); Potassium 4.1 mmol/L (3.3-5.1); Sodium 142 mmol/L (135-145); Total Protein 6.4 g/dL (6.5-8.0); Triglycerides 92 mg/dL (<150)
[2025-07-03 16:00] LABS: Thyroid Stimulating Hormone 2.37 uIU/mL (0.32-4.0)
== END 2025-07-03 13:48 | disposition home or self-care (01) ==
LOC: HO.LAB 13:47
PROVIDERS: PCP Internal Medicine; Visit Provider Internal Medicine
DX: I11.0 Hypertensive heart disease with heart failure (principal); I50.30 Unspecified diastolic (congestive) heart failure; I48.20 Chronic atrial fibrillation, unspecified; R06.09 Other forms of dyspnea; Z79.01 Long term (current) use of anticoagulants
CPT/HCPCS: 36415; 80048; 80061; 80076; 84443; 85027; 99212

== ENCOUNTER 2025-07-03 14:10 | Outpatient (AMB) | payer MEDICARE, BC, SELFPAY ==
--- NOTE | 2025-07-03 14:12 | A.OFFVIS_ITS ---
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: No Carbide Die Maker: Carbide Die Maker Present Accompanied by: Friend Allergies amoxicillin (AMOXICILLIN) Allergy (Unknown, Verified 05/29/25 11:00) UNKNOWN flecainide (FLECAINIDE) Allergy (Unknown, Verified 05/29/25 11:00) SEVERE CHEST PAIN Sulfa (Sulfonamide Antibiotics) (SULFA (SULFONAMIDE ANTIBIOTICS)) Allergy (Unknown, Verified 05/29/25 11:00) UNKNOWN Medication List - Last Reconciled 07/03/25 by Ezekiel Garcia MD acetaminophen ER (Tylenol 8 Hour) 650 mg PO DAILY PRN atenolol 25 mg PO DAILY atorvastatin 40 mg PO DAILY bumetanide 2 mg PO DAILY gabapentin 300 mg PO BID lisinopril 5 mg PO DAILY mupirocin 2% 1 appl topical BID omeprazole 40 mg PO DAILY@1630 rivaroxaban (Xarelto) 20 mg PO QPM thiamine HCl (vitamin B1) 100 mg PO DAILY HPI Comments Details: Iva comes for follow-up after a year. She complains of increasing shortness of breath over the last month or so says that she can barely walk 10 steps and gets short of breath. This is a new symptom for her but that has not been a sudden change. She is worried that she is anemic as she felt this way when she had significant anemia. CBC from today is pending. She preemptively started taking iron therapy about a week ago or so. She has noted increased leg swelling as well. She uses CPAP at nighttime but sleeps in a reclining position as she can not sleep flat and she had gets short of breath despite CPAP therapy. She can not tell she has gained significant amount of weight. She is taking Bumex 2 mg daily. She says she had recently seen Pulmonary and was advised incentive spirometry. This improves her breathing but it is not persistent. She denies any prolonged palpitation irregular heartbeat. No overt bleeding issues. [facility] Medical History Chronic venous hypertension w ulceration Chronic venous insufficiency Dyspnea on exertion Morbid obesity (HFpEF) heart failure with preserved ejection fraction Chronic a-fib Atrial fibrillation with slow ventricular response Cholelithiasis Paroxysmal atrial fibrillation JANI (obstructive sleep apnea) HTN (hypertension) Surgical History History of cardioversion Hx of cardiac cath History of hip surgery Family History Father CVD (cardiovascular disease) Mother CHF (congestive heart failure) Social History Household Members: Family Household Members Other:: brother Housing: House Do you presently have visiting nurse or other home services: No Alcohol intake: former Patient Tobacco Use Status: Former Tobacco user Tobacco use type: Cigarette Years Smoked: 12 e-Cigarette/Vaping Use: Never Used Second Hand Smoke Exposure: No Advance Directives Date on File: 04/28/23 service: No Current occupational status: retired Cognitive needs: Yes (walker) Hearing needs: No Vision needs: Yes (rx glasses) Review of Systems Const Denies chills, Denies fatigue, Denies fever(s), Denies frequent falls, Denies weakness, Denies weight gain and Denies weight loss ENT Denies dizziness Card Denies chest pain, Denies leg edema, Denies lightheadedness, Denies palpitations, Denies dyspnea, Denies dyspnea on exertion, Denies orthopnea and Denies other (loss of consciousness) Resp Denies cough, Denies dyspnea and Denies dyspnea on exertion GI Denies hematochezia and Denies change in stool character Musc Denies abnormal gait, Denies muscle weakness, Denies numbness, Denies radiating pain into limb and Denies tingling Neuro Denies abnormal gait, Denies dizziness, Denies frequent falls, Denies numbness, Denies tingling and Denies weakness Endo Denies fatigue and Denies palpitations Physical Exam Vital Signs: Last Vital Signs Pulse 78 07/03/25 14:14 BP 116/72 07/03/25 14:14 Pulse Ox 98 07/03/25 14:14 Const General: cooperative, comfortable, no acute distress, alert and awake Nutritional Appearance: obese morbidly obese Orientation/consciousness: patient oriented x3 Limitations: wheelchair Neck Neck: Yes trachea midline, Yes supple and Yes other (Difficult to evaluate JVD due to body habitus) Resp Effort & Inspection: normal respiratory effort Auscultation: clear to auscultation bilaterally Cardio Jugular venous distension: no JVD Palpation: normal PMI Rate: bradycardic Rhythm: abnormal rhythm irregularly irregular Heart sounds: S1 normal heart sound present, S2 normal heart sound present, Murmur heart sound present systolic early and Other heart sounds present (S4 present) GI Inspection: Yes obesity Auscultation: normal bowel sounds Skin General skin exam: no rashes or lesions noted Neuro General: patient oriented x3 and no focal motor deficits Extrem General: No clubbing, No cyanosis, Yes edema (4+ edema bilateral below knee with chronic venous stasis changes) and Yes venous stasis dermatitis Psych Appearance: grossly normal Assessment & Plan Assessment & Plan (1) Dyspnea on exertion: Comment: As she complained of increased shortness of breath on trying to walk with a walker. Spirometry done in the office which shows mild restrictive disorder. This is also secondary to increased weight. Code(s): R06.09 - Other forms of dyspnea Category: Medical Plan: Increasing exertional shortness of breath in this elderly woman could be multifactorial. Could be related to anemia, CBC pending. Also could be related to worsening heart failure symptoms with fluid overload noted on today's exam. Could also be contributed by her significantly diminished exercise activity and morbid obesity causing obesity hypoventilation syndrome. Will obtain an echocardiogram in near future. See below. (2) (HFpEF) heart failure with preserved ejection fraction: Code(s): I50.30 - Unspecified diastolic (congestive) heart failure Category: Medical Plan: Given her increasing symptoms of shortness of breath as well as evidence of flui d overload will increase bumetanide to 2 mg b.i.d. for the next week. Advised to call me to see if there has any symptom improvement. Advise basic metabolic profile next week to assess for electrolytes as well as also assess for heart failure symptoms. Continue rate control. Continue incentive spirometry. Continue CPAP therapy. Overall prognosis guarded. Recommend to present to emergency room with sudden worsening in her symptoms. (3) Chronic a-fib: Comment: Persistent atrial fibrillation at failed maintenance of rhythm, presented for office visit on 12/19/2020 noted to be in sinus rhythm Code(s): I48.20 - Chronic atrial fibrillation, unspecified Category: Medical Plan: Chronic rate control atrial fibrillation. Currently not on any rate lowering medications. Continue current blood pressure control. Continue current full oral anticoagulation with Xarelto. Will follow up in the clinic in 6 weeks time, sooner p.r.n.. Thank you for allowing me to partake in her care Coding Level of Care Code Est Pt Level 4 (76388) Complex EM visit Add On G2211 Diagnoses Dyspnea on exertion R06.09 (HFpEF) heart failure with preserved ejection fraction I50.30 Chronic a-fib I48.20
[2025-07-03 14:14] VITALS: BP 116/72; PULSE 78; O2SAT 98
== END 2025-07-03 14:48 | disposition home or self-care (01) ==
LOC: HO.HCS 14:10
PROVIDERS: PCP Internal Medicine; Visit Provider Internal Medicine Cardiovascular Disease
DX: R06.09 Other forms of dyspnea (principal); I50.30 Unspecified diastolic (congestive) heart failure; I48.20 Chronic atrial fibrillation, unspecified
CPT/HCPCS: 99214; G2211

== ENCOUNTER 2025-07-03 16:53 | Inpatient (IN) | payer MEDICARE, BC, SELFPAY ==
[2025-07-03] VITALS (8 sets, daily range): BP systolic 117–155; BP diastolic 32–70; PULSE 33–55; RESP 12–18; TEMP 36.4–36.8; O2SAT 94–99; BMI 48.4
--- NOTE | ~2025-07-03 | XR_ITS ---
CLINICAL HISTORY: sob 1 view chest x-ray Comparison: None provided Findings: Defibrillator pads overlying the left chest. The heart is magnified. The aorta is calcified. No focal consolidation, pleural effusion, or pneumothorax. Osseous structures are unremarkable. IMPRESSION: 1. No acute findings. This document has been electronically signed by: Mike Riojas MD on 07/03/2025 23:32:47
--- NOTE | 2025-07-03 17:03 | ECG_ITS ---
Test Reason : ABNORMAL LABS Blood Pressure : */* mmHG Vent. Rate : 42 BPM Atrial Rate : 44 BPM P-R Int : * ms QRS Dur : 68 ms QT Int : 488 ms P-R-T Axes : * -37 2 degrees QTcB Int : 407 ms Atrial flutter with slow ventricular response Left axis deviation Low voltage QRS Inferior infarct (cited on or before 23-May-2024) Abnormal ECG When compared with ECG of 23-May-2024 19:29, Atrial flutter has replaced Atrial fibrillation Nonspecific T wave abnormality now evident in Anterior leads Nonspecific T wave abnormality no longer evident in Lateral leads Referred By: Generic ED Physician Electronically Signed By: MORENO CARROLL MD
[2025-07-03 17:52] LABS: MANUAL DIFF FLAG NO
[2025-07-03 17:54] LABS: Hematocrit 23.1 % (37.0-47.0); Imm Gran Abs Auto 0.03 X10*3/uL (0.00-0.03); Imm Gran Pct Auto 0.4 % (0.0-0.4); Lymphocytes Absolute Auto 1.2 X10*3/uL (1.2-4.9); Mean Corpuscular HGB Conc 30.3 g/dl (31.0-35.0); Mean Corpuscular Hemoglobin 28.6 pg (27.0-33.0); Mean Corpuscular Volume 94.3 fL (80.0-98.0); NRBC Abs Auto 0.000 X10*3/uL (0.0-0.012); NRBC Pct Auto 0.0 /100WBC (0.0-0.2); Platelet Count 244 X10*3/uL (160-400); Red Blood Count 2.45 X10*6/uL (4.20-5.50); White Blood Count 7.0 X10*3/uL (4.8-10.8)
[2025-07-03 17:59] LABS: Hemoglobin 7.0 g/dl (12.0-16.0)
[2025-07-03 18:03] LABS: OBS Int Ctl Valid YES; OBS Lot 0224; OBS1 POSITIVE (NEGATIVE)
[2025-07-03 18:21] LABS: Alanine Aminotransferase < 6 U/L (0-31); Albumin Level 3.6 g/dL (3.5-5.0); Alkaline Phosphatase 77 U/L (39-117); Anion Gap 12 (12-20); Aspartate Amino Transferase 22 U/L (5-31); Blood Urea Nitrogen 35 mg/dL (9-16); Calcium 9.1 mg/dL (8.4-10.2); Carbon Dioxide 25 mmol/L (22-29); Chloride 109 mmol/L (96-108); Creatinine Clr Calc Pharmacy 40.2; Estimated Glomerular Filt Rate 31; Potassium 4.2 mmol/L (3.3-5.1); Sodium 142 mmol/L (135-145); Total Protein 6.6 g/dL (6.5-8.0)
--- NOTE | 2025-07-03 18:24 | PC.NURSE ---
Patient presents to Ed after wall covering installer referred her to [facility] [place] after how a low H&H On arrival patient HR 30-40's Patient c/o dizziness EKG = undetermined rhythm, wall covering installer reviewed possible chronic afib H&H 04/18.1 type and screen collected + occult stool Patient on parts classifier IV left forearm Plan of care on going
[2025-07-03 18:27] LABS: NT Pro B Type Natriuretic Pept 2111.4 pg/mL (<300); Troponin-I High Sensitivity 25.5 ng/L (<3.5-17.0)
--- NOTE | 2025-07-03 20:06 | PC.NURSE ---
pt heart rate re down to 27-40s pacer pads and code cart at bedside. Dr bhat aware no new orders at this time.
--- NOTE | 2025-07-03 22:16 | ED.GENADULT ---
HPI - General Adult General Chief complaint: Recheck/Abnormal Lab/Rx Stated complaint: weakness & abnormal labs Time Seen by Provider: 07/03/25 17:13 Source: patient and EMS Mode of arrival: EMS Limitations: no limitations History of Present Illness ED Provider: Dr. Kelle Rothman HPI narrative: Patient comes to the emergency room via ambulance from her abnormal labs. According to the patient, earlier this morning she was in her usual state of health, went to see her laster hand Dr. Garcia complaining of chronic but worsening shortness of breath with exertion. Labs were ordered, this afternoon she received a phone call at home to let her know that her hemoglobin was low and needed to come to the hospital for a transfusion. Patient states that she was feeling well until EMS arrived. Shortly after, patient is started feeling lightheaded. Patient reports that 4 weeks she has been having shortness of breath Related Data Home Medications ?Medication ?Instructions ?Recorded ?Confirmed omeprazole 40 mg capsule,delayed 40 mg PO DAILY@1630 02/19/22 07/03/25 release acetaminophen 650 mg 650 mg PO DAILY PRN Pain 04/27/23 07/03/25 tablet,extended release (Tylenol 8 Hour) Previous Rx's ?Medication ?Instructions ?Recorded rivaroxaban 20 mg tablet (Xarelto) 20 mg PO QPM #90 tabs 08/09/24 gabapentin 300 mg capsule 300 mg PO BID #180 caps 12/19/24 bumetanide 2 mg tablet 2 mg PO DAILY #90 tabs 02/05/25 atenolol 25 mg tablet 25 mg PO DAILY #90 tabs 02/20/25 thiamine HCl (vitamin B1) 100 mg 100 mg PO DAILY #90 tabs 02/21/25 tablet mupirocin 2 % topical ointment 1 appl topical BID #22 grams 05/29/25 atorvastatin 40 mg tablet 40 mg PO DAILY #90 tabs 06/06/25 lisinopril 5 mg tablet 5 mg PO DAILY #90 tabs 06/20/25 Allergies Allergy/AdvReac Type Severity Reaction Status Date / Time amoxicillin (AMOXICILLIN) Allergy Unknown UNKNOWN Verified 07/03/25 17:10 flecainide (FLECAINIDE) Allergy Unknown SEVERE Verified 07/03/25 17:10 CHEST PAIN Sulfa (Sulfonamide Allergy Unknown UNKNOWN Verified 07/03/25 17:10 Antibiotics) (SULFA (SULFONAMIDE ANTIBIOTICS)) Review of Systems Review of Systems: Constitutional : No Weight loss, No Fever, No Chills, No Night Sweats, No Fatigue, No Malaise ENT/Mouth : No Hearing loss, No Ear Pain, No Nasal Congestion, No Sinus Pain, No Hoarseness, No sore throat, No Rhinorrhea, No Swallowing Difficulty Eyes: No Eye Pain, No Swelling, No Redness, No Foreign Body, No Discharge, No Vision Changes Cardiovascular : No Chest Pain, No SOB, complaining of dyspnea on exertion, orthopnea, and lower extremities swelling. Complaining of dizziness with minor movements Respiratory : No Cough, No Sputum, No Wheezing, No Smoke Exposure, No Dyspnea Gastrointestinal : No Nausea, No Vomiting, No Diarrhea, No Constipation, No abdominal Pain, No Hematochezia, No Melena Genitourinary : no irregular bleeding, No Dysuria, No Urinary Frequency, No Hematuria, No Urinary Incontinence, No Urgency, No Flank Pain, No Urinary Flow Changes, No Hesitancy Musculoskeletal : No joint pain, No Myalgias, No Joint Swelling Skin : No Skin Lesions, No rash Neuro : No Weakness, No Numbness, No Paresthesias, No Loss of Consciousness, No Dizziness, No Headache Psych : No Anxiety/Panic, No Depression, No SI/HI/AH/VH, No Social Issues, Heme/Lymph: No Bruising, No Bleeding,No Lymphadenopathy Endocrine : No Polyuria, No Polydipsia, No Temperature Intolerance PMFSH Past Medical History Medical History Chronic venous hypertension w ulceration Chronic venous insufficiency Dyspnea on exertion Morbid obesity (HFpEF) heart failure with preserved ejection fraction Chronic a-fib Atrial fibrillation with slow ventricular response Cholelithiasis Paroxysmal atrial fibrillation JANI (obstructive sleep apnea) HTN (hypertension) Surgical History History of cardioversion Hx of cardiac cath History of hip surgery Family History Family History Father CVD (cardiovascular disease) Mother CHF (congestive heart failure) Social History Social History Household Members: Family Household Members Other:: brother Housing: House Do you presently have visiting nurse or other home services: No Alcohol intake: former Patient Tobacco Use Status: Former Tobacco user Tobacco use type: Cigarette Years Smoked: 12 Smoked in Last 30 Days: No e-Cigarette/Vaping Use: Never Used Second Hand Smoke Exposure: No Use of substances other than those prescribed or required for medical reasons: No Advance Directives: Yes Advance Directives on File: Yes Advance Directives Date on File: 04/28/23 Do you have a plan to hurt others: No Plan service: No Current occupational status: retired Cognitive needs: Yes (walker) Hearing needs: No Vision needs: Yes (rx glasses) Physical Exam ED Exam Exam: Appearance: Alert. Oriented X3. No acute distress. Eyes: Pupils equal, round and reactive to light. ENT: Pharynx normal. Neck: Normal inspection. Neck supple. No lymph nodes noted. No crepitus CVS: Normal heart rate and rhythm. Bradycardic, +2 systolic murmur Respiratory: No respiratory distress. Breath sounds normal. No Wheezing. No rales Abdomen: Soft and nontender. No rigidity. No distention. Skin: Skin warm and dry. Normal skin color. Normal skin turgor. Extremities +3 pitting edema bilaterally Neuro: Oriented X 3. No motor deficit. No sensory deficit. Moving all extremities. No slurred speech. CN 2 through 12 grossly intact Psych: calm, cooperative, normal affect Vital Signs: Vital Signs - 24 hr 07/03/25 17:08 07/03/25 17:13 07/03/25 18:39 Temperature 98.2 F 98.2 F 97.7 F Pulse Rate 49 L 49 L 40 L Respiratory Rate 18 18 16 Blood Pressure 132/40 L 132/40 L 117/32 L Pulse Oximetry 99 99 99 Oxygen Delivery Method Room Air Room Air Room Air 07/03/25 19:37 07/03/25 20:15 07/03/25 20:49 Temperature 97.6 F 97.9 F Pulse Rate 33 L 38 L 49 L Respiratory Rate 12 17 17 Blood Pressure 128/41 L 152/51 H 155/47 H Pulse Oximetry 94 97 Oxygen Delivery Method Room Air Room Air 07/03/25 21:05 07/03/25 22:08 07/04/25 00:12 Temperature 97.8 F 97.8 F 98.6 F Pulse Rate 48 L 45 L 49 L Respiratory Rate 16 15 19 Blood Pressure 138/44 L 122/53 L 148/44 H Pulse Oximetry 99 Oxygen Delivery Method Room Air 07/04/25 00:26 07/04/25 00:55 07/04/25 01:11 Temperature 98.6 F 97.6 F Pulse Rate 51 62 Respiratory Rate 16 17 Blood Pressure 148/44 H 166/68 H 176/66 H Pulse Oximetry Oxygen Delivery Method 07/04/25 01:11 07/04/25 01:18 07/04/25 03:33 Temperature 97.6 F 97.6 F 97.6 F Pulse Rate 62 62 51 Respiratory Rate 17 17 19 Blood Pressure 176/66 H 176/66 H 153/56 H Pulse Oximetry 98 100 Oxygen Delivery Method Room Air Room Air 07/04/25 04:24 07/04/25 04:38 07/04/25 04:40 Temperature 97.6 F 97.6 F 97.6 F Pulse Rate 65 61 49 L Respiratory Rate 19 19 16 Blood Pressure 155/64 H 164/44 H 163/44 H Pulse Oximetry 99 Oxygen Delivery Method Room Air 07/04/25 04:55 07/04/25 07:43 07/04/25 08:11 Temperature 97.9 F 97.9 F Pulse Rate 49 L 55 52 Respiratory Rate 14 14 18 Blood Pressure 154/51 H 157/52 H 109/44 L Pulse Oximetry 99 Oxygen Delivery Method Room Air BMI result Body Mass Index 48.4 Course Course Course Narrative: All of patient's labs and imaging pending. Patient known to be anemic. I discussed with the patient that we will repeat her labs. If she is still anemic, she will need a blood transfusion. I discussed with the patient the risks versus benefits of the transfusion. Patient is agreeable to proceed with the transfusion. Patient denies any chest pain, shortness of breath only with exertion. Patient states that as long as she does not move as or too much or walk a long distance, she does not feel dizzy otherwise, she does Reevaluation(s) Reevaluation #1: We will continue to monitor patient until Dr. Garcia comes to see her, there was an issue overnight where she was bradycardic never hypotensive, cardiology did not feel that patient requires any intervention such as a pacemaker before my understanding the hospitalist on duty did not feel comfortable admitting this patient because we do not have ICU beds and patient may need a pacemaker. I had the time of my rounds in the morning patient's heart rate is in the upper 40s, her blood pressure stable she has been transfused with blood. I am awaiting for laster hand to come by, I also understand patient did not want to be transferred and her laster hand wanted her to be in this institution. Time: 06:43 Reevaluation #2: Patient's blood pressure remained stable, heart rate in the mid 50s, let Kendra Whittaker know from admitting Time: 08:07 Medications Administered Discontinued Medications Generic Name Dose Route Start Last Admin Trade Name Freq PRN Reason Stop Dose Admin Furosemide 40 mg 07/03/25 23:48 07/04/25 00:26 Furosemide 40 Mg/4 Ml Vial IVPUSH 07/03/25 23:49 40 mg STAT STA Administration Protocol Medical Decision Making Medical Decision Making MDM Narrative: EKG 1: Atrial flutter with slow RVR, chronic ST segment depressions and V3 V4 V5, previously seen in other EKGs, QTC 407 EKG 2: Atrial flutter with slow RVR, no significant changes from previous EKG. My interpretation of labs: Patient's initial hemoglobin 6.8 in the afternoon, few hours later 7.0. Patient takes Xarelto, denies blood in the stool. However, the guaiac was heme positive. Patient's chemistries at baseline, creatinine 1.61, normal LFTs. Patient's troponin is 25.5, likely secondary to the pro BNP elevation. Patient's proBNP is 2111. Patient states that she does have history of CHF, and is now having an exacerbation. Patient states that a few days ago, she was told by 1 of her providers to double up on her Lasix. Chest x-ray does not show any acute abnormality. Patient has been on telemetry. Patient's heart rate occasionally drops to the 20s and bounces back to the 40s. Blood pressure stable in the 120s to 130s. No chest pain. I discussed the patient with Dr. Garcia. I was concerned that the patient's EKG may have shown a complete heart block versus atrial flutter with slow RVR. Per Dr. Garcia, at this time the EKG is a flutter with slow RVR. I discussed the patient with Dr. Al. He does not feel comfortable admitting the patient due to the low heart rate. Also, we do not have ICU beds. I discussed the above-mentioned with the patient. Patient states that she absolutely refuses to be transferred anywhere including [facility], [facility] or [place]. Patient states that she will only accept to stay here. However, patient states that if Dr. Garcia considers that she needs a pacemaker, she will accept the transfer. I discussed the above-mentioned with Dr. Garcia, the best course of action would be to keep the patient under observation in the ED, he will consult in the morning, and determine if the patient needs a pacemaker. Patient is on her 2nd bag of blood. For the last 3 hours, patient's heart rate has been steadily in the 40s and 50s with a normal blood pressure. Lasix was given in between units of blood. I asked Dr. Al to reconsider admission since patient is much more stable with her heart rate and bradycardic at baseline. Patient uses a CPAP at home, we will go ahead and place her on a CPAP here as well, which will help him also with the CHF exacerbation. Response pending, sign-out given to my colleague Dr. Gramajo Differential Diagnosis Differential Diagnoses: The differential diagnosis associated with the presentation includes (CHF exacerbation, atrial flutter with slow RVR, complete heart block) Admission/Observation Consideration of admission/observation: Escalation of care including admission/observation considered Consult Healthcare Provider Management of the patient was discussed with: Hospitalist and Electrician Journeyman Wireman Lab Data MDM Lab Attestation statement: I reviewed the patient's lab results. 07/04/25 08:26 07/03/25 17:45 Labs: Lab Results 07/03/25 07/04/25 Range/Units 17:45 08:26 WBC 7.0 8.7 (4.8-10.8) X10*3/uL RBC 2.45 L 3.57 L D (4.20-5.50) X10*6/uL Hgb 7.0 L* 10.8 L D (12.0-16.0) g/dl Hct 23.1 L 34.0 L D (37.0-47.0) % MCV 94.3 95.2 (80.0-98.0) fL MCH 28.6 30.3 (27.0-33.0) pg MCHC 30.3 L 31.8 (31.0-35.0) g/dl RDW 19.9 H 18.3 H (11.0-16.0) % Plt Count 244 245 (160-400) X10*3/uL MPV 8.5 L 8.3 L (9.4-12.3) fL Immature Gran % (Auto) 0.4 0.5 H (0.0-0.4) % Neut % (Auto) 65.8 81.1 H (45-73) % Lymph % (Auto) 16.5 L 8.6 L (20-40) % Alcorn % (Auto) 7.5 6.0 (2-11) % Eos % (Auto) 9.1 H 2.9 (0-4) % Baso % (Auto) 0.7 0.9 (0-2) % Lymph # (Auto) 1.2 0.8 L (1.2-4.9) X10*3/uL Alcorn # (Auto) 0.5 0.5 (0.1-1.2) X10*3/uL Eos # (Auto) 0.6 H 0.3 (0.0-0.4) X10*3/uL Baso # (Auto) 0.1 0.1 (0.0-0.2) X10*3/uL Abs Immat Gran (auto) 0.03 0.04 H (0.00-0.03) X10*3/uL Absolute Neuts (auto) 4.6 7.0 (2.0-8.3) x10*3/uL Absolute Nucleated RBC 0.000 0.000 (0.0-0.012) X10*3/uL Nucleated RBC % (auto) 0.0 0.0 (0.0-0.2) /100WBC Sodium 142 (135-145) mmol/L Potassium 4.2 (3.3-5.1) mmol/L Chloride 109 H (96-108) mmol/L Carbon Dioxide 25 (22-29) mmol/L Anion Gap 12 (12-20) BUN 35 H (9-16) mg/dL Creatinine 1.61 H (0.5-1.4) mg/dL Estim Creat Clear Calc 40.2 Estimated GFR 31 Random Glucose 104 (60-115) mg/dL Calcium 9.1 (8.4-10.2) mg/dL Iron 191 H (30-160) mcg/dL TIBC 339 (228-428) mcg/dL % Saturation 56 H (15-50) % Unsat Iron Binding 148 ug/dL Ferritin 27 (10-250) ng/mL Total Bilirubin 0.4 (0.0-1.0) mg/dL Direct Bilirubin 0.2 (0.0-0.5) mg/dL AST 22 (5-31) U/L ALT < 6 (0-31) U/L Alkaline Phosphatase 77 (39-117) U/L Troponin I High Sens 25.5 H D 39.1 H D (<3.5-17.0) ng/L NT-Pro-B Natriuret Pep 2111.4 H (<300) pg/mL Total Protein 6.6 (6.5-8.0) g/dL Albumin 3.6 (3.5-5.0) g/dL Stool Occult Blood POSITIVE (NEGATIVE) Blood Type AB Positive Antibody Screen NEGATIVE Crossmatch See Detail Independent Interpretation I performed an independent interpretation of an: EKG and Plain X-Ray Radiology Impression Discussion of test interpretation with radiology: I have reviewed the radiologist's reading. Radiologist Impression: 1 view chest x-ray Comparison: None provided Findings: Defibrillator pads overlying the left chest. The heart is magnified. The aorta is calcified. No focal consolidation, pleural effusion, or pneumothorax. Osseous structures are unremarkable. IMPRESSION: 1. No acute findings. Critical Care Time Critical Care Time Critical Care Time: Yes Total Critical Care Time: 90 Attestation: I have personally provided critical care time. Time includes review of lab data, radiology results, discussion with consultants, and monitoring for potential decompensation. Intervention performed as documented. Discharge Plan Discharge Clinical Impression: Chronic atrial flutter, Bradycardia, CHF exacerbation Patient Disposition: Admitted As Inpatient Print Language: Armenian
--- NOTE | 2025-07-03 22:51 | ECG_ITS ---
Test Reason : MATTY Blood Pressure : */* mmHG Vent. Rate : 35 BPM Atrial Rate : * BPM P-R Int : * ms QRS Dur : 68 ms QT Int : 504 ms P-R-T Axes : * -33 34 degrees QTcB Int : 384 ms Atrial flutter with slow ventricular response Left axis deviation Low voltage QRS Nonspecific ST abnormality Abnormal ECG When compared with ECG of 03-Jul-2025 17:14, No significant changes seen Referred By: Estella Gramajo Electronically Signed By: MORENO CARROLL MD
[2025-07-04] VITALS (18 sets, daily range): BP systolic 109–176; BP diastolic 44–74; PULSE 49–65; RESP 14–20; TEMP 36.4–37; O2SAT 96–100; BMI 47.1
[2025-07-04] MEDS: Furosemide 40 MG/4 ML VIAL IVPUSH (00:26)
--- NOTE | 2025-07-04 00:26 | PC.NURSE ---
purewick applied to patient at this time
--- NOTE | 2025-07-04 01:20 | PC.NURSE ---
pt had bowel movement on bedpan, pt cleaned purewick applied
--- NOTE | 2025-07-04 01:58 | HO.NURTONUR ---
Addendum entered by Abiola Mathis RN 07/04/25 22:37: patient refused her gabapentin, states her only pain currently is CLIFFORD and Dr. Garcia is going to make changes to my medications. patient requested tylenol for CLIFFORD. medicated per nov . Addendum entered by Diya Steiner RN 07/04/25 18:01: Clear liquid diet. Consult to GI. Pt did have 3 episodes of diarrhea today. Original Note: Patient is 80 A&O female BIBA from home after workers compensation examiner called to report drop in H/H. Upon arrival to ED patients heart rate 25- 40s, with complaints of lightheadednss and dizziness. 22 L FR. LAbs remarkable for Hgb 7 Hct 23.1 BNP 2111.4 Trop 25.5 Bun 35 creat 1.61. CXR negative. Per hospital cardiologit EKG is Afib with slow venticular rate, hospitalist declined admission as heart rate was very slow, pt declined transfer. Dr. Vogel to see patient in AM to determine if pacemaker is required PMHx Chronic venous hypertension w ulceration, chronic venous insufficiency, heart failure with preserved ejection fraction, a-fib, JANI (obstructive sleep apnea), HTN Meds given, RBCs, lasix
[2025-07-04 08:32] LABS: MANUAL DIFF FLAG NO
[2025-07-04 08:33] LABS: Iron 191 mcg/dL (30-160); Percent Iron Saturation 56 % (15-50); Total Iron Binding Capacity 339 mcg/dL (228-428); Unsaturated Iron Binding 148 ug/dL
[2025-07-04 08:34] LABS: Hematocrit 34.0 % (37.0-47.0); Hemoglobin 10.8 g/dl (12.0-16.0); Imm Gran Abs Auto 0.04 X10*3/uL (0.00-0.03); Imm Gran Pct Auto 0.5 % (0.0-0.4); Lymphocytes Absolute Auto 0.8 X10*3/uL (1.2-4.9); Mean Corpuscular HGB Conc 31.8 g/dl (31.0-35.0); Mean Corpuscular Hemoglobin 30.3 pg (27.0-33.0); Mean Corpuscular Volume 95.2 fL (80.0-98.0); NRBC Abs Auto 0.000 X10*3/uL (0.0-0.012); NRBC Pct Auto 0.0 /100WBC (0.0-0.2); Platelet Count 245 X10*3/uL (160-400); Red Blood Count 3.57 X10*6/uL (4.20-5.50); White Blood Count 8.7 X10*3/uL (4.8-10.8)
--- NOTE | 2025-07-04 08:44 | ECG_ITS ---
Test Reason : CP Blood Pressure : */* mmHG Vent. Rate : 50 BPM Atrial Rate : * BPM P-R Int : * ms QRS Dur : 68 ms QT Int : 458 ms P-R-T Axes : * -38 39 degrees QTcB Int : 417 ms Atrial flutter with slow ventricular response Left axis deviation Inferior infarct , age undetermined Abnormal ECG When compared with ECG of 03-Jul-2025 22:51, No significant changes seen Referred By: Kendra Whittaker Electronically Signed By: MORENO CARROLL MD
[2025-07-04 08:45] LABS: Ferritin 27 ng/mL (10-250)
[2025-07-04 09:02] LABS: Troponin-I High Sensitivity 39.1 ng/L (<3.5-17.0)
--- NOTE | 2025-07-04 09:35 | PM.IMHP ---
History of Present Illness Date of Service: 07/04/25 Attending physician on admission: Stephanie Lopez Chief Complaint: dizziness, anemia This is a 80 year old female with history of atrial fibrillation on xarelto who was sent in to the emergency department due to low H/H. Patient was seen in the cardiac clinic yesterday with reports of shortness of breath and dizziness, lab work was ordered and returned abnormal. Her hemoglobin and hematocrit was found to have a notable drop to 6.8/23.3 and she was recommended to come to the emergency department for evaluation. Patient states that she has had dizziness with standing and ambulation as well as dyspnea on exertion and severe fatigue over the past several months. She started taking iron pills recently because her symptoms felt similar to the past when she had anemia. She said she does not look at her stool she had so she does not know if there is any blood or dark appearance. She denies any abdominal pain. She does report she takes a leave 2 tablets at least 4 times a week due to lower extremity pain. In the emergency department she received 3 units of blood, stools were heme positive. Lab work also significant for PEARL with creatinine above baseline at 1.65. While in the emergency department her heart rate was observed to dropped into the 20s and 30s. Blood pressure has remained stable. No heart blocks seen on EKG. She will be admitted for further management of acute anemia and bradycardia. Review of Systems Review of Systems: Yes all other systems are reviewed and are negative Constitutional: Constitutional: Denies chills and Denies fever(s) ENT: Reports dizziness Cardiovascular: Cardiovascular: Denies chest pain, Denies palpitations and Reports dyspnea on exertion Respiratory: Respiratory: Reports dyspnea on exertion Neurologic: Reports dizziness Endocrine: Endocrine: Denies palpitations [facility] Medical History Chronic venous hypertension w ulceration Chronic venous insufficiency Dyspnea on exertion Morbid obesity (HFpEF) heart failure with preserved ejection fraction Chronic a-fib Atrial fibrillation with slow ventricular response Cholelithiasis Paroxysmal atrial fibrillation JANI (obstructive sleep apnea) HTN (hypertension) Family History Father CVD (cardiovascular disease) Mother CHF (congestive heart failure) Surgical History History of cardioversion Hx of cardiac cath History of hip surgery Social History Household Members: Family Household Members Other:: brother Housing: House Do you presently have visiting nurse or other home services: No Alcohol intake: former Patient Tobacco Use Status: Former Tobacco user Tobacco use type: Cigarette Years Smoked: 12 Smoked in Last 30 Days: No e-Cigarette/Vaping Use: Never Used Second Hand Smoke Exposure: No Use of substances other than those prescribed or required for medical reasons: No Advance Directives: Yes Advance Directives on File: Yes Advance Directives Date on File: 04/28/23 Do you have a plan to hurt others: No Plan service: No Current occupational status: retired Cognitive needs: Yes (walker) Hearing needs: No Vision needs: Yes (rx glasses) Meds Allergies Allergy/AdvReac Type Severity Reaction Status Date / Time amoxicillin (AMOXICILLIN) Allergy Unknown UNKNOWN Verified 07/03/25 17:10 flecainide (FLECAINIDE) Allergy Unknown SEVERE Verified 07/03/25 17:10 CHEST PAIN Sulfa (Sulfonamide Allergy Unknown UNKNOWN Verified 07/03/25 17:10 Antibiotics) (SULFA (SULFONAMIDE ANTIBIOTICS)) Home Medications ?Medication ?Instructions ?Recorded ?Confirmed ?Last Taken ?Type omeprazole 40 mg capsule,delayed 40 mg PO DAILY@0630 02/19/22 07/03/25 05/22/24 History release acetaminophen 650 mg 650 mg PO DAILY PRN Pain 04/27/23 07/03/25 05/23/24 08:00 History tablet,extended release (Tylenol 8 Hour) econazole nitrate 1 % topical cream 1 appl topical MOWEFR@0900,2100 07/04/25 Unknown History rivaroxaban 20 mg tablet (Xarelto) 20 mg PO DAILY@1700 07/04/25 Unknown History Physical Exam Vital Signs and Narrative: Vital Signs: Last Vital Signs Temp 97.9 F 07/04/25 08:11 Pulse 50 07/04/25 09:03 Resp 18 07/04/25 09:03 BP 148/58 H 07/04/25 09:03 Pulse Ox 99 07/04/25 09:03 O2 Del Method Room Air 07/04/25 09:03 BMI result Body Mass Index 48.4 Const: General: alert and awake Nutritional Appearance: obese Orientation/consciousness: patient oriented x3 Resp: Effort & Inspection: normal respiratory effort, able to speak in complete sentences, no respiratory distress and no use of accessory muscles Cardio: Rate: bradycardic Rhythm: abnormal rhythm irregularly irregular GI: Inspection: No distended and Yes obesity Palpation (GI): Soft to palpation and nontender Skin: Other: venous stasis skin changes lower extremities b/l Neuro: General: patient oriented x3, moves all extremities and CN's II-XI intact bilaterally Extrem: Other: nonpitting edema b/l LE Results Labs 07/04/25 08:26 07/03/25 17:45 Labs: Laboratory Results - last 24 hr 07/03/25 07/04/25 17:45 08:26 MCV 94.3 95.2 MCH 28.6 30.3 MCHC 30.3 L 31.8 RDW 19.9 H 18.3 H Plt Count 244 245 MPV 8.5 L 8.3 L Immature Gran % (Auto) 0.4 0.5 H Neut % (Auto) 65.8 81.1 H Lymph % (Auto) 16.5 L 8.6 L [place] % (Auto) 7.5 6.0 Eos % (Auto) 9.1 H 2.9 Baso % (Auto) 0.7 0.9 Lymph # (Auto) 1.2 0.8 L [place] # (Auto) 0.5 0.5 Eos # (Auto) 0.6 H 0.3 Baso # (Auto) 0.1 0.1 Abs Immat Gran (auto) 0.03 0.04 H Absolute Neuts (auto) 4.6 7.0 Absolute Nucleated RBC 0.000 0.000 Nucleated RBC % (auto) 0.0 0.0 Anion Gap 12 Estim Creat Clear Calc 40.2 Estimated GFR 31 Random Glucose 104 Calcium 9.1 Iron 191 H TIBC 339 % Saturation 56 H Unsat Iron Binding 148 Ferritin 27 Total Bilirubin 0.4 Direct Bilirubin 0.2 AST 22 ALT < 6 Alkaline Phosphatase 77 Troponin I High Sens 25.5 H D 39.1 H D NT-Pro-B Natriuret Pep 2111.4 H Total Protein 6.6 Albumin 3.6 Stool Occult Blood POSITIVE Blood Type AB Positive Antibody Screen NEGATIVE Crossmatch See Detail Assessment and Plan (1) Dyspnea on exertion: Status: Acute (2) Bradycardia: Status: Acute (3) Anemia: Status: Acute Plan This is a 80-year-old female with history of persistent atrial fibrillation on xarelto, JANI on CPAP, HFpEF, venous insufficiency, morbid obesity/mild restrictive lung dz who was sent to the emergency department due to anemia found to have bradycardia and PEARL Symptomatic anemia Possible GI bleed. using aleve 4+days per week in combination with xarelto concern for upper GI source s/p 3U RBC in ED with appropriate rise in H/H plan for IV ppi, GI consult hold xarelto add iron profile to 07/03 labs trend cbc bradycardia/afib with SVR likely due to BB hold atenolol for bradycardia hold xarelto for anemia/GIB as above blood pressure has remained stable, no indication for PM at this time. symptoms more likely related to anemia cardiology consult monitor on telemetry PEARL likely multifactorial due to anemia and diuretics and nsaid use Hold Bumex, lisinopril Avoid nephrotoxic medication Trend BMP Elevated trop trops have remained flat elevated due to demand from anemia and decreased renal clearance due to PEARL HFpEF hold bumex for pearl received 3U blood overnight and 1 dose of lasix follow fluid status closely JANI Continue CPAP Peripheral neuropathy continue baseline meds Morbid obesity/obesity hypoventilation BMI 48.4 Weight loss encouraged DVT prophylaxis-mechanical devices. Avoid chemoprophylaxis in the setting of acute symptomatic anemia/possible GI bleed Patient will likely require 2 midnight stay in the hospital for management of symptomatic anemia requiring further investigation and specialist evaluation and monitoring of H/H, close cardiac monitoring due to severe bradycardia and monitoring of renal function due to PEARL Quality Stroke Does the patient have a stroke diagnosis?: No VTE Prior VTE?: No VTE Risk Level:: Medical - moderate - high VTE Device Contraindication: N/A - Device Ordered VTE Drug Contraindication: Treatment Not Indicated
--- NOTE | 2025-07-04 09:45 | PM.CNCAR ---
History of Present Illness History of Present Illness Date of Service: 07/04/25 Requesting physician: Kendra Whittaker Consult reason: other ( bradycardia) Chief complaint: symptomatic anemia, emilie Narrative: I was consulted to see Iva in cardiology consultation today for bradycardia in the setting of atrial fibrillation. Patient is a 80 year female well known to me with prior history of morbid obesity, heart failure with preserved ejection fraction, chronic atrial fibrillation has failed rhythm control approach, prior history of GI bleed, obesity hypoventilation syndrome as well as chronic venous hypertension. Patient came to my office yesterday saying that she has been getting progressively increased shortness of breath with minimal exertion with increased symptoms of fluid overload. Patient says the symptoms has been going on for few weeks and she had preemptively started taking iron therapy thinking that she might be anemic again as she was 2 years ago because symptoms were similar to it. She had also complains of some exertional dizziness. Patient came to the office and felt like she was in fluid overload and we would plan to increase her diuretic therapy and were waiting for blood work including CBC results. CBC results came back later suggesting significant anemia and she is advised to come to the emergency room. She was noted to have positive guaiac stools. However she has not noticed GI bleeding although she says she does not watch for that. Patient was admitted and has been transfused overnight in his hemoglobin has improved to above 10. However overnight she was noted to be bradycardic and there was concerned that she might need pacer. There were no ICU beds and propose of was made to transfer to a tertiary care unit although [facility] did not have a bed and patient refused to be transferred. Noted that patient is on atenolol at home and has developed acute kidney injury on admission. This most likely lead to atenolol toxicity in the setting of acute kidney injury leading to bradycardia. Patient has no hemodynamic compromise. She is laying flat in bed without any significant shortness of breath with normal oxygen saturation. She denies any palpitations or lightheadedness laying in bed. Review of Systems Constitutional: Constitutional: Denies chills, Denies fever(s) and Reports weakness Eyes: Eyes: Reports no additional eye complaints Cardiovascular: Cardiovascular: Denies chest pain, Reports leg edema, Reports lightheadedness, Denies Loss of Consciousness, Denies palpitations and Reports dyspnea on exertion Respiratory: Respiratory: Reports no additional respiratory complaints and Reports dyspnea on exertion Gastrointestinal: Gastrointestinal: Reports no additional gastrointestinal complaints Musculoskeletal: Musculoskeletal: Reports no additional musculoskeletal complaints Neurologic: Reports system reviewed and no additional complaints, except as documented and Reports weakness Psychiatric: Psychiatric: Reports no additional psychiatric complaints Endocrine: Endocrine: Denies palpitations PMFSH Past Medical History Medical History Chronic venous hypertension w ulceration Chronic venous insufficiency Dyspnea on exertion Morbid obesity (HFpEF) heart failure with preserved ejection fraction Chronic a-fib Atrial fibrillation with slow ventricular response Cholelithiasis Paroxysmal atrial fibrillation JANI (obstructive sleep apnea) HTN (hypertension) Family History Family History Father CVD (cardiovascular disease) Mother CHF (congestive heart failure) Surgical History Surgical History History of cardioversion Hx of cardiac cath History of hip surgery Social History Social History Household Members: Family Household Members Other:: brother Housing: House Do you presently have visiting nurse or other home services: No Alcohol intake: former Patient Tobacco Use Status: Former Tobacco user Tobacco use type: Cigarette Years Smoked: 12 Smoked in Last 30 Days: No e-Cigarette/Vaping Use: Never Used Second Hand Smoke Exposure: No Use of substances other than those prescribed or required for medical reasons: No Advance Directives: Yes Advance Directives on File: Yes Advance Directives Date on File: 04/28/23 Do you have a plan to hurt others: No Plan service: No Current occupational status: retired Cognitive needs: Yes (walker) Hearing needs: No Vision needs: Yes (rx glasses) Meds Allergies Allergy/AdvReac Type Severity Reaction Status Date / Time amoxicillin (AMOXICILLIN) Allergy Unknown UNKNOWN Verified 07/03/25 17:10 flecainide (FLECAINIDE) Allergy Unknown SEVERE Verified 07/03/25 17:10 CHEST PAIN Sulfa (Sulfonamide Allergy Unknown UNKNOWN Verified 07/03/25 17:10 Antibiotics) (SULFA (SULFONAMIDE ANTIBIOTICS)) Active Medications: Current Medications Acetaminophen (Acetaminophen 325 Mg Tablet) 650 mg PO Q6H PRN PRN Reason: Pain, Mild 1-3,fever,headache Calcium Carbonate (Calcium Carbonate 750 Mg Tab.Chew) 750 mg PO Q4H PRN PRN Reason: Heartburn Magnesium Hydroxide (Milk Of Magnesia 30 Ml Oral.Susp) 30 ml PO DAILY PRN PRN Reason: Constipation Melatonin (Melatonin 3 Mg Tablet) 6 mg PO BEDTIME PRN PRN Reason: Insomnia Ondansetron HCl (Ondansetron Hcl 4 Mg/2 Ml Vial) 4 mg IVPUSH Q8H PRN PRN Reason: Nausea and Vomiting Pantoprazole Sodium (Pantoprazole Sodium 40 Mg/10 Ml Vial) 40 mg IVPUSH BID@0630,1630 [facility] Sodium Chloride (0.9 % Sodium Chloride Flush 3 Ml Syringe) 3 ml IVFLUSH QSHIFT [facility] Home Medications ?Medication ?Instructions ?Recorded ?Confirmed ?Last Taken ?Type omeprazole 40 mg capsule,delayed 40 mg PO DAILY@0630 02/19/22 07/03/25 05/22/24 History release acetaminophen 650 mg 650 mg PO DAILY PRN Pain 04/27/23 07/03/25 05/23/24 08:00 History tablet,extended release (Tylenol 8 Hour) econazole nitrate 1 % topical cream 1 appl topical MOWEFR@0900,2100 07/04/25 Unknown History rivaroxaban 20 mg tablet (Xarelto) 20 mg PO DAILY@1700 07/04/25 Unknown History Physical Exam Vital Signs: Vital Signs: Last Vital Signs Temp 97.9 F 07/04/25 08:11 Pulse 50 07/04/25 09:03 Resp 18 07/04/25 09:03 BP 148/58 H 07/04/25 09:03 Pulse Ox 99 07/04/25 09:03 O2 Del Method Room Air 07/04/25 09:03 BMI result Body Mass Index 48.4 Const: General: cooperative, comfortable, no acute distress, alert and awake Nutritional Appearance: obese morbidly obese Orientation/consciousness: patient oriented x3 HEENT: Head: Yes normocephalic and Yes atraumatic Neck: Neck: Yes trachea midline and Yes no JVD Resp: Effort & Inspection: decreased respiratory effort Auscultation: clear to auscultation bilaterally Cardio: Jugular venous distension: no JVD Rate: bradycardic Rhythm: abnormal rhythm irregularly irregular Heart sounds: S1 normal heart sound present, S2 normal heart sound present, no click, no gallops and no murmurs GI: Auscultation: normal bowel sounds Skin: General skin exam: no rashes or lesions noted Neuro: General: patient oriented x3 and no focal motor deficits Extrem: General: No clubbing, No cyanosis and Yes edema Objective Labs and Meds 07/04/25 08:26 07/03/25 17:45 Lab results: Laboratory Results - last 24 hr 07/03/25 07/04/25 17:45 08:26 WBC 7.0 8.7 RBC 2.45 L 3.57 L D Hgb 7.0 L* 10.8 L D Hct 23.1 L 34.0 L D MCV 94.3 95.2 MCH 28.6 30.3 MCHC 30.3 L 31.8 RDW 19.9 H 18.3 H Plt Count 244 245 MPV 8.5 L 8.3 L Immature Gran % (Auto) 0.4 0.5 H Neut % (Auto) 65.8 81.1 H Lymph % (Auto) 16.5 L 8.6 L [place] % (Auto) 7.5 6.0 Eos % (Auto) 9.1 H 2.9 Baso % (Auto) 0.7 0.9 Lymph # (Auto) 1.2 0.8 L [place] # (Auto) 0.5 0.5 Eos # (Auto) 0.6 H 0.3 Baso # (Auto) 0.1 0.1 Abs Immat Gran (auto) 0.03 0.04 H Absolute Neuts (auto) 4.6 7.0 Absolute Nucleated RBC 0.000 0.000 Nucleated RBC % (auto) 0.0 0.0 Sodium 142 Potassium 4.2 Chloride 109 H Carbon Dioxide 25 Anion Gap 12 BUN 35 H Creatinine 1.61 H Estim Creat Clear Calc 40.2 Estimated GFR 31 Random Glucose 104 Calcium 9.1 Iron 191 H TIBC 339 % Saturation 56 H Unsat Iron Binding 148 Ferritin 27 Total Bilirubin 0.4 Direct Bilirubin 0.2 AST 22 ALT < 6 Alkaline Phosphatase 77 Troponin I High Sens 25.5 H D 39.1 H D NT-Pro-B Natriuret Pep 2111.4 H Total Protein 6.6 Albumin 3.6 Stool Occult Blood POSITIVE Blood Type AB Positive Antibody Screen NEGATIVE Crossmatch See Detail Assessment and Plan (1) Symptomatic anemia: Status: Acute patient presents to the hospital with severe anemia, symptomatic with symptoms of exertional shortness of breath with heart failure syndrome as well as exertional dizziness. This is most likely related to GI blood loss. Would strongly recommend GI consultation as this will require further workup and plan for future oral anticoagulant therapy. Patient was optimized to undergo endoscopy once her atenolol was washed out of system probably in couple of days. She has developed acute kidney injury related to severe anemia would hold her diuretics for now as well as lisinopril therapy. Transfuse as needed. Continue monitor hematocrit closely. Hold Xarelto (2) Chronic a-fib: Status: Acute chronic atrial fibrillation which has been adequately rate control in the past without rate controlling medications. Recently started on atenolol therapy in his now developed acute kidney injury related to atenolol toxicity. At this point time I would discontinue atenolol therapy. Once the atenolol is out of the system and the kidney function is improved I think her heart rate would improve automatically. I would consider if she needs rate control in the future to use medications such as metoprolol which are not renally excreted. For now will discontinue Xarelto therapy and will require GI workup as mentioned above and further guidance for possible Watchman device in the f (3) (HFpEF) heart failure with preserved ejection fraction: Status: Acute Heart failure preserved ejection fraction with clinically appears to be fluid overloaded although has developed some acute kidney injury probably related to symptomatic anemia and poor perfusion. At this point time will hold off diuretic regimen. Continue to monitor for signs and symptoms of fluid overload as well as oxygen requirement. Eventually once kidney function improved will restart her oral diuretic regimen from outpatient. Consider Jardiance therapy. Will follow with you Procedures Date of Service Date of Service: 07/04/25
[2025-07-04 10:07] LABS: NT Pro B Type Natriuretic Pept 3463.8 pg/mL (<300)
--- NOTE | 2025-07-04 10:35 | PC.NURSE ---
Pt placed in hospital bed for comfort, new purewick placed. Urine continues to be red in color. HR afib on the monitor. Pt denying new complaints, alert and oriented. Plan of care ongoing.
--- NOTE | 2025-07-04 11:15 | PHA.MEDREC ---
Addendum entered by Lupis Luke RPh 07/04/25 12:11: MED REC REVIEWED BY ANTONIA Original Note: Pharmacy Consult ? Medication Reconciliation Pharmacy has completed the medication reconciliation. Spoke with pt and she confirmed her medications. Pt confirmed she takes her Econazole Nitrate cream as 3 times a week as needed for fungal infections, she never started taking the Mupirocin cream and pt takes the Omeprazole in the evening; pt does not eat food in the morning.
[2025-07-04] MEDS: 0.9 % Sodium Chloride Flush 3 ML SYRINGE IVFLUSH (16:23)
[2025-07-04 17:31] LABS: Anion Gap 15 (12-20); Blood Urea Nitrogen 29 mg/dL (9-16); Calcium 9.5 mg/dL (8.4-10.2); Carbon Dioxide 23 mmol/L (22-29); Chloride 109 mmol/L (96-108); Creatinine Clr Calc Pharmacy 47.6; Estimated Glomerular Filt Rate 38; Potassium 4.3 mmol/L (3.3-5.1); Sodium 143 mmol/L (135-145)
[2025-07-05 04:00] VITALS: BP 112/71; PULSE 50; RESP 18; TEMP 36.6; O2SAT 97
[2025-07-05 07:12] LABS: MANUAL DIFF FLAG NO
[2025-07-05 07:15] LABS: Hematocrit 34.0 % (37.0-47.0); Hemoglobin 10.5 g/dl (12.0-16.0); Imm Gran Abs Auto 0.04 X10*3/uL (0.00-0.03); Imm Gran Pct Auto 0.5 % (0.0-0.4); Lymphocytes Absolute Auto 0.6 X10*3/uL (1.2-4.9); Mean Corpuscular HGB Conc 30.9 g/dl (31.0-35.0); Mean Corpuscular Hemoglobin 30.0 pg (27.0-33.0); Mean Corpuscular Volume 97.1 fL (80.0-98.0); NRBC Abs Auto 0.000 X10*3/uL (0.0-0.012); NRBC Pct Auto 0.0 /100WBC (0.0-0.2); Platelet Count 247 X10*3/uL (160-400); Red Blood Count 3.50 X10*6/uL (4.20-5.50); White Blood Count 8.6 X10*3/uL (4.8-10.8)
[2025-07-05 07:36] LABS: Anion Gap 13 (12-20); Blood Urea Nitrogen 24 mg/dL (9-16); Calcium 9.0 mg/dL (8.4-10.2); Carbon Dioxide 26 mmol/L (22-29); Chloride 110 mmol/L (96-108); Creatinine Clr Calc Pharmacy 50.2; Estimated Glomerular Filt Rate 41; Potassium 4.6 mmol/L (3.3-5.1); Sodium 144 mmol/L (135-145)
[2025-07-05 08:00] VITALS: BP 162/70; PULSE 59; RESP 20; TEMP 36.7; O2SAT 97
--- NOTE | 2025-07-05 09:45 | MHC.CM.PN ---
IMM 07/05/25, EMR REVIEWED, PT W/SYMPTOMATIC ANEMIA/PEARL, CM MET W/PT WHO IS A&O, PT REPORTS SHE LIVES ALONE W/HER PITBUL AND ALLEY CAT HER BROTHER IN FEBRUARY. PT USES A WALKER, CPAP AND HOME IS HANDICAP ACCESSIBLE, PT DECLINES HAVING SERVICES AT HOME AND DOESN'T FEEL READY FOR THEM, PT REPORTS SHE KNOWS WHO TO CALL WHEN SHE NEEDS THEM.
--- NOTE | 2025-07-05 10:41 | P.PNCA_ITS ---
Subjective Subjective Date of Service: 07/05/25 Principal diagnosis: Severe anemia, chronic atrial fibrillation/flutter Interval history: Patient's hematocrit has remained stable and creatinine in his improved. Heart rate has somewhat improved compared to yesterday. She says she has been going to bathroom a lot. She her lisinopril and bumetanide has been withheld. She says her leg edema has improved. She denies any palpitations. Says when she got up in from bed today she got lightheaded. Blood pressure is actually elevated. Denies any chest pain or orthopnea or shortness of breath. Oxygenation has remained stable despite off diuretic therapy. Review of Systems Constitutional: Reports no additional constitutional complaints Cardiovascular: Denies chest pain, Reports lightheadedness, Denies Loss of Consciousness, Denies palpitations, Denies dyspnea and Denies orthopnea Respiratory: Denies no additional respiratory complaints and Denies dyspnea Gastrointestinal: Denies no additional gastrointestinal complaints Genitourinary: Denies no additional female genitourinary complaints Denies system reviewed and no additional complaints, except as documented Psychiatric: Denies no additional psychiatric complaints Endocrine: Denies palpitations Physical Exam Vital Signs: Last Vital Signs Temp 98.0 F 07/05/25 08:00 Pulse 59 07/05/25 08:00 Resp 20 07/05/25 08:00 BP 162/70 H 07/05/25 08:00 Pulse Ox 97 07/05/25 08:00 O2 Del Method Room Air 07/05/25 08:00 BMI result Body Mass Index 47.1 Const General: cooperative, comfortable, no acute distress, alert and awake Nutritional Appearance: obese morbidly obese Orientation/consciousness: patient oriented x3 HEENT Head: Yes normocephalic and Yes atraumatic Neck Neck: Yes trachea midline and Yes no JVD Resp Effort & Inspection: decreased respiratory effort Auscultation: clear to auscultation bilaterally Cardio Jugular venous distension: no JVD Rate: bradycardic Rhythm: abnormal rhythm irregularly irregular Heart sounds: S1 normal heart sound present, S2 normal heart sound present, no click, no gallops and no murmurs GI Auscultation: normal bowel sounds Skin General skin exam: no rashes or lesions noted Neuro General: patient oriented x3 and no focal motor deficits Extrem General: No clubbing, No cyanosis and Yes edema Objective Labs and Meds 07/05/25 06:46 07/05/25 06:46 Lab results: Laboratory Results - last 24 hr 07/03/25 07/04/25 07/05/25 17:45 08:26 06:46 WBC 8.6 RBC 3.50 L Hgb 10.5 L Hct 34.0 L MCV 97.1 MCH 30.0 MCHC 30.9 L RDW 18.9 H Plt Count 247 MPV 9.0 L Immature Gran % (Auto) 0.5 H Neut % (Auto) 79.6 H Lymph % (Auto) 7.2 L [place] % (Auto) 6.4 Eos % (Auto) 5.6 H Baso % (Auto) 0.7 Lymph # (Auto) 0.6 L [place] # (Auto) 0.6 Eos # (Auto) 0.5 H Baso # (Auto) 0.1 Abs Immat Gran (auto) 0.04 H Absolute Neuts (auto) 6.8 Absolute Nucleated RBC 0.000 Nucleated RBC % (auto) 0.0 Smear Path Review SEE NOTE Sodium 143 144 Potassium 4.3 4.6 Chloride 109 H 110 H Carbon Dioxide 23 26 Anion Gap 15 13 BUN 29 H 24 H Creatinine 1.36 1.27 Estim Creat Clear Calc 47.6 50.2 Estimated GFR 38 41 Random Glucose 113 124 H Calcium 9.5 9.0 Progress Note: A&P Assessment and plan (1) Symptomatic anemia: Status: Acute Assessment and Plan: Symptomatic anemia with improved symptoms and improved renal function with non fusion. Creatinine has improved. Blood pressure is elevated. GI consult should be pursued and I think patient would benefit from both upper and lower endoscopy to figure out the cause for her recurrent anemias which was significant as this may guide therapy for anticoagulation in the future. She is optimized to undergo GI procedures with low to intermediate risk for perioperative cardiovascular morbidity mortality. (2) Chronic a-fib: Status: Acute Assessment and Plan: Chronic atrial fibrillation slow ventricular response. Overall rate has remained controlled in the past. Would avoid any rate lowering medications in the future for now. Continue monitor by full disclosure cardiac telemetry and will follow up with outpatient Holter monitor. No indication for pacemaker therapy. (3) (HFpEF) heart failure with preserved ejection fraction: Status: Acute Assessment and Plan: Heart failure preserved ejection fraction has remained stable. Symptoms have improved with transfusion improvement in his anemia. Clinically still maintaining oxygenation and not having much shortness of breath. Restart bumetanide tomorrow. Continue monitor renal function. Can add Norvasc 2.5 mg for blood pressure control. Will follow with you Time Spent With Patient Time: Total time managing care of this patient today ____ minutes. Progress Note: Quality Stroke Does the patient have a stroke diagnosis?: No Procedures Date of Service Date of Service: 07/05/25
[2025-07-05 10:50] VITALS: BP 156/52; PULSE 50; RESP 20; TEMP 36.9; O2SAT 97
[2025-07-05 15:14] VITALS: BP 160/70; PULSE 50; RESP 18; TEMP 37.6; O2SAT 99
--- NOTE | 2025-07-05 17:05 | PM.EVENT ---
Event Note Date of Service: 07/05/25 Event Note: GI Consult-Full note dictated-History from patient and EMR Imp: Anemia with Heme + stool in this 80 yo female on Xarelto for Afib and with the regular use of Aleve at least 4 times per week. She denies any localizing GI symptoms or any signs of active GI bleeding. Iron studies were normal. She had a normal Hgb in 12/2024. She describes a negative colonoscopy many, many years ago . Diff dx: Silent ulcer disease, erosive gastritis, AVM's, polyps, GI Neoplasm. Rec: EGD/Colonoscopy 07/06. Full consent has been obtained from her for this, including risks of bleeding and perforation. F/U labs in AM, including B12 and Folate levels. I advised her to avoid all NSAIDs going forward. Check PT/INR . D/W patient in detail and she is comfortable with this plan. Thanks Time Spent With Patient Time: Total time managing care of this patient today ____ minutes.
--- NOTE | 2025-07-05 17:33 | HO.PM.IMPN ---
Subjective Subjective Date of Service: 07/05/25 Interval History: Reports feeling better Has been tolerating clear liquid diet No lightheadedness or dizziness, though has not been out of bed yet No evidence of bleeding, but pt has not been looking at her stools Denies abdominal pain No GERD like symptoms Review of Systems Review of Systems: Yes all other systems are reviewed and are negative Physical Exam Exam: Exam: General: AOx3, no acute distress Resp: CTA bilaterally CVS: S1, S2, RRR GI: +BS, NT, no distention Skin: Warm, dry Neuro: Cranial nerves II-XII grossly intact bilaterally. Motor grossly intact bilaterally Extremities: No edema Psych: Appropriate affect Vital Signs: Vital Signs: Last Vital Signs Temp 99.7 F 07/05/25 15:14 Pulse 50 07/05/25 15:14 Resp 18 07/05/25 15:14 BP 160/70 H 07/05/25 15:14 Pulse Ox 99 07/05/25 15:14 O2 Del Method Room Air 07/05/25 15:14 BMI result Body Mass Index 47.1 Objective Data Active Medications Acetaminophen (Acetaminophen 325 Mg Tablet) 650 mg PO Q6H PRN PRN Reason: Pain, Mild 1-3,fever,headache Last Admin: 07/04/25 22:28 Dose: 650 mg Documented By: YUNIER Amlodipine Besylate (Amlodipine Besylate 2.5 Mg Tablet) 2.5 mg PO DAILY [facility]; Protocol Last Admin: 07/05/25 11:29 Dose: 2.5 mg Documented By: BLANCA Atorvastatin Calcium (Atorvastatin Calcium 40 Mg Tablet) 40 mg PO DAILY [facility] Last Admin: 07/05/25 08:50 Dose: 40 mg Documented By: BLANCA Calcium Carbonate (Calcium Carbonate 750 Mg Tab.Chew) 750 mg PO Q4H PRN PRN Reason: Heartburn Clotrimazole (Clotrimazole 1 % Cream 15 Gm Tube) 1 appl TOPICAL MOWEFR@0900,2100 PRN PRN Reason: Fungal Infection Gabapentin (Gabapentin 300 Mg Capsule) 300 mg PO BID [facility] Last Admin: 07/05/25 08:50 Dose: 300 mg Documented By: BLANCA Influenza Virus Vaccine (Flu Vacc [id number](6mo Up)/Pf 0.5 Ml Syringe) 0.5 ml IM .ONCE ONE Stop: 07/06/25 09:01 Magnesium Hydroxide (Milk Of Magnesia 30 Ml Oral.Susp) 30 ml PO DAILY PRN PRN Reason: Constipation Melatonin (Melatonin 3 Mg Tablet) 6 mg PO BEDTIME PRN PRN Reason: Insomnia Nystatin (Nystatin Powder 15 Gm Bottle) 1 appl TOPICAL BID [facility]; Protocol Ondansetron HCl (Ondansetron Hcl 4 Mg/2 Ml Vial) 4 mg IVPUSH Q8H PRN PRN Reason: Nausea and Vomiting Pantoprazole Sodium (Pantoprazole Sodium 40 Mg/10 Ml Vial) 40 mg IVPUSH BID@0630,1630 [facility] Last Admin: 07/05/25 16:33 Dose: 40 mg Documented By: CHANDLER Sodium Biphosphate/Sodium Phosphate (Sodium Phosphate,[place]-Dibasic 133 Ml Enema) 133 ml MI ONCE PRN PRN Reason: Poor Colonoscopy Prep Results Sodium Chloride (0.9 % Sodium Chloride Flush 3 Ml Syringe) 3 ml IVFLUSH QSHIFT [facility] Last Admin: 07/05/25 08:51 Dose: Not Given Documented By: BLANCA Non-Admin Reason: Previously Administered Thiamine HCl (Thiamine Hcl 100 Mg Tablet) 100 mg PO DAILY [facility] Last Admin: 07/05/25 08:50 Dose: 100 mg Documented By: BLANCA Labs 07/05/25 06:46 07/05/25 06:46 Labs: Laboratory Results - last 24 hr 07/03/25 07/05/25 07/05/25 17:45 06:46 17:20 MCV 97.1 MCH 30.0 MCHC 30.9 L RDW 18.9 H Plt Count 247 MPV 9.0 L Immature Gran % (Auto) 0.5 H Neut % (Auto) 79.6 H Lymph % (Auto) 7.2 L [place] % (Auto) 6.4 Eos % (Auto) 5.6 H Baso % (Auto) 0.7 Lymph # (Auto) 0.6 L [place] # (Auto) 0.6 Eos # (Auto) 0.5 H Baso # (Auto) 0.1 Abs Immat Gran (auto) 0.04 H Absolute Neuts (auto) 6.8 Absolute Nucleated RBC 0.000 Nucleated RBC % (auto) 0.0 Smear Path Review SEE NOTE Hold Purple Top SEE NOTE Anion Gap 13 Estim Creat Clear Calc 50.2 Estimated GFR 41 Random Glucose 124 H Calcium 9.0 Assessment and Plan (1) Bradycardia: Status: Acute (2) Symptomatic anemia: Status: Acute Plan This is a 80-year-old female with history of persistent atrial fibrillation on xarelto, JANI on CPAP, HFpEF, venous insufficiency, morbid obesity/mild restrictive lung dz who was sent to the emergency department due to anemia found to have bradycardia and PEARL Symptomatic anemia Possible GI bleed. Using Aleve 4+ days per week in combination with Xarelto and concern for upper GI source No GERD-like symptoms or bleeding noted S/P 3U RBC in ED with appropriate rise in H/H Had a previous episode of postmenopausal vaginal bleeding bleeding in 04/2023 IV ppi GI consulted, plan on EGD and colonoscopy tomorrow Continue to hold xarelto Iron levels normal trend cbc bradycardia/afib with SVR likely due to BB; has been until off for years, though was recently increased stop atenolol hold xarelto for anemia/GIB as above cardiology consulted, recommend against any BB or rate lowering medications at this time Will start on amlodipine 2.5 mg No indication for pacemaker therapy Will need outpatient follow up including Holter monitor monitor on telemetry PEARL likely multifactorial due to anemia and diuretics and nsaid use Creatinine improving after transfusion: 1.65-->1.27 Hold Bumex, lisinopril Avoid nephrotoxic medication Trend BMP Elevated trop trops have remained flat elevated due to demand from anemia and decreased renal clearance due to PEARL HFpEF hold bumex for pearl; restart on 07/06 received 3U blood overnight and 1 dose of lasix follow fluid status closely JANI Continue CPAP Peripheral neuropathy continue baseline meds Morbid obesity/obesity hypoventilation BMI 48.4 Weight loss encouraged DVT prophylaxis-mechanical devices. Avoid chemoprophylaxis in the setting of acute symptomatic anemia/possible GI bleed Pt requires continued hospitalization for continued workup for likely GI bleed including an EGD and colonoscopy tomorrow. Pt will also require close monitoring of labs for any signs of bleeding recurrence as well as resolution of PEARL. Quality Stroke Does the patient have a stroke diagnosis?: No VTE Prior VTE?: No VTE Risk Level:: Medical - moderate - high VTE Device Contraindication: N/A - Device Ordered VTE Drug Contraindication: Treatment Not Indicated
[2025-07-05 17:42] LABS: INTERNATIONAL NORM RATIO 1.2 (0.9-1.1); Prothrombin Time 14.1 SEC (10.9-12.4)
[2025-07-05 19:42] VITALS: BP 128/67; PULSE 70; RESP 16; TEMP 37.2; O2SAT 98
[2025-07-05] MEDS: PEG 3350/Na Sulf,Bicarb,Cl/KCL 4,000 ML SOLN.RECON 4000 ML PO (19:48)
[2025-07-05] MEDS: 0.9 % Sodium Chloride Flush 3 ML SYRINGE IVFLUSH (19:52)
[2025-07-05 23:29] VITALS: BP 160/70; PULSE 68; RESP 16; TEMP 36.6; O2SAT 97
[2025-07-06] VITALS (11 sets, daily range): BP systolic 109–159; BP diastolic 54–78; PULSE 51–71; RESP 12–22; TEMP 36.1–36.9; O2SAT 95–99
--- NOTE | 2025-07-06 03:09 | CONS_ITS ---
DATE OF SERVICE: 07/05/2025 REASON FOR CONSULTATION: Anemia and heme-positive stool. HISTORY OF PRESENT ILLNESS: The patient is a 80-year-old female, I met in 2023 when she was admitted with some abdominal pain and gallstones. At that time, her pain was not felt to be related to gallstone disease and she ultimately resolved that without needing any surgery. At that time, she had a normal hemoglobin. She has been on Xarelto for chronic atrial fibrillation and was admitted here with significant new anemia as compared to as recently as December, at which time she had a normal hemoglobin. On admission here, she had a hemoglobin of 6.8 with a normal MCV. She did have heme-positive stool. The patient denies any particular localizing GI complaints. She specifically denies any heartburn, dysphagia, anorexia, nausea, nor vomiting. Of note, her medication list does include omeprazole, however. The patient reports that her bowel movements have been fairly regular and she has not noticed any hematochezia or melena, although she does not check. She denies any particular abdominal pain, jaundice, nor unintentional weight loss. She does use Aleve for arthritis and other pains at least several times per week. She does not use any other NSAIDs or aspirin. She denies tobacco or alcohol use. She came to the ER with her significant anemia and symptomatic including dyspnea on exertion and lightheadedness. Since admission here, she has received a total of 3 units of blood and is definitely feeling better. She has been tolerating a liquid diet. She has had no signs of GI bleeding here in the hospital. MEDICATIONS: At home included Xarelto, omeprazole, atenolol, atorvastatin, bumetanide, iron, gabapentin, lisinopril, and vitamins. Her medications here in the hospital include IV pantoprazole, acetaminophen, amlodipine, atorvastatin, gabapentin, melatonin, and thiamine. PAST MEDICAL HISTORY: Atrial fibrillation. Hypertension. Gallstones. Hip surgery on the right side for fracture. She is followed by Dr. Garcia for her atrial fibrillation. Sleep apnea. Reflux. Distant history of a gastric ulcer. Hyperlipidemia. Peripheral neuropathy. CHF. Hypertension. Obesity. Edema. She denies history of IA, stroke, lung disease, or diabetes. SOCIAL HISTORY: She does not smoke, drink. REVIEW OF SYSTEMS: CONSTITUTIONAL: She has been feeling weak and lightheaded prior to this admission. CARDIAC: No chest pain. PULMONARY: No coughing or hemoptysis. GI: As above. URINARY: No dysuria. No hematuria. PHYSICAL EXAMINATION: GENERAL: The patient is a pleasant, alert female, in no distress. SKIN: Warm and dry. HEENT: Anicteric sclerae. Moist mucous membranes. NECK: Supple without lymphadenopathy. CARDIAC: Normal S1, S2. ABDOMEN: Soft, nondistended, nontender without mass. LABORATORY DATA: As above; hemoglobin 6.8 on admission and 10.5 today after her 3 units of blood transfusion. Platelet count 247,000. PT 21.5 with INR 1.8 in April. A new PT with INR is pending. Normal electrolytes. BUN 24, creatinine 1.3. LFTs are normal. Iron was 191 with a TIBC of 339 and iron saturation of 56%. She did have Hemoccult-positive stool. Her chest x-ray was negative for any acute findings. IMPRESSION: The patient is an elderly female, on chronic Xarelto for atrial fibrillation, but also using Aleve for arthritis pains at least 3 or 4 times per week. She presents now with significant anemia compared to her baseline back in December, at which time her blood count was normal. She does not offer any particular gastrointestinal complaints at this time, nor has she had any signs of bleeding aside from the heme-positive stool. The differential diagnosis would include that of silent ulcer disease, erosive gastritis, esophagitis, colon polyps, upper or lower gastrointestinal neoplasm and/or upper or lower gastrointestinal angiodysplasia. At this point, she does not show any signs of active bleeding. Her abdominal exam is benign. She also does not have any specific localizing gastrointestinal complaints. At this point, given the severity of her anemia upon presentation and her need to potentially continue on her blood thinners for the atrial fibrillation, I would agree with Cardiology that she should undergo both upper endoscopy and colonoscopy for further evaluation. Full consent has been obtained from her for this, including risks of bleeding and perforation. The procedure will be done with monitored anesthesia care. I did review with her that hopefully she will be able to tolerate the prep due to her presentation with anemia, although now her hemoglobin is much improved. She has been off her Xarelto for at least 48 hours by her history. She does have iron on her medication list, but I am not sure what point she stopped taking it or how compliant she was with it. I would agree with Cardiology that it would be important to have her undergo the upper endoscopy and colonoscopy sooner rather than later, such that the Cardiology team will know whether or not she can go back on her blood thinners for the atrial fibrillation. I have ordered a repeat PT with INR to compare to the one back in April to be sure she does not need any vitamin K. I did advise her that she needs to stay off all NSAIDs long-term going forward due to her use of the blood thinner. I have ordered followup laboratories in the morning including B12 and folate levels, given her normal iron studies. Of note, I doubt she has celiac disease in regard to the anemia, given her normal iron studies. However I would plan to obtain duodenal biopsies to rule out celiac disease and malabsorption as a contributing factor to her anemia nonetheless. This has all been discussed in detail with the patient and she is comfortable with the plan. Thank you for the consultation. MD PETER August/MARCI / [id number] LEATHA
[2025-07-06 06:45] LABS: MANUAL DIFF FLAG NO
[2025-07-06 06:52] LABS: Hematocrit 34.8 % (37.0-47.0); Hemoglobin 10.7 g/dl (12.0-16.0); Imm Gran Abs Auto 0.02 X10*3/uL (0.00-0.03); Imm Gran Pct Auto 0.3 % (0.0-0.4); Lymphocytes Absolute Auto 0.8 X10*3/uL (1.2-4.9); Mean Corpuscular HGB Conc 30.7 g/dl (31.0-35.0); Mean Corpuscular Hemoglobin 29.9 pg (27.0-33.0); Mean Corpuscular Volume 97.2 fL (80.0-98.0); NRBC Abs Auto 0.000 X10*3/uL (0.0-0.012); NRBC Pct Auto 0.0 /100WBC (0.0-0.2); Platelet Count 229 X10*3/uL (160-400); Red Blood Count 3.58 X10*6/uL (4.20-5.50); White Blood Count 6.1 X10*3/uL (4.8-10.8)
[2025-07-06 07:03] LABS: INTERNATIONAL NORM RATIO 1.2 (0.9-1.1); Prothrombin Time 13.6 SEC (10.9-12.4)
[2025-07-06 07:24] LABS: Blood Urea Nitrogen 15 mg/dL (9-16); Calcium 8.8 mg/dL (8.4-10.2); Creatinine Clr Calc Pharmacy 63.1; Estimated Glomerular Filt Rate 53
[2025-07-06 07:39] LABS: Anion Gap 12 (12-20); Carbon Dioxide 26 mmol/L (22-29); Chloride 108 mmol/L (96-108); Potassium 3.4 mmol/L (3.3-5.1); Sodium 143 mmol/L (135-145)
[2025-07-06 07:42] LABS: Folate 3.6 ng/mL (> or = 4.0); Vitamin B12 517 pg/mL (200-900)
[2025-07-06] MEDS: Clotrimazole 1 % Cream 15 GM TUBE 1 APPL TOPICAL (08:21)
--- NOTE | 2025-07-06 08:35 | HO.ANESPROP2 ---
Documented by User: Matilde Cantu NP 07/06/25 12:49 HPI - Anesthesia Eval Consult details Narrative: 80 yr old female for EGD/colonoscopy BMI: 47 No CP; chronic intermittent SOB with minimal activity at baseline. HFpEF heart failure with preserved ejection fraction: pro BNP >3000 on admission, sat 98-99% on ra, see echo from [address] Garcia saw pt 07/05/25, stated low to intermediate risk for perioperative morbidity mortality. He does not feel she needs pacemaker at this time. Chronic afib/aflutter: not currently on rate control due to low HRs, 40s-50s Chronic venous insufficiency: improved since admission per pt JANI: on CPAP PMFSH Active Problems Active Problems: All Active Problems Symptomatic anemia (Acute) CHF exacerbation (Acute) Bradycardia (Acute) Chronic atrial flutter (Acute) Chronic venous hypertension w ulceration (Acute) Chronic venous insufficiency (Acute) Dyspnea on exertion (Acute) Varicose veins of right lower extremity with inflammation (Acute) Morbid obesity (Acute) Varicose veins of left lower extremity with inflammation (Acute) Chronic a-fib (Acute) (HFpEF) heart failure with preserved ejection fraction (Acute) Pancreatic cyst (Acute) Cholelithiasis (Acute) Postmenopausal bleeding (Acute) Anemia (Acute) JANI (obstructive sleep apnea) (Acute) HTN (hypertension) (Acute) Past Medical History Medical History Chronic venous hypertension w ulceration Chronic venous insufficiency Dyspnea on exertion Morbid obesity (HFpEF) heart failure with preserved ejection fraction Chronic a-fib Atrial fibrillation with slow ventricular response Cholelithiasis Paroxysmal atrial fibrillation JANI (obstructive sleep apnea) HTN (hypertension) Family History Family History Father CVD (cardiovascular disease) Mother CHF (congestive heart failure) Surgical History Surgical History History of cardioversion Hx of cardiac cath History of hip surgery Social History Social History Household Members: None Household Members Other:: brother Housing: House Do you presently have visiting nurse or other home services: No Alcohol intake: former Patient Tobacco Use Status: Former Tobacco user Tobacco use type: Cigarette Years Smoked: 12 e-Cigarette/Vaping Use: Never Used Second Hand Smoke Exposure: No Advance Directives Date on File: 04/28/23 service: No Current occupational status: retired Cognitive needs: Yes (walker) Hearing needs: No Vision needs: Yes (rx glasses) Meds Allergies Allergy/AdvReac Type Severity Reaction Status Date / Time amoxicillin (AMOXICILLIN) Allergy Unknown UNKNOWN Verified 07/03/25 17:10 flecainide (FLECAINIDE) Allergy Unknown SEVERE Verified 07/03/25 17:10 CHEST PAIN Sulfa (Sulfonamide Allergy Unknown UNKNOWN Verified 07/03/25 17:10 Antibiotics) (SULFA (SULFONAMIDE ANTIBIOTICS)) Active Medications: Current Medications Acetaminophen (Acetaminophen 325 Mg Tablet) 650 mg PO Q6H PRN PRN Reason: Pain, Mild 1-3,fever,headache Last Admin: 07/06/25 08:21 Dose: 650 mg Amlodipine Besylate (Amlodipine Besylate 2.5 Mg Tablet) 2.5 mg PO DAILY [facility]; Protocol Last Admin: 07/06/25 08:22 Dose: 2.5 mg Atorvastatin Calcium (Atorvastatin Calcium 40 Mg Tablet) 40 mg PO DAILY [facility] Last Admin: 07/06/25 08:22 Dose: 40 mg Calcium Carbonate (Calcium Carbonate 750 Mg Tab.Chew) 750 mg PO Q4H PRN PRN Reason: Heartburn Clotrimazole (Clotrimazole 1 % Cream 15 Gm Tube) 1 appl TOPICAL MOWEFR@0900,2100 PRN PRN Reason: Fungal Infection Last Admin: 07/06/25 08:21 Dose: 1 appl Gabapentin (Gabapentin 300 Mg Capsule) 300 mg PO BID [facility] Last Admin: 07/06/25 08:21 Dose: 300 mg Influenza Virus Vaccine (Flu Vacc [id number](6mo Up)/Pf 0.5 Ml Syringe) 0.5 ml IM .ONCE ONE Stop: 07/06/25 09:01 Magnesium Hydroxide (Milk Of Magnesia 30 Ml Oral.Susp) 30 ml PO DAILY PRN PRN Reason: Constipation Melatonin (Melatonin 3 Mg Tablet) 6 mg PO BEDTIME PRN PRN Reason: Insomnia Nystatin (Nystatin Powder 15 Gm Bottle) 1 appl TOPICAL BID [facility]; Protocol Last Admin: 07/06/25 08:24 Dose: Not Given Ondansetron HCl (Ondansetron Hcl 4 Mg/2 Ml Vial) 4 mg IVPUSH Q8H PRN PRN Reason: Nausea and Vomiting Pantoprazole Sodium (Pantoprazole Sodium 40 Mg/10 Ml Vial) 40 mg IVPUSH BID@0630,1630 [facility] Last Admin: 07/06/25 06:28 Dose: 40 mg Sodium Biphosphate/Sodium Phosphate (Sodium Phosphate,Elbert-Dibasic 133 Ml Enema) 133 ml AL ONCE PRN PRN Reason: Poor Colonoscopy Prep Results Sodium Chloride (0.9 % Sodium Chloride Flush 3 Ml Syringe) 3 ml IVFLUSH QSHIFT [facility] Last Admin: 07/05/25 19:52 Dose: 3 ml Thiamine HCl (Thiamine Hcl 100 Mg Tablet) 100 mg PO DAILY [facility] Last Admin: 07/06/25 08:23 Dose: 100 mg Home Medications ?Medication ?Instructions ?Recorded ?Confirmed ?Last Taken ?Type omeprazole 40 mg capsule,delayed 40 mg PO DAILY@1630 02/19/22 07/04/25 07/03/25 History release acetaminophen 650 mg 650 mg PO DAILY PRN Pain 04/27/23 07/04/25 05/23/24 08:00 History tablet,extended release (Tylenol 8 Hour) econazole nitrate 1 % topical cream 1 appl topical MOWEFR@0900,2100 07/04/25 07/04/25 Unknown History PRN Fungal Infection ferrous sulfate 325 mg (65 mg 325 mg PO DAILY 07/04/25 07/04/25 07/03/25 History iron) tablet rivaroxaban 20 mg tablet (Xarelto) 20 mg PO DAILY@1700 07/04/25 07/04/25 07/03/25 History Exam Height,Weight and Vital Signs: Height 5 ft 6 in Weight 132.3 kg Last Vital Signs Temp 98.1 F 07/06/25 08:00 Pulse 51 07/06/25 08:00 Resp 22 H 07/06/25 08:00 BP 148/78 H 07/06/25 08:22 Pulse Ox 99 07/06/25 08:00 O2 Del Method Room Air 07/06/25 08:00 Pertinent Lab Results Pertinent Lab Results: Laboratory Tests 07/03/25 07/04/25 07/05/25 17:45 08:26 06:46 WBC 7.0 8.7 8.6 RBC 2.45 L 3.57 L D 3.50 L Hgb 7.0 L* 10.8 L D 10.5 L Hct 23.1 L 34.0 L D 34.0 L MCV 94.3 95.2 97.1 MCH 28.6 30.3 30.0 MCHC 30.3 L 31.8 30.9 L RDW 19.9 H 18.3 H 18.9 H Plt Count 244 245 247 MPV 8.5 L 8.3 L 9.0 L Immature Gran % (Auto) 0.4 0.5 H 0.5 H Neut % (Auto) 65.8 81.1 H 79.6 H Lymph % (Auto) 16.5 L 8.6 L 7.2 L Elbert % (Auto) 7.5 6.0 6.4 Eos % (Auto) 9.1 H 2.9 5.6 H Baso % (Auto) 0.7 0.9 0.7 Lymph # (Auto) 1.2 0.8 L 0.6 L Elbert # (Auto) 0.5 0.5 0.6 Eos # (Auto) 0.6 H 0.3 0.5 H Baso # (Auto) 0.1 0.1 0.1 Abs Immat Gran (auto) 0.03 0.04 H 0.04 H Absolute Neuts (auto) 4.6 7.0 6.8 Absolute Nucleated RBC 0.000 0.000 0.000 Nucleated RBC % (auto) 0.0 0.0 0.0 Smear Path Review SEE NOTE Hold Purple Top PT INR Sodium 142 143 144 Potassium 4.2 4.3 4.6 Chloride 109 H 109 H 110 H Carbon Dioxide 25 23 26 Anion Gap 12 15 13 BUN 35 H 29 H 24 H Creatinine 1.61 H 1.36 1.27 Estim Creat Clear Calc 40.2 47.6 50.2 Estimated GFR 31 38 41 Random Glucose 104 113 124 H Fasting Glucose Calcium 9.1 9.5 9.0 Iron 191 H TIBC 339 % Saturation 56 H Unsat Iron Binding 148 Ferritin 27 Total Bilirubin 0.4 Direct Bilirubin 0.2 AST 22 ALT < 6 Alkaline Phosphatase 77 Troponin I High Sens 25.5 H D 39.1 H D NT-Pro-B Natriuret Pep 2111.4 H 3463.8 H Total Protein 6.6 Albumin 3.6 Vitamin B12 Folate Stool Occult Blood POSITIVE Blood Type AB Positive Antibody Screen NEGATIVE Crossmatch See Detail 07/05/25 07/06/25 17:20 06:41 WBC 6.1 RBC 3.58 L Hgb 10.7 L Hct 34.8 L MCV 97.2 MCH 29.9 MCHC 30.7 L RDW 18.9 H Plt Count 229 MPV 8.6 L Immature Gran % (Auto) 0.3 Neut % (Auto) 63.1 Lymph % (Auto) 13.7 L Elbert % (Auto) 11.1 H Eos % (Auto) 10.7 H Baso % (Auto) 1.1 Lymph # (Auto) 0.8 L Elbert # (Auto) 0.7 Eos # (Auto) 0.7 H Baso # (Auto) 0.1 Abs Immat Gran (auto) 0.02 Absolute Neuts (auto) 3.9 Absolute Nucleated RBC 0.000 Nucleated RBC % (auto) 0.0 Smear Path Review Hold Purple Top SEE NOTE PT 14.1 H 13.6 H INR 1.2 H 1.2 H Sodium 143 Potassium 3.4 D Chloride 108 Carbon Dioxide 26 Anion Gap 12 BUN 15 Creatinine 1.01 Estim Creat Clear Calc 63.1 Estimated GFR 53 Random Glucose Fasting Glucose 109 H Calcium 8.8 Iron TIBC % Saturation Unsat Iron Binding Ferritin Total Bilirubin Direct Bilirubin AST ALT Alkaline Phosphatase Troponin I High Sens NT-Pro-B Natriuret Pep Total Protein Albumin Vitamin B12 517 Folate 3.6 L Stool Occult Blood Blood Type Antibody Screen Crossmatch Narrative Narrative: ECHO 03/2024 Conclusions: - 1. Technically limited study despite use of contrast agent 2. Normal LV ejection fraction of 65-70% 3. At least moderate left atrial enlargement 4. Severe mitral annular calcification as well as calcific aortic valve changes noted with no significant valvular Doppler abnormalities 5. No significant elevation of right ventricular systolic pressure EKG 07/04/25 Vent. Rate : 50 BPM Atrial Rate : * BPM P-R Int : * ms QRS Dur : 68 ms QT Int : 458 ms P-R-T Axes : * -38 39 degrees QTcB Int : 417 ms Atrial flutter with slow ventricular response Left axis deviation Inferior infarct , age undetermined Abnormal ECG When compared with ECG of 03-Jul-2025 22:51, No significant changes seen Airway Heart: RRR Lungs: CTAB Other: b/l LE edema, nonpitting Documented by User: Iesha Perez MD 07/06/25 13:57 PMFSH Past Medical History Medical History Chronic venous hypertension w ulceration Chronic venous insufficiency Dyspnea on exertion Morbid obesity (HFpEF) heart failure with preserved ejection fraction Chronic a-fib Atrial fibrillation with slow ventricular response Cholelithiasis Paroxysmal atrial fibrillation JANI (obstructive sleep apnea) HTN (hypertension) Family History Family History Father CVD (cardiovascular disease) Mother CHF (congestive heart failure) Family history of problems with anesthesia: No Surgical History Surgical History History of cardioversion Hx of cardiac cath History of hip surgery History of Problems with Anesthesia: No Social History Social History Household Members: None Household Members Other:: brother Housing: House Do you presently have visiting nurse or other home services: No Alcohol intake: former Patient Tobacco Use Status: Former Tobacco user Tobacco use type: Cigarette Years Smoked: 12 e-Cigarette/Vaping Use: Never Used Second Hand Smoke Exposure: No Advance Directives Date on File: 04/28/23 service: No Current occupational status: retired Cognitive needs: Yes (walker) Hearing needs: No Vision needs: Yes (rx glasses) Meds Allergies Allergy/AdvReac Type Severity Reaction Status Date / Time amoxicillin (AMOXICILLIN) Allergy Unknown UNKNOWN Verified 07/03/25 17:10 flecainide (FLECAINIDE) Allergy Unknown SEVERE Verified 07/03/25 17:10 CHEST PAIN Sulfa (Sulfonamide Allergy Unknown UNKNOWN Verified 07/03/25 17:10 Antibiotics) (SULFA (SULFONAMIDE ANTIBIOTICS)) Home Medications ?Medication ?Instructions ?Recorded ?Confirmed ?Last Taken ?Type omeprazole 40 mg capsule,delayed 40 mg PO DAILY@1630 02/19/22 07/04/25 07/03/25 History release acetaminophen 650 mg 650 mg PO DAILY PRN Pain 04/27/23 07/04/25 05/23/24 08:00 History tablet,extended release (Tylenol 8 Hour) econazole nitrate 1 % topical cream 1 appl topical MOWEFR@0900,2100 07/04/25 07/04/25 Unknown History PRN Fungal Infection ferrous sulfate 325 mg (65 mg 325 mg PO DAILY 07/04/25 07/04/25 07/03/25 History iron) tablet rivaroxaban 20 mg tablet (Xarelto) 20 mg PO DAILY@1700 07/04/25 07/04/25 07/03/25 History Exam Airway Mallampati Class: III TM Dist: >3cm Neck ROM: Full Assessment and Plan Assessment Anesthesia Assessment: Anesthesia Plan Discussed and Chart Reviewed Final Anesthetic Review Family History of Problems with Anesthesia: No History of Problems with Anesthesia: No NPO: Yes ASA Class: III Final Preanesthetic Review: No Changes in Pt Med Stat, Meds/Allgs Chart Reviewed and Consent Obtained/Reviewed Patient Risk: Intermediate Procedure Risk: Intermediate Anesthetic Plan Anesthetic Plan: MAC: Disposition: Standard PACU
--- NOTE | 2025-07-06 09:54 | PC.RT ---
pt says she does wear her cpap at home but refuses to wear it here. She would like to be sat up at nighttime instead. will dc cpap per policy
--- NOTE | 2025-07-06 11:31 | P.CONCA_ITS ---
History of Present Illness History of Present Illness Date of Service: 07/06/25 Consult reason: atrial fibrillation Chief complaint: symptomatic anemia, emilie Narrative: Patient doing better. Heart rate has improved. Renal function has improved. Hematocrit has remained stable. Plan to undergo GI procedures today. Blood pressure is slightly elevated. Review of Systems 2 Constitutional: Constitutional: Reports no additional constitutional complaints [facility] Past Medical History Medical History Chronic venous hypertension w ulceration Chronic venous insufficiency Dyspnea on exertion Morbid obesity (HFpEF) heart failure with preserved ejection fraction Chronic a-fib Atrial fibrillation with slow ventricular response Cholelithiasis Paroxysmal atrial fibrillation JANI (obstructive sleep apnea) HTN (hypertension) Family History Family History Father CVD (cardiovascular disease) Mother CHF (congestive heart failure) Surgical History Surgical History History of cardioversion Hx of cardiac cath History of hip surgery Social History Social History Household Members: None Household Members Other:: brother Housing: House Do you presently have visiting nurse or other home services: No Alcohol intake: former Patient Tobacco Use Status: Former Tobacco user Tobacco use type: Cigarette Years Smoked: 12 e-Cigarette/Vaping Use: Never Used Second Hand Smoke Exposure: No Advance Directives Date on File: 04/28/23 service: No Current occupational status: retired Cognitive needs: Yes (walker) Hearing needs: No Vision needs: Yes (rx glasses) Meds Allergies Allergy/AdvReac Type Severity Reaction Status Date / Time amoxicillin (AMOXICILLIN) Allergy Unknown UNKNOWN Verified 07/03/25 17:10 flecainide (FLECAINIDE) Allergy Unknown SEVERE Verified 07/03/25 17:10 CHEST PAIN Sulfa (Sulfonamide Allergy Unknown UNKNOWN Verified 07/03/25 17:10 Antibiotics) (SULFA (SULFONAMIDE ANTIBIOTICS)) Active Medications: Current Medications Acetaminophen (Acetaminophen 325 Mg Tablet) 650 mg PO Q6H PRN PRN Reason: Pain, Mild 1-3,fever,headache Last Admin: 07/06/25 08:21 Dose: 650 mg Amlodipine Besylate (Amlodipine Besylate 2.5 Mg Tablet) 2.5 mg PO DAILY [facility]; Protocol Last Admin: 07/06/25 08:22 Dose: 2.5 mg Atorvastatin Calcium (Atorvastatin Calcium 40 Mg Tablet) 40 mg PO DAILY [facility] Last Admin: 07/06/25 08:22 Dose: 40 mg Bumetanide (Bumetanide 1 Mg Tablet) 2 mg PO DAILY [facility]; Protocol Calcium Carbonate (Calcium Carbonate 750 Mg Tab.Chew) 750 mg PO Q4H PRN PRN Reason: Heartburn Clotrimazole (Clotrimazole 1 % Cream 15 Gm Tube) 1 appl TOPICAL MOWEFR@0900,2100 PRN PRN Reason: Fungal Infection Last Admin: 07/06/25 08:21 Dose: 1 appl Gabapentin (Gabapentin 300 Mg Capsule) 300 mg PO BID [facility] Last Admin: 07/06/25 08:21 Dose: 300 mg Magnesium Hydroxide (Milk Of Magnesia 30 Ml Oral.Susp) 30 ml PO DAILY PRN PRN Reason: Constipation Melatonin (Melatonin 3 Mg Tablet) 6 mg PO BEDTIME PRN PRN Reason: Insomnia Nystatin (Nystatin Powder 15 Gm Bottle) 1 appl TOPICAL BID [facility]; Protocol Last Admin: 07/06/25 08:24 Dose: Not Given Ondansetron HCl (Ondansetron Hcl 4 Mg/2 Ml Vial) 4 mg IVPUSH Q8H PRN PRN Reason: Nausea and Vomiting Pantoprazole Sodium (Pantoprazole Sodium 40 Mg/10 Ml Vial) 40 mg IVPUSH BID@0630,1630 [facility] Last Admin: 07/06/25 06:28 Dose: 40 mg Sodium Biphosphate/Sodium Phosphate (Sodium Phosphate,[place]-Dibasic 133 Ml Enema) 133 ml SC ONCE PRN PRN Reason: Poor Colonoscopy Prep Results Sodium Chloride (0.9 % Sodium Chloride Flush 3 Ml Syringe) 3 ml IVFLUSH QSHIFT [facility] Last Admin: 07/05/25 19:52 Dose: 3 ml Thiamine HCl (Thiamine Hcl 100 Mg Tablet) 100 mg PO DAILY [facility] Last Admin: 07/06/25 08:23 Dose: 100 mg Home Medications ?Medication ?Instructions ?Recorded ?Confirmed ?Last Taken ?Type omeprazole 40 mg capsule,delayed 40 mg PO DAILY@1630 0 02/19/22 07/04/25 07/03/25 History release acetaminophen 650 mg 650 mg PO DAILY PRN Pain 10/1907/04/25 05/23/24 08:00 History tablet,extended release (Tylenol 8 Hour) econazole nitrate 1 % topical cream 1 appl topical MOW EFR@0900,2100 07/04/25 07/04/25 Unknown History PRN Fungal Infection ferrous sulfate 325 mg (65 mg 325 mg PO DAILY 07/04/25 07/04/25 07/03/25 History iron) tablet rivaroxaban 20 mg tablet (Xarelto) 20 mg PO DAILY@1700 07/04/25 07/04/25 07/03/25 History Physical Exam 2 Vital Signs: Vital Signs: Last Vital Signs Temp 98.1 F 07/06/25 08:00 Pulse 51 07/06/25 08:00 Resp 22 H 07/06/25 08:00 BP 148/78 H 07/06/25 08:22 Pulse Ox 99 07/06/25 08:00 O2 Del Method Room Air 07/06/25 08:00 BMI result Body Mass Index 47.1 Const: General: cooperative, comfortable, no acute distress, alert and awake Nutritional Appearance: obese morbidly obese Orientation/consciousness: p atient oriented x3 HEENT: Head: Yes normocephalic and Yes atraumatic Neck: Neck: Yes trachea midline and Yes no JVD Resp: Effort & Inspection: decreased respiratory effort Auscultation: clear to auscultation bilaterally Cardio: Jugular venous distension: no JVD Rate: bradycardic Rhythm: a bnormal rhythm irregularly irregular Heart sounds: S1 normal heart sound present, S2 normal heart sound present, no click, no gallops and no murmurs GI: Auscultation: normal bowel sounds Skin: General skin exam: no rashes or lesions noted Neuro: General: patient oriented x3 and no focal motor deficits Extrem: General: No clubbing, No cyanosis and Yes edema Objective Labs and Meds 07/06/25 06:41 07/06/25 06:41 Lab results: Laboratory Results - last 24 hr 07/05/25 07/06/25 17:20 06:41 WBC 6.1 RBC 3.58 L Hgb 10.7 L Hct 34.8 L MCV 97.2 MCH 29.9 MCHC 30.7 L RDW 18.9 H Plt Count 229 MPV 8.6 L Immature Gran % (Auto) 0.3 Neut % (Auto) 63.1 Lymph % (Auto) 13.7 L [place] % (Auto) 11.1 H Eos % (Auto) 10.7 H Baso % (Auto) 1.1 Lymph # (Auto) 0.8 L [place] # (Auto) 0.7 Eos # (Auto) 0.7 H Baso # (Auto) 0.1 Abs Immat Gran (auto) 0.02 Absolute Neuts (auto) 3.9 Absolute Nucleated RBC 0.000 Nucleated RBC % (auto) 0.0 Hold Purple Top SEE NOTE PT 14.1 H 13.6 H INR 1.2 H 1.2 H Sodium 143 Potassium 3.4 D Chloride 108 Carbon Dioxide 26 Anion Gap 12 BUN 15 Creatinine 1.01 Estim Creat Clear Calc 63.1 Estimated GFR 53 Fasting Glucose 109 H Calcium 8.8 Vitamin B12 517 Folate 3.6 L Assessment and Plan (1) Symptomatic anemia: Status: Acute Symptomatic anemia which has remained stable. Plan to undergo GI procedure 2. Further initiation of Xarelto based on the finding of the GI procedure. If can be restarted should be restarted as soon as possible. Will also initiate Watchman device consult as outpatient. Agree with amlodipine 2.5 mg. Hold off on lisinopril therapy as well as atenolol therapy. (2) (HFpEF) heart failure with preserved ejection fraction: Status: Acute Heart failure with preserved ejection fraction clinically euvolemic well compensated. Bumetanide has been restarted which is appropriate. Monitor for signs and symptoms of heart failure. No change in therapy otherwise. (3) Chronic a-fib: Status: Acute Chronic atrial fibrillation, currently rate controlled. Discontinue atenolol therapy. Resume Xarelto as per 1. Will sign of the case. Thank you for allowing me to partake in her care Procedures Date of Service Date of Service: 07/06/25
--- NOTE | 2025-07-06 11:56 | HO.SKINPHOTO ---
Location: Category: Stage: Length: Width: Depth: cm Location: Category: Stage: Length: Width: Depth: cm Location: Category: Stage: Length: Width: Depth: cm Location: Category: Stage: Length: Width: Depth: cm Location: Category: Stage: Length: Width: Depth: cm Location: Category: Stage: Length: Width: Depth: cm
[2025-07-06] MEDS: 0.9 % Sodium Chloride Flush 3 ML SYRINGE IVFLUSH ×3 (12:05→20:42)
--- NOTE | 2025-07-06 14:11 | MHC.SHP ---
Pre-Procedural Eval Section A - 24 Hr Update-Section A only Date of Service: 07/06/25 The patient is an INPATIENT: Yes Changes since office visit: No Cold of Flu in the past 2 weeks, No New Medical Problems, No Changes in Medication and No Patient answered all questions The patient has been examined within 24 hours of the surgical procedure. The History & Physical has been completed within 30 days and I have reviewed it.: Yes Section B - Complete if H&P > 30 days Chief Complaint: symptomatic anemia, emilie Allergies: Allergies Allergy/AdvReac Type Severity Reaction Status Date / Time amoxicillin (AMOXICILLIN) Allergy Unknown UNKNOWN Verified 07/03/25 17:10 flecainide (FLECAINIDE) Allergy Unknown SEVERE Verified 07/03/25 17:10 CHEST PAIN Sulfa (Sulfonamide Allergy Unknown UNKNOWN Verified 07/03/25 17:10 Antibiotics) (SULFA (SULFONAMIDE ANTIBIOTICS)) Plan I have reviewed the history and physical and performed a pertinent physical examination on my patient. No changes have occurred unless specified. Time Spent With Patient Time: Total time managing care of this patient today ____ minutes.
--- NOTE | 2025-07-06 14:45 | HO.WOUND ---
Wound Consult: Initial 80 yr old [place] [facility] [place] See progress notes and H&P for detailed history. Wound consult placed for buttocks. Patient agreeable to assessment and photo documentation. Patient able to stand for assessment, patient with deep gluteal fold, with evidence of moisture trapping. buttocks/gluteal fold Etiology: MASD/moisture fissure Wound Bed: mirrored moist pink intact skin with linear open wound to the base of gluteal fold Drainage / Odor: none Edges: ? opeb Jaki wound: ? No Induration, Fluctuance or Warmth noted Pain: none Goals of Treatment: ? moisture barrier with triad paste left great toe, small scab left open to air left lateral leg: patient reports previous blister now healed with hyperpigmentation - open to air Recommendations: 1. Turn and Reposition every 2 hours and as needed for patient comfort. Use pillows or wedges to support off loading positions. 2. Off Load all bony prominences with use of pillows and heel boots if needed. Apply Preventative foams where needed. 3. Monitor for incontinence and moisture control, use barrier creams when needed for prevention and treatment. 4. Provide adequate and supplemental nutrition. 5. Order or Continue low air loss mattress. 6. When applicable maintain blood glucose levels per Providers order. Buttocks/gluteal fold: Off Load Pressure with Q2 hr turns and use of pillows - Cleanse with PH balance spray or wipes, pat dry. ?Apply thin layer of Triad to wound bed - only pat and dab no scrub and rub when soiling occurs. Reapply thin layer PRN after each episode of incontinence. Re-consult wound care Nurse for wound deterioration or wound changes.
--- NOTE | 2025-07-06 15:01 | PM.EVENT ---
Event Note Date of Service: 07/06/25 Event Note: EGD/Colonoscopy note dictated no bleeding bx's taken from antrum and duodenum egd and colon are basically normal. Ok to restart AC, iron and omeprazole if recurrent anemia, consider capsule endoscopy and hematology evaluation. Time Spent With Patient Time: Total time managing care of this patient today ____ minutes.
--- NOTE | 2025-07-06 15:44 | MHC.CM.PN ---
EMR REVIEWED AND PER MD ROUNDS, PT IS NOT MEDICALLY CLEARED FOR DISCHARGE DUE TO EGD/COLONOSCOPY TODAY, ANTICIPATING PT WILL DISCHARGE HOME TOMORROW.
--- NOTE | 2025-07-06 15:51 | HO.PM.IMPN ---
Subjective Subjective Date of Service: 07/06/25 Interval History: Tolerated bowel prep No episodes of bleeding Denies nausea, vomiting, abdominal pain No GERD like symptoms Denies lightheadedness or dizziness H&H stable overnight; creatinine improved and now normalized Plan is for both EGD and colonoscopy later in the day Review of Systems Review of Systems: Yes all other systems are reviewed and are negative Physical Exam Exam: Exam: General: AOx3, no acute distress Resp: CTA bilaterally CVS: Irregularly irregular rhythm GI: +BS, NT, no distention Skin: Warm, dry Neuro: Cranial nerves II-XII grossly intact bilaterally. Motor grossly intact bilaterally Extremities: No edema Psych: Appropriate affect Vital Signs: Vital Signs: Last Vital Signs Temp 98.0 F 07/06/25 15:16 Pulse 54 07/06/25 15:16 Resp 16 07/06/25 15:16 BP 145/58 H 07/06/25 15:16 Pulse Ox 97 07/06/25 15:16 O2 Del Method Room Air 07/06/25 15:16 BMI result Body Mass Index 47.1 Objective Data Active Medications Acetaminophen (Acetaminophen 325 Mg Tablet) 650 mg PO Q6H PRN PRN Reason: Pain, Mild 1-3,fever,headache Last Admin: 07/06/25 08:21 Dose: 650 mg Documented By: JOSUE Amlodipine Besylate (Amlodipine Besylate 2.5 Mg Tablet) 2.5 mg PO DAILY [facility]; Protocol Last Admin: 07/06/25 08:22 Dose: 2.5 mg Documented By: RUBÉNDIZACHARIAH Atorvastatin Calcium (Atorvastatin Calcium 40 Mg Tablet) 40 mg PO DAILY [facility] Last Admin: 07/06/25 08:22 Dose: 40 mg Documented By: RUBÉNDIZACHARIAH Bumetanide (Bumetanide 1 Mg Tablet) 2 mg PO DAILY [facility]; Protocol Last Admin: 07/06/25 12:01 Dose: 2 mg Documented By: RUBÉNDIZACHARIAH Calcium Carbonate (Calcium Carbonate 750 Mg Tab.Chew) 750 mg PO Q4H PRN PRN Reason: Heartburn Clotrimazole (Clotrimazole 1 % Cream 15 Gm Tube) 1 appl TOPICAL MOWEFR@0900,2100 PRN PRN Reason: Fungal Infection Last Admin: 07/06/25 08:21 Dose: 1 appl Documented By: RUBÉNDIZACHARIAH Gabapentin (Gabapentin 300 Mg Capsule) 300 mg PO BID [facility] Last Admin: 07/06/25 08:21 Dose: 300 mg Documented By: JOSUE Magnesium Hydroxide (Milk Of Magnesia 30 Ml Oral.Susp) 30 ml PO DAILY PRN PRN Reason: Constipation Melatonin (Melatonin 3 Mg Tablet) 6 mg PO BEDTIME PRN PRN Reason: Insomnia Nystatin (Nystatin Powder 15 Gm Bottle) 1 appl TOPICAL BID [facility]; Protocol Last Admin: 07/06/25 08:24 Dose: Not Given Documented By: JOSUE Non-Admin Reason: Med Not Available Ondansetron HCl (Ondansetron Hcl 4 Mg/2 Ml Vial) 4 mg IVPUSH Q8H PRN PRN Reason: Nausea and Vomiting Pantoprazole Sodium (Pantoprazole Sodium 40 Mg/10 Ml Vial) 40 mg IVPUSH BID@0630,1630 [facility] Last Admin: 07/06/25 06:28 Dose: 40 mg Documented By: JOZEFCB Sodium Biphosphate/Sodium Phosphate (Sodium Phosphate,Gilpin-Dibasic 133 Ml Enema) 133 ml NM ONCE PRN PRN Reason: Poor Colonoscopy Prep Results Sodium Chloride (0.9 % Sodium Chloride Flush 3 Ml Syringe) 3 ml IVFLUSH QSHIFT [facility] Last Admin: 07/06/25 12:05 Dose: 3 ml Documented By: JOSUE Thiamine HCl (Thiamine Hcl 100 Mg Tablet) 100 mg PO DAILY [facility] Last Admin: 07/06/25 08:23 Dose: 100 mg Documented By: JOSUE Labs 07/06/25 06:41 07/06/25 06:41 Labs: Laboratory Results - last 24 hr 07/05/25 07/06/25 17:20 06:41 MCV 97.2 MCH 29.9 MCHC 30.7 L RDW 18.9 H Plt Count 229 MPV 8.6 L Immature Gran % (Auto) 0.3 Neut % (Auto) 63.1 Lymph % (Auto) 13.7 L [place] % (Auto) 11.1 H Eos % (Auto) 10.7 H Baso % (Auto) 1.1 Lymph # (Auto) 0.8 L [place] # (Auto) 0.7 Eos # (Auto) 0.7 H Baso # (Auto) 0.1 Abs Immat Gran (auto) 0.02 Absolute Neuts (auto) 3.9 Absolute Nucleated RBC 0.000 Nucleated RBC % (auto) 0.0 Hold Purple Top SEE NOTE PT 14.1 H 13.6 H INR 1.2 H 1.2 H Anion Gap 12 Estim Creat Clear Calc 63.1 Estimated GFR 53 Fasting Glucose 109 H Calcium 8.8 Vitamin B12 517 Folate 3.6 L Assessment and Plan (1) Symptomatic anemia: Status: Acute Plan This is a 80-year-old female with history of persistent atrial fibrillation on xarelto, JANI on CPAP, HFpEF, venous insufficiency, morbid obesity/mild restrictive lung dz who was sent to the emergency department due to anemia found to have bradycardia and PEARL Symptomatic anemia Possible GI bleed. Using Aleve 4+ days per week in combination with Xarelto and concern for upper GI source No GERD-like symptoms or bleeding noted S/P 3U RBC in ED on 07/03 with appropriate rise in H/H; H&H stable since transfusion Had a previous episode of postmenopausal vaginal bleeding bleeding in 04/2023 Continue IV ppi GI consulted, plan on EGD and colonoscopy later in the day Continue to hold Xarelto Iron levels normal trend cbc bradycardia/afib with SVR likely due to BB; has been until off for years, though was recently increased stop atenolol hold xarelto for anemia/GIB as above; resume pending GI input cardiology consulted, recommend against any BB or rate lowering medications at this time cardiology will arrange for setting up possible Watchman device placement at [facility] in the future Will start on amlodipine 2.5 mg No indication for pacemaker therapy Will need outpatient follow up including Holter monitor monitor on telemetry PEARL, resolved likely multifactorial: due to anemia and diuretics and nsaid use Creatinine normalized after transfusion: 1.65-->1.01 Avoid nephrotoxic medication Trend BMP Elevated trop trops have remained flat elevated due to demand from anemia and decreased renal clearance due to PEARL HTN Stop atenolol Hold lisinopril Has been started on amlodipine 2.5 mg daily HFpEF resume Bumex as PEARL resolved received 3U blood on 07/03 and 1 dose of lasix follow fluid status closely JANI Continue CPAP Peripheral neuropathy continue baseline meds Morbid obesity/obesity hypoventilation BMI 48.4 Weight loss encouraged DVT prophylaxis-mechanical devices. Avoid chemoprophylaxis in the setting of acute symptomatic anemia/possible GI bleed Pt requires continued hospitalization for continued workup for likely GI bleed including an EGD and colonoscopy tomorrow. Pt will also require close monitoring of labs for any signs of bleeding recurrence as well as resolution of PEARL. Quality Stroke Does the patient have a stroke diagnosis?: No VTE Prior VTE?: No VTE Risk Level:: Medical - moderate - high VTE Device Contraindication: N/A - Device Ordered VTE Drug Contraindication: Treatment Not Indicated
--- NOTE | 2025-07-07 01:41 | OP_ITS ---
DATE OF SERVICE: 07/06/2025 SURGEON: Abe Mitchell MD INDICATIONS: Anemia and Hemoccult-positive stools. PREOPERATIVE DIAGNOSIS: POSTOPERATIVE DIAGNOSIS: PROCEDURE PERFORMED: Upper endoscopy with biopsy, colonoscopy to the terminal ileum. ESTIMATED BLOOD LOSS: COMPLICATIONS: ANESTHESIA: Monitored anesthesia care. ASSISTANTS: SPECIMENS: DESCRIPTION OF PROCEDURE: A History and Physical were performed. The risks and benefits of the procedure were explained to the patient and informed consent was obtained. The patient was placed in the left lateral decubitus position. The Olympus video gastroscope was introduced into the esophagus, stomach, and duodenum. Examination was performed. She was repositioned for colonoscopy. Digital rectal was performed and showed some external hemorrhoids. The Olympus pediatric colonoscope was introduced into the rectum and advanced to the cecum. The cecum was identified by transillumination, palpation, and identification of the ileocecal valve. Examination was performed. The scope was removed. She tolerated both procedures well and was returned to recovery area in stable condition. FINDINGS: Upper endoscopy: 1. Esophagus: The esophagus was normal. There was a very small sliding hiatal hernia. 2. Stomach: The stomach showed no evidence of masses, ulcers, or polyps. Antral biopsies were obtained to evaluate for H pylori. 3. Duodenum: The bulb and 2nd portion were normal. Random 2nd portion biopsies were obtained. Colonoscopy: The terminal ileum was explored and appeared normal. The visualized colonic mucosa was normal. There was no blood present. No polyps were identified. There were few scattered diverticula. Retroflexed examination showed internal hemorrhoids. The quality of the prep was good. IMPRESSION: 1. Normal upper endoscopy. 2. Normal colonoscopy. RECOMMENDATION: 1. Followup the biopsy results. 2. Screening colonoscopy is not recommended based on the patient's age. 3. Iron and anticoagulation may be resumed. She can be switched back to her oral Prilosec. 4. If anemia persists, she may need further evaluation with capsule endoscopy and/or Hematology evaluation. MD MI Schaffer/MARCI / [phone]
[2025-07-07 03:40] VITALS: BP 159/70; PULSE 70; RESP 18; TEMP 36.5; O2SAT 94
[2025-07-07 07:16] LABS: Hematocrit 35.6 % (37.0-47.0); Hemoglobin 10.6 g/dl (12.0-16.0); Mean Corpuscular HGB Conc 29.8 g/dl (31.0-35.0); Mean Corpuscular Hemoglobin 29.8 pg (27.0-33.0); Mean Corpuscular Volume 100.0 fL (80.0-98.0); NRBC Abs Auto 0.000 X10*3/uL (0.0-0.012); NRBC Pct Auto 0.0 /100WBC (0.0-0.2); Platelet Count 179 X10*3/uL (160-400); Red Blood Count 3.56 X10*6/uL (4.20-5.50); White Blood Count 6.1 X10*3/uL (4.8-10.8)
[2025-07-07 07:33] LABS: Anion Gap 14 (12-20); Blood Urea Nitrogen 17 mg/dL (9-16); Calcium 8.5 mg/dL (8.4-10.2); Carbon Dioxide 24 mmol/L (22-29); Chloride 110 mmol/L (96-108); Creatinine Clr Calc Pharmacy 48.6; Estimated Glomerular Filt Rate 39; Potassium 3.9 mmol/L (3.3-5.1); Sodium 144 mmol/L (135-145)
[2025-07-07 07:36] VITALS: BP 145/62; PULSE 71; RESP 20; TEMP 36.6; O2SAT 95
[2025-07-07] MEDS: Ferrous Sulfate 324 MG TABLET.DR PO (09:37)
[2025-07-07] MEDS: 0.9 % Sodium Chloride Flush 3 ML SYRINGE IVFLUSH (09:42)
[2025-07-07] MEDS: Flu Vacc TS2025-26(6mo up)/PF 0.5 ML SYRINGE IM (10:43)
[2025-07-07 11:44] VITALS: BP 130/62; PULSE 70; RESP 20; TEMP 36.4; O2SAT 98
--- NOTE | 2025-07-07 11:53 | PM.PNCARD ---
Subjective Subjective Date of Service: 07/07/25 Principal diagnosis: Severe anemia, chronic atrial fibrillation/flutter Interval history: Patient underwent endoscopy yesterday without any significant obvious source of bleeding. Has been recommended to be restarted on Xarelto. Otherwise feeling well. Had lot of questions about Watchman device. Review of Systems Constitutional: Reports no additional constitutional complaints Physical Exam Vital Signs: Last Vital Signs Temp 97.6 F 07/07/25 11:44 Pulse 70 07/07/25 11:44 Resp 20 07/07/25 11:44 BP 130/62 07/07/25 11:44 Pulse Ox 98 07/07/25 11:44 O2 Del Method Room Air 07/07/25 11:44 BMI result Body Mass Index 47.1 Const General: cooperative, comfortable, no acute distress, alert and awake Nutritional Appearance: obese morbidly obese Orientation/consciousness: patient oriented x3 HEENT Head: Yes normocephalic and Yes atraumatic Neck Neck: Yes trachea midline and Yes no JVD Resp Effort & Inspection: decreased respiratory effort Auscultation: clear to auscultation bilaterally Cardio Jugular venous distension: no JVD Rate: bradycardic Rhythm: abnormal rhythm irregularly irregular Heart sounds: S1 normal heart sound present, S2 normal heart sound present, no click, no gallops and no murmurs GI Auscultation: normal bowel sounds Skin General skin exam: no rashes or lesions noted Neuro General: patient oriented x3 and no focal motor deficits Extrem General: No clubbing, No cyanosis and Yes edema Objective Labs and Meds 07/07/25 06:40 07/07/25 06:40 Lab results: Laboratory Results - last 24 hr 07/07/25 06:40 WBC 6.1 RBC 3.56 L Hgb 10.6 L Hct 35.6 L MCV 100.0 H MCH 29.8 MCHC 29.8 L RDW 19.6 H Plt Count 179 MPV 9.7 Absolute Nucleated RBC 0.000 Nucleated RBC % (auto) 0.0 Sodium 144 Potassium 3.9 Chloride 110 H Carbon Dioxide 24 Anion Gap 14 BUN 17 H Creatinine 1.31 Estim Creat Clear Calc 48.6 Estimated GFR 39 Random Glucose 113 Calcium 8.5 Progress Note: A&P Assessment and plan (1) Chronic a-fib: Status: Acute Assessment and Plan: Chronic rate control atrial fibrillation at current point time will hold off on atenolol therapy. Rate is adequately control without atenolol therapy. Kidney functions have improved. Has been recommended to be restarted on oral anticoagulation therapy by GI. Will restart Xarelto. Follow up as outpatient in few weeks. Will follow up with Holter monitor. Patient and I had a long discussion about Watchman device. She wants to think about it. (2) (HFpEF) heart failure with preserved ejection fraction: Status: Acute Assessment and Plan: Heart failure preserved ejection fraction sizing of morbid obesity, sleep apnea and chronic atrial fibrillation. At this point time continue with diuretic therapy. Hold off on lisinopril therapy given her PEARL. Continue amlodipine for blood pressure control. Continue CPAP therapy. Management of heart failure was discussed and she understands. Will follow up in the clinic in 4 weeks time, sooner PRN. Thank you for allowing me to partake in her care Time Spent With Patient Time: Total time managing care of this patient today ____ minutes. Progress Note: Quality Stroke Does the patient have a stroke diagnosis?: No Procedures Date of Service Date of Service: 07/07/25
--- NOTE | 2025-07-07 12:04 | P.PNGI_ITS ---
Subjective Subjective Date of Service: 07/07/25 Interval History: scratchy throat Critical Care Time (minutes): 0 Physical Exam 2 Vital Signs: Vital Signs: Last Vital Signs Temp 97.6 F 07/07/25 11:44 Pulse 70 07/07/25 11:44 Resp 20 07/07/25 11:44 BP 130/62 07/07/25 11:44 Pulse Ox 98 07/07/25 11:44 O2 Del Method Room Air 07/07/25 11:44 BMI result Body Mass Index 47.1 GI: Other: abdomen is sfot and nonten олег Objective Data Labs 07/07/25 06:40 07/07/25 06:40 Labs: Laboratory Results - last 24 hr 07/07/25 06:40 WBC 6.1 RBC 3.56 L Hgb 10.6 L Hct 35.6 L MCV 100.0 H MCH 29.8 MCHC 29.8 L RDW 19.6 H Plt Count 179 MPV 9.7 Absolute Nucleated RBC 0.000 Nucleated RBC % (auto) 0.0 Sodium 144 Potassium 3.9 Chloride 110 H Carbon Dioxide 24 Anion Gap 14 BUN 17 H Creatinine 1.31 Estim Creat Clear Calc 48.6 Estimated GFR 39 Random Glucose 113 Calcium 8.5 Procedures Date of Service Date of Service: 07/07/25 Progress Note: A&P Assessment and plan (1) Anemia: Status: Acute Assessment and Plan: doing well f/u bx results no gi bleeding noted Time Spent With Patient Time: Total time managing care of this patient today ____ minutes. Quality Stroke Does the patient have a stroke diagnosis?: No VTE Prior VTE?: No VTE Risk Level:: Medical - moderate - high VTE Device Contraindication: N/A - Device Ordered VTE Drug Contraindication: Treatment Not Indicated
[2025-07-07 15:53] VITALS: BP 132/61; PULSE 96; RESP 18; TEMP 37.1; O2SAT 98
--- NOTE | 2025-07-07 16:22 | PM.DS ---
DS: Providers Provider Date of Service: 07/07/25 Date of admission: 07/04/25 09:25 Date of discharge: 07/07/25 Primary care physician: Aristides Pedraza MD Consults: 07/04/25 08:47 Consult to Gastroenterology Routine Consulting Provider: [facility] Nilson Julien Reason for consultation: symptomatic anemia on xarelto; taking aleve daily Has provider been notified: No 07/04/25 09:17 Consult to Cardiology Routine Consulting Provider: [facility] Reason for consultation: bradycardia Has provider been notified: Yes 07/06/25 11:51 Consult to Wound Care Routine Reason for consultation: Wound to Coccyx between gluteals, small wound to L great toe DS: Diagnosis Discharge Diagnosis (1) Anemia: Status: Acute DS: Summary Hospital Course Hospital Course: From admission HPI: Date of Service: 07/04/25 Attending physician on admission: Stephanie Lopez Chief Complaint: dizziness, anemia This is a 80 year old female with history of atrial fibrillation on xarelto who was sent in to the emergency department due to low H/H. Patient was seen in the cardiac clinic yesterday with reports of shortness of breath and dizziness, lab work was ordered and returned abnormal. Her hemoglobin and hematocrit was found to have a notable drop to 6.8/23.3 and she was recommended to come to the emergency department for evaluation. Patient states that she has had dizziness with standing and ambulation as well as dyspnea on exertion and severe fatigue over the past several months. She started taking iron pills recently because her symptoms felt similar to the past when she had anemia. She said she does not look at her stool she had so she does not know if there is any blood or dark appearance. She denies any abdominal pain. She does report she takes a leave 2 tablets at least 4 times a week due to lower extremity pain. In the emergency department she received 3 units of blood, stools were heme positive. Lab work also significant for PEARL with creatinine above baseline at 1.65. While in the emergency department her heart rate was observed to dropped into the 20s and 30s. Blood pressure has remained stable. No heart blocks seen on EKG. She will be admitted for further management of acute anemia and bradycardia. Hospital course The pt was admitted to the hospital for symptomatic anemia that was initially thought to be multifactorial in setting of Xarelto and chronic ibuprofen use. Pt's Xarelto was held, was placed on IV PPI and transfused 3 units PRBCs in the ED with inappropriate H&H response. Patient's H&H was subsequently stable throughout hospital stay and no signs of bleeding were noted. Gi was consulted and underwent EGD and colonoscopy on 07/07 that were essentially normal and no acute bleeding noted. Patient's Xarelto was set to be resumed on the evening of 07/07. Patient's hospital stay was complicated by bradycardia in the 20s to 30s. This was thought secondary to beta-anabella use and patient's atenolol was stopped. Pt was seen and evaluated by Cardiology who suggested also holding lisinopril and starting pt on amlodipine 2.5 mg daily. Pt had appropriate response in heart rate and was consistently in the 60s to 70s after atenolol was held. There was no indication for pacemaker. Pt will follow up with Cardiology in 1-2 weeks for management of hypertension and further management of AFib. Pt was also noted to have an PEARL that was likely multifactorial in the setting of hypoperfusion from acute anemia, diuretic use, and lisinopril. PEARL quickly resolved after holding Bumex and lisinopril, and receiving blood transfusions. Pt just stopped taking atenolol and lisinopril, and start taking amlodipine 2.5 mg daily. She should follow up with Dr. Garcia in Cardiology in 1-2 weeks as well as her PCP in 1 week for routine labs and monitoring H&H. She should continue all of her other home medications. Additional details concerning hospital stay as indicated below. Symptomatic anemia Concern for GI bleed. Using Aleve 4+ days per week in combination with Xarelto and concern for upper GI source; stool heme+ No GERD-like symptoms or bleeding noted S/P 3U RBC in ED on 07/03 with appropriate rise in H/H; H&H stable since transfusion Had a previous episode of postmenopausal vaginal bleeding bleeding in 04/2023 Treated with IV ppi GI consulted, EGD and colonoscopy essentially normal without clear source of bleeding Resume Xarelto the evening of 07/07 Iron levels normal; continue iron supplementation bradycardia/afib with SVR likely due to BB; has been until off for years, though was recently increased stop atenolol cardiology consulted, recommend against any BB or rate lowering medications at this time cardiology will arrange for setting up possible Watchman [place] [facility] [place] the [place] Will start on amlodipine 2.5 mg daily No indication for pacemaker therapy Will need outpatient follow up including Holter monitor monitor on telemetry PEARL, resolved likely multifactorial: due to anemia and diuretics and nsaid use Creatinine normalized after transfusion: 1.65-->1.01 Avoid nephrotoxic medication Elevated trop trops have remained flat elevated due to demand from anemia and decreased renal clearance due to PEARL HTN Stop atenolol Hold lisinopril Has been started on amlodipine 2.5 mg daily HFpEF resume Bumex as PEARL resolved received 3U blood on 07/03 and 1 dose of lasix follow fluid status closely JANI Continue CPAP Peripheral neuropathy continue baseline meds Morbid obesity/obesity hypoventilation BMI 48.4 Weight loss encouraged Time Attestation Discharge Coordination Time (in mins): 37 Quality: Safe Use of Opioids Does Pt have an Active Cancer Diagnosis on the Problem List?: No Quality: Stroke Does the patient have a stroke diagnosis?: No Physical Exam Exam: Exam: General: AOx3, no acute distress Resp: CTA bilaterally CVS: Irregularly irregular rhythm GI: +BS, NT, no distention though obese Skin: Warm, dry Neuro: Cranial nerves II-XII grossly intact bilaterally. Motor grossly intact bilaterally Extremities: Non pitting lymphedema Psych: Appropriate affect Vital Signs: Vital Signs: Last Vital Signs Temp 98.7 F 07/07/25 15:53 Pulse 96 07/07/25 15:53 Resp 18 07/07/25 15:53 BP 132/61 07/07/25 15:53 Pulse Ox 98 07/07/25 15:53 O2 Del Method Room Air 07/07/25 15:53 BMI result Body Mass Index 47.1 DS: Data Data Completed and Pending Completed studies during hospitalization [Text1]: Procedures Extraction of Endometrium, Via Natural or Artificial Opening, Diagnostic (04/28/23) Transfusion of Nonautologous Red Blood Cells into Peripheral Vein, Percutaneous Approach (04/28/23) Pending studies at discharge: Pending at discharge 07/06/25 14:34 Surgical [PTH] Routine Labs on day of discharge: Laboratory Results - last 24 hr 07/07/25 06:40 WBC 6.1 RBC 3.56 L Hgb 10.6 L Hct 35.6 L MCV 100.0 H MCH 29.8 MCHC 29.8 L RDW 19.6 H Plt Count 179 MPV 9.7 Absolute Nucleated RBC 0.000 Nucleated RBC % (auto) 0.0 Sodium 144 Potassium 3.9 Chloride 110 H Carbon Dioxide 24 Anion Gap 14 BUN 17 H Creatinine 1.31 Estim Creat Clear Calc 48.6 Estimated GFR 39 Random Glucose 113 Calcium 8.5 Discharge Plan Discharge Anticipated Discharge Date/Time: 07/07/25 16:05 Patient Disposition: Home Health Service Discharge Diagnosis: PEARL in the setting of acute on chronic symptomatic anemia Referrals: Ezekiel Garcia MD [Physician, Cardiology] - 1 Week Referral Note: F/U for bradycardia, HTN, Holter monitor Aristides Pedraza MD [Primary Care Provider, Internal Medicine] - 1 Week Discharge Medications: New amlodipine 2.5 mg tablet 2.5 mg PO DAILY Qty: 90 0RF Rx Instructions: Take 1 tablet daily for hypertension Continued gabapentin 300 mg capsule 300 mg PO BID Qty: 180 1RF bumetanide 2 mg tablet 2 mg PO DAILY Qty: 90 1RF thiamine HCl (vitamin B1) 100 mg tablet 100 mg PO DAILY Qty: 90 1RF atorvastatin 40 mg tablet 40 mg PO DAILY Qty: 90 1RF econazole nitrate 1 % cream 1 appl topical MOWEFR@0900,2100 PRN (Reason: Fungal Infection) Xarelto 20 mg tablet 20 mg PO DAILY@1700 ferrous sulfate 325 mg (65 mg iron) Tablet 325 mg PO DAILY acetaminophen [Tylenol 8 Hour] 650 mg Tablet Extended Release 650 mg PO DAILY PRN (Reason: Pain) omeprazole 40 mg capsule,delayed release(DR/EC) 40 mg PO DAILY@1630 Discontinued lisinopril 5 mg tablet 5 mg PO DAILY Qty: 90 1RF atenolol 25 mg tablet 25 mg PO DAILY Qty: 90 1RF Discharge Orders: Discharge Order (Routine); Ordered 07/07/25 Ordered By: Clarisse Merchant Activity on Discharge: As tolerated Stand Alone Forms: Patient Portal Discharge page Print Language: Syriac Care Plan Goals: See below Health Concerns: Acute on chronic symptomatic anemia Bradycardia PEARL GI bleed Plan of Treatment: You were admitted to the hospital for symptomatic anemia that was initially thought to be GI bleed multifactorial in the setting of Xarelto and ibuprofen use. You were transfused 3 units of packed red blood cells in the ED with appropriate rise in your hemoglobin and hematocrit, which was stable post transfusion throughout your hospital stay. You also had an PEARL likely secondary to hypovolemia from anemia in combination with diuretic and lisinopril use. PEARL resolved after transfusion and withholding medications. You were seen and evaluated by GI and underwent an endoscopy and colonoscopy on 07/06 that was essentially normal. You are okay to resume your Xarelto starting tonight. Continue iron supplementation. Your hospital stay was complicated by bradycardia likely secondary to your beta-anabella. You were seen and evaluated by Cardiology and your atenolol and lisinopril were stopped. You were started on amlodipine 2.5 mg for hypertension. -- you should continue Xarelto starting this evening -- follow up with your PCP in 1 week for repeat labs to monitor your blood levels -- stop taking atenolol due to bradycardia -- stop taking lisinopril -- you will start taking amlodipine 2.5 mg daily for hypertension -- follow up with Dr. Garcia in Cardiology for monitoring and management of your AFib, hypertension, as well as consultation for possible Watchman device. You will also likely need continued outpatient monitoring with a Holter monitor -- continue all of your other home medications -- you were seen and evaluated by PT who recommended home with services Assessment: See discharge summary
--- NOTE | 2025-07-07 16:23 | W.MHC.F2F ---
Service Date Service Date: 07/07/25 Encounter Date of encounter: 07/07/25 Reasons for Services Signs and symptoms assessed: Symptomatic anemia. Prolonged hospital stay. Obesity class 3. Generalized deconditioning and difficulty walking. Reason for longterm: medication management and other (Monitoring for bradycardia and HTN) Reason for physical therapy: home safety and mobility and gait/transfer training Homebound: Leaving the home is medically contraindicated at this time without the asist of a device and/or another person due th the listed conditions above and below. Reason homebound: unsteady gait / fall risk, leg weakness and poor balance / fall risk Certification: Based on the above findings, I certify that this patient is confined to the home and needs intermittent longterm care, physical therapy and/or speech therapy, or continues to need occupational therapy. The patient is under my care, and I have initiated the establishment of the plan of care. The patient will be followed by a physician who will periodically review the plan of care. Time Spent With Patient Time: Total time managing care of this patient today ____ minutes.
[2025-07-07 18:59] VITALS: BP 132/61; PULSE 96; O2SAT 98
--- NOTE | 2025-07-08 16:29 | P.CDIM_ITS ---
PROVIDER RESPONSE TEXT: To clarify, the appropriate diagnosis supported by the clinical indicators: Acute blood loss anemia: Possible QUERY TEXT: PHYSICIAN'S DOCUMENTATION REQUEST Date of Query: 07/06/2025 01:07 PM EDT Patient Name: Iva Lopez Admit Date: 07/04/2025 Dear Clarisse HUBER, A review of the medical record indicates additional documentation may be needed. Please review below and update the documentation accordingly. Clinical Indicators: Progress note 07/05/25 - Symptomatic anemia Possible GI bleed. Using Aleve 4+ days per week in combination with Xarelto concern for UGI bleed. S/P 3 units PRBC in Ed with appropriate rise in H/H. H/H 6.8/23.3 Weakness, shortness of breath and PATE on arrival Based on the above, could you clarify which of the following is the most likely type of anemia you are evaluating, treating, and/or monitoring? Acute blood loss anemia possible, suspected, probable etc. Acute blood loss anemia with baseline chronic anemia (specify type) Hemorrhagic disorder to due anticoagulant possible, probable, suspected etc. Other (explain) Clinically unable to determine (explain) Thank you, Freida Berry, CCS, CDIS Use of terms such as suspected, likely, concern for, or probable (associated with a specific diagnosis that is being evaluated, monitored, or treated as if it exists) are acceptable and can be coded in the inpatient setting, when documented at the time of discharge. Please use your independent medical judgment in providing your response. THIS QUERY IS PART OF THE PERMANENT MEDICAL RECORD
== END 2025-07-07 16:38 | disposition home health service (06) | DRG 812 ==
LOC: HO.ED 07-04 09:06 → HO.EDOVER 07-04 09:34 → HO.IMC 07-04 22:51
PROVIDERS: Emergency Medicine; Internal Medicine; Internal Medicine Gastroenterology; Admitting Provider Physician Assistant Medical; Emergency Provider Emergency Medicine; PCP Internal Medicine; Visit Provider Student in an Organized Health Care Education/Training Program
DX: D62 Acute posthemorrhagic anemia (principal); I50.32 Chronic diastolic (congestive) heart failure; N17.9 Acute kidney failure, unspecified; E66.2 Morbid (severe) obesity with alveolar hypoventilation; Z68.42 Body mass index [BMI] 45.0-49.9, adult; I48.19 Other persistent atrial fibrillation; R00.1 Bradycardia, unspecified; T44.7X5A Adverse effect of beta-adrenoreceptor antagonists, initial encounter; K44.9 Diaphragmatic hernia without obstruction or gangrene; G62.9 Polyneuropathy, unspecified; Z71.3 Dietary counseling and surveillance; Z23 Encounter for immunization; Z87.891 Personal history of nicotine dependence; Z79.01 Long term (current) use of anticoagulants; Z79.899 Other long term (current) drug therapy
CPT/HCPCS: 36415; 71045; 80048; 80076; 82272; 82607; 82728; 82746; 83540; 83880; 84484; 85025; 85027; 85610; 86850; 86900; 86901; 86923; 88305; 88313; 88342; 90656; 93005; 97162; 99285; J1938; J2003; J2470; J2704; P9016

== ENCOUNTER → 2025-07-04 09:25 | Outpatient (BNV) | payer MEDICARE, BC, SELFPAY | PROVIDERS: Admitting Provider Physician Assistant Medical; Emergency Provider Emergency Medicine; PCP Internal Medicine; Visit Provider Student in an Organized Health Care Education/Training Program | DX: R00.1 Bradycardia, unspecified (principal); D64.9 Anemia, unspecified | CPT/HCPCS: 99223; 99232 ==

== ENCOUNTER → 2025-07-04 09:25 | Outpatient (BNV) | payer MEDICARE, BC, SELFPAY | PROVIDERS: Admitting Provider Physician Assistant Medical; Emergency Provider Emergency Medicine; PCP Internal Medicine; Visit Provider Internal Medicine Cardiovascular Disease | DX: D64.9 Anemia, unspecified (principal); I48.20 Chronic atrial fibrillation, unspecified; I50.30 Unspecified diastolic (congestive) heart failure | CPT/HCPCS: 93010; 99222 ==

== ENCOUNTER 2025-07-16 13:16 | Outpatient (AMB) | payer MEDICARE, BC, SELFPAY ==
--- NOTE | 2025-07-16 13:18 | A.OFFPC_ITS ---
Vital Signs 07/16/25 13:22 Weight 279 lb 4 oz BP 133/60 Blood Pressure Location Rt radial Position Sitting Pulse 81 Pulse Source Pulse Oximeter Temp 96.4 F L Temp Source Temporal Artery Scan Pulse Oximetry (%) 96 Oxygen Delivery Method Room Air Intake Visit Reasons: Hospital Discharge Intake Note: TCM Inspector Set Up And Lay Out Required: No Brick Setter: Not Required per policy Accompanied by: Self / Same As Patient Allergies amoxicillin (AMOXICILLIN) Allergy (Unknown, Verified 07/16/25 16:16) UNKNOWN flecainide (FLECAINIDE) Allergy (Unknown, Verified 07/16/25 16:16) SEVERE CHEST PAIN Sulfa (Sulfonamide Antibiotics) (SULFA (SULFONAMIDE ANTIBIOTICS)) Allergy (Unknown, Verified 07/16/25 16:16) UNKNOWN Medication List - Last Reconciled 07/16/25 by Lula Fraire PA-C acetaminophen ER (Tylenol 8 Hour) 650 mg PO DAILY PRN amlodipine 2.5 mg PO DAILY atorvastatin 40 mg PO DAILY bumetanide 2 mg PO DAILY cyclobenzaprine 10 mg PO Q8H econazole nitrate 1% 1 appl topical MOWEFR@0900,2100 PRN ferrous sulfate 325 mg PO DAILY gabapentin 300 mg PO BID omeprazole 40 mg PO DAILY@1630 rivaroxaban (Xarelto) 20 mg PO DAILY@1700 thiamine HCl (vitamin B1) 100 mg PO DAILY Tobacco use date assessed: 07/16/25 Fall risk assessment: No Falls in past year Last assessed Fall Risk: 07/16/25 Dental Screening Dental Screen Date: 07/16/25 Did you have a dental visit in the last 12 months?: Yes Did you have a dental problem in the last 6 months where you did not have access to dental care?: No Was dental information given to patient?: Patient has dentist HPI HPI Comments History of Present Illness Details Patient presents to the office for a TCM visit. Date of admission:07/04/2025 Date of discharge: 07/07/2025 This is a Follow-up from admission at [facility] HPI: The patient is a 80-year-old female presenting with follow-up after recent hospitalization for anemia and bradycardia management. The patient has a history of atrial fibrillation and is on Xarelto. She was admitted to the hospital due to low hemoglobin and hematocrit levels, which were 6.8 and 23.3, respectively. She experienced dizziness, dyspnea on exertion, and severe fatigue over the past several months, prompting a visit to the emergency department. During her hospital stay, she was diagnosed with acute anemia and bradycardia, with heart rates dropping to the 20s and 30s. Her atenolol was discontinued, and she was started on amlodipine 2.5 mg daily, which stabilized her heart rate to the 60s and 70s. The patient also experienced acute kidney injury, likely multifactorial due to hypoperfusion, acute anemia, and medication use, which resolved after holding Bumex and lisinopril. She was advised to continue iron supplementation and to avoid Aleve/NSAID due to gastrointestinal bleeding concerns. The patient reports chronic pain in her lower extremities, for which she has been taking Tylenol Arthritis and gabapentin. She had a vascular surgery a few months ago, which did not alleviate her symptoms. Hospital Course/Discharge Summary: This is a 80 year old female with history of atrial fibrillation on xarelto who was sent in to the emergency department due to low H/H. Patient was seen in the cardiac clinic yesterday with reports of shortness of breath and dizziness, lab work was ordered and returned abnormal. Her hemoglobin and hematocrit was found to have a notable drop to 6.8/23.3 and she was recommended to come to the emergency department for evaluation. Patient states that she has had dizziness with standing and ambulation as well as dyspnea on exertion and severe fatigue over the past several months. She started taking iron pills recently because her symptoms felt similar to the past when she had anemia. She said she does not look at her stool she had so she does not know if there is any blood or dark appearance. She denies any abdominal pain. She does report she takes a leave 2 tablets at least 4 times a week due to lower extremity pain. In the emergency department she received 3 units of blood, stools were heme positive. Lab work also significant for PEARL with creatinine above baseline at 1.65. While in the emergency department her heart rate was observed to dropped into the 20s and 30s. Blood pressure has remained stable. No heart blocks seen on EKG. She will be admitted for further management of acute anemia and bradycardia. The pt was admitted to the hospital for symptomatic anemia that was initially thought to be multifactorial in setting of Xarelto and chronic ibuprofen use. Pt's Xarelto was held, was placed on IV PPI and transfused 3 units PRBCs in the ED with inappropriate H&H response. Patient's H&H was subsequently stable throughout hospital stay and no signs of bleeding were noted. Gi was consulted and underwent EGD and colonoscopy on 07/07 that were essentially normal and no acute bleeding noted. Patient's Xarelto was set to be resumed on the evening of 07/07. Patient's hospital stay was complicated by bradycardia in the 20s to 30s. This was thought secondary to beta-anabella use and patient's atenolol was stopped. Pt was seen and evaluated by Cardiology who suggested also holding lisinopril and starting pt on amlodipine 2.5 mg daily. Pt had appropriate response in heart rate and was consistently in the 60s to 70s after atenolol was held. There was no indication for pacemaker. Pt will follow up with Cardiology in 1-2 weeks for management of hypertension and further management of AFib. Pt was also noted to have an PEARL that was likely multifactorial in the setting of hypoperfusion from acute anemia, diuretic use, and lisinopril. PEARL quickly resolved after holding Bumex and lisinopril, and receiving blood transfusions. Pt just stopped taking atenolol and lisinopril, and start taking amlodipine 2.5 mg daily. She should follow up with Dr. Garcia in Cardiology in 1-2 weeks as well as her PCP in 1 week for routine labs and monitoring H&H. She should continue all of her other home medications. Symptomatic anemia Concern for GI bleed. Using Aleve 4+ days per week in combination with Xarelto and concern for upper GI source; stool heme+ No GERD-like symptoms or bleeding noted S/P 3U RBC in ED on 07/03 with appropriate rise in H/H; H&H stable since transfusion Had a previous episode of postmenopausal vaginal bleeding bleeding in 04/2023 Treated with IV ppi GI consulted, EGD and colonoscopy essentially normal without clear source of bleeding Resume Xarelto the evening of 07/07 Iron levels normal; continue iron supplementation bradycardia/afib with SVR likely due to BB; has been until off for years, though was recently increased stop atenolol cardiology consulted, recommend against any BB or rate lowering medications at this time cardiology will arrange for setting up possible Watchman device placement [place] [facility] in the future Will start on amlodipine 2.5 mg daily No indication for pacemaker therapy Will need outpatient follow up including Holter monitor PEARL, resolved likely multifactorial: due to anemia and diuretics and nsaid use Creatinine normalized after transfusion: 1.65-->1.01 Avoid nephrotoxic medication Elevated trop trops have remained flat elevated due to demand from anemia and decreased renal clearance due to PEARL HTN Stop atenolol Hold lisinopril Has been started on amlodipine 2.5 mg daily HFpEF resume Bumex as PEARL resolved received 3U blood on 07/03 and 1 dose of lasix follow fluid status closely JANI Continue CPAP Peripheral neuropathy continue baseline meds Morbid obesity/obesity hypoventilation BMI 48.4 Weight loss encouraged Discharged to/Current Location: Home Lives with: Self, Cat and Dog Diagnosis: PEARL in the setting of acute on chronic symptomatic anemia; bradycardia Procedures performed: Endoscopy and colonoscopy New medications: Amlodipine 2.5 mg daily Discontinued medications: Lisinopril and atenolol Change medications/dosing: No changes in medications/dosing Pending labs: No pending labs Pending diagnostic test: Holter monitor was requested/recommended which was ordered by Cardiology Any Follow-up Labs required? Will order CBC, CMP, magnesium Any Follow-up Diagnostic test required? Holter monitor was requested/recommended which was ordered by Cardiology How are you feeling? Better than before she went into the hospital Are you in any pain or discomfort? Chronic pain to legs no new pain and unrelated to this admission Do you have any questions about your condition or discharge instructions? not at this time Were you able to get your medications filled? Yes Do you have any questions about your medications? Yes Any referrals required? Not at this time Were you able to schedule your follow-up appointment? yes has cardiology follow up and has holter monitor appointment tomorrow If home health was ordered, have they contact you? Any outpatient services, if so, are you scheduled? VNA, PT Are there any additional resources like transportation you might need during her recovery? - VNA? Came last week on Wednesday Once - MEDICAL BILLING ASSISTANT? Not interested at this time - Meals on wheels? Not interested at thi s time Educational need/resources: What support system do you have? Neighbor's, Cat and Dog [facility] Medical History (Updated 07/16/25 @ 16:35 by Lula Fraire PA-C) Bradycardia Gastrointestinal bleed Lower extremity pain PAERL (acute kidney injury) Atrial fibrillation Hospital discharge follow-up Anemia Chronic atrial flutter Chronic venous hypertension w ulceration Chronic venous insufficiency Dyspnea on exertion Morbid obesity (HFpEF) heart failure with preserved ejection fraction Chronic a-fib Atrial fibrillation with slow ventricular response Cholelithiasis Paroxysmal atrial fibrillation JANI (obstructive sleep apnea) HTN (hypertension) Surgical History History of cardioversion Hx of cardiac cath History of hip surgery Family History Father CVD (cardiovascular disease) Mother CHF (congestive heart failure) Social History Household Members: None Household Members Other:: brother Housing: House Do you presently have visiting nurse or other home services: No Alcohol intake: former Patient Tobacco Use Status: Former Tobacco user Tobacco use type: Cigarette Years Smoked: 12 e-Cigarette/Vaping Use: Never Used Second Hand Smoke Exposure: No Advance Directives Date on File: 04/28/23 service: No Current occupational status: retired Cognitive needs: Yes (walker) Hearing needs: No Vision needs: Yes (rx glasses) Questionnaire PHQ-9 Over the last 2 weeks, how often have you been bothered by any of the following problems? 1. Little interest or pleasure in doing things: not at all 2. Feeling down, depressed, or hopeless: not at all 3. Trouble falling or staying asleep, or sleeping too much: not at all 4. Feeling tired or having little energy: not at all 5. Poor appetite or overeating: not at all 6. Feeling bad about yourself - or that you are a failure or have let yourself or your family down: not at all 7. Trouble concentrating on things, such as reading the newspaper or watching television: not at all 8. Moving or speaking so slowly that other people could have noticed. Or the opposite - being so fidgety or restless that you have been moving around a lot more than usual: not at all 9. Thoughts that you would be better off or of hurting yourself in some way: not at all Total score: 0 Depression Screening Interpretation: Negative Depression Screening Done: Yes 59650 - PHQ-9 Billing: Yes Source: Developed by Drs. Jesus Schwartz, Julian Ann and colleagues, with an educational glenna from [employer]. Thrive Questionnaire Date Thrive assessed: 01/23/25 I am a: Patient What is your living situation today?: I have a steady place to live Within the past 12 months, did the food you bought not last and you didn't have the money to get more?: Never true Within the past 12 months, did you worry whether your food would run out before you got money to buy more?: Never true Do you have trouble paying for medicines?: No Do you have trouble getting transportation to medical appointments?: No Do you have trouble paying your heating and electricity bill?: No Do you have trouble taking care of your child, family member or friend?: No Do you have trouble with day-to-day activities such as bathing, preparing meals, shopping, managing finances, etc.?: No Are you currently unemployed and looking for a job?: No Are you interested in more education?: No Please select the resources that you would like help with: None THRIVE Score: 0 AUDIT C Alcohol Use Questionnaire (AUDIT-C) 1. How often do you have a drink containing alcohol?: Never 3. How often do you have six or more drinks on one occasion?: Never Total Score: 0 Score Reviewed/Action Taken: No ERIC-7 AMB Questionnaire ERIC-7 Date ERIC - 7 assessed: 07/16/25 Feeling nervous, anxious, or on edge: 0 = Not at all Not being able to stop or control worryin = Not at all Worrying too much about different things: 0 = Not at all Trouble relaxin = Not at all Being so restless that it is hard to sit still: 0 = Not at all Becoming easily annoyed or irritable: 0 = Not at all Feeling afraid as if something awful might happen: 0 = Not at all Total ERIC-7 score (0-4 normal; 5-9 mild; 10-14 moderate; 15-21 severe): 0 Source: Developed by Drs. Jesus Schwartz, Julian Ann and colleagues, with an educational glenna from [employer]. ERIC-7 Assessment Billing ERIC-7 Assessment Tool: ERIC-7 Assessment 63617 Review of Systems Const Details: - Cardiovascular: Denies dizziness, dyspnea on exertion, and fatigue. Denies chest pain. - Gastrointestinal: Denies abdominal pain. Reports no observation of blood in stool. - Musculoskeletal: Reports chronic pain in lower extremities. - Neurological: Denies headaches or balance issues. All systems reviewed & are unremarkable except as noted in HPI and below Physical exam (Primary Care) Vital Signs: Last Vital Signs Temp 96.4 F L 07/16/25 13:22 Pulse 81 07/16/25 13:22 BP 133/60 07/16/25 13:22 Pulse Ox 96 07/16/25 13:22 Oxygen Delivery Method Room Air 07/16/25 13:22 Vitals signs have been reviewed. Care Plan Goal for BP management: <140/90 at Goal BMI Assessment/Plan discussion: High BMI High, discussed plan: lifestyle, weight reduction, dietary, physical activity, alcohol moderation and other Tobacco/Smoking Status: Tobacco use Status Tobacco use date assessed 07/16/25 07/16/25 13:29 Patient Tobacco Use Status Former Tobacco user 07/16/25 13:18 Tobacco use type Cigarette 07/16/25 13:18 e-Cigarette/Vaping Use Never Used 07/16/25 13:18 PHQ-9: PHQ-9 Score PHQ-9: Total score 0 07/16/25 13:39 Depression Screening Interpretation: Negative Thrive Assessment: Date of Thrive Assessment Date Thrive assessed 01/23/25 07/16/25 13:18 Const Other: Appearance: Alert. Oriented X3. No acute distress. Head: Normal external exam. Normocephalic. Atraumatic. Eyes: Pupils are equal, round, and reactive to light. Extraocular movements intact. Conjunctiva and sclera normal. Eyelids normal. Throat: Pharynx normal. Uvula midline. Moist mucous membranes. Neck: Normal inspection. Neck supple. Full range of motion. Cardiovascular: Normal heart rate and rhythm. Heart sound normal. No murmurs noted. Pulses normal throughout. Respiratory: No respiratory distress. Painless inspiration. Breath sounds normal. No wheezes/rales/rhonchi noted. Chest nontender. No accessory muscle usage noted or decreased air movement noted. Back: Full range of motion noted. Skin: Skin warm and dry. Normal skin color. Normal skin turgor. No rashes/lesions/lacerations noted. Extremities: No lower extremity edema. Extremities exhibit normal range of motion. Reports lower extremity pain. Neuro: Oriented X 3. No motor deficit. No sensory deficit. Reflexes normal. Office Procedures Flu Questionnaire Does the patient have a severe egg allergy?: No Does the patient have severe life threatening allergies?: No Does the patient have a fever or illness today?: No Has the patient ever had Guillain-[place] Syndrome?: No Has the patient ever had any past reaction to a flu shot?: No Immunizations Fluarix [id number] (PF) 45 mcg (15 mcg x 3)/0.5 mL IM syringe Performing Provider: Lula Fraire PA-C [facility] Documented (not given) by: Keri Raines CMA on 07/16/25 13:30 Reason Not Given: Received Previously Results Reviewed Results Reviewed: - Labs: Hemoglobin 6.8 g/dL, Hematocrit 23.3%, creatinine 1.65 mg/dL. - Procedures: EGD and colonoscopy performed on 07/07, both normal with no acute bleeding noted. Coding Level of Care Code TCM High MDM <= 14 days Complex EM visit Add On G2211 Diagnoses Hospital discharge follow-up Z09 Atrial fibrillation I48.91 Anemia D64.9 Bradycardia R00.1 PEARL (acute kidney injury) N17.9 Lower extremity pain M79.606 Gastrointestinal bleed K92.2 Additional Codes ERIC-7 Assessment Billing - ERIC-7 Assessment Tool: ERIC-7 Assessment 63704 ([id number]) PHQ-9 - 06027 - PHQ-9 Billing: Yes ([id number]) Time Spent (min) 60 Assessment & Plan Assessment & Plan (1) Hospital discharge follow-up: Code(s): Z09 - Encounter for follow-up examination after completed treatment for conditions other than malignant neoplasm Category: Medical Plan: Patient was admitted at [facility] on 07/04/2025 and discharged home on 07/07/2025 with VNA services and PT services (2) Atrial fibrillation: Code(s): I48.91 - Unspecified atrial fibrillation Category: Medical Plan: The patient will follow up with cardiology for ongoing management of atrial fibrillation and blood pressure control. Amlodipine 2.5 mg daily has been initiated, and Xarelto has been resumed. (3) Anemia: Code(s): D64.9 - Anemia, unspecified Category: Medical Plan: The patient is advised to continue iron supplementation and monitor hemoglobin levels. Follow-up blood work is planned to ensure stability of hemoglobin and hematocrit levels. (4) Bradycardia: Code(s): R00.1 - Bradycardia, unspecified Category: Medical Plan: Atenolol has been discontinued, and the patient is advised to avoid beta blockers or rate-lowering medications. A three-day school lunch monitor will be placed to assess heart rate variability. (5) PEARL (acute kidney injury): Code(s): N17.9 - Acute kidney failure, unspecified Category: Medical Plan: The patient's acute kidney injury resolved after holding Bumex and lisinopril. Renal function will be monitored with follow-up blood work. (6) Lower extremity pain: Code(s): M79.606 - Pain in leg, unspecified Category: Medical Plan: The patient is advised to continue Tylenol Arthritis and may increase gabapentin dosage to manage pain. A muscle relaxer has been prescribed to assess its efficacy in pain management. (7) Gastrointestinal bleed: Code(s): K92.2 - Gastrointestinal hemorrhage, unspecified Category: Medical Plan: The patient is advised to avoid NSAIDs like Aleve due to the risk of gastrointestinal bleeding. GI follow-up was recommended but declined by the patient. Plan Plan Patient was informed and verbally consented to the use of an ambient scribe for clinic note documentation during this visit. 1. Atrial Fibrillation The patient will follow up with cardiology for ongoing management of atrial fibrillation and blood pressure control. Amlodipine 2.5 mg daily has been initiated, and Xarelto has been resumed. 2. Anemia The patient is advised to continue iron supplementation and monitor hemoglobin levels. Follow-up blood work is planned to ensure stability of hemoglobin and hematocrit levels. 3. Bradycardia Atenolol has been discontinued, and the patient is advised to avoid beta blockers or rate-lowering medications. A three-day school lunch monitor will be placed to assess heart rate variability. 4. Acute Kidney Injury The patient's acute kidney injury resolved after holding Bumex and lisinopril. Renal function will be monitored with follow-up blood work. 5. Chronic Pain In Lower Extremities The patient is advised to continue Tylenol Arthritis and may increase gabapentin dosage to manage pain. A muscle relaxer has been prescribed to assess its efficacy in pain management. 6. Gastrointestinal Bleeding The patient is advised to avoid NSAIDs like Aleve due to the risk of gastrointestinal bleeding. GI follow-up was recommended but declined by the patient. During the visit, we discussed the management of atrial fibrillation, anemia, and bradycardia. I advised the patient to continue with amlodipine and Xarelto for atrial fibrillation management and to monitor hemoglobin levels for anemia. We also discussed the importance of avoiding NSAIDs due to gastrointestinal bleeding risk and the plan to use a school lunch monitor to assess bradycardia. Orders: Orders Influenza [id number] Immunization Today Z23 - Encounter for immunization Comprehensive Met. Panel Today Z00.00 - Encounter for general adult medical examination without abnormal findings Complete Blood Count Auto Diff Today Z00.00 - Encounter for general adult medical examination without abnormal findings Magnesium Today Z00.00 - Encounter for general adult medical examination without abnormal findings Medications: New cyclobenzaprine 10 mg PO Q8H 30 tabs 1RF rivaroxaban (Xarelto) 20 mg PO DAILY@1700 90 tabs 3RF Patient Instructions: - Continue taking amlodipine and Xarelto as prescribed. - Avoid NSAIDs like Aleve to prevent gastrointestinal bleeding. - Monitor hemoglobin levels with follow-up blood work. - Use the prescribed muscle relaxer as needed for pain management, but avoid taking it with gabapentin. - Follow up with cardiology for ongoing management and monitoring.
[2025-07-16 13:22] VITALS: BP 133/60; PULSE 81; TEMP 35.8; O2SAT 96
== END 2025-07-16 14:15 | disposition home or self-care (01) ==
LOC: HO.HMCSH 13:17
PROVIDERS: PCP Physician Assistant Medical; Visit Provider Physician Assistant Medical
DX: I48.91 Unspecified atrial fibrillation (principal); D64.9 Anemia, unspecified; R00.1 Bradycardia, unspecified; N17.9 Acute kidney failure, unspecified; Z09 Encounter for follow-up examination after completed treatment for conditions other than malignant neoplasm; K92.2 Gastrointestinal hemorrhage, unspecified; M79.606 Pain in leg, unspecified

== ENCOUNTER → 2025-07-16 13:16 | Outpatient (BNVA) | payer MEDICARE, BC, SELFPAY | PROVIDERS: PCP Internal Medicine; Visit Provider Physician Assistant Medical | DX: E66.01 Morbid (severe) obesity due to excess calories (principal); D64.9 Anemia, unspecified; I48.91 Unspecified atrial fibrillation; R00.1 Bradycardia, unspecified; I10 Essential (primary) hypertension; G47.33 Obstructive sleep apnea (adult) (pediatric); G62.9 Polyneuropathy, unspecified; N17.9 Acute kidney failure, unspecified; K92.2 Gastrointestinal hemorrhage, unspecified; M79.601 Pain in right arm; M79.602 Pain in left arm; G89.29 Other chronic pain; Z09 Encounter for follow-up examination after completed treatment for conditions other than malignant neoplasm; Z28.89 Immunization not carried out for other reason; Z68.42 Body mass index [BMI] 45.0-49.9, adult; Z79.01 Long term (current) use of anticoagulants; Z99.89 Dependence on other enabling machines and devices | CPT/HCPCS: 96127; 99495 ==

== ENCOUNTER → 2025-07-17 14:50 | Outpatient (REF) | payer MEDICARE, BC, SELFPAY ==
--- NOTE | 2025-07-17 14:58 | HM_ITS ---
Conclusion: 1. Patient was monitored for total period of 2 days and 23 hours 2. Baseline was atrial fibrillation with average heart rate of 65 beats per minute 3. No significant pauses noted 4. Occasional PVCs noted with for nonsustained runs of SVT, longest lasting 6 beats 5. No patient reported events MTDD
--- OUTSIDE RECORDS SUMMARY | 2025-09-06 20:00 | XMS_ITS | Clinical Summary ---
Author Organization Unknown Care Team Providers Care Cashier Tube Room Name Role Phone FREDERICK ARIAS, ARIANNE Unavailable Unavailab rivas YAN RN, RAYMUNDO Unavailable Unavailable Payers Payer Name Policy Type Policy Number Effective Date Expira tion Date MEDICARE - [place] - [place] [id number] Problems Condition Name Condition Details Condition Category Status Onset Date Resolution Date Last Treatment Date Treating Clinician Comments GASTROINTEST INAL HEMORRHAGE, UNSPECIFIED Active 2024-09 0-08 00:00: 00 UNSPECIFIED ATRIAL FLUTTER Active 2024-09 0 00:00: 00 Allergies, Adverse Reactions, Alerts Allergy Name Allergy Type Status Severity Reaction(s) Onset Date Inactive Date Treating Clinician Comments 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 Propensity to adverse reactions Active 2024-0914 18:08: 18 AMOXICILLIN Propensity to adverse reactions Active 2024-09 014 18:08: 29 FLECAINIDE Propensity to adverse reactions Active 2024-0914 18:08: 56 Immunizations Ordered Immunization Name Filled Immunization Name Date Status Comments Refusal Reason INFLUENZA, TIV (INACTIVATED) 2025-07-06 00:00:00 Vital Signs Vital Name Observation Time Observation Value Commen ts Temperature 2025-07-17 12:14:00.000 98.2 [degF] Temperature 2025-07-10 10:30:00.000 97.7 [degF] BMI (%) 2025-07-10 17:43:36.000 49 kg/m2 Height 2025-07-10 17:43:36.000 65 [in_us] Pulse 2025-07-17 12:14:00.000 76 /min Pulse 2025-07-10 10:30:00.000 74 /min O2 Saturation (%) 2025-07-17 12:14:00.000 97 % O2 Saturation (%) 2025-07-10 10:30:00.000 97 % Respirations 2025-07-17 12:14:00.000 19 /min Respirations 2025-07-10 10:30:00.000 18 /min Weight (lbs) 2025-07-10 10:30:00.000 295 [lb_av] Systolic Blood Pressure 2025-07-17 12:14:00.000 128 mm [Hg] Systolic Blood Pressure 2025-07-10 10:30:00.000 134 mm [Hg] Diastolic Blood Pressure 2025-07-17 12:14:00.000 74 mm [Hg] Diastolic Blood Pressure 2025-07-10 10:30:00.000 72 mm [Hg] Plan of Treatment Planned Activity Planned Date Details Comments Future Scheduled Test SKILLED NU RSE TO EVALUATE PATIENT, IDENTIFY PRIMARY AND CO-MORBID CONDITIONS CODED PER CODING GUIDELINES, AND DEVELOP PATIENT SPECIFIC PLAN OF CARE THAT INCLUDES PATIENT GOAL FOR HOME HEALTH. [code = SKILLED NURSE TO EVALUATE PATIENT, IDENTIFY PRIMARY AND CO-MORBID CONDITIONS CODED PER CODING GUIDELINES, AND DEVELOP PATIENT SPECIFIC PLAN OF CARE THAT INCLUDES PATIENT GOAL FOR HOME HEALTH.] Future Scheduled Test SKILLED NU RSE TO REVIEW PATIENT MEDICATIONS (PRESCRIPTION/OTC). INSTRUCT PATIENT/CAREGIVER ON ALL MEDICATIONS INCLUDING PURPOSE, WHEN TO TAKE, IMPORTANCE OF MEDICATION ADHERENCE, MONITORING OF EFFECTIVENESS, ADVERSE DRUG REACTIONS, POSSIBLE SIDE EFFECTS, AND WHEN TO NOTIFY AGENCY OR PHYSICIAN/PROVIDER OF ANY CONCERNS. [code = SKILLED NURSE TO REVIEW PATIENT MEDICATIONS (PRESCRIPTION/OTC). INSTRUCT PATIENT/CAREGIVER ON ALL MEDICATIONS INCLUDING PURPOSE, WHEN TO TAKE, IMPORTANCE OF MEDICATION ADHERENCE, MONITORING OF EFFECTIVENESS, ADVERSE DRUG REACTIONS, POSSIBLE SIDE EFFECTS, AND WHEN TO NOTIFY AGENCY OR PHYSICIAN/PROVIDER OF ANY CONCERNS.] Future Scheduled Test PATIENT CLIFFORD S A RISK OF HOSPITALIZATION AND ED USE. SKILLED NURSE TO ESTABLISH SUPPORT MEASURES TO MINIMIZE RISK OF HOSPITALIZATION AND ED USE, AND INSTRUCT PATIENT/CAREGIVER ON METHODS TO REDUCE AVOIDABLE HOSPITALIZATION AND ED USE. [code = PATIENT HAS A RISK OF HOSPITALIZATION AND ED USE. SKILLED NURSE TO ESTABLISH SUPPORT MEASURES TO MINIMIZE RISK OF HOSPITALIZATION AND ED USE, AND INSTRUCT PATIENT/CAREGIVER ON METHODS TO REDUCE AVOIDABLE HOSPITALIZATION AND ED USE.] Future Scheduled Test SKILLED NU RSE TO PROVIDE INSTRUCTION TO PATIENT/CAREGIVER RELATED TO DISCHARGE PLANNING. [code = SKILLED NURSE TO PROVIDE INSTRUCTION TO PATIENT/CAREGIVER RELATED TO DISCHARGE PLANNING.] Future Scheduled Test SKILLED NU RSE TO PERFORM ENVIRONMENTAL SAFETY RISK ASSESSMENT AND FALL RISK ASSESSMENT AND PROVIDE INSTRUCTION TO IMPLEMENT ENVIRONMENTAL SAFETY AND FALL PREVENTION STRATEGIES THROUGHOUT THE CERTIFICATION PERIOD. SKILLED NURSE WILL MAINTAIN SITUATIONAL AWARENESS AND WILL NOTIFY CLINICAL RUBBER CUTTER AND SHAPE CARVER AND PHYSICIAN/PROVIDER WITH ANY CHANGE IN CONDITION. [code = SKILLED NURSE TO PERFORM ENVIRONMENTAL SAFETY RISK ASSESSMENT AND FALL RISK ASSESSMENT AND PROVIDE INSTRUCTION TO IMPLEMENT ENVIRONMENTAL SAFETY AND FALL PREVENTION STRATEGIES THROUGHOUT THE CERTIFICATION PERIOD. SKILLED NURSE WILL MAINTAIN SITUATIONAL AWARENESS AND WILL NOTIFY CLINICAL RUBBER CUTTER AND SHAPE CARVER AND PHYSICIAN/PROVIDER WITH ANY CHANGE IN CONDITION.] Future Scheduled Test SKILLED NU RSE FOR OBSERVATION AND ASSESSMENT OF PATIENT S PAIN LEVEL AND EFFECTIVENESS OF PAIN MANAGEMENT REGIMEN. SKILLED NURSE TO INSTRUCT PATIENT/CAREGIVER REGARDING PHARMACOLOGIC AND NON-PHARMACOLOGIC PAIN CONTROL MEASURES. SKILLED NURSE TO REPORT TO PHYSICIAN IF PAIN LEVEL IS OUTSIDE OF ESTABLISHED PARAMETERS. [code = SKILLED NURSE FOR OBSERVATION AND ASSESSMENT OF PATIENT S PAIN LEVEL AND EFFECTIVENESS OF PAIN MANAGEMENT REGIMEN. SKILLED NURSE TO INSTRUCT PATIENT/CAREGIVER REGARDING PHARMACOLOGIC AND NON-PHARMACOLOGIC PAIN CONTROL MEASURES. SKILLED NURSE TO REPORT TO PHYSICIAN IF PAIN LEVEL IS OUTSIDE OF ESTABLISHED PARAMETERS.] Future Scheduled Test SKILLED NU RSE TO ASSESS PATIENT'S SKIN INTEGRITY AND INSTRUCT PATIENT/CAREGIVER ON MEASURES TO PREVENT PRESSURE ULCERS. [code = SKILLED NURSE TO ASSESS PATIENT'S SKIN INTEGRITY AND INSTRUCT PATIENT/CAREGIVER ON MEASURES TO PREVENT PRESSURE ULCERS.] Future Scheduled Test SKILLED NU RSE FOR O/A AND SKILLED TEACHING RELATED TO ALTERED SKIN INTEGRITY FUNGAL RASH SKIN FOLDS [code = SKILLED NURSE FOR O/A AND SKILLED TEACHING RELATED TO ALTERED SKIN INTEGRITY FUNGAL RASH SKIN FOLDS] Future Scheduled Test SKILLED NU RSE TO PROVIDE TEACHING ON SIGNS AND SYMPTOMS AND MANAGEMENT OF HYPERTENSION. [code = SKILLED NURSE TO PROVIDE TEACHING ON SIGNS AND SYMPTOMS AND MANAGEMENT OF HYPERTENSION.] Future Scheduled Test SKILLED NU RSE FOR O/A, TEACHING AND SELF-MANAGEMENT RELATED TO HEART FAILURE. INSTRUCT PATIENT/CAREGIVER ON SIGNS AND SYMPTOMS OF EXACERBATION TO REPORT AND IMPORTANCE OF OBTAINING AND RECORDING DAILY WEIGHT AND/OR MEASUREMENTS. SN OR TRAINED PATIENT/CAREGIVER TO OBTAIN WEIGHT DAILY AND WEIGHT GAIN OF 2 LBS OVERNIGHT OR 5 LBS IN 1 WEEK TO BE REPORTED TO PHYSICIAN/PROVIDER. IF UNABLE TO WEIGH PATIENT, SN OR TRAINED PATIENT/CAREGIVER TO OBTAIN MEASUREMENT OF THIGH IN CM DAILY AND REPORT AN INCREASE OF 2 CM TO PHYSICIAN/PROVIDER. [code = SKILLED NURSE FOR O/A, TEACHING AND SELF-MANAGEMENT RELATED TO HEART FAILURE. INSTRUCT PATIENT/CAREGIVER ON SIGNS AND SYMPTOMS OF EXACERBATION TO REPORT AND IMPORTANCE OF OBTAINING AND RECORDING DAILY WEIGHT AND/OR MEASUREMENTS. SN OR TRAINED PATIENT/CAREGIVER TO OBTAIN WEIGHT DAILY AND WEIGHT GAIN OF 2 LBS OVERNIGHT OR 5 LBS IN 1 WEEK TO BE REPORTED TO PHYSICIAN/PROVIDER. IF UNABLE TO WEIGH PATIENT, SN OR TRAINED PATIENT/CAREGIVER TO OBTAIN MEASUREMENT OF THIGH IN CM DAILY AND REPORT AN INCREASE OF 2 CM TO PHYSICIAN/PROVIDER.] Future Scheduled Test SKILLED NU RSE TO INSTRUCT PATIENT/CAREGIVER ON SIGNS AND SYMPTOMS, RISK FACTORS, COMPLICATIONS, AND MANAGEMENT OF ATRIAL FIBRILLATION. [code = SKILLED NURSE TO INSTRUCT PATIENT/CAREGIVER ON SIGNS AND SYMPTOMS, RISK FACTORS, COMPLICATIONS, AND MANAGEMENT OF ATRIAL FIBRILLATION.] Future Scheduled Test SKILLED NU RSE TO PROVIDE TEACHING/REINFORCEMENT RELATED TO URINARY INCONTINENCE. [code = SKILLED NURSE TO PROVIDE TEACHING/REINFORCEMENT RELATED TO URINARY INCONTINENCE.] Future Scheduled Test SKILLED NU RSE MAY COLLECT URINE SAMPLE FOR URINE REAGENT STRIP TESTING AND/OR URINALYSIS WITH C S 1-3 PRN IF INDICATED FOR SIGNS AND SYMPTOMS OF UTI. IF REAGENT STRIP TEST IS POSITIVE FOR UTI, SKILLED NURSE TO TAKE URINE SAMPLE TO LAB FOR URINE C S AND REPORT RESULTS TO PHYSICIAN. [code = SKILLED NURSE MAY COLLECT URINE SAMPLE FOR URINE REAGENT STRIP TESTING AND/OR URINALYSIS WITH C S 1-3 PRN IF INDICATED FOR SIGNS AND SYMPTOMS OF UTI. IF REAGENT STRIP TEST IS POSITIVE FOR UTI, SKILLED NURSE TO TAKE URINE SAMPLE TO LAB FOR URINE C S AND REPORT RESULTS TO PHYSICIAN.] Future Scheduled Test SKILLED NU RSE FOR O/A, TEACHING RELATED TO GI BLEED IDENTIFICATION OF EXACERBATION OF DISEASE PROCESS. [code = SKILLED NURSE FOR O/A, TEACHING RELATED TO GI BLEED IDENTIFICATION OF EXACERBATION OF DISEASE PROCESS.] Future Scheduled Test SKILLED NU RSE FOR INSTRUCTION/ REINFORCEMENT OF NEEDS RELATED TO NUTRITION/HYDRATION. [code = SKILLED NURSE FOR INSTRUCTION/ REINFORCEMENT OF NEEDS RELATED TO NUTRITION/HYDRATION.] Future Scheduled Test SKILLED NU RSE FOR O/A AND SKILLED TEACHING RELATED TO SIGNS AND SYMPTOMS AND MANAGEMENT OF ANEMIA. [code = SKILLED NURSE FOR O/A AND SKILLED TEACHING RELATED TO SIGNS AND SYMPTOMS AND MANAGEMENT OF ANEMIA.] Future Scheduled Test SKILLED NU RSE FOR O/A OF SELF-CARE DEFICITS AND TO PROVIDE TEACHING RELATED TO SAFE PROVISION OF ADLS. [code = SKILLED NURSE FOR O/A OF SELF-CARE DEFICITS AND TO PROVIDE TEACHING RELATED TO SAFE PROVISION OF ADLS.] Future Scheduled Test SKILLED NU RSE FOR O/A AND SKILLED TEACHING RELATED TO SIGNS AND SYMPTOMS OF INFECTION AND INFECTION CONTROL MEASURES. [code = SKILLED NURSE FOR O/A AND SKILLED TEACHING RELATED TO SIGNS AND SYMPTOMS OF INFECTION AND INFECTION CONTROL MEASURES.] Future Scheduled Test PHYSICAL T HERAPIST TO EVALUATE PATIENT FOR GAIT STABILITY AND STRENGTH [code = PHYSICAL THERAPIST TO EVALUATE PATIENT FOR GAIT STABILITY AND STRENGTH] Goal Patient Goal - STAY OUT OF H OSPITAL Goal Provider Goal - A PLAN OF CARE WILL BE ESTABLISHED THAT MEETS PATIENT'S LONG-TERM NEEDS AND INCLUDES PATIENT GOAL FOR HOME HEALTH. Goal Provider Goal - PATIENT/CAREGIVER WILL VERBALIZE UNDERSTANDING OF EDUCATION PROVIDED ON MEDICATIONS BY THE END OF THE CERTIFICATION PERIOD. Goal Provider Goal - PATIENT WILL HAVE SUPPORT MEASURES ESTABLISHED TO PREVENT HOSPITALIZATION AND ED USE AND PATIENT/CAREGIVER WILL VERBALIZE/DEMONSTRATE METHODS TO REDUCE AVOIDABLE HOSPITALIZATION AND ED USE BY END OF EPISODE. Goal Provider Goal - PATIENT/CAREGIVER WILL VERBALIZE UNDERSTANDING OF DISCHARGE PLANNING INSTRUCTIONS BY DATE OF DISCHARGE. Goal Provider Goal - PATIENT/CAREGIVER WILL VERBALIZE/DEMONSTRATE EFFECTIVE ENVIRONMENTAL SAFETY AND FALL PREVENTION STRATEGIES, WILL REMAIN SAFE IN THE COMMUNITY, AND WILL BE FREE OF DANGER TO SELF AND OTHERS THROUGHOUT THE CERTIFICATION PERIOD. Goal Provider Goal - PATIENT/CAREGIVER WILL DEMONSTRATE UNDERSTANDING OF PHARMACOLOGIC AND NONPHARMACOLOGIC PAIN CONTROL MEASURES AND PATIENT WILL HAVE IMPROVEMENT IN PAIN INTERFERING WITH ACTIVITY EVIDENCED BY PAIN AT A LEVEL THAT IS ACCEPTABLE TO THE PATIENT AND PAIN LEVEL WITHIN ESTABLISHED PARAMETERS BY END OF CERTIFICATION PERIOD. Goal Provider Goal - PATIENT/CAREGIVER WILL VERBALIZE UNDERSTANDING OF PRESSURE ULCER PREVENTION BY END OF THE EPISODE. Goal Provider Goal - PATIENT/CAREGIVER WILL VERBALIZE/DEMONSTRATE UNDERSTANDING OF TEACHING RELATED TO ALTERED SKIN INTEGRITY BY END OF CERTIFICATION PERIOD. Goal Provider Goal - PATIENT/CAREGIVER WILL VERBALIZE SIGNS AND SYMPTOMS OF HYPERTENSION AND WILL BE ABLE TO DEMONSTRATE ABILITY TO MANAGE EXACERBATION BY END OF THE EPISODE. Goal Provider Goal - PATIENT/CAREGIVER WILL VERBALIZE/DEMONSTRATE KNOWLEDGE AND MANAGEMENT OF HEART FAILURE DISEASE PROCESS BY END OF EPISODE. Goal Provider Goal - PATIENT/CAREGIVER WILL VERBALIZE UNDERSTANDING OF SIGNS AND SYMPTOMS, COMPLICATIONS, AND MANAGEMENT OF ATRIAL FIBRILLATION THROUGHOUT THE CERTIFICATION PERIOD. Goal Provider Goal - PATIENT / CAREGIVER WILL VERBALIZE UNDERSTANDING OF EFFECTS OF URINARY INCONTINENCE BY THE END OF THE CERTIFICATION PERIOD. Goal Provider Goal - URINE SPECIMEN WILL BE OBTAINED PRN FOR SIGNS AND SYMPTOMS OF UTI AND RESULTS WILL BE REPORTED TO PHYSICIAN THROUGHOUT THE CERTIFICATION PERIOD. Goal Provider Goal - EXACERBATIONS OF GASTROINTESTINAL DISEASE WILL BE PROMPTLY IDENTIFIED AND INTERVENTIONS IMPLEMENTED TO MINIMIZE RISKS TO PATIENT BY END OF EPISODE. Goal Provider Goal - PATIENT/CAREGIVER WILL DEMONSTRATE ABILITY TO SELF MANAGE NEEDS RELATED TO NUTRITION/HYDRATION THROUGHOUT THE EPISODE. Goal Provider Goal - PATIENT/CARGIVER WILL VERBALIZE UNDERSTANDING OF ANEMIA INCLUDING SIGNS AND SYMPTOMS, MANAGEMENT OF COMPLICATIONS, AND PRESCRIBED TREATMENT REGIMEN BY END OF EPISODE. Goal Provider Goal - PATIENT/CAREGIVER WILL VERBALIZE/DEMONSTRATE UNDERSTANDING OF SAFE PROVISION OF ADLS BY THE END OF THE CERTIFICATION PERIOD. Goal Provider Goal - PATIENT/CAREGIVER WILL VERBALIZE/DEMONSTRATE UNDERSTANDING OF S/S OF INFECTION AND INFECTION CONTROL MEASURES. SIGNS AND SYMPTOMS OF INFECTION WILL BE IDENTIFIED AND PHYSICIAN NOTIFIED FOR PROMPT INTERVENTION THROUGHOUT THE CERTIFICATION PERIOD. Goal Provider Goal - A PHYSICAL THERAPY EVALUATION TO BE COMPLETED WITH RECOMMENDATIONS AND/OR WRITTEN PLAN OF TREATMENT ESTABLISHED FOR PHYSICIAN S SIGNATURE. Progress Notes Progress Notes <paragraph>[Visit Date: 2024 by RAYMUNDO YAN RN]:</paragraph><paragraph>SNV</paragraph><paragraph></paragraph><paragraph>ABNO RMAL VITALS: WNL</paragraph><paragraph></paragraph><paragraph>FALLS:NONE</paragraph><paragrap h></p aragraph><paragraph>PHYSICAL ASSESSMENT FINDINGS: PT AWAKE AND ALERT VSS AFEBRILE LUNGS CLEAR DIM SPEAKING IN FULL SENTENCES NAD NOTED ABD SNT POS BS DENIES PROBLEMS WITH BOWEL OR BLADDER L BREAST FOLD FUNGAL RASH RESOLVED. LE NON PITTING EDEMA SKIN INTACT. PT REF TO PERFORM DAILY WEIGHT. REVIEWED IMPORTANCE OF DAILY WEIGHT TO STAY OUT OF HOSPITAL. PT DECLINED. SHE SAW PCP LAST WEEK NO MED CHANGES. PT TO HAVE X3 DAY HALTER MONITOR PLACED TODAY. SCHEDULED APPT TODAY FOR THIS. </paragraph><paragraph>REVIEWED LOW SODIUM DIET CHOICES. PT USES AD WHEN AMBULATING SLOW GAIT. WILL BENEFIT FROM PT FOR STRENGTHENING AND STABILITY. LE LEG CRAMPS PAIN. PA INITIALLY ORDERED MUSCLE RELAXERS HOWEVER PT REPORTS PHARMACY TOLD HER NOT RECOMMENDED WITHNHER MED REGIME AND HER HISTORY OF AFIB. PT WILL NOT BE TAKING RELAXERS. ELEVATION REVIEWED FOR LE.</paragraph><paragraph></paragraph><paragraph>MEDICATION CHANGES: NO CHANGES</paragraph><paragraph></paragraph><paragraph>HANDS ON CARE: ASSESSMENT TEACHING HOME SAFETY FALL PREVENTION DIET LOW SALT OPTIONS SKIN INSPECTION RASH AREA RESOLVED WITH ANTI FUNGAL CREAM</paragraph><paragraph></paragraph><paragraph>PATIENT/CAREGIVER TEACH BACK. PT VERBALIZED UNDERSTANDING OF LINDA.Y WT DEC,MASSIMO TO DO THE </paragraph><paragraph></paragraph><paragraph>NEXT APPOINTMENT: TODAY HALTER</paragraph><paragraph></paragraph><paragraph>NEW ORDERS: N</paragraph><paragraph></paragraph><paragraph>INSTRUCTED PATIENT AND CAREGIVER TO CALL [facility] WITH ANY QUESTIONS OR CHANGES IN CONDITION</paragraph> Encounters Start Date/Time End Date/Time Encounter Type Admission Type Attending [facility] Facility Care Department Encounter ID Discharge Date Discharge Status Discharge Condition Discharge Reason Percent Goals Met 2025-07-10 00:00:00 2025-09-07 00:00:00 Outpatient NEW ADMISSION RAYMUNDO YAN [facility] [id number] 31.25
== END ==
LOC: HO.CARD 14:50
PROVIDERS: PCP Internal Medicine; Visit Provider Internal Medicine Cardiovascular Disease
DX: I48.20 Chronic atrial fibrillation, unspecified (principal); I50.30 Unspecified diastolic (congestive) heart failure
CPT/HCPCS: 93242

== ENCOUNTER → 2025-07-17 14:58 | Outpatient (BNV) | payer MEDICARE, BC, SELFPAY | PROVIDERS: PCP Internal Medicine; Visit Provider Internal Medicine Cardiovascular Disease | DX: I49.3 Ventricular premature depolarization (principal) | CPT/HCPCS: 93244 ==

== ENCOUNTER 2025-07-25 12:02 | Outpatient (REF) | payer MEDICARE, BC, SELFPAY ==
[2025-07-25 16:54] LABS: Hematocrit 39.8 % (37.0-47.0); Hemoglobin 11.9 g/dl (12.0-16.0); Mean Corpuscular HGB Conc 29.9 g/dl (31.0-35.0); Mean Corpuscular Hemoglobin 30.3 pg (27.0-33.0); Mean Corpuscular Volume 101.3 fL (80.0-98.0); NRBC Abs Auto 0.000 X10*3/uL (0.0-0.012); NRBC Pct Auto 0.0 /100WBC (0.0-0.2); Platelet Count 300 X10*3/uL (160-400); Red Blood Count 3.93 X10*6/uL (4.20-5.50); White Blood Count 5.1 X10*3/uL (4.8-10.8)
[2025-07-25 17:06] LABS: Alanine Aminotransferase 20 U/L (0-31); Albumin Level 3.8 g/dL (3.5-5.0); Alkaline Phosphatase 142 U/L (39-117); Anion Gap 17 (12-20); Aspartate Amino Transferase 45 U/L (5-31); Blood Urea Nitrogen 22 mg/dL (9-16); Calcium 8.8 mg/dL (8.4-10.2); Carbon Dioxide 24 mmol/L (22-29); Chloride 102 mmol/L (96-108); Estimated Glomerular Filt Rate 42; Magnesium 2.3 mg/dL (1.6-2.6); Potassium 4.5 mmol/L (3.3-5.1); Sodium 138 mmol/L (135-145); Total Protein 7.1 g/dL (6.5-8.0)
== END 2025-07-25 12:03 | disposition home or self-care (01) ==
LOC: HO.HVNA 12:02
PROVIDERS: PCP Internal Medicine; Visit Provider Internal Medicine
DX: K92.2 Gastrointestinal hemorrhage, unspecified (principal); I48.92 Unspecified atrial flutter
CPT/HCPCS: 36415; 80053; 83735; 85027

== ENCOUNTER 2025-07-31 13:46 | Outpatient (AMB) | payer MEDICARE, BC, SELFPAY ==
[2025-07-31 13:48] VITALS: BP 141/76; PULSE 92; RESP 16; TEMP 36.7; O2SAT 97; BMI 46.7
--- NOTE | 2025-07-31 13:48 | A.OFFPC_ITS ---
Vital Signs 07/31/25 13:48 Height 5 ft 4 in Weight 272 lb BMI 46.7 BP 141/76 H Blood Pressure Location Rt brachial Position Sitting Respiration 16 Pulse 92 Pulse Source Pulse Oximeter Temp 98.0 F Temp Source Temporal Artery Scan Pulse Oximetry (%) 97 Oxygen Delivery Method Room Air Intake Visit Reasons: 3 month follow up Client Renewal Specialist Required: No Accompanied by: Self / Same As Patient Allergies amoxicillin (AMOXICILLIN) Allergy (Unknown, Verified 07/31/25 13:48) UNKNOWN flecainide (FLECAINIDE) Allergy (Unknown, Verified 07/31/25 13:48) SEVERE CHEST PAIN Sulfa (Sulfonamide Antibiotics) (SULFA (SULFONAMIDE ANTIBIOTICS)) Allergy (Unknown, Verified 07/31/25 13:48) UNKNOWN Tobacco use date assessed: 07/16/25 Dental Screening Dental Screen Date: 07/16/25 [facility] Medical History Bradycardia Gastrointestinal bleed Lower extremity pain PEARL (acute kidney injury) Atrial fibrillation Hospital discharge follow-up Anemia Chronic atrial flutter Chronic venous hypertension w ulceration Chronic venous insufficiency Dyspnea on exertion Morbid obesity (HFpEF) heart failure with preserved ejection fraction Chronic a-fib Atrial fibrillation with slow ventricular response Cholelithiasis Paroxysmal atrial fibrillation JANI (obstructive sleep apnea) HTN (hypertension) Surgical History History of cardioversion Hx of cardiac cath History of hip surgery Family History Father CVD (cardiovascular disease) Mother CHF (congestive heart failure) Social History Household Members: None Household Members Other:: brother Housing: House Do you presently have visiting nurse or other home services: No Alcohol intake: former Patient Tobacco Use Status: Former Tobacco user Tobacco use type: Cigarette Years Smoked: 12 e-Cigarette/Vaping Use: Never Used Second Hand Smoke Exposure: No Advance Directives Date on File: 04/28/23 service: No Current occupational status: retired Cognitive needs: Yes (walker) Hearing needs: No Vision needs: Yes (rx glasses) Questionnaire PHQ-9 Over the last 2 weeks, how often have you been bothered by any of the following problems? 1. Little interest or pleasure in doing things: not at all 2. Feeling down, depressed, or hopeless: not at all 3. Trouble falling or staying asleep, or sleeping too much: not at all 4. Feeling tired or having little energy: not at all 5. Poor appetite or overeating: not at all 6. Feeling bad about yourself - or that you are a failure or have let yourself or your family down: not at all 7. Trouble concentrating on things, such as reading the newspaper or watching television: not at all 8. Moving or speaking so slowly that other people could have noticed. Or the opposite - being so fidgety or restless that you have been moving around a lot more than usual: not at all 9. Thoughts that you would be better off or of hurting yourself in some way: not at all Total score: 0 Depression Screening Interpretation: Negative Depression Screening Done: Yes 02356 - PHQ-9 Billing: Yes Source: Developed by Drs. Jesus Schwartz, Marlen Dimas, Julian Quigley and colleagues, with an educational glenna from [employer]. Thrive Questionnaire Date Thrive assessed: 01/23/25 I am a: Patient What is your living situation today?: I have a steady place to live Within the past 12 months, did the food you bought not last and you didn't have the money to get more?: Never true Within the past 12 months, did you worry whether your food would run out before you got money to buy more?: Never true Do you have trouble paying for medicines?: No Do you have trouble getting transportation to medical appointments?: No Do you have trouble paying your heating and electricity bill?: No Do you have trouble taking care of your child, family member or friend?: No Do you have trouble with day-to-day activities such as bathing, preparing meals, shopping, managing finances, etc.?: No Are you currently unemployed and looking for a job?: No Are you interested in more education?: No Please select the resources that you would like help with: None THRIVE Score: 0 AUDIT C Alcohol Use Questionnaire (AUDIT-C) 1. How often do you have a drink containing alcohol?: Never 3. How often do you have six or more drinks on one occasion?: Never Total Score: 0 Score Reviewed/Action Taken: No ERIC-7 AMB Questionnaire ERIC-7 Date ERIC - 7 assessed: 07/16/25 Feeling nervous, anxious, or on edge: 0 = Not at all Not being able to stop or control worryin = Not at all Worrying too much about different things: 0 = Not at all Trouble relaxin = Not at all Being so restless that it is hard to sit still: 0 = Not at all Becoming easily annoyed or irritable: 0 = Not at all Feeling afraid as if something awful might happen: 0 = Not at all Total ERIC-7 score (0-4 normal; 5-9 mild; 10-14 moderate; 15-21 severe): 0 Source: Developed by Drs. Jesus Schwartz, Marlen Dimas, Julian Quigley and colleagues, with an educational glenna from [employer]. ERIC-7 Assessment Billing ERIC-7 Assessment Tool: ERIC-7 Assessment 37548 Physical exam (Primary Care) Vital Signs: Last Vital Signs Temp 98.0 F 07/31/25 13:48 Pulse 92 07/31/25 13:48 Resp 16 07/31/25 13:48 BP 141/76 H 07/31/25 13:48 Pulse Ox 97 07/31/25 13:48 Oxygen Delivery Method Room Air 07/31/25 13:48 BMI result Body Mass Index 46.7 Tobacco/Smoking Status: Tobacco use Status Tobacco use date assessed 07/16/25 07/31/25 13:49 Patient Tobacco Use Status Former Tobacco user 07/31/25 13:49 Tobacco use type Cigarette 07/31/25 13:49 e-Cigarette/Vaping Use Never Used 07/31/25 13:49 PHQ-9: PHQ-9 Score PHQ-9: Total score 0 07/31/25 14:20 Depression Screening Interpretation: Negative Thrive Assessment: Date of Thrive Assessment Date Thrive assessed 01/23/25 07/31/25 13:49 Office Procedures Flu Questionnaire Does the patient have a severe egg allergy?: No Does the patient have severe life threatening allergies?: No Does the patient have a fever or illness today?: No Has the patient ever had Guillain-[place] Syndrome?: No Has the patient ever had any past reaction to a flu shot?: No Immunizations Fluarix [id number] (PF) 45 mcg (15 mcg x 3)/0.5 mL IM syringe Performing Provider: Aristides Pedraza MD [place] [facility] [facility] [place] [facility] Documented (not given) by: FERNANDO Atkinson on 07/31/25 14:21 Reason Not Given: Received Previously Coding Level of Care Code Est Pt Level 4 (30378) Complex EM visit Add On G2211 Diagnoses Atrial fibrillation I48.91 Additional Codes ERIC-7 Assessment Billing - ERIC-7 Assessment Tool: ERIC-7 Assessment 17012 ([id number]) PHQ-9 - 19296 - PHQ-9 Billing: Yes ([id number]) Assessment & Plan Assessment & Plan (1) Atrial fibrillation: Code(s): I48.91 - Unspecified atrial fibrillation Category: Medical Plan: History of Present Illness - The patient is a 80-year-old female presenting for a follow-up visit after a recent hospitalization. - She was hospitalized 2-3 weeks ago for severe bradycardia with a heart rate of 22 and anemia, requiring three blood transfusions. - Prior to her hospitalization, she experienced symptoms of dizziness and lightheadedness. - Her hemoglobin had dropped from 12 in December to 6.8 in June. - An in-hospital workup included a colonoscopy and endoscopy, both of which were negative for any source of bleeding. - Post-hospitalization, her atenolol and lisinopril were discontinued. - The patient reports a history of pain in her feet and legs, for which methocarbamol was prescribed previously, but she did not take it due to a pharmacist's concern about an interaction with her blood thinner, Xarelto. - She reports having a wound on her coccyx and gluteal region, for which she was given a powder to apply. - She is up to date on her flu shot, which she received during her recent hospitalization. - She has a history of colonoscopies with Dr. Gaffney, which she stopped at age 79. Social History Review of Systems - General: Denies current health concerns. - Neurological: Reports a history of dizziness and lightheadedness. - Musculoskeletal: Reports a history of pain in her feet and legs. - Integumentary: Reports a wound on the coccyx and gluteal region. Physical Exam General: Cooperative and healthy appearing Nutritional Appearance: Well nourished Orientation/consciousness: Patient oriented x3 Limitations: No limitations Head: Normal to inspection General: Appearance normal, both eyes and all related structures Neck: Normal visual inspection Chest: Normal palpation of entire chest wall Respiratory: N ormal respiratory effort Neurology: Patient oriented x3, but reports dizziness and lightheadedness in the past. Results - Labs from July 25: Hemoglobin was 11.9 g/dL, which is the highest it has been in the last month. - Electrolytes and B12/folate levels were normal. - Kidney function was back to normal at 1.23. - Liver function was slightly elevated. - Labs prior to June: Hemoglobin was 12 in December and dropped to 6.8 in June. - Procedures: Colonoscopy and endoscopy performed during her recent hospitalization were clear with no findings. Plan - The prescription for methocarbamol has been discontinued, as the patient did not take it. - The patient will continue taking Xarelto 20 mg daily, and refills will be provided as needed. - The patient will proceed with her scheduled follow-up appointment with Dr. Garcia. - Based on the patient's report that the issues are resolved, she will not follow up with the wound center or the account service associate at this time. - Lab results from July 25 were reviewed with the patient. Discussion Notes I reviewed the patient's recent hospitalization for severe bradycardia and anemia, which required transfusions. We discussed her lab results from July 25, noting her hemoglobin improved to 11.9, and her kidney function returned to normal. We confirmed the discontinuation of her atenolol and lisinopril post- hospitalization and that she did not take the previously prescribed methoc arbamol, which I have now discontinued. The patient expressed frustration over discrepancies in her discharge instructions regarding follow-ups; I acknowledged her concerns and clarified the rationale for the gastroenterology referral, though she feels it is unnecessary as the scopes were clear. She will continue her current medication regimen including Xarelto and will follow up with Dr. Garcia as planned. Patient Instructions - Do not take the methocarbamol prescription; it has been canceled in our system. - Continue taking your Xarelto 20mg once a day as prescribed. - Remember that you are no longer taking atenolol and lisinopril. - Please keep your scheduled appointment with Dr. Garcia. - You have already received your flu shot for the season. Orders: Orders Influenza [id number] Immunization Today Z23 - Encounter for immunization
== END 2025-07-31 14:59 | disposition home or self-care (01) ==
LOC: HO.HMCSH 13:46
PROVIDERS: PCP Internal Medicine; Visit Provider Internal Medicine
DX: Z23 Encounter for immunization (principal); I48.91 Unspecified atrial fibrillation

== ENCOUNTER → 2025-07-31 13:46 | Outpatient (BNVA) | payer MEDICARE, BC, SELFPAY | PROVIDERS: PCP Internal Medicine; Visit Provider Internal Medicine | DX: I48.91 Unspecified atrial fibrillation (principal) | CPT/HCPCS: 90471; 96127; 99212 ==

== ENCOUNTER 2025-08-13 14:49 | Outpatient (AMB) | payer MEDICARE, BC, SELFPAY ==
[2025-08-13 15:01] VITALS: BP 124/78; PULSE 63
--- NOTE | 2025-08-13 15:01 | A.OFFVIS_ITS ---
Vital Signs 08/13/25 15:01 Height 5 ft 4 in BP 124/78 Blood Pressure Location Lt brachial Position Sitting Pulse 63 Pulse Source Monitor Intake Visit Reasons: 6 wk fu after labs (NS) Extractor Machine Operator Required: No Flame Annealing Machine Operator: Flame Annealing Machine Operator Present Allergies amoxicillin (AMOXICILLIN) Allergy (Unknown, Verified 08/13/25 15:03) UNKNOWN flecainide (FLECAINIDE) Allergy (Unknown, Verified 08/13/25 15:03) SEVERE CHEST PAIN Sulfa (Sulfonamide Antibiotics) (SULFA (SULFONAMIDE ANTIBIOTICS)) Allergy (Unknown, Verified 08/13/25 15:03) UNKNOWN Medication List - Last Reconciled 08/13/25 by MALINA Hummel acetaminophen ER (Tylenol 8 Hour) 650 mg PO DAILY PRN amlodipine 2.5 mg PO DAILY atorvastatin 40 mg PO DAILY bumetanide 2 mg PO DAILY cholecalciferol (vitamin D3) 25 mcg PO DAILY econazole nitrate 1% 1 appl topical MOWEFR@0900,2100 PRN ferrous sulfate 325 mg PO DAILY gabapentin 300 mg PO BID omeprazole 40 mg PO DAILY@1630 rivaroxaban (Xarelto) 20 mg PO DAILY@1700 thiamine HCl (vitamin B1) 100 mg PO DAILY HPI HPI 6 wk fu after labs (NS): Details: Iva is a 80 year old female with past medical history of morbid obesity, hypertension, sleep apnea with CPAP use, heart failure with preserved EF, chronic atrial fibrillation who was recently admitted to [facility] with significant anemia, hemoglobin 6.8, requiring 3 units of pack cells. Evaluated by GI and underwent a EGD and colonoscopy with no bleeding source identified. Her anticoagulation was held for a few days then restarted. Follow-up labs 3 weeks later showed hemoglobin 11.9. Today she reports she has been feeling well since her hospital discharge. She has not had any visible bleeding. She tells me she had an issue with anemia like this in the past as well without identified bleeding source. Her breathing is at baseline. She does have some shortness of breath with mobility. She is mostly sedentary in his only able to take a few steps with pivoting. She uses a wheelchair. No chest discomfort, heart palpitations, lightheadedness, falls. She has chronic lower leg edema which she currently states is stable. She has no open wounds on her legs. She reports compliance with her medications. Her friend is present. [facility] Medical History (Updated 08/13/25 @ 17:10 by Bianka Bejarano, FADI-C) (HFpEF) heart failure with preserved ejection fraction Bradycardia Gastrointestinal bleed Lower extremity pain PEARL (acute kidney injury) Atrial fibrillation Hospital discharge follow-up Anemia Chronic atrial flutter Chronic venous hypertension w ulceration Chronic venous insufficiency Dyspnea on exertion Morbid obesity Chronic a-fib Atrial fibrillation with slow ventricular response Cholelithiasis Paroxysmal atrial fibrillation JANI (obstructive sleep apnea) HTN (hypertension) Surgical History History of cardioversion Hx of cardiac cath History of hip surgery Family History Father CVD (cardiovascular disease) Mother CHF (congestive heart failure) Social History Household Members: None Household Members Other:: brother Housing: House Do you presently have visiting nurse or other home services: No Alcohol intake: former Patient Tobacco Use Status: Former Tobacco user Tobacco use type: Cigarette Years Smoked: 12 e-Cigarette/Vaping Use: Never Used Second Hand Smoke Exposure: No Advance Directives Date on File: 04/28/23 service: No Current occupational status: retired Cognitive needs: Yes (walker) Hearing needs: No Vision needs: Yes (rx glasses) Review of Systems Const All systems reviewed & are unremarkable except as noted in HPI and below ENT Denies dizziness Card Denies chest pain, Denies chest pain at rest, Denies chest pain with activity, Denies rapid heart rate, Denies pedal edema, Denies edema, Denies leg edema, Denies lightheadedness, Denies palpitations, Denies dyspnea, Reports dyspnea on exertion and Denies orthopnea Resp Denies cough, Denies dyspnea and Reports dyspnea on exertion GI Denies hematochezia and Denies change in stool character Musc Details: able to take few steps only Reports abnormal gait, Reports limited range of motion, Denies muscle cramps, Reports muscle weakness, Denies numbness, Denies radiating pain into limb, Denies stiffness and Denies tingling Neuro Reports abnormal gait, Denies dizziness, Denies numbness and Denies tingling Endo Denies palpitations Physical Exam Vital Signs: Last Vital Signs Pulse 63 08/13/25 15:01 BP 124/78 08/13/25 15:01 Const General: cooperative, comfortable, alert and awake Nutritional Appearance: obese morbidly obese Orientation/consciousness: patient oriented x3 Resp Effort & Inspection: normal respiratory effort Auscultation: clear to auscultation bilaterally Cardio Jugular venous distension: no JVD Palpation: normal PMI Rate: bradycardic Rhythm: abnormal rhythm irregularly irregular Heart sounds: S1 normal heart sound present and S2 normal heart sound present Neuro General: patient oriented x3 and no focal motor deficits Extrem Other: tight leg edema which she reports as chronic General: No clubbing, No cyanosis and Yes venous stasis dermatitis Psych Appearance: grossly normal Office Procedures EKG Details: Today, read by me, atrial flutter with variable AV block, left anterior fascicular block, can not exclude prior inferior infarct/ anterior infarct, rate 63, QTC 437 millisecond [id number], Complete Assessment & Plan Assessment & Plan (1) Anemia: Code(s): D64.9 - Anemia, unspecified Category: Medical Plan: Recent significant anemia without identified bleeding source. Last hemoglobin 11.9 on 07/25/2025. She is on Xarelto [address] Garcia discussed Watchman device with her and she is now agreeable to proceed. Will refer to Dr. Pastrana for the procedure. (2) Atrial fibrillation: Code(s): I48.91 - Unspecified atrial fibrillation Category: Medical Plan: History of chronic atrial fibrillation. EKG done today is showing atrial flutter with variable AV block, rate 63. Currently no heart palpitations. She is not requiring rate slowing agents. Holter monitor done 07/17/2025 for 3 days shows atrial fibrillation with average heart rate 65 beats per minute. Continue Xarelto for anticoagulation. Pursue Watchman device as above. (3) (HFpEF) heart failure with preserved ejection fraction: Code(s): I50.30 - Unspecified diastolic (congestive) heart failure Category: Medical Plan: History of heart failure with preserved EF. Last echocardiogram 05/25/2024 showing EF 65-70%, moderate left atrial enlargement, severe mitral annular calcification and calcified aortic valve changes with no significant Doppler abnormalities. She is morbidly obese making clinical assessment more challenging. No significant fluid overload noted on exam. She tells me her breathing and edema is at baseline. Continue Bumex 2 mg daily. Informed her she may take an additional dose once daily if she was to have increased shortness of breath or edema. Call if symptoms persist. (4) Morbid obesity: Code(s): E66.01 - Morbid (severe) obesity due to excess calories Category: Medical Plan: As above. (5) JANI (obstructive sleep apnea): Code(s): G47.33 - Obstructive sleep apnea (adult) (pediatric) Category: Medical Plan: Obstructive sleep apnea treated with CPAP. She reports compliance. (6) Hospital discharge follow-up: Code(s): Z09 - Encounter for follow-up examination after completed treatment for conditions other than malignant neoplasm Category: Medical Plan: Hospital discharge and cardiology notes reviewed Plan I discussed the patient's anemia and its management, including the temporary holding of Xarelto during hospitalization and the potential for a Watchman procedure to reduce reliance on anticoagulation. We reviewed the management of atrial fibrillation with current medications and the possibility of the Watchman procedure. I advised the patient to monitor for increased shortness of breath or leg swelling and to contact us if these symptoms worsen. Orders: Referrals Cardiology Referral D64.9 - Anemia, unspecified, I48.91 - Unspecified atrial fibrillation Patient Instructions: - continue to watch for any signs of bleeding - Follow up with the referral for the Watchman procedure. - Continue current medications as prescribed. - Perform exercises recommended by physical therapy. - Report any increased shortness of breath or leg swelling. Patient was informed and verbally consented to the use of an ambient scribe for clinic note documentation during this visit. Visit time spent on chart review, interview, assessment, orders, documentation. Coding Level of Care Code Est Pt Level 4 (22467) Complex EM visit Add On G2211 Diagnoses Anemia D64.9 Atrial fibrillation I48.91 (HFpEF) heart failure with preserved ejection fraction I50.30 Morbid obesity E66.01 JANI (obstructive sleep apnea) G47.33 Hospital discharge follow-up Z09 CPT Codes EKG - CPT: 64007-[id number], Complete ([id number]) Time Spent (min) 32
== END 2025-08-13 15:35 | disposition home or self-care (01) ==
LOC: HO.HCS 14:50
PROVIDERS: PCP Internal Medicine; Visit Provider Nurse Practitioner Family
DX: D64.9 Anemia, unspecified (principal); I48.91 Unspecified atrial fibrillation; I50.30 Unspecified diastolic (congestive) heart failure; E66.01 Morbid (severe) obesity due to excess calories; G47.33 Obstructive sleep apnea (adult) (pediatric); Z09 Encounter for follow-up examination after completed treatment for conditions other than malignant neoplasm
CPT/HCPCS: 93010; 99214; G2211

== ENCOUNTER → 2025-08-13 14:49 | Outpatient (BNVA) | payer MEDICARE, BC, SELFPAY | PROVIDERS: PCP Internal Medicine; Visit Provider Nurse Practitioner Family | DX: Z09 Encounter for follow-up examination after completed treatment for conditions other than malignant neoplasm (principal); D64.9 Anemia, unspecified; I48.91 Unspecified atrial fibrillation; I11.0 Hypertensive heart disease with heart failure; I50.30 Unspecified diastolic (congestive) heart failure; I44.4 Left anterior fascicular block; G47.33 Obstructive sleep apnea (adult) (pediatric); E66.01 Morbid (severe) obesity due to excess calories | CPT/HCPCS: 93005; 99212 ==